=== PATIENT | female | born 1935 | race Caucasian/White ===

== ENCOUNTER 2017-08-25 10:09 | Observation (INO) | payer MEDICARE, BC ==
[2017-08-25] MEDS ORDERED: ASPIRIN 81 MG PO STA (10:34)
[2017-08-25] MEDS ORDERED: NITROGLYCERIN OINT 1 INCH/GM PACKET TOPICAL STA (10:34)
--- NOTE | 2017-08-25 10:35 | ED ---
General Adult HPI - General Chief complaint: Chest Pain Stated complaint: CHEST PAIN Time Seen by Provider: 08/25/17 10:10 Source: patient, RN notes reviewed Mode of arrival: wheelchair Limitations: no limitations - History of Present Illness Initial comments: This is a 82-year-old female presents emergency Department complaining that she' s having chest pain since 2 AM this morning. Patient denies any radiation of the pain patient denies any difficulty breathing or shortness of breath per patient denies any nausea. Patient denies any diaphoresis. Patient states the pain is a pressure sensation in her chest and is been ongoing without relief. Patient states she does not have any heart history. Patient denies any diabetes hypertension high cholesterol. Patient denies any smoking history. Patient states she does have a pacemaker and is on a blood thinner. - Related Data Home Medications Medication Instructions Recorded Confirmed Multivitamins, Thera [Multivitamin 1 tab PO HS 08/25/17 08/25/17 (formulary)] Warfarin [Coumadin] 5 mg PO SUTUTHSA 08/25/17 08/25/17 Warfarin [Coumadin] 7.5 mg PO MOWEFR 08/25/17 08/25/17 Allergies Allergy/AdvReac Type Severity Reaction Status Date / Time meperidine HCl [From Demerol] AdvReac Nausea & Verified 08/25/17 10:56 Vomiting Review of Systems ROS Statement: Those systems with pertinent positive or pertinent negative responses have been documented in the HPI. ROS Other: All systems not noted in ROS Statement are negative. Past Medical History Past Medical History: Atrial Fibrillation, Cancer, Osteoarthritis (OA) Additional Past Medical History / Comment(s): BREAST CANCER History of Any Multi-Drug Resistant Organisms: None Reported Past Surgical History: Pacemaker Additional Past Surgical History / Comment(s): CATARACT SURGERY,BILATERAL SIMPLE MASTECTOMY Past Anesthesia/Blood Transfusion Reactions: No Reported Reaction Type of Cardiac Device: Permanent Pacemaker Device Placement Date:: 06/2000 Past Psychological History: No Psychological Hx Reported Smoking Status: Never smoker Past Alcohol Use History: None Reported Past Drug Use History: None Reported - Past Family History Mother Family Medical History: Cancer Daughter(s) Family Medical History: Cancer Father Family Medical History: No Reported History Additional Family Medical History / Comment(s): Father was healthy and lived to be 94 yrs old. General Exam - General Exam Comments Initial Comments: GENERAL: Patient is well-developed and well-nourished. Patient is nontoxic and well- hydrated and is in mild distress. ENT: Neck is soft and supple. No significant lymphadenopathy is noted. Oropharynx is clear. Moist mucous membranes. Neck has full range of motion without eliciting any pain. EYES: The sclera were anicteric and conjunctiva were pink and moist. Extraocular movements were intact and pupils were equal round and reactive to light. Eyelids were unremarkable. PULMONARY: Unlabored respirations. Good breath sounds bilaterally. No audible rales rhonchi or wheezing was noted. CARDIOVASCULAR: There is a regular rate and rhythm without any murmurs gallops or rubs. ABDOMEN: Soft and nontender with normal bowel sounds. No palpable organomegaly was noted. There is no palpable pulsatile mass. SKIN: Skin is clear with no lesions or rashes and otherwise unremarkable. NEUROLOGIC: Patient is alert and oriented x3. Cranial nerves II through XII are grossly intact. Motor and sensory are also intact. Normal speech, volume and content. Symmetrical smile. MUSCULOSKELETAL: Normal extremities with adequate strength and full range of motion. No lower extremity swelling or edema. No calf tenderness. LYMPHATICS: No significant lymphadenopathy is noted PSYCHIATRIC: Normal psychiatric evaluation. Normal interpersonal interactions appears functionally intact in deals appropriately with others. No signs of depression. No signs of anxiety. Limitations: no limitations Course Vital Signs 08/25/17 08/25/17 08/25/17 10:12 10:32 12:49 Temperature 98.4 F Pulse Rate 78 62 60 Respiratory 20 20 18 Rate Blood Pressure 152/70 138/69 124/68 O2 Sat by Pulse 95 97 97 Oximetry Medical Decision Making - Medical Decision Making EKG shows a ventricularly paced rhythm at 65 bpm QRS is 170 QT interval 442 QTC is 459 Chest x-ray shows no acute abnormality. Patient states she got the Nitropaste to the emergency department and it completely reduced her pain to 0. The patient will be admitted I will write admitting orders consult cardiology. I spoke with Dr. ardon with the admitting doctor and he agreed to accept the admission. - Lab Data Result diagrams: 08/25/17 10:35 08/26/17 06:22 Lab Results 08/25/17 08/25/17 08/25/17 Range/Units 10:35 10:35 10:35 WBC 8.7 (3.8-10.6) k/uL RBC 3.81 (3.80-5.40) m/uL Hgb 13.3 (11.4-16.0) gm/dL Hct 39.5 (34.0-46.0) % MCV 103.8 H (80.0-100.0) fL MCH 34.8 (25.0-35.0) pg MCHC 33.5 (31.0-37.0) g/dL RDW 13.8 (11.5-15.5) % Plt Count 143 L (150-450) k/uL Neutrophils % 79 % Lymphocytes % 12 % Monocytes % 8 % Eosinophils % 1 % Basophils % 0 % Neutrophils # 6.8 (1.3-7.7) k/uL Lymphocytes # 1.0 (1.0-4.8) k/uL Monocytes # 0.7 (0-1.0) k/uL Eosinophils # 0.1 (0-0.7) k/uL Basophils # 0.0 (0-0.2) k/uL Macrocytosis Slight PT (9.0-12.0) sec INR (<1.2) APTT (22.0-30.0) sec Sodium 141 (137-145) mmol/L Potassium 4.1 (3.5-5.1) mmol/L Chloride 101 (98-107) mmol/L Carbon Dioxide 27 (22-30) mmol/L Anion Gap 13 mmol/L BUN 18 H (7-17) mg/dL Creatinine 0.68 (0.52-1.04) mg/dL Est GFR (CKD-EPI)AfAm >90 (>60 ml/min/1.73 sqM) Est GFR (CKD-EPI)NonAf 83 (>60 ml/min/1.73 sqM) Glucose 127 H (74-99) mg/dL Calcium 9.9 (8.4-10.2) mg/dL Magnesium 1.6 (1.6-2.3) mg/dL Total Bilirubin 1.2 (0.2-1.3) mg/dL AST 48 H (14-36) U/L ALT 53 H (9-52) U/L Alkaline Phosphatase 74 (38-126) U/L Total Creatine Kinase 41 (30-135) U/L CK-MB (CK-2) 0.5 (0.0-2.4) ng/mL CK-MB (CK-2) Rel Index 1.2 Troponin I <0.012 (0.000-0.034) ng/mL NT-Pro-B Natriuret Pep pg/mL Total Protein 6.7 (6.3-8.2) g/dL Albumin 4.3 (3.5-5.0) g/dL 08/25/17 08/25/17 Range/Units 10:35 10:35 WBC (3.8-10.6) k/uL RBC (3.80-5.40) m/uL Hgb (11.4-16.0) gm/dL Hct (34.0-46.0) % MCV (80.0-100.0) fL MCH (25.0-35.0) pg MCHC (31.0-37.0) g/dL RDW (11.5-15.5) % Plt Count (150-450) k/uL Neutrophils % % Lymphocytes % % Monocytes % % Eosinophils % % Basophils % % Neutrophils # (1.3-7.7) k/uL Lymphocytes # (1.0-4.8) k/uL Monocytes # (0-1.0) k/uL Eosinophils # (0-0.7) k/uL Basophils # (0-0.2) k/uL Macrocytosis PT 16.3 H (9.0-12.0) sec INR 1.8 H (<1.2) APTT 29.8 (22.0-30.0) sec Sodium (137-145) mmol/L Potassium (3.5-5.1) mmol/L Chloride (98-107) mmol/L Carbon Dioxide (22-30) mmol/L Anion Gap mmol/L BUN (7-17) mg/dL Creatinine (0.52-1.04) mg/dL Est GFR (CKD-EPI)AfAm (>60 ml/min/1.73 sqM) Est GFR (CKD-EPI)NonAf (>60 ml/min/1.73 sqM) Glucose (74-99) mg/dL Calcium (8.4-10.2) mg/dL Magnesium (1.6-2.3) mg/dL Total Bilirubin (0.2-1.3) mg/dL AST (14-36) U/L ALT (9-52) U/L Alkaline Phosphatase (38-126) U/L Total Creatine Kinase (30-135) U/L CK-MB (CK-2) (0.0-2.4) ng/mL CK-MB (CK-2) Rel Index Troponin I (0.000-0.034) ng/mL NT-Pro-B Natriuret Pep 1090 pg/mL Total Protein (6.3-8.2) g/dL Albumin (3.5-5.0) g/dL Disposition Clinical Impression: Unstable angina pectoris Disposition: ADMITTED IP TO THIS HOSP Is patient prescribed a controlled substance at d/c from ED?: No Time of Disposition: 12:23
[2017-08-25 10:48] LABS: Basophils % (A) 0 %; Eosinophils # (A) 0.1 k/uL (0-0.7); Eosinophils % (A) 1 %; HCT 39.5 % (34.0-46.0); HGB 13.3 gm/dL (11.4-16.0); Lymphocytes % (A) 12 %; MCH 34.8 pg (25.0-35.0); MCHC 33.5 g/dL (31.0-37.0); MCV 103.8 fL (80.0-100.0); Macrocytosis Slight; Mean Platelet Volume 8.4; Monocytes # (A) 0.7 k/uL (0-1.0); Monocytes % (A) 8 %; Neutrophils # (A) 6.8 k/uL (1.3-7.7); Neutrophils % (A) 79 %; Platelet Count 143 k/uL (150-450); RBC 3.81 m/uL (3.80-5.40); RDW 13.8 % (11.5-15.5); WBC 8.7 k/uL (3.8-10.6)
[2017-08-25 10:58] LABS: ALT 53 U/L (9-52); AST 48 U/L (14-36); Albumin 4.3 g/dL (3.5-5.0); Alkaline Phosphatase 74 U/L (38-126); Anion Gap 13 mmol/L; Blood Urea Nitrogen 18 mg/dL (7-17); Calcium 9.9 mg/dL (8.4-10.2); Carbon Dioxide 27 mmol/L (22-30); Chloride 101 mmol/L (98-107); Glucose 127 mg/dL (74-99); Magnesium 1.6 mg/dL (1.6-2.3); Potassium 4.1 mmol/L (3.5-5.1); Sodium 141 mmol/L (137-145); Total Bilirubin 1.2 mg/dL (0.2-1.3); Total Protein 6.7 g/dL (6.3-8.2)
[2017-08-25 11:00] LABS: INR 1.8 (<1.2); Partial Thromboplastin Time 29.8 sec (22.0-30.0); Prothrombin Time 16.3 sec (9.0-12.0)
[2017-08-25 11:16] LABS: Creatine Kinase 41 U/L (30-135)
--- NOTE | 2017-08-25 11:18 | XR ---
EXAMINATION TYPE: XR chest 2V DATE OF EXAM: 08/25/2017 COMPARISON: NONE HISTORY: Chest pain TECHNIQUE: Frontal and lateral views of the chest are obtained. FINDINGS: The heart is enlarged. Generator is present in the left pectoral region, pacemaker leads i n the right atrium and ventricle. No pneumothorax or pleural effusion. Pulmonary vascularity and deja are within normal limits. IMPRESSION: Cardiomegaly.
[2017-08-25 11:27] LABS: Creatine Kinase MB 0.5 ng/mL (0.0-2.4); Troponin I <0.012 ng/mL (0.000-0.034)
[2017-08-25] MEDS ORDERED: NITROGLYCERIN SL TABS 0.4 MG TAB SUBLINGUAL PRN (12:39)
[2017-08-25] MEDS ORDERED: ACETAMINOPHEN TAB 325 MG TAB PO PRN (15:11)
[2017-08-25] MEDS ORDERED: NALOXONE 0.4 MG/ML 1 ML VIAL IV PRN (15:11)
--- NOTE | 2017-08-25 15:25 | P.HPIM ---
History of Present Illness H&P Date: 08/25/17 Chief Complaint: Chest pressure 82-year-old female presents to the emergency Department complaining that she's having chest pain since 2 AM this morning that woke her up from sleep last night. The pressure continues until the time of the evaluation although currently it is less in severity. Pain is located in the left side of the chest , no radiation. No diaphoresis, nausea, vomiting, palpitations or shortness of breath. Patient never had this type of pressure in the past. Patient's only cardiac history includes atrial fibrillation, she is status post placement of a pacemaker and she is on Coumadin as well. Review of Systems 12 point review of system was performed, negative except HPI Past Medical History Past Medical History: Atrial Fibrillation, Cancer Additional Past Medical History / Comment(s): Breast cancer with bilateral simple mastectomies, "leaky" heart valve. History of Any Multi-Drug Resistant Organisms: None Reported Past Surgical History: Breast Surgery, Cardiac Ablation, Joint Replacement, Pacemaker Additional Past Surgical History / Comment(s): EPS WITH CARDIAC ABLATIONS, BILATERAL SIMPLE MASTECTOMIES, BILATERAL TOTAL KNEE ARTHROPLASTIES, BILATERAL CATARACT REMOVAL WITH LENS IMPLANTS, HYSTERECTOMY WITH BILATERAL SALPINGECTOMY OOPHORECTOMY, COLONOSCOPY. Past Anesthesia/Blood Transfusion Reactions: No Reported Reaction Type of Cardiac Device: Permanent Pacemaker Device Placement Date:: 06/2000 DUAL CHAMBER PLACED AND GEN CHANGE 2014. Smoking Status: Never smoker Past Alcohol Use History: Occasional - Past Family History Father Family Medical History: No Reported History Additional Family Medical History / Comment(s): Father was healthy and lived to be 94 yrs old. Mother Family Medical History: Cancer Additional Family Medical History / Comment(s): Mother had breast cancer and so did 3 of her sisters. Daughter(s) Family Medical History: Cancer Additional Family Medical History / Comment(s): Olderst daughter from breast cancer. Medications and Allergies Home Medications Medication Instructions Recorded Confirmed Type Multivitamins, Thera [Multivitamin 1 tab PO HS 08/25/17 08/25/17 History (formulary)] Warfarin [Coumadin] 5 mg PO SUTUTHSA 08/25/17 08/25/17 History Warfarin [Coumadin] 7.5 mg PO MOWEFR 08/25/17 08/25/17 History Allergies Allergy/AdvReac Type Severity Reaction Status Date / Time meperidine HCl [From Demerol] AdvReac Nausea & Verified 08/25/17 10:56 Vomiting Physical Exam Vitals: Vital Signs Temp Pulse Pulse Resp BP BP Pulse Ox 08/25/17 13:40 98.1 F 65 16 123/58 93 L 08/25/17 12:49 60 18 124/68 97 08/25/17 10:32 62 20 138/69 97 08/25/17 10:12 98.4 F 78 20 152/70 95 Intake and Output 08/25/17 08/25/17 08/25/17 06:59 14:59 22:59 Other: Weight 79.7 kg Constitutional: No acute distress, conversant, pleasant Eyes:Anicteric sclerae, moist conjunctiva, no lid-lag, PERRLA, ENMT: Oropharynx clear, no erythema, exudates Neck: Supple, FROM, no masses, or JVD, No carotid bruits, No thyromegaly Lungs: Clear to auscultation, Clear to percussion, Normal respiratory effort, no accessory muscle use Cardiovascular: Heart regular in rate and rhythm, positive systolic murmur, no gallops, or rubs, No peripheral edema Abdominal: Soft, Nontender, no guarding, rebound or rigidity, Normoactive bowel sounds, No hepatomegaly, No splenomegaly, No palpable mass Skin: Normal temperature, tone, texture, turgor, no induration, No subcutaneous nodules, No rash, lesions, No ulcers Extremities: No digital cyanosis, No clubbing, Pedal pulses intact and symmetrical, Radial pulses intact and symmetrical, No calf tenderness Psychiatric: Alert and oriented to person, place and time, appropriate affect, intact judgement Neuro: Muscles Strength 5/5 in all 4 extremities, Sensation to light touch grossly present throughout, Cranial nerves II-XII grossly intact, no focal sensory deficits Results CBC & Chem 7: 08/25/17 10:35 08/25/17 10:35 Labs: Abnormal Lab Results - Last 24 Hours (Table) 08/25/17 08/25/17 08/25/17 Range/Units 10:35 10:35 10:35 MCV 103.8 H (80.0-100.0) fL Plt Count 143 L (150-450) k/uL PT 16.3 H (9.0-12.0) sec INR 1.8 H (<1.2) BUN 18 H (7-17) mg/dL Glucose 127 H (74-99) mg/dL AST 48 H (14-36) U/L ALT 53 H (9-52) U/L Thrombosis Risk Factor Assmnt - Choose All That Apply Any of the Below Risk Factors Present?: Yes Each Factor Represents 1 point: Obesity (BMI >25) Other Risk Factors: Yes Each Risk Factor Represents 2 Points: Malignancy Each Risk Factor Represents 3 Points: Age 75 years or older Other congenital or acquired thrombophilia - If yes, enter type in comment: No Thrombosis Risk Factor Assessment Total Risk Factor Score: 6 Thrombosis Risk Factor Assessment Level: High Risk Assessment and Plan Plan: #1 Acute chest pressure Admit to observation Telemetry Cardiology consult Cycle troponins Check lipid profile #2 History of atrial fibrillation status post pacemaker placement Resume Coumadin Check INR in a.m.
[2017-08-25 16:03] LABS: Creatine Kinase 30 U/L (30-135); Magnesium 1.8 mg/dL (1.6-2.3); Phosphorus 4.1 mg/dL (2.5-4.5)
[2017-08-25 16:16] LABS: Creatine Kinase MB 0.3 ng/mL (0.0-2.4); Troponin I <0.012 ng/mL (0.000-0.034)
[2017-08-25] MEDS ORDERED: WARFARIN 5 MG TAB PO SCH (18:00)
[2017-08-25] MEDS: NITROGLYCERIN OINT 1 INCH/GM PACKET TOPICAL SCH ×2 (18:14→23:33)
[2017-08-25 22:50] LABS: Creatine Kinase 32 U/L (30-135)
[2017-08-25 23:02] LABS: Creatine Kinase MB 0.4 ng/mL (0.0-2.4); Troponin I <0.012 ng/mL (0.000-0.034)
[2017-08-26 06:12] VITALS: RESP 18
[2017-08-26 07:02] LABS: INR 1.8 (<1.2); Prothrombin Time 16.8 sec (9.0-12.0)
[2017-08-26 07:19] LABS: ALT 43 U/L (9-52); AST 35 U/L (14-36); Albumin 3.2 g/dL (3.5-5.0); Alkaline Phosphatase 56 U/L (38-126); Anion Gap 9 mmol/L; Blood Urea Nitrogen 15 mg/dL (7-17); Calcium 8.9 mg/dL (8.4-10.2); Carbon Dioxide 29 mmol/L (22-30); Chloride 103 mmol/L (98-107); Cholesterol 124 mg/dL (<200); Glucose 103 mg/dL (74-99); HDL Cholesterol 66 mg/dL (40-60); LDL Cholesterol,Calculated 48 mg/dL (0-99); Potassium 4.2 mmol/L (3.5-5.1); Sodium 141 mmol/L (137-145); Total Bilirubin 1.9 mg/dL (0.2-1.3); Total Protein 5.5 g/dL (6.3-8.2); Triglycerides 52 mg/dL (<150)
[2017-08-26] MEDS ORDERED: ASPIRIN 325 MG TAB PO SCH (09:00)
--- NOTE | 2017-08-26 11:26 | ECHOS ---
STRESS ECHOCARDIOGRAM DATE OF SERVICE: 08/26/2017 INDICATIONS: Chest pain. MEDICATIONS: BASELINE HEART RATE: 68 BASELINE BLOOD PRESSURE: 101/64 MAXIMUM HEART RATE: 95 MAXIMUM BLOOD PRESSURE: 166/68 85% MPHR: 119 100% MPHR: 140 METS: 4 MAXIMUM STAGE REACHED: I TOTAL EXERCISE TIME: 5 minutes CLINICAL INFORMATION: Baseline EKG shows paced rhythm with secondary ST-T wave changes. Patient exercised on Teodoro protocol for a total of 5 minutes achieving 4 METS, 67% of predicted maximal heart rate without chest pain. The test was stopped at this level of activity secondary to fatigue and tiredness. Baseline echo shows normal left ventricular size, atypical septal motion secondary to paced rhythm with normal LV function with an ejection fraction of 60%. Postexercise, we do not see any exercise induced wall motion abnormalities. CONCLUSIONS: 1. Inconclusive stress echo due to inability to attain target heart rate. 2. Inconclusive EKG part of the stress test due to paced rhythm. 3. At 67% of predicted maximal heart rate, no exercise-induced wall motion abnormalities noted and patient did not have any chest discomfort on treadmill. Patient will need a Lexiscan for definitive diagnosis, but this can be done in the outpatient setting through her primary handle turner. MMODL / IJN: [id number] /
--- NOTE | 2017-08-26 11:50 | P.DS ---
Providers Date of admission: 08/25/17 12:44 Expected date of discharge: 08/26/17 Attending physician: Edwina Bills MD Consults: 08/25/17 12:39 Consult Physician Urgent Consulting Provider: [facility] Consult Reason/Comments: Unstable angina Do you want consulting provider notified?: Yes Primary care physician: Stated None - Discharge Diagnosis(es) (1) Chest pain Current Visit: Yes Status: Acute Hospital Course: 82-year-old female with a known history of atrial fibrillation with permanent pacemaker on warfarin presented with chest pressure/discomfort which woke her up from sleep. Chest discomfort is not associated with activity, not relieved by rest; nonradiating. Patient states her , who is a physician, commenced her to come into the hospital to get it checked out. While in the ECG , no acute ST or T-wave changes noted, ECG paced, troponins negative 3. Patient underwent exercise stress echo which was suboptimal due to patient not achieving target heart rate, was only 67% predicted maximal heart rate. Baseline echo showed normal LV size, atypical septal motion secondary to paced rhythm, normal ejection fraction; post exercise no exercise induced wall motion abnormalities seen. As the patient has had no recurrent chest discomfort, and troponins negative, patient will follow up with her primary flight security specialist for further investigation. General: A/O x 3, NAD, Lying in bed comfortably HEENT: EOMI, MMM, atraumatic normocephalic Neck: Supple. No JVD, trachea midline CVS: Regular rate and rhythm. + S1/S2, 2/6 systolic ejection murmur left sternal border Respiratory: Bilateral air entry noted. Clear to auscultation, no wheeze, no rhonchi Abdomen: Soft, nontender, nondistended. Bowel sounds audible Extremities: No lower extremity edema. No clubbing or cyanosis Skin: No rash or skin change noted Psych: Without hallucinations, abnormal affect, or abnormal behaviors during the examination Plan - Discharge Summary Discharge Rx Participant: No New Discharge Prescriptions: New Warfarin [Coumadin] 7.5 mg PO SUMOWEFR tab Warfarin [Coumadin] 5 mg PO TUTHSA tab Continue Multivitamins, Thera [Multivitamin (formulary)] 1 tab PO HS Discontinued Warfarin [Coumadin] 5 mg PO SUTUTHSA Warfarin [Coumadin] 7.5 mg PO MOWEFR Discharge Medication List Multivitamins, Thera [Multivitamin (formulary)] 1 tab PO HS 08/25/17 [History] Warfarin [Coumadin] 5 mg PO TUTHSA tab 08/26/17 [Rx] Warfarin [Coumadin] 7.5 mg PO SUMOWEFR tab 08/26/17 [Rx] Follow up Appointment(s)/Referral(s): Renetta Sanders MD [STAFF PHYSICIAN] - 1 Week (office will call patient with appointment) None,Stated [Primary Care Provider] - 1-2 days Discharge Disposition: HOME SELF-CARE
[2017-08-26 11:54] VITALS: BP 139/72; PULSE 62; TEMP 98
--- NOTE | 2017-08-26 12:12 | P.CRDCN ---
History of Present Illness Consult date: 08/26/17 History of present illness: Mrs. John is a pleasant 82-year-old female past medical history significant for atrial fibrillation s/p AV node ablation, third degree heart block s/p permanent pacemaker implantation, mitral regurgitation and breast cancer. She follows with Dr. Sanders in the office. We have been asked to see her in consultation for chest pain. She woke up around 199 with a burning heavy sensation in the mid-sternal region. No radiation of the pain or associated symptoms. She went downstairs and got a pepto bismol, milk and some sodium bicarb. The intensity seemed to decrease but she continue to feel a discomfort in the chest. She has not had reflux ever in the past. There was a mild discomfort that continued into the morning and she decided to come in for evaluation. The pain ultimately subsided on its own with no specific aggravating or alleviating factors. She has been chest pain free overnight. EKG reveals paced rhythm, telemetry tracings have been unremarkable. Chest xray is negative for an acute cardiopulmonary event. Laboratory data reviewed, hemoglobin 13.3, platelets 143, INR 1.8, sodium 141, potassium 4.2, creatinine 0.57, magnesium 1.8, cardiac enzymes negative 3, proBNP 1090, HDL 66, LDL 48. Her current cardiac medications include Coumadin. Review of Systems At the time of my exam: CONSTITUTIONAL: Denies fever. Denies chills. EYES: Denies blurred vision. Denies vision changes. Denies eye pain. EARS, NOSE, MOUTH & THROAT: Denies headache. Denies sore throat. Denies ear pain. CARDIOVASCULAR: Denies chest pain. Denies shortness of breath. Denies orthopnea. Denies PND. Denies palpitations. RESPIRATORY: Denies cough. GASTROINTESTINAL: Denies abdominal pain. Denies diarrhea. Denies constipation. Denies nausea. Denies vomiting. MUSCULOSKELETAL: Denies myalgias. INTEGUMENTARY: Denies pruitis. Denies rash. NEUROLOGIC: Denies numbness. Denies tingling. Denies weakness. PSYCHIATRIC: Denies anxiety. Denies depression. ENDOCRINE: Denies fatigue. Denies weight change. Denies polydipsia. Denies polyurina. GENITOURINARY: Denies burning, hematuria or urgency with micturation. HEMATOLOGIC: Denies history of anemia. Denies bleeding. Past Medical History Past Medical History: Atrial Fibrillation, Cancer Additional Past Medical History / Comment(s): Breast cancer with bilateral simple mastectomies, "leaky" heart valve. History of Any Multi-Drug Resistant Organisms: None Reported Past Surgical History: Breast Surgery, Cardiac Ablation, Joint Replacement, Pacemaker Additional Past Surgical History / Comment(s): EPS WITH CARDIAC ABLATIONS, BILATERAL SIMPLE MASTECTOMIES, BILATERAL TOTAL KNEE ARTHROPLASTIES, BILATERAL CATARACT REMOVAL WITH LENS IMPLANTS, HYSTERECTOMY WITH BILATERAL SALPINGECTOMY OOPHORECTOMY, COLONOSCOPY. Past Anesthesia/Blood Transfusion Reactions: No Reported Reaction Type of Cardiac Device: Permanent Pacemaker Device Placement Date:: 06/2000 DUAL CHAMBER PLACED AND GEN CHANGE 2014. Smoking Status: Never smoker Past Alcohol Use History: Occasional - Past Family History Father Family Medical History: No Reported History Additional Family Medical History / Comment(s): Father was healthy and lived to be 94 yrs old. Mother Family Medical History: Cancer Additional Family Medical History / Comment(s): Mother had breast cancer and so did 3 of her sisters. Daughter(s) Family Medical History: Cancer Additional Family Medical History / Comment(s): Olderst daughter from breast cancer. Medications and Allergies Home Medications Medication Instructions Recorded Confirmed Type Multivitamins, Thera [Multivitamin 1 tab PO HS 08/25/17 08/25/17 History (formulary)] Warfarin [Coumadin] 5 mg PO TUTHSA tab 08/26/17 Rx Warfarin [Coumadin] 7.5 mg PO SUMOWEFR tab 08/26/17 Rx Allergies Allergy/AdvReac Type Severity Reaction Status Date / Time meperidine HCl [From Demerol] AdvReac Nausea & Verified 08/25/17 10:56 Vomiting Physical Exam Vitals: Vital Signs Temp Pulse Pulse Pulse Resp BP BP 08/26/17 04:00 98.1 F 61 18 126/63 08/26/17 03:09 16 08/26/17 00:00 60 16 119/64 08/25/17 20:00 98.6 F 64 18 135/65 08/25/17 13:40 98.1 F 65 16 123/58 08/25/17 12:49 60 18 124/68 08/25/17 10:32 62 20 138/69 08/25/17 10:12 98.4 F 78 20 152/70 Pulse Ox 08/26/17 04:00 91 L 08/26/17 03:09 08/26/17 00:00 93 L 08/25/17 20:00 94 L 08/25/17 13:40 93 L 08/25/17 12:49 97 08/25/17 10:32 97 08/25/17 10:12 95 Intake and Output 08/25/17 08/26/17 08/26/17 22:59 06:59 14:59 Other: Voiding Method Toilet Toilet # Voids 2 2 Blood pressure 127/76 heart rate 65 afebrile maintaining oxygen saturation on room air GENERAL: This is a 82-year-old female in no apparent distress at the time of my examination. HEENT: Head is atraumatic, normocephalic. Pupils are equal, round. Sclerae anicteric. Conjunctivae are clear. Mucous membranes of the mouth are moist. Neck is supple. There is no jugular venous distention. No carotid bruit is heard. LUNGS: Clear to auscultation no wheezes, rales or rhonchi. No chest wall tenderness is noted on palpation or with deep breathing. HEART: Regular rate and rhythm with murmur at the left sternal border, no rubs or gallops. S1 and S2 heard. ABDOMEN: Soft, nontender. Bowel sounds are heard. No organomegaly noted. EXTREMITIES: No evidence of peripheral edema and no calf tenderness noted. VASCULAR: Radial and dorsalis pedis pulses palpated, no evidence of clubbing. NEUROLOGIC: Patient is awake, alert and oriented x3. Results 08/25/17 10:35 08/26/17 06:22 Cardiac Enzymes 08/25/17 08/25/17 08/25/17 Range/Units 10:35 10:35 15:28 AST 48 H (14-36) U/L CK-MB (CK-2) 0.5 0.3 (0.0-2.4) ng/mL Troponin I <0.012 <0.012 (0.000-0.034) ng/mL 08/25/17 08/26/17 Range/Units 21:56 06:22 AST 35 (14-36) U/L CK-MB (CK-2) 0.4 (0.0-2.4) ng/mL Troponin I <0.012 (0.000-0.034) ng/mL Coagulation 08/25/17 08/26/17 Range/Units 10:35 06:22 PT 16.3 H 16.8 H (9.0-12.0) sec APTT 29.8 (22.0-30.0) sec Lipids 08/26/17 Range/Units 06:22 Triglycerides 52 (<150) mg/dL Cholesterol 124 (<200) mg/dL HDL Cholesterol 66 H (40-60) mg/dL CBC 08/25/17 Range/Units 10:35 WBC 8.7 (3.8-10.6) k/uL RBC 3.81 (3.80-5.40) m/uL Hgb 13.3 (11.4-16.0) gm/dL Hct 39.5 (34.0-46.0) % Plt Count 143 L (150-450) k/uL Comprehensive Metabolic Panel 08/25/17 08/26/17 Range/Units 10:35 06:22 Sodium 141 141 (137-145) mmol/L Potassium 4.1 4.2 (3.5-5.1) mmol/L Chloride 101 103 (98-107) mmol/L Carbon Dioxide 27 29 (22-30) mmol/L BUN 18 H 15 (7-17) mg/dL Creatinine 0.68 0.57 (0.52-1.04) mg/dL Glucose 127 H 103 H (74-99) mg/dL Calcium 9.9 8.9 (8.4-10.2) mg/dL AST 48 H 35 (14-36) U/L ALT 53 H 43 (9-52) U/L Alkaline Phosphatase 74 56 (38-126) U/L Total Protein 6.7 5.5 L (6.3-8.2) g/dL Albumin 4.3 3.2 L (3.5-5.0) g/dL Current Medications Generic Name Dose Route Start Last Admin Trade Name Freq PRN Reason Stop Dose Admin Acetaminophen 650 mg 08/25/17 15:11 Tylenol Tab PO Q6HR PRN Mild Pain or Fever > 100.5 Aspirin 325 mg 08/26/17 09:00 Aspirin PO DAILY LALITO Naloxone HCl 0.2 mg 08/25/17 15:11 Narcan IV Q2M PRN Opioid Reversal Nitroglycerin 1 inch 08/25/17 18:00 08/25/17 23:33 Nitro-Bid Oint TOPICAL Not Given Q6HR [facility] Nitroglycerin 0.4 mg 08/25/17 12:39 Nitrostat SUBLINGUAL Q5M PRN Chest Pain Warfarin Sodium 5 mg 08/25/17 18:00 08/25/17 18:15 Coumadin PO 5 mg SUTUTHSA [facility] Administration Warfarin Sodium 7.5 mg 08/26/17 18:00 Coumadin PO MOWEFR [facility] Intake and Output 08/25/17 08/26/17 08/26/17 22:59 06:59 14:59 Other: Voiding Method Toilet Toilet # Voids 2 2 08/25/17 10:35 08/26/17 06:22 Assessment and Plan Assessment: ASSESSMENT 1. Precordial chest pain. An acute coronary event has been ruled out. No EKG evidence of ischemia and negative cardiac enzymes. 2. History of paroxysmal atrial fibrillation on long-term anticoagulation with Coumadin 3. Status post permanent pacemaker implantation secondary to complete heart block 4. Subtherapeutic INR PLAN Obtain 2-D echocardiogram and Doppler study to assess cardiac structure and function. Perform exercise stress echocardiogram to assess for stress induced cardiac ischemia. Adjust Coumadin dosing. She should take 7.5 mg 4 days a week and 5 mg 3 days a week. This has been communicated to the patient. Stress testing is normal she is stable from a cardiac perspective. Follow-up with Dr. Sanders in one to 2 weeks. Nurse Practitioner note has been reviewed, I agree with a documented findings and plan of care. Patient was seen and examined.
[2017-08-26] MEDS ORDERED: WARFARIN 7.5 MG TAB PO SCH (18:00)
[2017-08-26] MEDS ORDERED: WARFARIN 5 MG TAB PO SCH (18:00)
[2017-08-27] MEDS ORDERED: WARFARIN 5 MG TAB PO SCH (18:00)
--- NOTE | 2017-08-29 12:46 | ECHOF ---
Referral Reason: MEASUREMENTS -------- HEIGHT: 167.6 cm WEIGHT: 79.4 kg BP: IVSd: 1.6 cm (0.6 - 1.1) LVIDd: 2.8 cm (3.9 - 5.3) LVPWd: 1.5 cm (0.6 - 1.1) IVSs: 1.7 cm LVIDs: 2.1 cm LVPWs: 1.4 cm LAESV Index (A-L): 84.58 ml/m Ao Diam: 3.3 cm (2.0 - 3.7) AV Cusp: 1.3 cm (1.5 - 2.6) LA Diam: 5.3 cm (2.7 - 3.8) MV EXCURSION: 19.783 mm (> 18.000) MV EF SLOPE: 70 mm/s (70 - 150) EPSS: 0.7 cm MV E Alek: 1.42 m/s MV DecT: 166 ms MV A Alek: 0.55 m/s MV E/A Ratio: 2.59 AV maxP.83 mmHg AV meanP.90 mmHg RAP: 15.00 mmHg RVSP: 45.32 mmHg FINDINGS -------- Paced rhythm. This was a technically good study. The left ventricular size is normal. There is moderate concentric left ventricular hypertrophy. O verall left ventricular systolic function is low-normal with, an EF between 50 - 55 %. The right ventricle is normal in size and function. LA is severely dilated >40 ml/m2 RA appears enlarged. Aortic valve is trileaflet and is mildly thickened. There is mild aortic stenosis present. Peak/m nat gradient across the Aortic Valve is 16.83mmHg / 8.90mmHg. The mitral valve leaflets are mildly thickened. Severe mitral regurgitation is present. Severe tricuspid regurgitation present. There is mild pulmonary hypertension. The right ventricul ar systolic pressure, as measured by Doppler, is 45.32mmHg. Pulmonic valve appears structurally normal. The aortic root size is normal. The inferior vena cava is mildly dilated. The pericardium is normal. CONCLUSIONS -------- 1. Paced rhythm. 2. This was a technically good study. 3. The left ventricular size is normal. 4. There is moderate concentric left ventricular hypertrophy. 5. Overall left ventricular systolic function is low-normal with, an EF between 50 - 55 %. 6. The right ventricle is normal in size and function. 7. LA is severely dilated >40 ml/m2 8. RA appears enlarged. 9. Aortic valve is trileaflet and is mildly thickened. 10. There is mild aortic stenosis present. 11. Peak/mean gradient across the Aortic Valve is 16.83mmHg / 8.90mmHg. 12. The mitral valve leaflets are mildly thickened. 13. Severe mitral regurgitation is present. 14. Severe tricuspid regurgitation present. 15. There is mild pulmonary hypertension. 16. The right ventricular systolic pressure, as measured by Doppler, is 45.32mmHg. 17. Pulmonic valve appears structurally normal. 18. The aortic root size is normal. 19. The inferior vena cava is mildly dilated. 20. The pericardium is normal. PAYMENT POSTER: Susannah Romero RDCS
== END 2017-08-26 13:05 | disposition home or self-care (01) ==
LOC: EC 10:09 → 3OBS 12:44
PROVIDERS: ADMIT Internal Medicine; ATTEND Internal Medicine
DX: R07.89 Other chest pain (principal); I48.0 Paroxysmal atrial fibrillation; R79.1 Abnormal coagulation profile; M19.90 Unspecified osteoarthritis, unspecified site; E66.9 Obesity, unspecified; Z68.28 Body mass index [BMI] 28.0-28.9, adult; Z95.0 Presence of cardiac pacemaker; Z79.01 Long term (current) use of anticoagulants; Z88.5 Allergy status to narcotic agent; Z85.3 Personal history of malignant neoplasm of breast; Z96.653 Presence of artificial knee joint, bilateral; Z96.1 Presence of intraocular lens; Z90.710 Acquired absence of both cervix and uterus; Z90.13 Acquired absence of bilateral breasts and nipples; Z80.3 Family history of malignant neoplasm of breast
CPT/HCPCS: 99285 ×2; 36415; 93005; 93306; 93351; 83880; 80061; 80053 ×2; 82550; 82553; 83735; 84100; 84484; 85025; 85610 ×2; 85730; 71046; G0378 ×2

== ENCOUNTER 2020-02-17 22:07 | Emergency (ER) | payer MEDICARE, BC ==
[2020-02-17 22:13] VITALS: BP 170/77; PULSE 63; RESP 18; TEMP 97.9
[2020-02-17] MEDS ORDERED: ONDANSETRON 4 MG/2 ML VIAL IVP STA (22:51)
[2020-02-17] MEDS ORDERED: MORPHINE SULFATE 2 MG/ML SYRINGE IVP STA (22:51)
[2020-02-17] MEDS ORDERED: SODIUM CHLORIDE 0.9% 500 ML 500 ML IV STA (22:51)
--- NOTE | 2020-02-17 22:58 | ED ---
General Adult HPI - General Source: patient Mode of arrival: wheelchair Limitations: no limitations <Homa Galvez - Last Filed: 02/17/20 22:58> <Kirstin Nicole - Last Filed: 02/18/20 06:03> - General Chief complaint: Abdominal Pain Stated complaint: Abd Pain Time Seen by Provider: 02/17/20 22:27 - History of Present Illness Initial comments: 84-year-old female presents to the emergency department this evening with complaints of progressively worsening lower abdominal cramping over the past 4 days. Patient states she is concerned that she has a bowel obstruction as her last formed stool was 4 days ago. Does report passing gas and clear mucus. States her symptoms are accompanied by mild nausea, but denies vomiting. Also reports that she developed a fever today with a T-max of 100.9F. States she is active and is drinking plenty of water; reports taking 2 laxatives earlier today. Patient denies any recent rash, chills, cough, shortness of breath, chest pain, diarrhea, back pain, numbness, tingling, dizziness, weakness, hematuria, dysuria, urinary urgency, urinary frequency, headache, visual changes, or any other complaints. (Homa Galvez) - Related Data Home Medications Medication Instructions Recorded Confirmed Multivitamins, Thera [Multivitamin 1 tab PO HS 08/25/17 08/25/17 (formulary)] Previous Rx's Medication Instructions Recorded Warfarin [Coumadin] 5 mg PO TUTHSA tab 08/26/17 Warfarin [Coumadin] 7.5 mg PO SUMOWEFR tab 08/26/17 Allergies Allergy/AdvReac Type Severity Reaction Status Date / Time meperidine HCl [From Demerol] AdvReac Nausea & Verified 02/17/20 22:13 Vomiting Review of Systems ROS Other: All systems not noted in ROS Statement are negative. <Homa Galvez - Last Filed: 02/17/20 22:58> ROS Other: All systems not noted in ROS Statement are negative. <Kirstin Nicole - Last Filed: 02/18/20 06:03> ROS Statement: Those systems with pertinent positive or pertinent negative responses have been documented in the HPI. Past Medical History Past Medical History: Atrial Fibrillation, Cancer Additional Past Medical History / Comment(s): Breast cancer with bilateral simple mastectomies, "leaky" heart valve. History of Any Multi-Drug Resistant Organisms: None Reported Past Surgical History: Breast Surgery, Cardiac Ablation, Joint Replacement, Pacemaker Additional Past Surgical History / Comment(s): EPS WITH CARDIAC ABLATIONS, BILATERAL SIMPLE MASTECTOMIES, BILATERAL TOTAL KNEE ARTHROPLASTIES, BILATERAL CATARACT REMOVAL WITH LENS IMPLANTS, HYSTERECTOMY WITH BILATERAL SALPINGECTOMY OOPHORECTOMY, COLONOSCOPY. Past Anesthesia/Blood Transfusion Reactions: No Reported Reaction Type of Cardiac Device: Permanent Pacemaker Device Placement Date:: 06/2000 DUAL CHAMBER PLACED AND GEN CHANGE 2014. Past Psychological History: No Psychological Hx Reported Smoking Status: Never smoker Past Alcohol Use History: Daily Past Drug Use History: None Reported - Past Family History Father Family Medical History: No Reported History Additional Family Medical History / Comment(s): Father was healthy and lived to be 94 yrs old. Mother Family Medical History: Cancer Additional Family Medical History / Comment(s): Mother had breast cancer and so did 3 of her sisters. Daughter(s) Family Medical History: Cancer Additional Family Medical History / Comment(s): Olderst daughter from breast cancer. <Homa Galvez [id number] - Last Filed: 02/17/20 22:58> General Exam Limitations: no limitations (Well-developed, well-nourished female presents in no acute distress. Initial temperature 97.9F, pulse 63, respirations 18, blood pressure 170/77, pulse ox 95% on room air.) General appearance: alert, in no apparent distress Respiratory exam: Present: normal lung sounds bilaterally. Absent: respiratory distress, wheezes, rales, rhonchi, stridor Cardiovascular Exam: Present: regular rate, normal rhythm, normal heart sounds, other (Pacemaker present in the left anterior chest ). Absent: systolic murmur, diastolic murmur, rubs, gallop, clicks GI/Abdominal exam: Present: soft, tenderness, normal bowel sounds (Diffuse lower abdominal tenderness upon palpation) Extremities exam: Present: normal inspection, full ROM, normal capillary refill. Absent: tenderness, pedal edema, joint swelling, calf tenderness Neurological exam: Present: alert, oriented X3, CN II-XII intact Psychiatric exam: Present: normal affect, normal mood Skin exam: Present: warm, dry, intact, normal color. Absent: rash <Homa Galvez - Last Filed: 02/17/20 22:58> Course Vital Signs 02/17/20 22:08 Temperature 97.9 F Pulse Rate 63 Respiratory 18 Rate Blood Pressure 170/77 O2 Sat by Pulse 95 Oximetry Medical Decision Making - Lab Data Result diagrams: 02/17/20 23:10 02/17/20 23:10 <Kirstin Nicole - Last Filed: 02/18/20 06:03> - Medical Decision Making Patient was initially seen by Homa Galvez, I took over care at the patient's husbands request. Patient with no BM for 4-5 days duration, abdominal cramping. concerned he can palpate mass in the abdomen. labs were reviewed with the patient and , CT scan with IV contrast was obtained, suggestive of constipation I attempted fecal this impaction with no success, then administered a soap suds enema. Patient reported a small bowel movement afterwards. On multiple occasions I offer the patient observation for abdominal pain and evaluation by Aris Canela but she declined. She'll be given mag citrate and lactulose which she states she will take in the morning. She'll be given a Tylenol 3 starter pack to help with the crampy pain but was advised this will slow her bowels and can worsen constipation. Close return parameters were discussed patient was discharged home in stable condition. (Kirstin Nicole) - Lab Data Lab Results 02/17/20 02/17/20 02/17/20 Range/Units 23:10 23:10 23:10 WBC 9.8 (3.8-10.6) k/uL RBC 4.02 (3.80-5.40) m/uL Hgb 14.5 (11.4-16.0) gm/dL Hct 43.7 (34.0-46.0) % MCV 108.7 H (80.0-100.0) fL MCH 36.2 H (25.0-35.0) pg MCHC 33.3 (31.0-37.0) g/dL RDW 12.7 (11.5-15.5) % Plt Count 137 L (150-450) k/uL Neutrophils % 76 % Lymphocytes % 14 % Monocytes % 7 % Eosinophils % 2 % Basophils % 1 % Neutrophils # 7.4 (1.3-7.7) k/uL Lymphocytes # 1.4 (1.0-4.8) k/uL Monocytes # 0.7 (0-1.0) k/uL Eosinophils # 0.2 (0-0.7) k/uL Basophils # 0.1 (0-0.2) k/uL Macrocytosis Moderate PT 23.5 H (9.0-12.0) sec INR 2.4 H (<1.2) APTT 36.0 H (22.0-30.0) sec Sodium (137-145) mmol/L Potassium (3.5-5.1) mmol/L Chloride (98-107) mmol/L Carbon Dioxide (22-30) mmol/L Anion Gap mmol/L BUN (7-17) mg/dL Creatinine (0.52-1.04) mg/dL Est GFR (CKD-EPI)AfAm (>60 ml/min/1.73 sqM) Est GFR (CKD-EPI)NonAf (>60 ml/min/1.73 sqM) Glucose (74-99) mg/dL Plasma Lactic Acid Cesar (0.7-2.0) mmol/L Calcium (8.4-10.2) mg/dL Total Bilirubin (0.2-1.3) mg/dL AST (14-36) U/L ALT (4-34) U/L Alkaline Phosphatase (38-126) U/L Total Protein (6.3-8.2) g/dL Albumin (3.5-5.0) g/dL Lipase (23-300) U/L Urine Color Yellow Urine Appearance Clear (Clear) Urine pH 5.5 (5.0-8.0) Ur Specific Irving 1.023 (1.001-1.035) Urine Protein Trace H (Negative) Urine Glucose (UA) Negative (Negative) Urine Ketones 2+ H (Negative) Urine Blood Moderate H (Negative) Urine Nitrite Negative (Negative) Urine Bilirubin Negative (Negative) Urine Urobilinogen 2.0 (<2.0) mg/dL Ur Leukocyte Esterase Negative (Negative) Urine RBC 3 (0-5) /hpf Urine WBC 2 (0-5) /hpf Ur Squamous Epith Cells 2 (0-4) /hpf Urine Bacteria Rare H (None) /hpf Urine Mucus Few H (None) /hpf 02/17/20 02/17/20 Range/Units 23:10 23:10 WBC (3.8-10.6) k/uL RBC (3.80-5.40) m/uL Hgb (11.4-16.0) gm/dL Hct (34.0-46.0) % MCV (80.0-100.0) fL MCH (25.0-35.0) pg MCHC (31.0-37.0) g/dL RDW (11.5-15.5) % Plt Count (150-450) k/uL Neutrophils % % Lymphocytes % % Monocytes % % Eosinophils % % Basophils % % Neutrophils # (1.3-7.7) k/uL Lymphocytes # (1.0-4.8) k/uL Monocytes # (0-1.0) k/uL Eosinophils # (0-0.7) k/uL Basophils # (0-0.2) k/uL Macrocytosis PT (9.0-12.0) sec INR (<1.2) APTT (22.0-30.0) sec Sodium 136 L (137-145) mmol/L Potassium 4.1 (3.5-5.1) mmol/L Chloride 105 (98-107) mmol/L Carbon Dioxide 25 (22-30) mmol/L Anion Gap 6 mmol/L BUN 14 (7-17) mg/dL Creatinine 0.69 (0.52-1.04) mg/dL Est GFR (CKD-EPI)AfAm >90 (>60 ml/min/1.73 sqM) Est GFR (CKD-EPI)NonAf 81 (>60 ml/min/1.73 sqM) Glucose 114 H (74-99) mg/dL Plasma Lactic Acid Cesar 0.9 (0.7-2.0) mmol/L Calcium 9.4 (8.4-10.2) mg/dL Total Bilirubin 1.5 H (0.2-1.3) mg/dL AST 44 H (14-36) U/L ALT 37 H (4-34) U/L Alkaline Phosphatase 89 (38-126) U/L Total Protein 7.4 (6.3-8.2) g/dL Albumin 4.5 (3.5-5.0) g/dL Lipase 93 (23-300) U/L Urine Color Urine Appearance (Clear) Urine pH (5.0-8.0) Ur Specific Irving (1.001-1.035) Urine Protein (Negative) Urine Glucose (UA) (Negative) Urine Ketones (Negative) Urine Blood (Negative) Urine Nitrite (Negative) Urine Bilirubin (Negative) Urine Urobilinogen (<2.0) mg/dL Ur Leukocyte Esterase (Negative) Urine RBC (0-5) /hpf Urine WBC (0-5) /hpf Ur Squamous Epith Cells (0-4) /hpf Urine Bacteria (None) /hpf Urine Mucus (None) /hpf Disposition <Homa Galvez - Last Filed: 02/17/20 22:58> Is patient prescribed a controlled substance at d/c from ED?: No <Kirstin Nicole - Last Filed: 02/18/20 06:03> Clinical Impression: Constipation Disposition: HOME SELF-CARE Condition: Stable Additional Instructions: As we discussed, tomorrow you can take the lactulose and magnesium citrate Drink plenty of fluids Take the tylenol #3 if you need it for pain, however this can slow your bowels so do not take too much Return to the ER for any worsening pain Referrals: Sridevi Cline, NPC [Primary Care Provider] - 1-2 days
[2020-02-17 23:27] LABS: Basophils # (A) 0.1 k/uL (0-0.2); Basophils % (A) 1 %; Eosinophils # (A) 0.2 k/uL (0-0.7); Eosinophils % (A) 2 %; HCT 43.7 % (34.0-46.0); HGB 14.5 gm/dL (11.4-16.0); Lymphocytes # (A) 1.4 k/uL (1.0-4.8); Lymphocytes % (A) 14 %; MCH 36.2 pg (25.0-35.0); MCHC 33.3 g/dL (31.0-37.0); MCV 108.7 fL (80.0-100.0); Macrocytosis Moderate; Mean Platelet Volume 7.9; Monocytes # (A) 0.7 k/uL (0-1.0); Monocytes % (A) 7 %; Neutrophils # (A) 7.4 k/uL (1.3-7.7); Neutrophils % (A) 76 %; Platelet Count 137 k/uL (150-450); RBC 4.02 m/uL (3.80-5.40); RDW 12.7 % (11.5-15.5); WBC 9.8 k/uL (3.8-10.6)
[2020-02-17 23:35] LABS: INR 2.4 (<1.2)
[2020-02-17 23:36] LABS: ALT 37 U/L (4-34); AST 44 U/L (14-36); African American GFR (CKD) >90 (>60 ml/min/1.73 sqM); Albumin 4.5 g/dL (3.5-5.0); Alkaline Phosphatase 89 U/L (38-126); Anion Gap 6 mmol/L; Blood Urea Nitrogen 14 mg/dL (7-17); Calcium 9.4 mg/dL (8.4-10.2); Carbon Dioxide 25 mmol/L (22-30); Chloride 105 mmol/L (98-107); Glucose 114 mg/dL (74-99); Non-African American GFR(CKD) 81 (>60 ml/min/1.73 sqM); Potassium 4.1 mmol/L (3.5-5.1); Prothrombin Time 23.5 sec (9.0-12.0); Sodium 136 mmol/L (137-145); Total Bilirubin 1.5 mg/dL (0.2-1.3); Total Protein 7.4 g/dL (6.3-8.2)
[2020-02-17 23:37] LABS: Appearance,Urine Clear (Clear); Bacteria,Urine Rare /hpf; Bilirubin,Urine Negative (Negative); Blood,Urine Moderate (Negative); Color,Urine Yellow; Glucose,Urine (UA) Negative (Negative); Ketones,Urine 2+ (Negative); Leukocyte Esterase,Urine Negative (Negative); Mucus,Urine Few /hpf; Nitrite,Urine Negative (Negative); PH, Urine 5.5 (5.0-8.0); Protein,Urine Trace (Negative); RBC,Urine 3 /hpf (0-5); Specific Gravity,Urine 1.023 (1.001-1.035); Squamous Epithelial Cell,Urine 2 /hpf (0-4); WBC,Urine 2 /hpf (0-5)
--- NOTE | 2020-02-18 00:20 | CT ---
EXAMINATION TYPE: CT abdomen pelvis w con DATE OF EXAM: 02/17/2020 COMPARISON: None HISTORY: RLQ Pain CT DLP: 1068.8 mGycm Automated exposure control for dose reduction was used. CONTRAST: Performed with IV Contrast, patient injected with 100 mL of Isovue 300. Heart is moderately enlarged. There are bilateral breast implants. There is no pericardial effusion. There is some mild atelectasis at the lung bases. There is no pleural effusion. There are clips from cholecystectomy. Liver shows no focal defect. Spleen is intact. Stomach is intac t. There is no evidence of pancreatic mass. The bile ducts are not dilated. There is no adrenal mass. Kidneys show satisfactory contrast opacification. There is no hydronephrosi s. There is 2 cm cyst posterior left kidney. There is no retroperitoneal adenopathy. Delayed images s how normal renal excretion. Appendix not seen. No sign of appendicitis. There is a mild degenerative first-degree L4-5 spondylolisthesis. There is no lumbar compression frac ture. Posterior elements are intact. Facet joints are intact. The bony pelvis is intact. Hip joints a ppear normal. IMPRESSION: There is constipation with evidence for some mild sigmoid colitis. Moderately severe cardiomegaly. Bladder distends smoothly. There is no inguinal hernia. There is some retained fecal material in the large bowel. There is no mesenteric edema. There is no ascites or free air. There is some mild sofya lic edema involving the MID sigmoid colon.
[2020-02-18] MEDS ORDERED: ACET/COD 300 MG/30 MG STARTER PACK 6 TAB BTL PO STA (01:09)
[2020-02-18] MEDS ORDERED: LACTULOSE 20 GM/30 ML CUP PO ONE (01:09)
[2020-02-18] MEDS ORDERED: MAGNESIUM CITRATE 296 ML BOTTLE PO ONE (01:09)
== END 2020-02-18 01:39 | disposition home or self-care (01) ==
LOC: EC 22:07 → SUPCPDRO 22:07 → EC 02-18 01:39
DX: K59.00 Constipation, unspecified (principal); R10.30 Lower abdominal pain, unspecified; Z88.5 Allergy status to narcotic agent; Z85.3 Personal history of malignant neoplasm of breast; Z90.13 Acquired absence of bilateral breasts and nipples; Z96.653 Presence of artificial knee joint, bilateral; Z90.710 Acquired absence of both cervix and uterus; Z90.722 Acquired absence of ovaries, bilateral; Z90.79 Acquired absence of other genital organ(s)
CPT/HCPCS: 36415; 80053; 83605; 83690; 85025; 85610; 85730; 81001; 87040; 74177; 99284; 96374; 96375; 96361 ×2; J2405; J2270; Q9967

== ENCOUNTER 2020-11-17 16:09 | Inpatient (IN) | payer MEDICARE, BC ==
--- NOTE | 2020-11-17 16:35 | ED ---
General Adult HPI - General Chief complaint: Shortness of Breath Stated complaint: Sent by Dr Sanders to be admitted Time Seen by Provider: 11/17/20 16:14 Source: patient Mode of arrival: wheelchair Limitations: no limitations - History of Present Illness Initial comments: Dictation was produced using [employer] dictation software. please excuse any gram matical, word or spelling errors. Chief Complaint: 85-year-old female sent in from cardiology office for shortness of breath History of Present Illness: Patient is a 85-year-old female she presents to the emergency department for shortness of breath. Patient was sent in from cardiolo gy office patient is evaluated with Dr. Sanders today. Patient has been experiencing on and off dyspnea for the last 7 days. Engine Repairer performed exam found the patient had worsening regurgitation murmur, positive JVD. She has history of pacemaker. Engine Repairer was concerned about thoracic or ab dominal aortic aneurysm. Patient has family history of it. He also was concerned about patient's cardiac function patient states that she has no pain. She reports that her symptoms are worse when lying flat. States that her shortness breath is worse with exertion. Denies any fevers. No cough. No calf pain or popliteal pain. She does report swelling in her legs. The ROS documented in this emergency department record has been reviewed and confirmed by me. Those systems with pertinent positive or negative responses have been documented in the HPI. All other systems are other negative and/or noncontributory. PHYSICAL EXAM: General Impression: Alert and oriented x3, not in acute distress HEENT: Normocephalic atraumatic, extra-ocular movements intact, pupils equal and reactive to light bilaterally, mucous membranes moist. Cardiovascular: Heart regular rate and rhythm Chest: Able to complete full sentences, no retractions, no tachypnea, lungs clear to auscultation bilaterally Abdomen: abdomen soft, non-tender, non-distended, no organomegaly Musculoskeletal: Pulses present and equal in all extremities, 1+ pitting edema Motor: no focal deficits noted Neurological: CN II-XII grossly intact, no focal motor or sensory deficits noted Skin: Intact with no visualized rashes Psych: Normal affect and mood ED course: 85-year-old well-appearing female with multiple cardiac comorbid AIDS presents to the emergency department for shortness of breath. Vital signs upon arrival are within acceptable limits. Laboratory evaluation obtained. CBC is unremarkable. Coag panel shows INR of 2.2. Patient is allegedly on Coumadin. CT of the thoracic and abdominal pelvic aorta shows cardiomegaly no pulmonary embolism. Mild atelectasis at the lung base with right pleural effusion. No aortic aneurysm or dissection. Brain natruretic peptide is 786. Troponin slightly elevated 0.025. Patient reevaluated at bedside at 5:50 PM findings stable medical condition. Patient be admitted. She is given aspirin for concerns of possible acute coronary syndrome. Case discussed with Dr. Davies, who is willing to accept patients care for admission. EKG interpretation: Ventricular rate 94, paced rhythm, negative sgarbossa - Related Data Home Medications Medication Instructions Recorded Confirmed Multivitamins, Thera [Multivitamin 1 tab PO HS 08/25/17 08/25/17 (formulary)] Previous Rx's Medication Instructions Recorded Warfarin [Coumadin] 5 mg PO TUTHSA tab 08/26/17 Warfarin [Coumadin] 7.5 mg PO SUMOWEFR tab 08/26/17 Allergies Allergy/AdvReac Type Severity Reaction Status Date / Time meperidine HCl [From Demerol] AdvReac Nausea & Verified 11/17/20 16:17 Vomiting Review of Systems ROS Statement: Those systems with pertinent positive or pertinent negative responses have been documented in the HPI. ROS Other: All systems not noted in ROS Statement are negative. Past Medical History Past Medical History: Atrial Fibrillation, Cancer, Pneumonia Additional Past Medical History / Comment(s): Breast cancer with bilateral simple mastectomies, "leaky" heart valve. History of Any Multi-Drug Resistant Organisms: None Reported Past Surgical History: Breast Surgery, Cardiac Ablation, Joint Replacement, Pacemaker Additional Past Surgical History / Comment(s): EPS WITH CARDIAC ABLATIONS, BILATERAL SIMPLE MASTECTOMIES, BILATERAL TOTAL KNEE ARTHROPLASTIES, BILATERAL CATARACT REMOVAL WITH LENS IMPLANTS, HYSTERECTOMY WITH BILATERAL SALPINGECTOMY OOPHORECTOMY, COLONOSCOPY. Past Anesthesia/Blood Transfusion Reactions: No Reported Reaction Type of Cardiac Device: Permanent Pacemaker Device Placement Date:: 06/2000 DUAL CHAMBER PLACED AND GEN CHANGE 2014. Past Psychological History: No Psychological Hx Reported Smoking Status: Never smoker Past Alcohol Use History: Daily Past Drug Use History: None Reported - Past Family History Father Family Medical History: No Reported History Additional Family Medical History / Comment(s): Father was healthy and lived to be 94 yrs old. Mother Family Medical History: Cancer Additional Family Medical History / Comment(s): Mother had breast cancer and so did 3 of her sisters. Daughter(s) Family Medical History: Cancer Additional Family Medical History / Comment(s): Olderst daughter from breast cancer. General Exam Limitations: no limitations Course Vital Signs 11/17/20 11/17/20 11/17/20 16:14 16:24 17:24 Temperature 97.8 F Pulse Rate 58 L 60 Respiratory 20 20 18 Rate Blood Pressure 155/74 145/82 O2 Sat by Pulse 97 92 L Oximetry Medical Decision Making - Lab Data Result diagrams: 11/17/20 16:28 11/17/20 16:28 Lab Results 11/17/20 11/17/20 11/17/20 Range/Units 16:28 16:28 16:28 WBC 4.5 (3.8-10.6) k/uL RBC 3.54 L (3.80-5.40) m/uL Hgb 13.0 (11.4-16.0) gm/dL Hct 38.0 (34.0-46.0) % MCV 107.4 H (80.0-100.0) fL MCH 36.7 H (25.0-35.0) pg MCHC 34.1 (31.0-37.0) g/dL RDW 13.1 (11.5-15.5) % Plt Count 113 L (150-450) k/uL MPV 8.1 Neutrophils % 63 % Lymphocytes % 25 % Monocytes % 8 % Eosinophils % 1 % Basophils % 1 % Neutrophils # 2.8 (1.3-7.7) k/uL Lymphocytes # 1.1 (1.0-4.8) k/uL Monocytes # 0.4 (0-1.0) k/uL Eosinophils # 0.1 (0-0.7) k/uL Basophils # 0.0 (0-0.2) k/uL Macrocytosis Moderate PT 21.7 H (9.0-12.0) sec INR 2.2 H (<1.2) APTT 33.1 H (22.0-30.0) sec Sodium 142 (137-145) mmol/L Potassium 4.3 (3.5-5.1) mmol/L Chloride 104 (98-107) mmol/L Carbon Dioxide 28 (22-30) mmol/L Anion Gap 10 mmol/L BUN 17 (7-17) mg/dL Creatinine 0.60 (0.52-1.04) mg/dL Est GFR (CKD-EPI)AfAm >90 (>60 ml/min/1.73 sqM) Est GFR (CKD-EPI)NonAf 85 (>60 ml/min/1.73 sqM) Glucose 107 H (74-99) mg/dL Plasma Lactic Acid Cesar (0.7-2.0) mmol/L Calcium 9.8 (8.4-10.2) mg/dL Total Bilirubin 1.5 H (0.2-1.3) mg/dL AST 47 H (14-36) U/L ALT 30 (4-34) U/L Alkaline Phosphatase 90 (38-126) U/L Troponin I (0.000-0.034) ng/mL NT-Pro-B Natriuret Pep pg/mL Total Protein 7.1 (6.3-8.2) g/dL Albumin 4.7 (3.5-5.0) g/dL 11/17/20 11/17/20 11/17/20 Range/Units 16:28 16:28 16:28 WBC (3.8-10.6) k/uL RBC (3.80-5.40) m/uL Hgb (11.4-16.0) gm/dL Hct (34.0-46.0) % MCV (80.0-100.0) fL MCH (25.0-35.0) pg MCHC (31.0-37.0) g/dL RDW (11.5-15.5) % Plt Count (150-450) k/uL MPV Neutrophils % % Lymphocytes % % Monocytes % % Eosinophils % % Basophils % % Neutrophils # (1.3-7.7) k/uL Lymphocytes # (1.0-4.8) k/uL Monocytes # (0-1.0) k/uL Eosinophils # (0-0.7) k/uL Basophils # (0-0.2) k/uL Macrocytosis PT (9.0-12.0) sec INR (<1.2) APTT (22.0-30.0) sec Sodium (137-145) mmol/L Potassium (3.5-5.1) mmol/L Chloride (98-107) mmol/L Carbon Dioxide (22-30) mmol/L Anion Gap mmol/L BUN (7-17) mg/dL Creatinine (0.52-1.04) mg/dL Est GFR (CKD-EPI)AfAm (>60 ml/min/1.73 sqM) Est GFR (CKD-EPI)NonAf (>60 ml/min/1.73 sqM) Glucose (74-99) mg/dL Plasma Lactic Acid Cesar 0.9 (0.7-2.0) mmol/L Calcium (8.4-10.2) mg/dL Total Bilirubin (0.2-1.3) mg/dL AST (14-36) U/L ALT (4-34) U/L Alkaline Phosphatase (38-126) U/L Troponin I 0.025 (0.000-0.034) ng/mL NT-Pro-B Natriuret Pep 786 pg/mL Total Protein (6.3-8.2) g/dL Albumin (3.5-5.0) g/dL Disposition Clinical Impression: Dyspnea Disposition: ADMITTED IP TO THIS HOSP Condition: Fair Referrals: Dany Sierra MD [Primary Care Provider] - 1-2 days
[2020-11-17 16:44] LABS: INR 2.2 (<1.2); Partial Thromboplastin Time 33.1 sec (22.0-30.0); Prothrombin Time 21.7 sec (9.0-12.0)
[2020-11-17 16:45] LABS: ALT 30 U/L (4-34); AST 47 U/L (14-36); African American GFR (CKD) >90 (>60 ml/min/1.73 sqM); Albumin 4.7 g/dL (3.5-5.0); Alkaline Phosphatase 90 U/L (38-126); Anion Gap 10 mmol/L; Blood Urea Nitrogen 17 mg/dL (7-17); Calcium 9.8 mg/dL (8.4-10.2); Carbon Dioxide 28 mmol/L (22-30); Chloride 104 mmol/L (98-107); Glucose 107 mg/dL (74-99); Non-African American GFR(CKD) 85 (>60 ml/min/1.73 sqM); Potassium 4.3 mmol/L (3.5-5.1); Sodium 142 mmol/L (137-145); Total Bilirubin 1.5 mg/dL (0.2-1.3); Total Protein 7.1 g/dL (6.3-8.2)
[2020-11-17 17:05] LABS: Basophils % (A) 1 %; Eosinophils # (A) 0.1 k/uL (0-0.7); Eosinophils % (A) 1 %; Lymphocytes # (A) 1.1 k/uL (1.0-4.8); Lymphocytes % (A) 25 %; MCH 36.7 pg (25.0-35.0); MCHC 34.1 g/dL (31.0-37.0); MCV 107.4 fL (80.0-100.0); Macrocytosis Moderate; Mean Platelet Volume 8.1; Monocytes # (A) 0.4 k/uL (0-1.0); Monocytes % (A) 8 %; Neutrophils # (A) 2.8 k/uL (1.3-7.7); Neutrophils % (A) 63 %; Platelet Count 113 k/uL (150-450); RBC 3.54 m/uL (3.80-5.40); RDW 13.1 % (11.5-15.5); WBC 4.5 k/uL (3.8-10.6)
--- NOTE | 2020-11-17 17:39 | CT ---
EXAMINATION TYPE: CT angio thor/abd pel aorta DATE OF EXAM: 11/17/2020 COMPARISON: None HISTORY: chest pain CT DLP: 1088.3 mGycm Automated exposure control for dose reduction was used. CONTRAST: Performed with IV Contrast, patient injected with 100 mL of Isovue 370. Images obtained from the thoracic inlet to the floor the pelvis without and with IV contrast. There a re 3-D post processed images. There are bilateral breast implants. Heart is moderately enlarged. Ascending aorta measures 3.8 cm. T here is no dissection. There is no pericardial effusion. There is right pleural effusion and right ba silar interstitial infiltrate. There is mild subsegmental atelectasis at the lung bases. There are no hilar masses. I see no filling defects in the pulmonary arteries. There is no mediastinal adenopathy . There are clips from cholecystectomy. Liver spleen pancreas stomach appear intact. The bile ducts are not dilated. There is no adrenal mass. Kidneys have normal size and contour. There is no hydronephrosis. There is 2 cm cortical cyst posterior left kidney. The ureters are not dilated. There is no retroperitoneal ad enopathy. The bladder distends smoothly. There is arterial flow in the celiac artery and superior mesenteric artery. There is arterial flow in the renal and iliac and femoral arteries. I see no evidence of hemodynamic stenosis. There is no aor tic aneurysm or dissection. There is some ectasia of the common iliac arteries that measure up to 1.5 cm. There is no evidence of neovascularity. There is some sigmoid diverticula. There is tiny amount of fluid in the pelvis. IMPRESSION: Cardiomegaly. No pulmonary embolism. Mild subsegmental atelectasis at the lung bases with right pleur al effusion. This could relate to some degree of congestive heart failure. No aortic aneurysm or dissection. Pleural fluid is new compared to old exam. There is clearing of the inflammatory changes of the sigmo id colon compared to old exam. Tiny amount of free fluid in the pelvis is new compared to old exam and could relate to some heart fa ilure.
[2020-11-17] MEDS ORDERED: ASPIRIN 81 MG PO STA (17:50)
[2020-11-17] MEDS ORDERED: NITROGLYCERIN SL TABS 0.4 MG TAB SUBLINGUAL PRN (17:56)
--- NOTE | 2020-11-17 21:10 | P.HPIM ---
History of Present Illness H&P Date: 11/17/20 The patient is an 86 yo F with a PMH of Afib (on Coumadin) status post pacemaker placement who was sent in to the emergency room by her food service tray attendant due to shortness of breath. The patient reports that over the past 1-2 weeks, she has noticed a gradually worsening exercise tolerance. She went to see her food service tray attendant for her regular appointment today Dr. BRIAN Sanders who noticed that she had a worsening murmur and sent her into the emergency room due to concerns for possible aortic aneurysm. The patient denied experiencing chest discomfort, orthopnea, or PND. Denied lower extremity swelling or pain. She reports having long-standing history of the murmur but was told by her food service tray attendant that it had worsened. She further denied fever, chills, nausea, vomiting, abdominal pain, diarrhea. Denied weakness, numbness, tingling, headaches. In the emergency room, a CT thoracic aorta was unremarkable with EKG showing paced rhythm. Telemetry evaluation was remarkable for MCV 107, platelet, and 13, INR 2.2, and troponin 0.025. Review of systems: Pertinent positives and negatives as discussed in HPI, a complete review of systems was performed and all other systems are negative. Physical examination: General: non toxic, no distress, appears at stated age, normal weight Derm: no unusual rashes/lesions no unusual ecchymoses, warm, dry Head: atraumatic, normocephalic, symmetric Eyes: EOMI, no lid lag, anicteric sclera, pupils equal round reactive to light ENT: Nose and ears atraumatic, no thrush, no pharyngeal erythema Neck: No thyromegaly, no cervical lymphadenopathy, trachea midline, supple Mouth: no lip lesion, mucus membranes moist Cardiovascular: S1S2 reg, grade 4 systolic murmur appreciated, positive posterior tibial pulse bilateral, 1+ bilateral lower extremity pitting edema, capillary refill less than 2 seconds Lungs: CTA bilateral, no rhonchi, no rales , no accessory muscle use Abdominal: soft, nontender to palpation, no guarding, no appreciable organomegaly, normal bowel sounds Ext: no gross muscle atrophy, muscle strength 5 out of 5 in all 4 extremities grossly, no contractures, Neuro: CN II-XI grossly intact, light touch intact all 4 extremities, finger to nose within normal limits, Psych: Alert, oriented, appropriate affect Assessment/plan Decreased exercise tolerance with systolic murmur -Obtain echocardiogram -Cardiology consult -Cardiac monitoring Macrocytosis -Obtain anemia workup Mildly abnormal LFTs -May be due to congestion from cardiac dysfunction -Monitor for now Chronic conditions: A. fib on Coumadin -Continue Coumadin as per home dosing DVT prophylaxis -Coumadin The patient is admitted with an anticipated less than 2 midnight stay for evaluation of SOB CODE STATUS: Full Code Discussed with: Patient Anticipated discharge date: in am Anticipated discharge place: Home A total of 40 minutes was spent on the care of this complex patient more than 50% of the time was spent in counseling and care coordination. Past Medical History Past Medical History: Atrial Fibrillation, Cancer, Pneumonia Additional Past Medical History / Comment(s): Breast cancer with bilateral simple mastectomies, "leaky" heart valve. History of Any Multi-Drug Resistant Organisms: None Reported Past Surgical History: Breast Surgery, Cardiac Ablation, Joint Replacement, Pacemaker Additional Past Surgical History / Comment(s): EPS WITH CARDIAC ABLATIONS, BILATERAL SIMPLE MASTECTOMIES, BILATERAL TOTAL KNEE ARTHROPLASTIES, BILATERAL CATARACT REMOVAL WITH LENS IMPLANTS, HYSTERECTOMY WITH BILATERAL SALPINGECTOMY OOPHORECTOMY, COLONOSCOPY. Past Anesthesia/Blood Transfusion Reactions: No Reported Reaction Type of Cardiac Device: Permanent Pacemaker Device Placement Date:: 06/2000 DUAL CHAMBER PLACED AND GEN CHANGE 2014. Past Psychological History: No Psychological Hx Reported Smoking Status: Never smoker Past Alcohol Use History: Daily Past Drug Use History: None Reported - Past Family History Father Family Medical History: No Reported History Additional Family Medical History / Comment(s): Father was healthy and lived to be 94 yrs old. Mother Family Medical History: Cancer Additional Family Medical History / Comment(s): Mother had breast cancer and so did 3 of her sisters. Daughter(s) Family Medical History: Cancer Additional Family Medical History / Comment(s): Olderst daughter from breast cancer. Medications and Allergies Home Medications Medication Instructions Recorded Confirmed Type Warfarin [Coumadin] 5 mg PO [id number]/17/20 11/17/20 History Warfarin [Coumadin] 7.5 mg PO [id number]/20 11/17/20 History Allergies Allergy/AdvReac Type Severity Reaction Status Date / Time meperidine HCl [From Demerol] AdvReac Nausea & Verified 11/17/20 18:27 Vomiting Physical Exam Vitals: Vital Signs Temp Pulse Pulse Resp BP BP Pulse Ox 11/17/20 20:27 97.7 F 66 18 135/80 93 L 11/17/20 19:54 98.0 F 60 18 159/91 97 11/17/20 18:50 62 18 145/82 96 11/17/20 17:24 60 18 145/82 92 L 11/17/20 16:24 20 11/17/20 16:14 97.8 F 58 L 20 155/74 97 Intake and Output 11/17/20 11/17/20 11/17/20 06:59 14:59 22:59 Other: Weight 77.111 kg Results CBC & Chem 7: 11/17/20 16:28 11/17/20 16:28 Labs: Abnormal Lab Results - Last 24 Hours (Table) 11/17/20 11/17/20 11/17/20 Range/Units 16:28 16:28 16:28 RBC 3.54 L (3.80-5.40) m/uL MCV 107.4 H (80.0-100.0) fL MCH 36.7 H (25.0-35.0) pg Plt Count 113 L (150-450) k/uL PT 21.7 H (9.0-12.0) sec INR 2.2 H (<1.2) APTT 33.1 H (22.0-30.0) sec Glucose 107 H (74-99) mg/dL Total Bilirubin 1.5 H (0.2-1.3) mg/dL AST 47 H (14-36) U/L
[2020-11-17] MEDS ORDERED: CAFFEINE CITRATE 60 MG/3 ML VIAL IV PRN (22:59)
[2020-11-17] MEDS ORDERED: AMINOPHYLLINE 500 MG/20 ML VIAL IV PRN (22:59)
[2020-11-17] MEDS ORDERED: FUROSEMIDE 10 MG/ML 4 ML VIAL IV ONE (22:59)
[2020-11-17] MEDS ORDERED: TEMAZEPAM 15 MG CAP PO PRN (22:59)
--- NOTE | 2020-11-17 23:40 | CONS ---
CONSULTATION This is an 85-year-old lady who has history of symptomatic atrial fib and in 2000, she had AV node ablation with a dual-chamber pacemaker. This pacemaker generator was replaced in 2014. She also has mitral valve prolapse with moderate to severe mitral regurgitation, but has done very well generally. She came into the office to see me today complaining of about a week and a half or so of increasing shortness of breath but no chest tightness. She just feels more short of breath, less functional capacity and this seems to have come up over the last 7 to 10 days. Clinical evaluation in the office suggested mild fine rales over both bases, in addition to a systolic murmur. I was concerned about possibility of this being myocardial ischemia. EKG is generally unhelpful because of paced rhythm. I therefore recommended that she should go to the emergency room. Her main complaint was shortness of breath and also fatigue and lack of energy. She has no palpitations or syncope. Does have nondescript chest pressure. PAST MEDICAL HISTORY: 1. History of symptomatic atrial fib, status post AV node ablation and dual-chamber pacemaker. 2. History of bilateral mastectomy for breast cancer. 3. Hypertension. 4. Mitral valve prolapse with [id number] mitral regurgitation, which has been stable. 5. History of borderline hypertension. MEDICATIONS: Medications at home include Coumadin and she also takes estrogen as well. PHYSICAL EXAMINATION: On examination, blood pressure was 130/70, pulse rate 64 per minute. HEENT unremarkable. Fundus was not examined by me. Neck is supple. There is JVD. No carotid bruit. Heart exam reveals S1, S2 with a systolic murmur audible at the apex. Lungs reveal fine bibasilar rales. Abdomen is soft, nontender. Lower extremities reveal diminished pulses. Central nervous system grossly within normal limits. No focal deficits. IMPRESSION: 1. Unexplained shortness of breath with probable anginal equivalence. Pulmonary embolism is unlikely since patient is well anticoagulated with INR of 2.3. 2. Symptomatic atrial fibrillation, status post AV node ablation and dual-chamber pacemaker. 3. History of mitral regurgitation with mitral valve prolapse syndrome. 4. History of bilateral breast cancer, status post mastectomy and implants. RECOMMENDATIONS: I am recommending hospitalization, serial troponins, echocardiogram, CT angiogram to rule out any aneurysm or pulmonary embolism. We will do an echo, chest x-ray and check serial troponins. Based on clinical course, we will make further recommendations. I will obtain a chest x-ray, echo, and troponin level tomorrow. We will do a Lexiscan stress test as well if troponins are unremarkable. I discussed my thoughts in detail with the patient and her . Thank you very much for the consult. JOSE / FLOWERN: [id number] /
[2020-11-18] MEDS ORDERED: REGADENOSON 0.4 MG/5 ML SYRINGE IV PRN (06:00)
[2020-11-18] MEDS ORDERED: ALPRAZolam 0.5 MG TAB PO PRN (08:13)
[2020-11-18] MEDS ORDERED: ATORVASTATIN 80 MG TAB PO STA (08:13)
[2020-11-18] MEDS ORDERED: ALPRAZolam 0.25 MG TAB PO PRN (08:13)
[2020-11-18] MEDS ORDERED: ASPIRIN 325 MG TAB PO SCH (09:00)
[2020-11-18] MEDS ORDERED: FUROSEMIDE 40 MG TAB PO SCH (09:00)
[2020-11-18 09:14] LABS: % Iron Saturation 28.15 (12.00-45.00); African American GFR (CKD) 97.7 (60.0-200.0); Albumin 4.1 g/dL (3.80-4.90); Albumin/Globulin Ratio 2.05 (1.60-3.17); BUN/Creat Ratio 31.67 Ratio (12.00-20.00); Chol/HDL Ratio 2.36; HCT 35.4 % (37.2-46.3); HGB 11.4 g/dL (12.0-15.0); LDL Cholesterol,Calculated 66.8 mg/dL (0.0-131.0); MCHC 32.2 g/dL (32.0-37.0); MCV 108.6 fL (80.0-97.0); Mean Platelet Volume 11.2 fL (9.5-12.2); Non-African American GFR(CKD) 84.3 (60.0-200.0); Platelet Count 115 X 10*3/uL (140-440); Potassium 3.7 mmol/L (3.5-5.5); RBC 3.26 X 10*6/uL (4.10-5.20); RDW 14.5 % (11.5-14.5); Total Bilirubin 1.4 mg/dL (0.2-1.2); Total Protein 6.1 g/dL (6.2-8.2); VLDL Calculation 12.2 mg/dL (5.00-40.00); WBC 4.73 X 10*3/uL (4.50-10.00)
[2020-11-18 09:22] LABS: Ferritin 240.4 ng/mL (10.0-291.0)
[2020-11-18 09:31] LABS: INR 1.97 (0.90-1.11); Prothrombin Time 20.5 sec (9.9-11.9)
[2020-11-18] MEDS ORDERED: POTASSIUM CHLORIDE ER 20 MEQ TAB.ER PO STA (10:42)
--- NOTE | 2020-11-18 11:09 | P.PN ---
Subjective This is a pleasant 85-year-old female past medical history significant for atrial fibrillation status post AV node ablation, permanent pacemaker implantation, mitral valve prolapse with moderate to severe mitral regurgitation, borderline hypertension and bilateral mastectomy secondary to breast cancer. She follows in the office with Dr. Sanders. She is seen and examined sitting up in bed in no acute distress. She was given one dose of IV diuretics last evening and did have significant urine output according to the patient. She feels as though her breathing has improved since admission. She has no symptoms of chest discomfort. Blood pressure 127/79 heart rate 68 afebrile maintaining oxygen saturation on room air. Laboratory data reviewed, WBC 4.7, hemoglobin 11.4, platelets 115, INR 1.9, sodium 141, potassium 3.7, creatinine 0.6, troponin trend 0.025, 0.033, 0.032, 0.041, LDL 66 and HDL 58. GENERAL: Well-appearing, well-nourished and in no acute distress. NECK: Supple with elevated JVD or thyromegaly. LUNGS: Breath sounds clear to auscultation bilaterally. Respiration equal and unlabored. No wheezes, rales or rhonchi. HEART: Irregular rate and rhythm with systolic ejection murmur at the apex, no rubs or gallops. S1 and S2 heard. EXTREMITIES: Normal range of motion, 1+ bilateral lower extremity pitting edema. No clubbing or cyanosis. Peripheral pulses intact. ASSESSMENT Acute heart failure, likely diastolic secondary to MR NSTEMI Unstable angina Chronic persistent atrial fibrillation s/p AV node ablation Permanent pacemaker implantation Mitral regurgitation PLAN Hold coumadin and plan for R/LHC tomorrow with SUKUMAR to further assess mitral valve. I have discussed the risks, benefits and alternative therapies for the above- mentioned procedure and for both sedation/analgesia as well as necessary blood p roduct administration, if indicated, as they pertain to this patient. The patient has indicated understanding and acceptance of the risks and procedures discussed. Questions have been answered appropriately and she is agreeable to move forward with the above stated procedures. Repeat PT/INR in the morning. Initiate small dose of PO lasix, 20 mg daily along with a one time supplementation of potassium. NPO after midnight tonight. Echocardiogram ordered and will be reviewed. Further recommendations to follow based upon clinical course. Nurse Practitioner note has been reviewed, I agree with a documented findings and plan of care. Patient was seen and examined. Objective - Vital Signs Vital signs: Vital Signs Temp 98.2 F 11/18/20 07:00 Pulse 60 11/18/20 08:00 Resp 16 11/18/20 08:00 BP 127/79 11/18/20 07:00 Pulse Ox 91 L 11/18/20 07:00 Intake & Output 11/17/20 11/18/20 11/18/20 18:59 06:59 18:59 Intake Total 600 Balance 600 Weight 77.111 kg 77.111 kg Intake: Oral 600 Other: Voiding Method Toilet Toilet # Voids 3 - Labs CBC & Chem 7: 11/18/20 04:29 11/18/20 04:29 Labs: Abnormal Lab Results - Last 24 Hours (Table) 11/17/20 11/17/20 11/17/20 Range/Units 16:28 16:28 16:28 RBC 3.54 L (3.80-5.40) m/uL Hgb (12.0-15.0) g/dL Hct (37.2-46.3) % MCV 107.4 H (80.0-100.0) fL MCH 36.7 H (25.0-35.0) pg Plt Count 113 L (150-450) k/uL PT 21.7 H (9.0-12.0) sec INR 2.2 H (<1.2) APTT 33.1 H (22.0-30.0) sec BUN/Creatinine Ratio (12.00-20.00) Ratio Glucose 107 H (74-99) mg/dL Total Bilirubin 1.5 H (0.2-1.3) mg/dL AST 47 H (14-36) U/L Troponin I (0.000-0.034) ng/mL Total Protein (6.2-8.2) g/dL 11/18/20 11/18/20 11/18/20 Range/Units 04:29 04:29 04:29 RBC 3.26 L (3.80-5.40) m/uL Hgb 11.4 L (12.0-15.0) g/dL Hct 35.4 L (37.2-46.3) % MCV 108.6 H (80.0-100.0) fL MCH 35.0 H (25.0-35.0) pg Plt Count 115 L (150-450) k/uL PT 20.5 H (9.0-12.0) sec INR 1.97 H (<1.2) APTT (22.0-30.0) sec BUN/Creatinine Ratio 31.67 H (12.00-20.00) Ratio Glucose (74-99) mg/dL Total Bilirubin 1.4 H (0.2-1.3) mg/dL AST 41 H (14-36) U/L Troponin I (0.000-0.034) ng/mL Total Protein 6.1 L (6.2-8.2) g/dL 11/18/20 Range/Units 04:29 RBC (3.80-5.40) m/uL Hgb (12.0-15.0) g/dL Hct (37.2-46.3) % MCV (80.0-100.0) fL MCH (25.0-35.0) pg Plt Count (150-450) k/uL PT (9.0-12.0) sec INR (<1.2) APTT (22.0-30.0) sec BUN/Creatinine Ratio (12.00-20.00) Ratio Glucose (74-99) mg/dL Total Bilirubin (0.2-1.3) mg/dL AST (14-36) U/L Troponin I 0.041 H* (0.000-0.034) ng/mL Total Protein (6.2-8.2) g/dL
--- NOTE | 2020-11-18 11:19 | XR ---
EXAMINATION TYPE: XR chest 2V DATE OF EXAM: 11/18/2020 CLINICAL HISTORY: SOB. TECHNIQUE: Frontal and lateral view of the chest. COMPARISON: 08/25/2017 chest x-ray. 11/17/2020 CTA chest FINDINGS: Bilateral breast implants. Left-sided cardiac pacemaker. Redemonstrated marked cardiomegaly. Central prominence of the pulmonary vasculature may represent pul monary arterial hypertension. Small right pleural effusion. Minimal left basilar atelectasis. No pneu mothorax. No acute displaced osseous abnormality. IMPRESSION: 1. Marked cardiomegaly. 2. Small right pleural effusion.
--- NOTE | 2020-11-18 13:47 | ECHOF ---
Referral Reason:Systolic murmur MEASUREMENTS -------- HEIGHT: 165.1 cm WEIGHT: 77.1 kg BP: 122/75 IVSd: 1.3 cm (0.6 - 1.1) LVIDd: 4.4 cm (3.9 - 5.3) LVPWd: 1.6 cm (0.6 - 1.1) EDV(Teich): 88 ml IVSs: 1.6 cm LVIDs: 2.9 cm LVPWs: 2.2 cm %IVS Thck: 27 % ESV(Teich): 32 ml EF(Teich): 64 % %FS: 34 % SV(Teich): 56 ml LA Diam: 7.3 cm (2.7 - 3.8) LALs A4C: 9.0 cm LAAs A4C: 50.6 cm LAESV A-L A4C: 241 ml LAESV MOD A4C: 219 ml LALs A2C: 9.8 cm LAAs A2C: 56.6 cm LAESV A-L A2C: 277 ml LAESV MOD A2C: 272 ml LAESV(A-L): 270 ml LAESV Index (A-L): 145.90 ml/m Ao Diam: 2.7 cm (2.0 - 3.7) LA Diam: 6.4 cm (2.7 - 3.8) AV Cusp: 1.3 cm (1.5 - 2.6) EPSS: 1.3 cm MV E Alek: 1.62 m/s MV DecT: 167 ms MV Dec Burleigh: 9.7 m/s MV A Alek: 0.40 m/s MV E/A Ratio: 4.05 MV PHT: 48 ms LVOT Vmax: 1.07 m/s LVOT maxP.55 mmHg LVOT Vmax: 1.04 m/s LVOT Vmean: 0.77 m/s LVOT maxP.37 mmHg LVOT meanP.56 mmHg LVOT Env.Ti: 295 ms LVOT VTI: 22.8 cm AV Vmax: 2.59 m/s AV maxP.73 mmHg AV Vmax: 2.63 m/s AV Vmean: 1.84 m/s AV maxP.77 mmHg AV meanP.39 mmHg AV Env.Ti: 283 ms AV VTI: 52.0 cm TR Vmax: 3.48 m/s TR maxP.43 mmHg RAP: 10.00 mmHg RVSP: 58.43 mmHg MV EF SLOPE: 75.72 mm/s (70 - 150) MV EXCURSION: 17.57 mm (> 18.000) FINDINGS -------- Pacerwire seen in RV and RA. This was a technically good study. Pt. Has Breast inplants The left ventricular size is normal. There is mild concentric left ventricular hypertrophy. Overa ll left ventricular systolic function is low-normal with, an EF between 50 - 55 %. The right ventricle is normal in size. LA is severely dilated >40 ml/m2 The right atrial size is normal. There is mild aortic regurgitation. There is moderate aortic stenosis present. Peak/mean gradient across the Aortic Valve is 30.77mmHg / 18.39mmHg. The mitral valve leaflets are mildly thickened. Mild mitral annular calcification present. Severe mitral regurgitation is present. Moderate tricuspid regurgitation present. There is moderate pulmonary hypertension. The right cher tricular systolic pressure, as measured by Doppler, is 58.43mmHg. Trace/mild (physiologic) pulmonic regurgitation. The aortic root size is normal. There is no pericardial effusion. CONCLUSIONS -------- 1. Pt. Has Breast inplants 2. The left ventricular size is normal. 3. There is mild concentric left ventricular hypertrophy. 4. Overall left ventricular systolic function is low-normal with, an EF between 50 - 55 %. 5. The right ventricle is normal in size. 6. LA is severely dilated >40 ml/m2 7. The right atrial size is normal. 8. There is mild aortic regurgitation. 9. There is moderate aortic stenosis present. 10. Peak/mean gradient across the Aortic Valve is 30.77mmHg / 18.39mmHg. 11. The mitral valve leaflets are mildly thickened. 12. Mild mitral annular calcification present. 13. Severe mitral regurgitation is present. 14. Moderate tricuspid regurgitation present. 15. There is moderate pulmonary hypertension. 16. The right ventricular systolic pressure, as measured by Doppler, is 58.43mmHg. 17. Trace/mild (physiologic) pulmonic regurgitation. 18. The aortic root size is normal. 19. There is no pericardial effusion. INTERMEDIATE FRAME TENDER: Farida Mcbride RDCS
--- NOTE | 2020-11-18 14:39 | P.PN ---
Subjective Progress Note Date: 11/18/20 Patient is doing well today. No acute events overnight reported by nursing staff. Objective - Vital Signs Vital signs: Vital Signs Temp 98.4 F 11/18/20 14:07 Pulse 61 11/18/20 14:07 Resp 16 11/18/20 14:07 BP 133/80 11/18/20 14:07 Pulse Ox 89 L 11/18/20 14:07 Intake & Output 11/17/20 11/18/20 11/18/20 18:59 06:59 18:59 Intake Total 600 Balance 600 Weight 77.111 kg 77.111 kg Intake: Oral 600 Other: Voiding Method Toilet Toilet # Voids 3 2 - Exam General: The patient is awake and alert, in no distress Eye: there is normal conjunctiva bilaterally. Neck: The neck is supple, there is no JVD. Cardiovascular: Normal S1-S2, no S3-S4, no murmurs. Respiratory: Lungs clear to auscultation bilaterally Gastrointestinal: Abdomen is soft, nontender Musculoskeletal: There is no pedal edema. Neurological:. Speech is normal. Skin: Skin is warm and dry - Labs CBC & Chem 7: 11/18/20 04:29 11/18/20 04:29 Labs: Abnormal Lab Results - Last 24 Hours (Table) 11/17/20 11/17/20 11/17/20 Range/Units 16:28 16:28 16:28 RBC 3.54 L (3.80-5.40) m/uL Hgb (12.0-15.0) g/dL Hct (37.2-46.3) % MCV 107.4 H (80.0-100.0) fL MCH 36.7 H (25.0-35.0) pg Plt Count 113 L (150-450) k/uL PT 21.7 H (9.0-12.0) sec INR 2.2 H (<1.2) APTT 33.1 H (22.0-30.0) sec BUN/Creatinine Ratio (12.00-20.00) Ratio Glucose 107 H (74-99) mg/dL Total Bilirubin 1.5 H (0.2-1.3) mg/dL AST 47 H (14-36) U/L Troponin I (0.000-0.034) ng/mL Total Protein (6.2-8.2) g/dL 11/18/20 11/18/20 11/18/20 Range/Units 04:29 04:29 04:29 RBC 3.26 L (3.80-5.40) m/uL Hgb 11.4 L (12.0-15.0) g/dL Hct 35.4 L (37.2-46.3) % MCV 108.6 H (80.0-100.0) fL MCH 35.0 H (25.0-35.0) pg Plt Count 115 L (150-450) k/uL PT 20.5 H (9.0-12.0) sec INR 1.97 H (<1.2) APTT (22.0-30.0) sec BUN/Creatinine Ratio 31.67 H (12.00-20.00) Ratio Glucose (74-99) mg/dL Total Bilirubin 1.4 H (0.2-1.3) mg/dL AST 41 H (14-36) U/L Troponin I (0.000-0.034) ng/mL Total Protein 6.1 L (6.2-8.2) g/dL 11/18/20 Range/Units 04:29 RBC (3.80-5.40) m/uL Hgb (12.0-15.0) g/dL Hct (37.2-46.3) % MCV (80.0-100.0) fL MCH (25.0-35.0) pg Plt Count (150-450) k/uL PT (9.0-12.0) sec INR (<1.2) APTT (22.0-30.0) sec BUN/Creatinine Ratio (12.00-20.00) Ratio Glucose (74-99) mg/dL Total Bilirubin (0.2-1.3) mg/dL AST (14-36) U/L Troponin I 0.041 H* (0.000-0.034) ng/mL Total Protein (6.2-8.2) g/dL Assessment and Plan Assessment: This is a 86-year-old female with past medical history noted below who presented to the emergency room with worsening shortness of breath. She was evaluated in the ER and admitted to the hospital for further management of her medical problems noted below. 1. Non-ST elevation [place]: Treated with optimal medical management. Plan for left heart catheterization in the morning. 2. Exertional dyspnea: As above. Valvular disease may be contributing to her symptoms. She is scheduled tomorrow. 3. Acute diastolic heart failure exacerbation with severe mitral regurgitation: Started on Lasix with good response 4. Chronic atrial fibrillation on anticoagulation with Coumadin. We will continue to monitor INR closely 4. 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 Continue current regimen. Appreciate cardiology recommendations. Repeat lab work in the [facility]
[2020-11-18] MEDS ORDERED: WARFARIN 0.5 MG TAB PO ONE (18:00)
[2020-11-18] MEDS ORDERED: WARFARIN 5 MG TAB PO SCH (21:00)
[2020-11-18] MEDS ORDERED: SODIUM CHLORIDE 0.9% 1,000 ML in EMPTY BAG 1 BAG IV ONE (23:59)
[2020-11-19 01:54] VITALS: RESP 16
[2020-11-19 05:40] LABS: Glucose,Whole Blood 119 mg/dL (75-99)
[2020-11-19] MEDS ORDERED: ASPIRIN 325 MG TAB PO ONE (06:00)
[2020-11-19 06:44] LABS: Basophils # (A) 0.1 k/uL (0-0.2); Basophils % (A) 1 %; Eosinophils # (A) 0.3 k/uL (0-0.7); Eosinophils % (A) 6 %; HCT 36.4 % (34.0-46.0); Lymphocytes % (A) 19 %; MCH 35.7 pg (25.0-35.0); MCHC 32.9 g/dL (31.0-37.0); MCV 108.6 fL (80.0-100.0); Macrocytosis Moderate; Mean Platelet Volume 8.5; Monocytes # (A) 0.4 k/uL (0-1.0); Monocytes % (A) 7 %; Neutrophils # (A) 3.3 k/uL (1.3-7.7); Neutrophils % (A) 65 %; Platelet Count 118 k/uL (150-450); RBC 3.36 m/uL (3.80-5.40); WBC 5.1 k/uL (3.8-10.6)
[2020-11-19 06:51] LABS: INR 1.9 (<1.2); Prothrombin Time 18.4 sec (9.0-12.0)
[2020-11-19] MEDS ORDERED: HEPARIN SODIUM,PORCINE 10,000 UNIT in SODIUM CHLORIDE 0.9% 1,000 ML IRRIGATION PRN (07:00)
[2020-11-19] MEDS ORDERED: HEPARIN SODIUM,PORCINE 2,500 UNIT in SODIUM CHLORIDE 0.9% 250 ML IRRIGATION PRN (07:00)
[2020-11-19 07:23] VITALS: TEMP 98.4
[2020-11-19 07:55] LABS: African American GFR (CKD) >90 (>60 ml/min/1.73 sqM); Anion Gap 8 mmol/L; Blood Urea Nitrogen 18 mg/dL (7-17); Calcium 9.6 mg/dL (8.4-10.2); Carbon Dioxide 28 mmol/L (22-30); Chloride 104 mmol/L (98-107); Glucose 115 mg/dL (74-99); Non-African American GFR(CKD) 85 (>60 ml/min/1.73 sqM); Sodium 140 mmol/L (137-145)
[2020-11-19] MEDS ORDERED: fentaNYL (PF) 50 MCG/ML 2 ML AMP ONE ×2 (08:37→13:47)
[2020-11-19] MEDS: BENZOCAINE SPRAY 1 CAN MUCOUS MEM ONE ×2 (08:55→09:03)
[2020-11-19] MEDS ORDERED: IV FLUID CONTINUATION 1,000 ML IV ONE ×3 (08:57→13:53)
[2020-11-19] MEDS ORDERED: FUROSEMIDE 20 MG TAB PO SCH (09:00)
[2020-11-19] MEDS ORDERED: ASPIRIN 81 MG PO SCH (09:00)
[2020-11-19] MEDS ORDERED: MIDAZOLAM 2 MG/2 ML VIAL IVP ONE (09:04)
[2020-11-19] MEDS ORDERED: fentaNYL (PF) 50 MCG/ML 2 ML AMP IVP ONE (09:04)
[2020-11-19] MEDS ORDERED: VERAPAMIL 2.5 MG/ML 2 ML AMP ONE (09:51)
[2020-11-19] MEDS ORDERED: LIDOCAINE 1% INJ 10MG/ML (20 ML MDV) ONE (09:51)
[2020-11-19] MEDS ORDERED: LIDOCAINE 1% INJ 10MG/ML (20 ML MDV) SQ ONE (10:00)
[2020-11-19] MEDS: MIDAZOLAM 2 MG/2 ML VIAL IV ONE ×2 (10:00→14:35)
[2020-11-19] MEDS ORDERED: HEPARIN SODIUM 1,000 UN/ML (10ML VL) ONE (10:01)
[2020-11-19] MEDS: VERAPAMIL SYRINGE (5 MG/10 ML) INTRAARTER ONE ×2 (10:02→10:32)
[2020-11-19 10:25] LABS: O2 Sat Blood Gas 63.7 %
[2020-11-19] MEDS ORDERED: IOPAMIDOL-370 100ML BTL INJ ONE (10:29)
[2020-11-19 10:37] LABS: O2 Sat Blood Gas 95.9 %
[2020-11-19] MEDS ORDERED: SODIUM CHLORIDE 0.9% 1,000 ML IV SCH ×2 (10:56→15:00)
--- NOTE | 2020-11-19 12:06 | CC ---
CARDIAC CATHETERIZATION REPORT DATE OF SERVICE: 11/19/2020. PROCEDURE: Right and left heart catheterization with coronary angiography PERFORMED BY: Dr. Cole Sanders. SEDATION: Moderate conscious sedation time was 40 minutes. Patient was administered Versed. Oxygen saturation, hemodynamics and EKG were monitored closely. 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 She also has mild to moderate pulmonary hypertension. Recently, she had increasing shortness of breath and came into the office, was found to be in congestive heart failure with increased JVD. I hospitalized her and diuresed her. She felt better. Troponins were equivocal, but there was a trend rising and therefore I recommended coronary angiography and transesophageal echo. Transesophageal echo will be performed later on this afternoon because of some scheduling issues. She was advised a right and left heart catheterization and was brought in for the procedure electively. The patient had a right brachial access already in place into the right brachial vein. PROCEDURE NOTE: Under local anesthesia and strict aseptic precautions through the right brachial access, a micropuncture wire was advanced and a 6-Angolan introducer was placed in the venous access site. A good blood flow return was noted. I performed right heart catheterization with a 6-Angolan catheter and checked right-sided pressures and saturations. Thermodilution cardiac output was not performed because I could not get all the way into the wedge position. I was only able to get into the common pulmonary artery and pressures were obtained. Thermodilution cardiac output was not performed. Saturations were obtained. Subsequently under strict aseptic precautions and local anesthesia, a 6-Angolan introducer was placed in the right radial artery. Using JL3.5 and JR4 catheters I performed coronary angiography and also checked LV pressures by pigtail catheter but LV gram was not performed. Both the sheaths were taken out and hemostasis secured. Right TR band applied to the right radial. Saturation the fingers of the right hand was 91% and patient has about 9 mL of pressure in the TR band. I did not heparinize the patient since INR was 1.9. The patient tolerated procedure well without complications. CARDIAC CATHETERIZATION FINDINGS: Right atrial pressure was 11 mmHg. Right ventricular pressure was 42/11. Pulmonary arterial pressure was 42/17 with a mean of 26. Pulmonary arterial saturation was 64%. Femoral artery saturation was 95% and right atrial saturation was 63%. The Mikayla cardiac output was about 4.5 L. There was no oxygen step-up. The left ventricular end-diastolic pressure was about 17 mmHg without any gradient across the aortic valve. CORONARY ANGIOGRAPHY FINDINGS: RIGHT CORONARY ARTERY: Technically a dominant vessel, large in caliber and distribution. Distally bifurcates into a large PLV, smaller PDA, both of which have minor irregularities. No significant disease. Right coronary artery is dominant and has no significant disease. LEFT MAIN CORONARY ARTERY: A very short vessel that immediately bifurcates into LAD and circumflex. No significant disease. LEFT ANTERIOR DESCENDING CORONARY ARTERY: Good caliber vessel extends along the anterior wall, gives off septal and diagonal branches. In the midportion, large diagonal branch comes off, divides into 2 branches. No significant disease in the LAD or the diagonal system. LAD is a large distribution vessel runs all the way to the apex and supplies a sizable amount of myocardium. LEFT POSTERIOR CIRCUMFLEX CORONARY ARTERY: This is a nondominant vessel, gives off a large obtuse marginal then continues in the AV groove and gives a distal posterolateral branch and a groove branch. The circumflex and all branches have minor irregularities. No significant disease is noted. LEFT VENTRICULOGRAM: LV-gram was not performed. FINAL IMPRESSION: This patient has elevated filling pressures. No significant gradient across aortic valve, moderate pulmonary hypertension with a cardiac output of 4.5 L by the Mikayla method. No oxygen step-up. No significant obstructive CAD and a right-dominant system. RECOMMENDATIONS: The patient will have a transesophageal echo and based on the findings and severity of mitral regurgitation, we will make further recommendations. As far as coronary disease is concerned, patient does not have any significant obstructive CAD and she has no significant gradient across aortic valve. Following the SUKUMAR, I will make more specific recommendations. MMODL / IJN: [id number] /
[2020-11-19] MEDS: BENZOCAINE SPRAY 1 CAN TOPICAL ONE ×2 (14:01→14:03)
[2020-11-19] MEDS ORDERED: MIDAZOLAM 2 MG/2 ML VIAL IV ONE ×2 (14:24→14:27)
[2020-11-19] MEDS: fentaNYL (PF) 50 MCG/ML 2 ML AMP IV ONE ×2 (14:24→14:35)
[2020-11-19 15:17] VITALS: BP 142/73; PULSE 62
--- NOTE | 2020-11-19 17:12 | P.PN ---
Subjective Progress Note Date: 11/19/20 Patient is doing fairly well today. She denies any chest pain. No acute events overnight. Objective - Vital Signs Vital signs: Vital Signs Temp 98.4 F 11/19/20 07:00 Pulse 62 11/19/20 12:11 Resp 16 11/19/20 12:11 BP 142/73 11/19/20 12:11 Pulse Ox 98 11/19/20 12:11 Intake & Output 11/18/20 11/19/20 11/19/20 18:59 06:59 18:59 Intake Total 400 Balance 400 Intake: IV 400 Other: Voiding Method Toilet Toilet Toilet # Voids 2 3 3 - Exam General: The patient is awake and alert, in no distress Eye: there is normal conjunctiva bilaterally. Neck: The neck is supple, there is no JVD. Cardiovascular: Normal S1-S2, no S3-S4, no murmurs. Respiratory: Lungs clear to auscultation bilaterally Gastrointestinal: Abdomen is soft, nontender Musculoskeletal: There is no pedal edema. Neurological:. Speech is normal. Skin: Skin is warm and dry - Labs CBC & Chem 7: 11/19/20 05:58 11/19/20 05:58 Labs: Abnormal Lab Results - Last 24 Hours (Table) 11/18/20 11/19/20 11/19/20 Range/Units 04:29 05:39 05:58 RBC (3.80-5.40) m/uL MCV (80.0-100.0) fL MCH (25.0-35.0) pg Plt Count (150-450) k/uL PT 18.4 H (9.0-12.0) sec INR 1.9 H (<1.2) BUN (7-17) mg/dL Glucose (74-99) mg/dL POC Glucose (mg/dL) 119 H (75-99) mg/dL RBC Folate 858 H (280 - 791) ng/mL 11/19/20 11/19/20 Range/Units 05:58 05:58 RBC 3.36 L (3.80-5.40) m/uL MCV 108.6 H (80.0-100.0) fL MCH 35.7 H (25.0-35.0) pg Plt Count 118 L (150-450) k/uL PT (9.0-12.0) sec INR (<1.2) BUN 18 H (7-17) mg/dL Glucose 115 H (74-99) mg/dL POC Glucose (mg/dL) (75-99) mg/dL RBC Folate (280 - 791) ng/mL Assessment and Plan Assessment: This is a 86-year-old female with past medical history noted below who presented to the emergency room with worsening shortness of breath. She was evaluated in the ER and admitted to the hospital for further management of her medical problems noted below. 1. Non-ST elevation [place]: Treated with optimal medical management. Patient underwent left heart catheterization showing no significant obstructive coronary artery disease 2. Severe mitral regurgitation and pulmonary hypertension: Seen and evaluated by cardiology. Awaiting SUKUMAR 3. Acute diastolic heart failure exacerbation with severe mitral regurgitation: Started on Lasix with good response 4. Chronic atrial fibrillation on anticoagulation with Coumadin. We will continue to monitor INR closely 4. 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 Continue current regimen. Appreciate cardiology recommendations. Repeat lab work in the morning.
[2020-11-19] MEDS ORDERED: WARFARIN 7.5 MG TAB PO ONE (18:00)
[2020-11-19] MEDS ORDERED: WARFARIN 7.5 MG TAB PO SCH (21:00)
[2020-11-20] MEDS ORDERED: ASPIRIN 81 MG PO SCH (09:00)
== END 2020-11-19 17:29 | disposition home or self-care (01) | DRG 280 ==
LOC: EC 16:09 → 6NMEDSUR 17:56 → OBSVTOIN 11-18 14:09
PROVIDERS: ADMIT Internal Medicine; ATTEND Internal Medicine
PROC: B2111ZZ Fluoroscopy of Multiple Coronary Arteries using Low Osmolar Contrast (ICD-10-PCS; principal; 2020-11-19 09:00)
PROC: 4A023N8 Measurement of Cardiac Sampling and Pressure, Bilateral, Percutaneous Approach (ICD-10-PCS; principal; 2020-11-19 09:00)
DX: I21.4 Non-ST elevation (NSTEMI) myocardial infarction (principal); I50.33 Acute on chronic diastolic (congestive) heart failure; I48.19 Other persistent atrial fibrillation; J98.11 Atelectasis; I11.0 Hypertensive heart disease with heart failure; D75.89 Other specified diseases of blood and blood-forming organs; Z85.3 Personal history of malignant neoplasm of breast; I27.20 Pulmonary hypertension, unspecified; I34.0 Nonrheumatic mitral (valve) insufficiency; I34.1 Nonrheumatic mitral (valve) prolapse; Z79.01 Long term (current) use of anticoagulants; Z80.3 Family history of malignant neoplasm of breast; Z90.13 Acquired absence of bilateral breasts and nipples; Z90.710 Acquired absence of both cervix and uterus; Z95.0 Presence of cardiac pacemaker; Z96.1 Presence of intraocular lens; Z96.653 Presence of artificial knee joint, bilateral; Z98.41 Cataract extraction status, right eye; Z98.42 Cataract extraction status, left eye; Z87.01 Personal history of pneumonia (recurrent); Z98.890 Other specified postprocedural states; Z20.822 Contact with and (suspected) exposure to COVID-19; Z88.8 Allergy status to other drugs, medicaments and biological substances
CPT/HCPCS: 36415; 71046; 71275; 74174; 80048; 80053; 80061; 82728; 82747; 82810; 83540; 83550; 83605; 83880; 84484; 85018; 85025; 85027; 85610; 85730; 87635; 93005; 93306; 93312; 93320; 93325; 93456; 99285

== ENCOUNTER → 2022-10-27 | Outpatient (CLI) | payer MEDICARE, BC ==
[2022-10-27 14:32] LABS: African American GFR (CKD) 73 (>60 ml/min/1.73 sqM); Blood Urea Nitrogen 19 mg/dL (7-17); Non-African American GFR(CKD) 63 (>60 ml/min/1.73 sqM)
--- NOTE | 2022-10-27 19:33 | CT ---
EXAMINATION TYPE: CT chest w con DATE OF EXAM: 10/27/2022 COMPARISON: 11/17/2020 HISTORY: 87-year-old female R07.9, breast ca TECHNIQUE: Contiguous axial scanning of the chest after the administration of 100 mL of Isovue 300. Coronal/sagittal reconstructions performed. CT DLP: 215.9mGycm. Automatic exposure control utilized for a dose reduction. FINDINGS: Left anterior chest wall pacemaker generator with right atrial and right ventricular leads.. Bilateral mastectomies with breast reconstructions. Heart moderately enlarged. Severe left atrial dilatation noted. Ectatic ascending aorta 3.9 cm with conventional arch vessel branching anatomy and minimal arch calci fications. Oral and ectatic upper descending thoracic aorta 3.0 cm. No thoracic lymphadenopathy. Markedly dilated main right and left pulmonary arteries up to 3.3 cm compatible with underlying pulmo nary hypertension. Some reticular and fibrotic changes in the posterior lung bases. Strandy scarring also present in the lower lungs. At least mild emphysematous change. No suspicious pulmonary nodule is seen. Visualized upper abdomen shows cholecystectomy clips and some mild reflux of contrast into the hepati c veins. Bones: No osseous destructive process. Trace grade 1 retrolisthesis L1-L2 and moderate degenerative d isc disease here. IMPRESSION: 1. Moderate cardiomegaly with severe left atrial dilatation. Suspect secondary pulmonary arterial hyp ertension. 2. 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 3. Bilateral mastectomies with breast reconstructions. No evidence for metastatic disease in the ches t.
== END | disposition home or self-care (01) ==
LOC: RADCTMAIN 13:39
PROVIDERS: ATTEND Surgery
DX: J43.9 Emphysema, unspecified (principal); J84.10 Pulmonary fibrosis, unspecified; Z90.13 Acquired absence of bilateral breasts and nipples; I51.7 Cardiomegaly
CPT/HCPCS: 82565; 84520; 71260; 36415; Q9967

== ENCOUNTER 2023-04-17 11:44 | Inpatient (IN) | payer MEDICARE, BC ==
--- NOTE | 2023-04-17 12:27 | XR ---
EXAMINATION TYPE: XR chest 2V DATE OF EXAM: 04/17/2023 COMPARISON: 11/18/2020 HISTORY: 87-year-old female with cough TECHNIQUE: PA and lateral views FINDINGS: Left anterior chest wall pacemaker generator with right atrial and right ventricular leads. Heart mil dly enlarged. Mild interstitial prominence. Hyperinflation. Otherwise, no consolidation or pleural ef fusion seen. IMPRESSION: Mild cardiomegaly and COPD. There is interstitial prominence which could reflect superimposed acute b ronchitis. Clinically correlate. No focal infiltrate seen.
[2023-04-17] MEDS ORDERED: ONDANSETRON 4 MG/2 ML VIAL IVP STA (12:47)
[2023-04-17] MEDS ORDERED: SODIUM CHLORIDE 0.9% 1,000 ML IV STA ×2 (12:47→16:30)
[2023-04-17 13:34] LABS: Basophils # (A) 0.1 k/uL (0-0.2); Basophils % (A) 0 %; Eosinophils # (A) 0.2 k/uL (0-0.7); Eosinophils % (A) 1 %; HCT 39.9 % (34.0-46.0); HGB 13.5 gm/dL (11.4-16.0); Lymphocytes # (A) 0.6 k/uL (1.0-4.8); Lymphocytes % (A) 3 %; MCHC 33.7 g/dL (31.0-37.0); MCV 106.8 fL (80.0-100.0); Macrocytosis Moderate; Mean Platelet Volume 8.5; Monocytes # (A) 0.8 k/uL (0-1.0); Monocytes % (A) 3 %; Neutrophils # (A) 23.8 k/uL (1.3-7.7); Neutrophils % (A) 92 %; Platelet Count 167 k/uL (150-450); RBC 3.74 m/uL (3.80-5.40); RDW 12.4 % (11.5-15.5); WBC 25.8 k/uL (3.8-10.6)
[2023-04-17 13:43] LABS: ALT 26 U/L (4-34); AST 50 U/L (14-36); African American GFR (CKD) 76 (>60 ml/min/1.73 sqM); Albumin 3.2 g/dL (3.5-5.0); Alkaline Phosphatase 109 U/L (38-126); Amylase <30 U/L (30-110); Anion Gap 12 mmol/L; Blood Urea Nitrogen 38 mg/dL (7-17); Calcium 8.4 mg/dL (8.4-10.2); Carbon Dioxide 21 mmol/L (22-30); Chloride 97 mmol/L (98-107); Glucose 107 mg/dL (74-99); Lipase 73 U/L (23-300); Non-African American GFR(CKD) 66 (>60 ml/min/1.73 sqM); Potassium 5.1 mmol/L (3.5-5.1); Sodium 130 mmol/L (137-145); Total Bilirubin 1.7 mg/dL (0.2-1.3); Total Protein 5.9 g/dL (6.3-8.2)
--- NOTE | 2023-04-17 13:49 | ED ---
Nausea/Vomiting/Diarrhea HPI - General Chief complaint: Nausea/Vomiting/Diarrhea Stated complaint: NVD Time Seen by Provider: 04/17/23 12:34 Source: patient, family, RN notes reviewed Mode of arrival: ambulatory Limitations: no limitations - History of Present Illness Initial comments: This is an 87-year-old female who presents to the emergency department for nausea, vomiting, and diarrhea. Symptoms began one week ago. Describes the stool as being watery. She is going 4-5 times daily. Also reports nausea and vomiting. She last threw up yesterday, however she continues to feel nauseous and has not been eating or drinking. States that she feels very dehydrated. She has minor abdominal discomfort related to her symptoms. Also reports fevers, most recently yesterday. Denies a history of C. diff, however she did finish a course of Augmentin on 04/06 which was prescribed by urgent care for bronchitis. Denies any sick contacts. MD complaint: nausea, vomiting, diarrhea, abdominal pain - Related Data Home Medications Medication Instructions Recorded Confirmed Warfarin [Coumadin] 5 mg PO DIRECTED 11/17/20 11/22/22 Warfarin [Coumadin] 7.5 mg PO DIRECTED 11/17/20 11/22/22 Furosemide [Lasix] 40 mg PO DAILY 11/22/22 11/22/22 Metoprolol Tartrate [Lopressor] 25 mg PO BID 11/22/22 11/22/22 Multivit with Calcium,Iron,Min 1 each PO DAILY 11/22/22 11/22/22 [Women's Multivitamin] Green-3/Dha/Epa/Fish Oil [Fish Oil 1 each PO DIRECTED 11/22/22 11/22/22 1,000 mg Softgel] Potassium Chloride 10 meq PO DAILY 11/22/22 11/22/22 estradioL [Estrace] 0.5 mg PO DIRECTED 11/22/22 11/22/22 Allergies Allergy/AdvReac Type Severity Reaction Status Date / Time meperidine HCl [From Demerol] AdvReac Nausea & Verified 04/17/23 11:55 Vomiting Review of Systems ROS Statement: Those systems with pertinent positive or pertinent negative responses have been documented in the HPI. ROS Other: All systems not noted in ROS Statement are negative. 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 History of Any Multi-Drug Resistant Organisms: None Reported Past Surgical History: Breast Surgery, Cardiac Ablation, Cholecystectomy, Heart Catheterization, Joint Replacement, Pacemaker Additional Past Surgical History / Comment(s): EPS WITH CARDIAC ABLATIONS, BILATERAL SIMPLE MASTECTOMIES( 1979)., BILATERAL TOTAL KNEE ARTHROPLASTIES, CATARACTS W/ LENS IMPLANTS, HYSTERECTOMY WITH BILATERAL SALPINGECTOMY OOPHORECTOMY, COLONOSCOPY. Past Anesthesia/Blood Transfusion Reactions: No Reported Reaction Type of Cardiac Device: Permanent Pacemaker Device Placement Date:: 06/2000 DUAL CHAMBER PLACED AND GEN CHANGE 2014. Past Psychological History: No Psychological Hx Reported Smoking Status: Never smoker Past Alcohol Use History: Occasional Past Drug Use History: None Reported - Past Family History Father Family Medical History: No Reported History Additional Family Medical History / Comment(s): Father was healthy and lived to be 94 yrs old. Mother Family Medical History: Cancer Additional Family Medical History / Comment(s): Mother had breast cancer and so did 3 of her sisters. Daughter(s) Family Medical History: Cancer Additional Family Medical History / Comment(s): Olderst daughter from breast cancer. General Exam Limitations: no limitations General appearance: alert, in no apparent distress Head exam: Present: atraumatic, normocephalic, normal inspection Respiratory exam: Present: normal lung sounds bilaterally. Absent: respiratory distress, wheezes, rales, rhonchi, stridor Cardiovascular Exam: Present: regular rate, normal rhythm, normal heart sounds. Absent: systolic murmur, diastolic murmur, rubs, gallop, clicks GI/Abdominal exam: Present: soft, tenderness (generalized), normal bowel sounds. Absent: distended, guarding, rebound, rigid Neurological exam: Present: alert, oriented X3, CN II-XII intact Psychiatric exam: Present: normal affect, normal mood Skin exam: Present: warm, dry, intact, normal color. Absent: rash Course Vital Signs 04/17/23 04/17/23 04/17/23 11:51 14:00 15:00 Temperature 98.3 F Pulse Rate 65 61 60 Respiratory 18 19 26 H Rate Blood Pressure 102/62 109/55 107/78 O2 Sat by Pulse 91 L 94 L 93 L Oximetry Medical Decision Making - Medical Decision Making This is an 87-year-old female who presents to the emergency department for nausea, vomiting, diarrhea, and abdominal pain. Was pt. sent in by a medical professional or institution? @ -No Did you speak to anyone other than the patient for history? @ -No Did you review nursing and triage notes? @ -Yes, and I agree, it is accurate with regards to the patient's symptoms. Were old charts reviewed? @ -No Differential Diagnosis? @ -Differential Nausea and Vomiting: Gastroenteritis, cholecystitis, appendicitis, pancreatitis, migraine, benign positional vertigo, food borne illness, pyelonephritis, irritable bowel syndrome, influenza, Covid, GERD, incarcerated hernia, intestinal obstruction, this is not meant to be an all-inclusive list. EKG interpreted by me (3pts min.)? @ -EKG interpreted by me demonstrating the following: Electronic ventricular pacemaker. Ventricular rate 60 beats per minute, MI interval 183 ms, QRS duration 167 ms, QTC 448 ms. X-rays interpreted by me (1pt min.)? @ -Not obtained CT interpreted by me (1pt min.)? @ -Computed tomography scan of the abdomen and pelvis obtained. My interpretation identifies diffuse inflammation throughout the colon and no evidence of free air. U/S interpreted by me (1pt. min.)? @ -Not obtained What testing was considered but not performed? (CT, X-rays, U/S, labs)? Why? @ -None What meds were considered but not given? Why? @ -None Did you discuss the management of the patient with other professionals? @ -Tita Clifford with [facility], who accepts the patient for admission. Did you reconcile home meds? @ -No Was smoking cessation discussed for >3mins.? @ -No Was critical care preformed (if so, how long)? @ -No Were there social determinants of health that impacted care today? How? (Home lessness, low income, unemployed, alcoholism, drug addiction, transportation, low edu. Level, literacy, decrease access to med. care, fci, rehab)? @ -No Was there de-escalation of care discussed even if they declined? (Discuss DNR or withdrawal of care, Hospice)? @ -No What co-morbidities impacted this encounter? (DM, HTN, Smoking, COPD, CAD, Cancer, CVA, Hep., AIDS, mental health diagnosis, sleep apnea, morbid obesity)? @ -A-fib Was patient admitted / discharged? @ -Admitted. Lab work obtained revealing leukocytosis and signs of dehydration. Urinalysis negative for signs of infection. Covid, influenza,and RSV testing were negative. Patient did test positive for C. diff. Computed tomography scan of the abdomen and pelvis obtained revealing diffuse colonic wall thickening and surrounding inflammatory changes suggestive of colitis. Patient was initially treated with IV fluids and Zofran, with minor improvement in symptoms. She continued to feel very fatigued and generally unwell. Given her age, significant leukocytosis, and extensive colonic inflammation, patient admitted to medicine for further management of C. diff and dehydration. She was started on PO vancomycin 125mg 4 times a day. Maintenance IV fluids were also initiated. Consult placed for infectious disease. Undiagnosed new problem with uncertain prognosis? @ -None Drug Therapy requiring intensive monitoring for toxicity (Heparin, Nitro, Insulin, Cardizem)? @ -None Were any procedures done? @ -None Diagnosis/symptom? @ -C. diff, dehydration Acute, or Chronic, or Acute on Chronic? @ -Acute Uncomplicated (without systemic symptoms) or Complicated (systemic symptoms)? @ -Complicated Side effects of treatment? @ -None Exacerbation, Progression, or Severe Exacerbation] @ -Not applicable Poses a threat to life or bodily function? @ -Yes This case was discussed in detail with the attending ED physician, Dr. Jaffe. Presentation, findings, and treatment plan discussed in detail as well. - Lab Data Result diagrams: 04/17/23 13:18 04/17/23 13:18 Lab Results 04/17/23 04/17/23 04/17/23 Range/Units 13:18 13:18 13:18 WBC 25.8 H (3.8-10.6) k/uL RBC 3.74 L (3.80-5.40) m/uL Hgb 13.5 (11.4-16.0) gm/dL Hct 39.9 (34.0-46.0) % MCV 106.8 H (80.0-100.0) fL MCH 36.0 H (25.0-35.0) pg MCHC 33.7 (31.0-37.0) g/dL RDW 12.4 (11.5-15.5) % Plt Count 167 (150-450) k/uL MPV 8.5 Neutrophils % 92 % Lymphocytes % 3 % Monocytes % 3 % Eosinophils % 1 % Basophils % 0 % Neutrophils # 23.8 H (1.3-7.7) k/uL Lymphocytes # 0.6 L (1.0-4.8) k/uL Monocytes # 0.8 (0-1.0) k/uL Eosinophils # 0.2 (0-0.7) k/uL Basophils # 0.1 (0-0.2) k/uL Macrocytosis Moderate Sodium 130 L (137-145) mmol/L Potassium 5.1 (3.5-5.1) mmol/L Chloride 97 L (98-107) mmol/L Carbon Dioxide 21 L (22-30) mmol/L Anion Gap 12 mmol/L BUN 38 H (7-17) mg/dL Creatinine 0.82 (0.52-1.04) mg/dL Est GFR (CKD-EPI)AfAm 76 (>60 ml/min/1.73 sqM) Est GFR (CKD-EPI)NonAf 66 (>60 ml/min/1.73 sqM) Glucose 107 H (74-99) mg/dL Plasma Lactic Acid Cesar (0.7-2.0) mmol/L Calcium 8.4 (8.4-10.2) mg/dL Magnesium (1.6-2.3) mg/dL Total Bilirubin 1.7 H (0.2-1.3) mg/dL AST 50 H (14-36) U/L ALT 26 (4-34) U/L Alkaline Phosphatase 109 (38-126) U/L Total Protein 5.9 L (6.3-8.2) g/dL Albumin 3.2 L (3.5-5.0) g/dL Amylase <30 L (30-110) U/L Lipase 73 (23-300) U/L Urine Color Soheila Urine Appearance Clear (Clear) Urine pH 5.0 (5.0-8.0) Ur Specific [place] 1.015 (1.001-1.035) Urine Protein Trace H (Negative) Urine Glucose (UA) Negative (Negative) Urine Ketones Negative (Negative) Urine Blood Negative (Negative) Urine Nitrite Negative (Negative) Urine Bilirubin Negative (Negative) Urine Urobilinogen <2.0 (<2.0) mg/dL Ur Leukocyte Esterase Negative (Negative) C. difficile (EIA) Intrp (Negative) Influenza Type A (PCR) (Not Detectd) Influenza Type B (PCR) (Not Detectd) RSV (PCR) (Not Detectd) SARS-CoV-2 (PCR) (Not Detectd) 04/17/23 04/17/23 04/17/23 Range/Units 13:18 13:18 17:07 WBC (3.8-10.6) k/uL RBC (3.80-5.40) m/uL Hgb (11.4-16.0) gm/dL Hct (34.0-46.0) % MCV (80.0-100.0) fL MCH (25.0-35.0) pg MCHC (31.0-37.0) g/dL RDW (11.5-15.5) % Plt Count (150-450) k/uL MPV Neutrophils % % Lymphocytes % % Monocytes % % Eosinophils % % Basophils % % Neutrophils # (1.3-7.7) k/uL Lymphocytes # (1.0-4.8) k/uL Monocytes # (0-1.0) k/uL Eosinophils # (0-0.7) k/uL Basophils # (0-0.2) k/uL Macrocytosis Sodium (137-145) mmol/L Potassium (3.5-5.1) mmol/L Chloride (98-107) mmol/L Carbon Dioxide (22-30) mmol/L Anion Gap mmol/L BUN (7-17) mg/dL Creatinine (0.52-1.04) mg/dL Est GFR (CKD-EPI)AfAm (>60 ml/min/1.73 sqM) Est GFR (CKD-EPI)NonAf (>60 ml/min/1.73 sqM) Glucose (74-99) mg/dL Plasma Lactic Acid Cesar 1.3 (0.7-2.0) mmol/L Calcium (8.4-10.2) mg/dL Magnesium (1.6-2.3) mg/dL Total Bilirubin (0.2-1.3) mg/dL AST (14-36) U/L ALT (4-34) U/L Alkaline Phosphatase (38-126) U/L Total Protein (6.3-8.2) g/dL Albumin (3.5-5.0) g/dL Amylase (30-110) U/L Lipase (23-300) U/L Urine Color Urine Appearance (Clear) Urine pH (5.0-8.0) Ur Specific [place] (1.001-1.035) Urine Protein (Negative) Urine Glucose (UA) (Negative) Urine Ketones (Negative) Urine Blood (Negative) Urine Nitrite (Negative) Urine Bilirubin (Negative) Urine Urobilinogen (<2.0) mg/dL Ur Leukocyte Esterase (Negative) C. difficile (EIA) Intrp Positive A (Negative) Influenza Type A (PCR) Not Detected (Not Detectd) Influenza Type B (PCR) Not Detected (Not Detectd) RSV (PCR) Not Detected (Not Detectd) SARS-CoV-2 (PCR) Not Detected (Not Detectd) 04/17/23 Range/Units 17:07 WBC (3.8-10.6) k/uL RBC (3.80-5.40) m/uL Hgb (11.4-16.0) gm/dL Hct (34.0-46.0) % MCV (80.0-100.0) fL MCH (25.0-35.0) pg MCHC (31.0-37.0) g/dL RDW (11.5-15.5) % Plt Count (150-450) k/uL MPV Neutrophils % % Lymphocytes % % Monocytes % % Eosinophils % % Basophils % % Neutrophils # (1.3-7.7) k/uL Lymphocytes # (1.0-4.8) k/uL Monocytes # (0-1.0) k/uL Eosinophils # (0-0.7) k/uL Basophils # (0-0.2) k/uL Macrocytosis Sodium (137-145) mmol/L Potassium (3.5-5.1) mmol/L Chloride (98-107) mmol/L Carbon Dioxide (22-30) mmol/L Anion Gap mmol/L BUN (7-17) mg/dL Creatinine (0.52-1.04) mg/dL Est GFR (CKD-EPI)AfAm (>60 ml/min/1.73 sqM) Est GFR (CKD-EPI)NonAf (>60 ml/min/1.73 sqM) Glucose (74-99) mg/dL Plasma Lactic Acid Cesar (0.7-2.0) mmol/L Calcium (8.4-10.2) mg/dL Magnesium 1.9 (1.6-2.3) mg/dL Total Bilirubin (0.2-1.3) mg/dL AST (14-36) U/L ALT (4-34) U/L Alkaline Phosphatase (38-126) U/L Total Protein (6.3-8.2) g/dL Albumin (3.5-5.0) g/dL Amylase (30-110) U/L Lipase (23-300) U/L Urine Color Urine Appearance (Clear) Urine pH (5.0-8.0) Ur Specific [place] (1.001-1.035) Urine Protein (Negative) Urine Glucose (UA) (Negative) Urine Ketones (Negative) Urine Blood (Negative) Urine Nitrite (Negative) Urine Bilirubin (Negative) Urine Urobilinogen (<2.0) mg/dL Ur Leukocyte Esterase (Negative) C. difficile (EIA) Intrp (Negative) Influenza Type A (PCR) (Not Detectd) Influenza Type B (PCR) (Not Detectd) RSV (PCR) (Not Detectd) SARS-CoV-2 (PCR) (Not Detectd) - Radiology Data Radiology results: report reviewed, image reviewed Disposition Clinical Impression: Clostridioides difficile infection, Dehydration Disposition: ADMITTED IP TO THIS HOSP
--- NOTE | 2023-04-17 16:24 | CT ---
EXAMINATION TYPE: CT abdomen pelvis w con CT DLP: 788.3 mGycm, Automated exposure control for dose reduction was used. DATE OF EXAM: 04/17/2023 2:23 PM COMPARISON: CT 02/17/2020 CLINICAL INDICATION:Female, 87 years old with history of Lower abdominal pain, N/V/D; Lower abdominal pain, N/V/D TECHNIQUE: Axial CT of the abdomen and pelvis. Sagittal and coronal reformats were created on a [employer] workstation. Contrast used:90ml mL of Isovue 300 with IV Contrast, (none if empty) Oral contrast used: without Oral Contrast (none if empty) FINDINGS: LOWER CHEST: Mild scarring or subsegmental atelectasis in the lung bases. Partially seen small right lung nodule measuring 4-5 mm, could be further evaluated/followed up with outpatient CT chest. No ple ural or pericardial effusion. Partially seen bilateral breast implants. Heart is moderately to severe ly enlarged, with aortic and mitral valve hyperdensities suggesting calcifications. Distal ends of pa cemaker leads are partially seen. ABDOMEN LIVER: Trace perihepatic ascites along the dome. Slightly heterogeneous hepatic parenchyma with no fo dillon mass detected. Portal veins are enhancing. GALLBLADDER AND BILE DUCTS: The gallbladder is surgically absent. Mildly prominent CBD up to 8.4 mm, probably sequela of post cholecystectomy status and patient age. PANCREAS: Mildly atrophic without acute abnormality. SPLEEN: Spleen is unremarkable. Trace perisplenic ascites. ADRENAL GLANDS: Mildly thickened without evidence of mass.. KIDNEYS AND URETERS: Kidneys enhance symmetrically. There is no evidence of hydronephrosis. Cortical scarring suggested in the mid left kidney. A 2.3 cm cyst in its lower pole. PELVIS BLADDER: Mildly distended without contour abnormality. Somewhat increased attenuation of the urine co mpared to expected, could be related to contrast excretion or other substance in the urine. REPRODUCTIVE: Uterus appears absent. Ovaries are not clearly seen. ABDOMEN & PELVIS STOMACH AND BOWEL: Stomach and small bowel are nondistended, no evidence of obstruction. Appendix is not visualized. There is mild/moderate stool throughout the colon. There is diffuse colonic wall thic kening with surrounding inflammatory changes of the pericolonic fat. No definite bowel wall pneumatos is is seen. PERITONEUM/RETROPERITONEUM: No evidence of pneumoperitoneum. VASCULATURE: Moderate atherosclerotic calcifications throughout a tortuous abdominal aorta and its ma veronica branches. No evidence of AAA. MUSCULOSKELETAL: No acute osseous abnormality. Mild/moderate degenerative changes of the lumbar spine with grade 1 anterolisthesis L4 over L5 and trace anterolisthesis L5 over S1. LYMPH NODES: No gross evidence for lymphadenopathy. SOFT TISSUE/ABDOMINAL WALL: Mild body wall edema. IMPRESSION: 1. Diffuse colonic wall thickening and surrounding inflammatory changes, suggestive of nonspecific c olitis which could be infectious or inflammatory. 2. Other chronic and likely incidental findings, as described above.
[2023-04-17 16:30] LABS: Appearance,Urine Clear (Clear); Bilirubin,Urine Negative (Negative); Blood,Urine Negative (Negative); Color,Urine Amber; Glucose,Urine (UA) Negative (Negative); Ketones,Urine Negative (Negative); Leukocyte Esterase,Urine Negative (Negative); Nitrite,Urine Negative (Negative); Protein,Urine Trace (Negative); Specific Gravity,Urine 1.015 (1.001-1.035); Urobilinogen,Urine <2.0 mg/dL (<2.0)
[2023-04-17] MEDS ORDERED: NALOXONE 0.4 MG/ML 1 ML VIAL IV PRN (16:48)
[2023-04-17] MEDS ORDERED: MORPHINE SULFATE 4 MG/ML SYRINGE IV PRN (16:48)
[2023-04-17] MEDS ORDERED: HYDROcodone/APAP 5-325MG 1 EACH TAB PO PRN (16:48)
[2023-04-17] MEDS ORDERED: ONDANSETRON 4 MG/2 ML VIAL IVP PRN (16:48)
[2023-04-17] MEDS: VANCOMYCIN 125 MG CAPSULE PO SCH ×2 (17:15→21:18)
[2023-04-17] MEDS: ACETAMINOPHEN TAB 325 MG TAB PO PRN (21:18)
[2023-04-18] MEDS: ACETAMINOPHEN TAB 325 MG TAB PO PRN ×3 (04:24→20:38)
[2023-04-18] MEDS: VANCOMYCIN 125 MG CAPSULE PO SCH ×3 (08:44→20:39)
[2023-04-18] MEDS ORDERED: ALBUTEROL NEBULIZED 2.5 MG/3 ML INHALATION PRN (11:58)
--- NOTE | 2023-04-18 12:10 | P.HPIM ---
History of Present Illness Patient is a pleasant the 87-year-old female came in with compensative diarrhea found to have C. diff colitis patient was treated with antibiotics about a week ago for bronchitis. Patient is hyponatremic patient does take diuretics at home because of the moderate pulmonary hypertension and possible diastolic dysfunction from moderate aortic stenosis. Patient is supposed to get the valve replaced and he was to [place]. Patient does have elevated white blood cell count of 25,000 patient diarrhea is better able to tolerate oral liquids at this time. Had 4 episodes of diarrhea since admission. REVIEW OF SYSTEMS: CONSTITUTIONAL: No fever, no malaise, no fatigue. HEENT: No recent visual problems or hearing problems. Denied any sore throat. CARDIOVASCULAR: No chest pain, orthopnea, PND, no palpitations, no syncope. PULMONARY: No shortness of breath, no cough, no hemoptysis. GASTROINTESTINAL: As mentioned in HPI NEUROLOGICAL: No headaches, no weakness, no numbness. HEMATOLOGICAL: Denies any bleeding or petechiae. GENITOURINARY: Denies any burning micturition, frequency, or urgency. MUSCULOSKELETAL/RHEUMATOLOGICAL: Denies any joint pain, swelling, or any muscle pain. ENDOCRINE: Denies any polyuria or polydipsia. The rest of the 14-point review of systems is negative. PHYSICAL EXAMINATION: GENERAL: The patient is alert and oriented x3, not in any acute distress. Thin built female HEENT: Pupils are round and equally reacting to light. EOMI. No scleral icterus. No conjunctival pallor. Normocephalic, atraumatic. No pharyngeal erythema. No thyromegaly. CARDIOVASCULAR: S1 and S2 present. No rubs, or gallops. Grade 4/6 systolic murmur and diuretic area PULMONARY: Chest is clear to auscultation, no wheezing or crackles. ABDOMEN: Soft, nontender, nondistended, normoactive bowel sounds. No palpable organomegaly. MUSCULOSKELETAL: No joint swelling or deformity. EXTREMITIES: No cyanosis, clubbing, or pedal edema. NEUROLOGICAL: Gross neurological examination did not reveal any focal deficits. SKIN: No rashes. Assessment and plan -C. diff colitis: Continue oral vancomycin IV fluids will be continued -Hypovolemic hyponatremia secondary to diarrhea and diuretics which will be held, IV fluids as mentioned above -Moderate aortic stenosis with pulmonary hypertension -Elevated MCV B12 level will be obtained patient had a normal folate level in the past -Proximal atrial fibrillation presently rate controlled because of valvular A. 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 History of Any Multi-Drug Resistant Organisms: None Reported Past Surgical History: Breast Surgery, Cardiac Ablation, Cholecystectomy, Heart Catheterization, Joint Replacement, Pacemaker Additional Past Surgical History / Comment(s): EPS WITH CARDIAC ABLATIONS, BILATERAL SIMPLE MASTECTOMIES( 1979)., BILATERAL TOTAL KNEE ARTHROPLASTIES, CATARACTS W/ LENS IMPLANTS, HYSTERECTOMY WITH BILATERAL SALPINGECTOMY OOPHORECTOMY, COLONOSCOPY. Past Anesthesia/Blood Transfusion Reactions: No Reported Reaction Type of Cardiac Device: Permanent Pacemaker Device Placement Date:: 06/2000 DUAL CHAMBER PLACED AND GEN CHANGE 2014. Past Psychological History: No Psychological Hx Reported Smoking Status: Never smoker Past Alcohol Use History: Occasional Past Drug Use History: None Reported - Past Family History Father Family Medical History: No Reported History Additional Family Medical History / Comment(s): Father was healthy and lived to be 94 yrs old. Mother Family Medical History: Cancer Additional Family Medical History / Comment(s): Mother had breast cancer and so did 3 of her sisters. Daughter(s) Family Medical History: Cancer Additional Family Medical History / Comment(s): Olderst daughter from breast cancer. Medications and Allergies Home Medications Medication Instructions Recorded Confirmed Type Warfarin [Coumadin] 5 mg PO SUMOWEFR 11/17/20 04/17/23 History Warfarin [Coumadin] 7.5 mg PO TUTHSA 11/17/20 04/17/23 History Furosemide [Lasix] 40 mg PO DAILY 11/22/22 04/17/23 History Metoprolol Tartrate [Lopressor] 25 mg PO BID 11/22/22 04/17/23 History Potassium Chloride 10 meq PO DAILY 11/22/22 04/17/23 History estradioL [Estrace] 0.5 mg PO TUTHSA 11/22/22 04/17/23 History Albuterol Inhaler [Ventolin Hfa 2 puff INHALATION RT-Q4H PRN 04/17/23 04/17/23 History Inhaler] Potassium Chloride ER [K-Dur 10] 10 meq PO DAILY 04/17/23 04/17/23 History Allergies Allergy/AdvReac Type Severity Reaction Status Date / Time meperidine HCl [From Demerol] AdvReac Nausea & Verified 04/17/23 18:16 Vomiting Physical Exam Vitals: Vital Signs Temp Pulse Resp BP Pulse Ox 04/18/23 01:30 97.7 F 97 19 141/67 96 04/17/23 19:00 60 27 H 106/55 04/17/23 18:00 60 27 H 107/61 93 L 04/17/23 17:00 60 14 116/63 04/17/23 16:00 63 12 107/78 93 L 04/17/23 15:00 60 26 H 107/78 93 L 04/17/23 14:00 61 19 109/55 94 L Results CBC & Chem 7: 04/17/23 13:18 04/17/23 13:18 Labs: Abnormal Lab Results - Last 24 Hours (Table) 04/17/23 04/17/23 04/17/23 Range/Units 13:18 13:18 13:18 WBC 25.8 H (3.8-10.6) k/uL RBC 3.74 L (3.80-5.40) m/uL MCV 106.8 H (80.0-100.0) fL MCH 36.0 H (25.0-35.0) pg Neutrophils # 23.8 H (1.3-7.7) k/uL Lymphocytes # 0.6 L (1.0-4.8) k/uL Sodium 130 L (137-145) mmol/L Chloride 97 L (98-107) mmol/L Carbon Dioxide 21 L (22-30) mmol/L BUN 38 H (7-17) mg/dL Glucose 107 H (74-99) mg/dL Total Bilirubin 1.7 H (0.2-1.3) mg/dL AST 50 H (14-36) U/L Total Protein 5.9 L (6.3-8.2) g/dL Albumin 3.2 L (3.5-5.0) g/dL Amylase <30 L (30-110) U/L Urine Protein Trace H (Negative) C. difficile (EIA) Intrp (Negative) 04/17/23 Range/Units 13:18 WBC (3.8-10.6) k/uL RBC (3.80-5.40) m/uL MCV (80.0-100.0) fL MCH (25.0-35.0) pg Neutrophils # (1.3-7.7) k/uL Lymphocytes # (1.0-4.8) k/uL Sodium (137-145) mmol/L Chloride (98-107) mmol/L Carbon Dioxide (22-30) mmol/L BUN (7-17) mg/dL Glucose (74-99) mg/dL Total Bilirubin (0.2-1.3) mg/dL AST (14-36) U/L Total Protein (6.3-8.2) g/dL Albumin (3.5-5.0) g/dL Amylase (30-110) U/L Urine Protein (Negative) C. difficile (EIA) Intrp Positive A (Negative)
[2023-04-18 12:57] LABS: Prothrombin Time 94.3 sec (10.0-12.5)
[2023-04-18 13:17] LABS: INR 9.5 (<1.2)
[2023-04-18] MEDS ORDERED: PHYTONADIONE ORAL 5 MG/5 ML ORAL.SYRG PO STA (13:43)
[2023-04-18] MEDS: SODIUM CHLORIDE 0.9% 1,000 ML IV SCH (13:45)
[2023-04-18] MEDS: METOPROLOL TARTRATE 25 MG TAB PO SCH (20:37)
[2023-04-19] MEDS: SODIUM CHLORIDE 0.9% 1,000 ML IV SCH ×2 (04:31→16:51)
[2023-04-19 08:48] LABS: HCT 33.7 % (37.2-46.3); HGB 11.6 g/dL (12.0-15.0); MCH 35.9 pg (27.0-32.0); MCHC 34.4 g/dL (32.0-37.0); MCV 104.3 FL (80.0-97.0); Mean Platelet Volume 10.5 FL (9.5-12.2); NRBC Per 100 WBC 0 X 10*3/uL (0.00-0.01); Platelet Count 188 X 10*3/uL (140-440); RBC 3.23 X 10*6/uL (4.10-5.20); RDW 13.2 % (11.5-14.5); WBC 14.83 X 10*3/uL (4.50-10.00)
[2023-04-19 09:06] LABS: Blood Urea Nitrogen 21.2 mg/dL (9.0-27.0); Calcium 8.2 mg/dL (8.7-10.3); Carbon Dioxide 21.6 mmol/L (21.6-31.8); Chloride 101 mmol/L (96-109); Glucose 103 mg/dL (70-110); Sodium 132 mmol/L (135-145)
--- NOTE | 2023-04-19 09:17 | P.CONS ---
History of Present Illness - Reason for Consult Consult date: 04/18/23 - History of Present Illness Patient is a 87-year-old female with a past medical history including for atrial fibrillation and pneumonia squamous cell skin cancer history of diverticulitis patient recently exposed to the oral antibiotic from Augmentin for bronchitis with the patient completed on 04/05/2023 and the patient started having diarrhea on 04/09/2023 patient reported multiple loose stools per day 6-8 times which is watery did have some mucus but no blood in stools has been complaining of some crampy lower abdominal pain mild to moderate intensity without any radiation some nausea but no vomiting with the symptoms the patient was evaluated on presentation to the hospital patient was afebrile and no fever have been recorded subsequently patient did have a white count of 25.8 with a left shift creatinine 0.82 enzymes are mildly elevated urine was negative influenza RSV COVID testing was negative patient did tested positive for C. 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 History of Any Multi-Drug Resistant Organisms: None Reported Past Surgical History: Breast Surgery, Cardiac Ablation, Cholecystectomy, Heart Catheterization, Joint Replacement, Pacemaker Additional Past Surgical History / Comment(s): EPS WITH CARDIAC ABLATIONS, BILATERAL SIMPLE MASTECTOMIES( 1979)., BILATERAL TOTAL KNEE ARTHROPLASTIES, CATARACTS W/ LENS IMPLANTS, HYSTERECTOMY WITH BILATERAL SALPINGECTOMY OOPHORECTOMY, COLONOSCOPY. Past Anesthesia/Blood Transfusion Reactions: No Reported Reaction Type of Cardiac Device: Permanent Pacemaker Device Placement Date:: 06/2000 DUAL CHAMBER PLACED AND GEN CHANGE 2014. Past Psychological History: No Psychological Hx Reported Smoking Status: Never smoker Past Alcohol Use History: Occasional Past Drug Use History: None Reported - Past Family History Father Family Medical History: No Reported History Additional Family Medical History / Comment(s): Father was healthy and lived to be 94 yrs old. Mother Family Medical History: Cancer Additional Family Medical History / Comment(s): Mother had breast cancer and so did 3 of her sisters. Daughter(s) Family Medical History: Cancer Additional Family Medical History / Comment(s): Olderst daughter from breast cancer. Medications and Allergies Home Medications Medication Instructions Recorded Confirmed Type Warfarin [Coumadin] 5 mg PO SUMOWEFR 11/17/20 04/17/23 History Warfarin [Coumadin] 7.5 mg PO TUTHSA 11/17/20 04/17/23 History Furosemide [Lasix] 40 mg PO DAILY 11/22/22 04/17/23 History Metoprolol Tartrate [Lopressor] 25 mg PO BID 11/22/22 04/17/23 History Potassium Chloride 10 meq PO DAILY 11/22/22 04/17/23 History estradioL [Estrace] 0.5 mg PO TUTA 11/22/22 04/17/23 History Albuterol Inhaler [Ventolin Hfa 2 puff INHALATION RT-Q4H PRN 04/17/23 04/17/23 History Inhaler] Potassium Chloride ER [K-Dur 10] 10 meq PO DAILY 04/17/23 04/17/23 History Allergies Allergy/AdvReac Type Severity Reaction Status Date / Time meperidine HCl [From Demerol] AdvReac Nausea & Verified 04/17/23 18:16 Vomiting Physical Exam Vitals: Vital Signs Temp Pulse Resp BP Pulse Ox 04/18/23 01:30 97.7 F 97 19 141/67 96 04/17/23 19:00 60 27 H 106/55 04/17/23 18:00 60 27 H 107/61 93 L 04/17/23 17:00 60 14 116/63 04/17/23 16:00 63 12 107/78 93 L 04/17/23 15:00 60 26 H 107/78 93 L 04/17/23 14:00 61 19 109/55 94 L 04/17/23 11:51 98.3 F 65 18 102/62 91 L Results CBC & Chem 7: 04/19/23 05:01 04/19/23 05:01 Labs: Abnormal Lab Results - Last 24 Hours (Table) 04/17/23 04/17/23 04/17/23 Range/Units 13:18 13:18 13:18 WBC 25.8 H (3.8-10.6) k/uL RBC 3.74 L (3.80-5.40) m/uL MCV 106.8 H (80.0-100.0) fL MCH 36.0 H (25.0-35.0) pg Neutrophils # 23.8 H (1.3-7.7) k/uL Lymphocytes # 0.6 L (1.0-4.8) k/uL Sodium 130 L (137-145) mmol/L Chloride 97 L (98-107) mmol/L Carbon Dioxide 21 L (22-30) mmol/L BUN 38 H (7-17) mg/dL Glucose 107 H (74-99) mg/dL Total Bilirubin 1.7 H (0.2-1.3) mg/dL AST 50 H (14-36) U/L Total Protein 5.9 L (6.3-8.2) g/dL Albumin 3.2 L (3.5-5.0) g/dL Amylase <30 L (30-110) U/L Urine Protein Trace H (Negative) C. difficile (EIA) Intrp (Negative) 04/17/23 Range/Units 13:18 WBC (3.8-10.6) k/uL RBC (3.80-5.40) m/uL MCV (80.0-100.0) fL MCH (25.0-35.0) pg Neutrophils # (1.3-7.7) k/uL Lymphocytes # (1.0-4.8) k/uL Sodium (137-145) mmol/L Chloride (98-107) mmol/L Carbon Dioxide (22-30) mmol/L BUN (7-17) mg/dL Glucose (74-99) mg/dL Total Bilirubin (0.2-1.3) mg/dL AST (14-36) U/L Total Protein (6.3-8.2) g/dL Albumin (3.5-5.0) g/dL Amylase (30-110) U/L Urine Protein (Negative) C. difficile (EIA) Intrp Positive A (Negative) Assessment and Plan Plan: 1patient presented to hospital with diarrhea that has been going on for almost 8 days in this patient with recent exposure to antibiotic from Augmentin, patient did have evidence of diffuse colitis on the CT did have elevated white count stool for C. difficile positive likely presenting severe C. difficile colitis 2-we will increase the dose of vancomycin to 500 mg p.o. every 6 hours 3-we will add Questran if the patient did have persistent diarrhea avoid antimotility agent and watch the patient closely for any complications such as toxic megacolon 4-patient has been encouraged to increase the probiotic and yogurt intake Multiple questions concern answered We will follow on clinical condition and cultures to further adjust medication if needed Thank you for this consultation we will follow the patient along with you Dictation was produced using [employer] dictation software. please excuse any grammatical, word or spelling errors.
[2023-04-19] MEDS: VANCOMYCIN 125 MG CAPSULE PO SCH ×4 (10:06→20:59)
[2023-04-19] MEDS: METOPROLOL TARTRATE 25 MG TAB PO SCH ×2 (10:06→20:59)
[2023-04-19 10:23] LABS: INR 2.71 sec (0.93-1.11); Prothrombin Time 27.4 sec (9.9-11.9)
--- NOTE | 2023-04-19 14:19 | P.PN ---
Subjective Progress Note Date: 04/19/23 Patient is a pleasant the 87-year-old female came in with compensative diarrhea found to have C. diff colitis patient was treated with antibiotics about a week ago for bronchitis. Patient is hyponatremic patient does take diuretics at home because of the moderate pulmonary hypertension and possible diastolic dysfunction from moderate aortic stenosis. Patient is supposed to get the valve replaced and he was to [place]. Patient does have elevated white blood cell count of 25,000 patient diarrhea is better able to tolerate oral liquids at this time. Had 4 episodes of diarrhea since admission. 04/19/2023 Patient is seen and evaluated in follow-up this morning and reports has been up and going to the bathroom frequently with feelings of urgency although when she does urinate she feels pressure-like sensation to urinate and having a bowel movement although just dribbling. Nursing staff had obtained a postvoid residual and was retaining over 800 mL's and will have straight cath. Discussed with the patient about possible options of indwelling Tan catheter is continuing retrain and patient would like to attempt with straight catheterization at first. Will continue with postvoid residuals. Patient also continued on IV hydration and reports her nausea and vomiting has improved tole rating clear liquids and will advance to full liquids for lunch with possible low fiber soft diet for dinner. Patient reports has not had diarrhea today and is continued on oral vancomycin with infectious disease following for C. diff. White count is improving and currently 14 from 25 yesterday. INR is 2.7 status post a dose of vitamin K as her INR was 9.5 on admission and will initiate Coumadin with pharmacy to dose area patient has been encouraged to increase activity as tolerated with possible discharge planning in the next 24 hours. Will follow-up with repeat labs Review of systems: Constitutional: No reports of fatigue, fever, or chills Cardiovascular: No reports of chest pain or palpitations Respiratory: No reports of shortness of breath or cough GI: No reports of nausea, vomiting, or diarrhea : No reports of dysuria, reports feeling a pressure-like sensation but no pain and having retention Neurovascular: No reports of weakness or numbness All medications have been reviewed PHYSICAL EXAMINATION: GENERAL: The patient is alert and oriented x3, not in any acute distress. Thin built female HEENT: Pupils are round and equally reacting to light. EOMI. No scleral icterus. No conjunctival pallor. Normocephalic, atraumatic. No pharyngeal erythema. No thyromegaly. CARDIOVASCULAR: S1 and S2 present. No rubs, or gallops. Grade 4/6 systolic murmur and diuretic area PULMONARY: Chest is clear to auscultation, no wheezing or crackles. ABDOMEN: Soft, nontender, nondistended, normoactive bowel sounds. No palpable organomegaly. Thin MUSCULOSKELETAL: No joint swelling or deformity. EXTREMITIES: No cyanosis, clubbing, or pedal edema. NEUROLOGICAL: Gross neurological examination did not reveal any focal deficits. SKIN: No rashes. Assessment: -C. diff colitis -Hypovolemic hyponatremia secondary to diarrhea and diuretics, with dehydration and will continue to hold diuretics -Moderate aortic stenosis with pulmonary hypertension -Urinary retention requiring straight catheterization -Elevated MCV -Paroxysmal atrial fibrillation, presently rate controlled because of valvular A. fib patient is on Coumadin -Regular up the with an INR of 9.5 on admission, status post vitamin K, improved -Congestive failure chronic diastolic dysfunction without any acute exacerbation at this time, patient is hypovolemic will continue gentle IV fluids -DVT prophylaxis: Patient is on Coumadin at home -GI prophylaxis -Both code Plan: Patient is continued on oral vancomycin with infectious disease following an reports has not had a bowel movement now since yesterday. Patient continued on gentle IV hydration will continue sodium is improving and able to tolerate oral intake was maintained on clear liquids. We will transition to full liquid with possible low fiber soft diet for dinner as patient denies any further nausea or vomiting Patient reports to feeling a sensation of urinating and has been up to the bathroom multiple times and having just dribbling and nursing staff obtained a postvoid residual with almost 800 mL's retaining and will straight cath per pro tocol and monitor for any further retention. INR improved at 2.71 status post vitamin K and will resume Coumadin with pharmacy to dose Encouraged to increase activity as tolerated Encouraged oral intake with small frequent meals Monitor for any worsening diarrhea Will follow-up with repeat labs in the a.m. Possible discharge planning in the next 24 hours The impression and plan of care has been dictated by Kirstin Lopes, Nurse Practitioner as directed. Dr. Denise MD I have performed a history and examination and MDM of this patient, discussed the same with the dictator, and agree with the dictator's assessment and plan as written ,documented as a scribe. Based on total visit time, I have performed more than 50% of the visit. Objective - Vital Signs Vital signs: Vital Signs Temp 97.5 F L 04/19/23 07:56 Pulse 61 04/19/23 07:56 Resp 17 04/19/23 07:56 BP 122/70 04/19/23 07:56 Pulse Ox 96 04/19/23 07:56 FiO2 Intake & Output 04/18/23 04/19/23 04/19/23 18:59 06:59 18:59 Other: # Voids 1 - Labs CBC & Chem 7: 04/19/23 05:01 04/19/23 05:01 Labs: Abnormal Lab Results - Last 24 Hours (Table) 04/18/23 04/18/23 04/19/23 Range/Units 12:09 12:09 05:01 WBC 14.83 H (4.50-10.00) X 10*3/uL RBC 3.23 L (4.10-5.20) X 10*6/uL Hgb 11.6 L (12.0-15.0) g/dL Hct 33.7 L (37.2-46.3) % MCV 104.3 H (80.0-97.0) FL MCH 35.9 H (27.0-32.0) pg PT 94.3 H (10.0-12.5) sec INR 9.5 H* (<1.2) Sodium (135-145) mmol/L Creatinine (0.6-1.5) mg/dL BUN/Creatinine Ratio (12.00-20.00) Ratio Calcium (8.7-10.3) mg/dL Vitamin B12 2424.0 H (200.0-944.0) pg/mL 04/19/23 Range/Units 05:01 WBC (4.50-10.00) X 10*3/uL RBC (4.10-5.20) X 10*6/uL Hgb (12.0-15.0) g/dL Hct (37.2-46.3) % MCV (80.0-97.0) FL MCH (27.0-32.0) pg PT (10.0-12.5) sec INR (<1.2) Sodium 132 L (135-145) mmol/L Creatinine 0.5 L (0.6-1.5) mg/dL BUN/Creatinine Ratio 42.40 H (12.00-20.00) Ratio Calcium 8.2 L (8.7-10.3) mg/dL Vitamin B12 (200.0-944.0) pg/mL
[2023-04-19] MEDS: TAMSULOSIN 0.4 MG CAP.ER.24H PO SCH (16:51)
--- NOTE | 2023-04-19 17:23 | P.PN ---
Subjective Progress Note Date: 04/19/23 Principal diagnosis: Reason for follow-up is severe C. diff colitis Patient is a 87-year-old female with a past medical history including for atrial fibrillation and pneumonia squamous cell skin cancer history of diverticulitis patient recently exposed to the oral antibiotic from Augmentin for bronchitis presented to hospital with the 10 day history of diarrhea with evidence of significant colitis on the CT imaging white count has been diagnosed with severe C. diff colitis on today's evaluation that is 04/19/2023, the patient denies having any fever or drainage, the patient is breathing comfortably in room air patient still having 6 episodes of diarrhea since midnight overall output is decreased has been complaining of urinary retention requiring straight catheter this morning Patient white count is 14.83 creatinine 0.5 Objective - Vital Signs Vital signs: Vital Signs Temp 97.5 F L 04/19/23 07:56 Pulse 61 04/19/23 07:56 Resp 17 04/19/23 07:56 BP 122/70 04/19/23 07:56 Pulse Ox 96 04/19/23 07:56 FiO2 Intake & Output 04/18/23 04/19/23 04/19/23 18:59 06:59 18:59 Other: # Voids 1 - Exam GENERAL DESCRIPTION: An elderly female lying in bed in no distress RESPIRATORY SYSTEM: Unlabored breathing , clear to auscultation anteriorly HEART: S1 S2 regular rate and rhythm , ABDOMEN: Soft , no tenderness EXTREMITIES: No edema feet - Labs CBC & Chem 7: 04/19/23 05:01 04/19/23 05:01 Labs: Abnormal Lab Results - Last 24 Hours (Table) 04/18/23 04/19/23 04/19/23 Range/Units 12:09 05:01 05:01 WBC 14.83 H (4.50-10.00) X 10*3/uL RBC 3.23 L (4.10-5.20) X 10*6/uL Hgb 11.6 L (12.0-15.0) g/dL Hct 33.7 L (37.2-46.3) % MCV 104.3 H (80.0-97.0) FL MCH 35.9 H (27.0-32.0) pg PT (9.9-11.9) sec INR (0.93-1.11) sec Sodium 132 L (135-145) mmol/L Creatinine 0.5 L (0.6-1.5) mg/dL BUN/Creatinine Ratio 42.40 H (12.00-20.00) Ratio Calcium 8.2 L (8.7-10.3) mg/dL Vitamin B12 2424.0 H (200.0-944.0) pg/mL 04/19/23 Range/Units 05:01 WBC (4.50-10.00) X 10*3/uL RBC (4.10-5.20) X 10*6/uL Hgb (12.0-15.0) g/dL Hct (37.2-46.3) % MCV (80.0-97.0) FL MCH (27.0-32.0) pg PT 27.4 H (9.9-11.9) sec INR 2.71 H (0.93-1.11) sec Sodium (135-145) mmol/L Creatinine (0.6-1.5) mg/dL BUN/Creatinine Ratio (12.00-20.00) Ratio Calcium (8.7-10.3) mg/dL Vitamin B12 (200.0-944.0) pg/mL Assessment and Plan (1) Leukocytosis Current Visit: Yes Status: Acute Code(s): D72.829 - ELEVATED WHITE BLOOD CELL COUNT, UNSPECIFIED SNOMED Code(s): 296531114 (2) Clostridioides difficile infection Current Visit: Yes Status: Acute Code(s): A49.8 - OTHER BACTERIAL INFECTIONS OF UNSPECIFIED SITE SNOMED Code(s): 733703243 Plan: 1patient presented to hospital with diarrhea that has been going on for almost 8 days in this patient with recent exposure to antibiotic from Augmentin, patient did have evidence of diffuse colitis on the CT did have elevated white count stool for C. difficile positive likely presenting severe C. difficile colitis 2-patient to continue with vancomycin to 500 mg p.o. every 6 hours avoid antimo tility agent and patient advised to increase her probiotic and yogurt intake Dictation was produced using [employer] dictation software. please excuse any grammatical, word or spelling errors. Time with Patient: Less than 30
[2023-04-19] MEDS ORDERED: WARFARIN 5 MG TAB PO ONE (18:00)
[2023-04-20 08:40] LABS: Basophils # (A) 0.06 X 10*3/uL (0.00-0.10); Basophils % (A) 0.7 %; Eosinophils # (A) 0.17 X 10*3/uL (0.04-0.35); Eosinophils % (A) 1.8 %; HCT 32.6 % (37.2-46.3); HGB 11.1 g/dL (12.0-15.0); Lymphocytes % (A) 6.5 %; MCH 35.6 pg (27.0-32.0); MCV 104.5 FL (80.0-97.0); Mean Platelet Volume 10.2 FL (9.5-12.2); Monocytes # (A) 0.68 X 10*3/uL (0.20-1.00); Monocytes % (A) 7.4 %; NRBC Per 100 WBC 0 X 10*3/uL (0.00-0.01); Neutrophils # (A) 7.27 X 10*3/uL (1.80-7.70); Neutrophils % (A) 78.7 %; Platelet Count 186 X 10*3/uL (140-440); RBC 3.12 X 10*6/uL (4.10-5.20); RDW 13.2 % (11.5-14.5); WBC 9.23 X 10*3/uL (4.50-10.00)
[2023-04-20 08:44] LABS: ALT 37 U/L (8-44); AST 53 U/L (13-35); Albumin 2.7 g/dL (3.8-4.9); Albumin/Globulin Ratio 1.29 Ratio (1.60-3.17); Alkaline Phosphatase 99 U/L (41-126); BUN/Creat Ratio 31.75 Ratio (12.00-20.00); Blood Urea Nitrogen 12.7 mg/dL (9.0-27.0); Carbon Dioxide 20.1 mmol/L (21.6-31.8); Chloride 104 mmol/L (96-109); Globulin 2.1 g/dL (1.6-3.3); Glucose 114 mg/dL (70-110); Sodium 133 mmol/L (135-145); Total Bilirubin 1.3 mg/dL (0.3-1.2); Total Protein 4.8 g/dL (6.2-8.2)
[2023-04-20] MEDS: VANCOMYCIN 125 MG CAPSULE PO SCH ×4 (08:59→21:06)
[2023-04-20] MEDS: METOPROLOL TARTRATE 25 MG TAB PO SCH ×2 (08:59→21:07)
[2023-04-20] MEDS: TAMSULOSIN 0.4 MG CAP.ER.24H PO SCH (08:59)
[2023-04-20] MEDS: SODIUM CHLORIDE 0.9% 1,000 ML IV SCH ×2 (09:00→09:58)
[2023-04-20 09:47] LABS: INR 1.94 sec (0.93-1.11); Prothrombin Time 20.1 sec (9.9-11.9)
--- NOTE | 2023-04-20 13:49 | XR ---
EXAMINATION TYPE: XR chest 1V portable DATE OF EXAM: 04/20/2023 HISTORY: Shortness of breath. COMPARISON: 04/17/2023 TECHNIQUE: Single view of the chest is submitted. FINDINGS: Demonstrated are scattered senescent parenchymal change. There is no evidence for focal infiltrate. Cardiac enlargement with mild pulmonary venous congestion. No overt failure. Hilar and mediastinal structures are within normal limits. Degenerative changes are seen of the dorsal spine. IMPRESSION: 1. Cardiac enlargement with mild pulmonary venous congestion. No overt failure.
[2023-04-20] MEDS ORDERED: FUROSEMIDE 10 MG/ML 4 ML VIAL IV STA (14:47)
[2023-04-20] MEDS ORDERED: WARFARIN 5 MG TAB PO ONE (18:00)
--- NOTE | 2023-04-21 05:52 | P.PN ---
Subjective Progress Note Date: 04/20/23 Patient is a pleasant the 87-year-old female came in with compensative diarrhea found to have C. diff colitis patient was treated with antibiotics about a week ago for bronchitis. Patient is hyponatremic patient does take diuretics at home because of the moderate pulmonary hypertension and possible diastolic dysfunction from moderate aortic stenosis. Patient is supposed to get the valve replaced and he was to [place]. Patient does have elevated white blood cell count of 25,000 patient diarrhea is better able to tolerate oral liquids at this time. Had 4 episodes of diarrhea since admission. 04/19/2023 Patient is seen and evaluated in follow-up this morning and reports has been up and going to the bathroom frequently with feelings of urgency although when she does urinate she feels pressure-like sensation to urinate and having a bowel movement although just dribbling. Nursing staff had obtained a postvoid residual and was retaining over 800 mL's and will have straight cath. Discussed with the patient about possible options of indwelling Tan catheter is continuing retrain and patient would like to attempt with straight catheterization at first. Will continue with postvoid residuals. Patient also continued on IV hydration and reports her nausea and vomiting has improved tole rating clear liquids and will advance to full liquids for lunch with possible low fiber soft diet for dinner. Patient reports has not had diarrhea today and is continued on oral vancomycin with infectious disease following for C. diff. White count is improving and currently 14 from 25 yesterday. INR is 2.7 status post a dose of vitamin K as her INR was 9.5 on admission and will initiate Coumadin with pharmacy to dose area patient has been encouraged to increase activity as tolerated with possible discharge planning in the next 24 hours. Will follow-up with repeat labs 04/20/2023 Patient is seen in follow-up today reporting she has a slight cough and does have history of heart failure and has been on total IV hydration will obtain a chest x-ray. Patient is maintaining oxygen saturations above 90% on room air. Patient also was retaining requiring indwelling Tan catheter and will remove the catheter and monitor for voiding and residuals. Patient has been encouraged to increase activity and get out of the bed more often. Patient reports only one episode of bowel movement and was a little more formed and patient is maintained on Vanco for C. diff with infectious disease following. Patient is afebrile denies any chest pain or palpitations. Patient reports is tolerating diet and has been advanced to low fiber although patient reports not much of an appetite in the food is not very desirable here. Review of systems: Constitutional: No reports of fatigue, fever, or chills Cardiovascular: No reports of chest pain or palpitations Respiratory: No reports of shortness of breath , reports cough GI: No reports of nausea, vomiting, or diarrhea : No reports of dysuria, was having retention requiring indwelling Tan catheter Neurovascular: No reports of weakness or numbness All medications have been reviewed PHYSICAL EXAMINATION: GENERAL: The patient is alert and oriented x3, not in any acute distress. Thin built female HEENT: Pupils are round and equally reacting to light. EOMI. No scleral icterus. No conjunctival pallor. Normocephalic, atraumatic. No pharyngeal erythema. No thyromegaly. CARDIOVASCULAR: S1 and S2 present. No rubs, or gallops. Grade 4/6 systolic murmur PULMONARY: Diminished breath sounds bilaterally otherwise Chest is clear to auscultation, no wheezing , faint crackles noted at the bases. ABDOMEN: Soft, nontender, nondistended, normoactive bowel sounds. No palpable organomegaly. Thin MUSCULOSKELETAL: No joint swelling or deformity. EXTREMITIES: No cyanosis, clubbing, or pedal edema. NEUROLOGICAL: Gross neurological examination did not reveal any focal deficits. SKIN: No rashes. Assessment: -C. diff colitis -Hypovolemic hyponatremia secondary to diarrhea and diuretics, with dehydration and will continue to hold diuretics -Moderate aortic stenosis with pulmonary hypertension -Urinary retention requiring straight catheterization -Elevated MCV -Paroxysmal atrial fibrillation, presently rate controlled because of valvular A. fib patient is on Coumadin -Coagulopathy with INR 9.5 on admission, status post vitamin K, improved -Congestive failure chronic diastolic dysfunction without any acute exacerbation at this time, patient is hypovolemic and was continued on gentle IV fluids -DVT prophylaxis: Patient is on Coumadin -GI prophylaxis -Full code Plan: Patient is continued on oral vancomycin with infectious disease following an reports has only had onebowel movement now since yesterday. Patient continued on gentle IV hydration will continue sodium is improving and able to tolerate oral intake was maintained on clear liquids. We will transition to low fiber soft diet, encouraged oral intake Patient required indwelling Tan catheter retention and will attempt removing and trial voiding and monitor for retention INR improved and Coumadin resumed Patient reported a slight cough and chest x-ray obtained showing some mild vascular congestion, will discontinue IV fluids and give a dose of Lasix Encouraged to increase activity as tolerated and get up out of the bed more often Will follow-up with repeat labs in the a.m. Patient currently maintained on 500 mg of Vanco 4 times daily for C. diff and will discuss further with infectious disease on discharge planning antibiotic recommendations Possible discharge planning in the next 24 hours The impression and plan of care has been dictated by Kirstin Lopes, Nurse Practitioner as directed. Dr. Denise MD I have performed a history and examination and MDM of this patient, discussed the same with the dictator, and agree with the dictator's assessment and plan as written ,documented as a scribe. Based on total visit time, I have performed more than 50% of the visit. Objective - Vital Signs Vital signs: Vital Signs Temp 98 F 04/21/23 01:47 Pulse 62 04/21/23 01:47 Resp 16 04/20/23 13:04 BP 130/83 04/21/23 01:47 Pulse Ox 94 L 04/21/23 01:47 FiO2 Intake & Output 04/20/23 04/20/23 04/21/23 06:59 18:59 06:59 Intake Total 800 Output Total 800 900 Balance -800 -100 Intake: Oral 800 Output: Urine 800 900 Uretheral (Tan) 900 Other: Voiding Method Indwelling Catheter Indwelling Catheter # Voids 1 # Bowel Movements 2 - Labs CBC & Chem 7: 04/20/23 05:09 04/20/23 05:09 Labs: Abnormal Lab Results - Last 24 Hours (Table) 04/20/23 04/20/23 04/20/23 Range/Units 05:09 05:09 05:09 RBC 3.12 L (4.10-5.20) X 10*6/uL Hgb 11.1 L (12.0-15.0) g/dL Hct 32.6 L (37.2-46.3) % MCV 104.5 H (80.0-97.0) FL MCH 35.6 H (27.0-32.0) pg Immature Gran # 0.45 H (0.00-0.04) X 10*3/uL Lymphocytes # 0.60 L (0.90-5.00) X 10*3/uL PT 20.1 H (9.9-11.9) sec INR 1.94 H (0.93-1.11) sec Sodium 133 L (135-145) mmol/L Carbon Dioxide 20.1 L (21.6-31.8) mmol/L Creatinine 0.4 L (0.6-1.5) mg/dL BUN/Creatinine Ratio 31.75 H (12.00-20.00) Ratio Glucose 114 H (70-110) mg/dL Calcium 8.0 L (8.7-10.3) mg/dL Total Bilirubin 1.3 H (0.3-1.2) mg/dL AST 53 H (13-35) U/L Total Protein 4.8 L (6.2-8.2) g/dL Albumin 2.7 L (3.8-4.9) g/dL Albumin/Globulin Ratio 1.29 L (1.60-3.17) Ratio
[2023-04-21 07:45] LABS: INR 2.4 (<1.2)
[2023-04-21] MEDS: TAMSULOSIN 0.4 MG CAP.ER.24H PO SCH (08:12)
[2023-04-21] MEDS: METOPROLOL TARTRATE 25 MG TAB PO SCH ×2 (08:12→20:15)
[2023-04-21] MEDS: VANCOMYCIN 125 MG CAPSULE PO SCH ×4 (08:12→20:15)
[2023-04-21] MEDS: CHOLESTYRAMINE (WITH SUGAR) 4 GM PACKET PO SCH ×2 (12:40→16:58)
[2023-04-21] MEDS: FUROSEMIDE 40 MG TAB PO SCH (12:47)
[2023-04-21] MEDS ORDERED: WARFARIN 5 MG TAB PO SCH (18:00)
[2023-04-21] MEDS ORDERED: WARFARIN 2 MG TAB PO SCH (18:00)
[2023-04-21] MEDS ORDERED: DICYCLOMINE 10 MG CAP PO STA (20:21)
--- NOTE | 2023-04-22 05:36 | P.PN ---
Subjective Progress Note Date: 04/21/23 Patient is a pleasant the 87-year-old female came in with compensative diarrhea found to have C. diff colitis patient was treated with antibiotics about a week ago for bronchitis. Patient is hyponatremic patient does take diuretics at home because of the moderate pulmonary hypertension and possible diastolic dysfunction from moderate aortic stenosis. Patient is supposed to get the valve replaced and he was to [place]. Patient does have elevated white blood cell count of 25,000 patient diarrhea is better able to tolerate oral liquids at this time. Had 4 episodes of diarrhea since admission. 04/19/2023 Patient is seen and evaluated in follow-up this morning and reports has been up and going to the bathroom frequently with feelings of urgency although when she does urinate she feels pressure-like sensation to urinate and having a bowel movement although just dribbling. Nursing staff had obtained a postvoid residual and was retaining over 800 mL's and will have straight cath. Discussed with the patient about possible options of indwelling Tan catheter is continuing retrain and patient would like to attempt with straight catheterization at first. Will continue with postvoid residuals. Patient also continued on IV hydration and reports her nausea and vomiting has improved tole rating clear liquids and will advance to full liquids for lunch with possible low fiber soft diet for dinner. Patient reports has not had diarrhea today and is continued on oral vancomycin with infectious disease following for C. diff. White count is improving and currently 14 from 25 yesterday. INR is 2.7 status post a dose of vitamin K as her INR was 9.5 on admission and will initiate Coumadin with pharmacy to dose area patient has been encouraged to increase activity as tolerated with possible discharge planning in the next 24 hours. Will follow-up with repeat labs 04/20/2023 Patient is seen in follow-up today reporting she has a slight cough and does have history of heart failure and has been on total IV hydration will obtain a chest x-ray. Patient is maintaining oxygen saturations above 90% on room air. Patient also was retaining requiring indwelling Tan catheter and will remove the catheter and monitor for voiding and residuals. Patient has been encouraged to increase activity and get out of the bed more often. Patient reports only one episode of bowel movement and was a little more formed and patient is maintained on Vanco for C. diff with infectious disease following. Patient is afebrile denies any chest pain or palpitations. Patient reports is tolerating diet and has been advanced to low fiber although patient reports not much of an appetite in the food is not very desirable here. 04/21/2023 Patient is seen in follow-up today currently sitting up at the site of the bed with family members prognosis and appears slightly improved. Patient reports to continued cramping in the lower abdomen and maintained on Vanco for C. diff with infectious disease following. Patient reports to having some continued diarrhea although is having somewhat more formed pieces in the stool. Patient being given Questran per ID recommendations and recommend monitoring overnight if tolerating. Patient tolerating advanced diet and will continue. Encouraged oral intake. Encouraged increase activity as tolerated. Patient reports to having lower extremity swelling and diuretic was on hold. Will resume oral Lasix and also instructed nursing staff Sid wrap bilateral lower extremities and have instructed patient multiple times to elevate lower extremity swelling rest. Patient is currently afebrile with no reports of chest pain or shortness of breath. Patient is tolerating diet and denies nausea or vomiting. Review of systems: Constitutional: No reports of fatigue, fever, or chills Cardiovascular: No reports of chest pain or palpitations Respiratory: No reports of shortness of breath , reports cough GI: No reports of nausea, vomiting, or diarrhea : No reports of dysuria, was having retention requiring indwelling Tan catheter, removed and is voiding Neurovascular: No reports of weakness or numbness All medications have been reviewed PHYSICAL EXAMINATION: GENERAL: The patient is alert and oriented x3, well-developed, elderly- appearing. Thin built female HEENT: Pupils are round and equally reacting to light. EOMI. No scleral icterus. No conjunctival pallor. Normocephalic, atraumatic. No pharyngeal erythema. No thyromegaly. CARDIOVASCULAR: S1 and S2 present. No rubs, or gallops. Grade 4/6 systolic murmur PULMONARY: Diminished breath sounds bilaterally otherwise Chest is clear to auscultation, no wheezing ABDOMEN: Soft, lower abdomen tender on palpation, nondistended, normoactive bowel sounds. No palpable organomegaly. Thin MUSCULOSKELETAL: No joint swelling or deformity. EXTREMITIES: No cyanosis, clubbing, or pedal edema. NEUROLOGICAL: Gross neurological examination did not reveal any focal deficits. SKIN: No rashes. Assessment: -C. diff colitis -Hypovolemic hyponatremia secondary to diarrhea and diuretics, with dehydration, improving -Moderate aortic stenosis with pulmonary hypertension -Urinary retention requiring indwelling Tan catheter which has been removed and voiding, improving -Elevated MCV -Paroxysmal atrial fibrillation, presently rate controlled because of valvular A. fib patient is on Coumadin -Coagulopathy with INR 9.5 on admission, status post vitamin K, improved -Congestive failure chronic diastolic dysfunction without any acute exacerbation at this time -DVT prophylaxis: Patient is on Coumadin -GI prophylaxis -Full code Plan: Patient is continued on oral vancomycin with infectious disease following and reports continuing to have some loose stool although somewhat more formed and Q uestran being admitted Tolerating advanced diet with no further nausea or vomiting noted and instructed to continue with current diet and slowly advance Patient required indwelling Tan catheter for retention and has been removed and voiding, diuretic resumed his patient has lower extremity swelling Encourage the patient to elevate lower extremity swelling rest and also discussed with nursing staff about Sid wrap from toes up to the knees INR improved and Coumadin resumed Encouraged to increase activity as tolerated and get up out of the bed more often Patient currently maintained on 500 mg of Vanco 4 times daily for C. diff and will discuss further with infectious disease on discharge planning antibiotic recommendations Possible discharge planning in the next 24 hours The impression and plan of care has been dictated by Kirstin Lopes, Nurse Practitioner as directed. Dr. Denise MD I have performed a history and examination and MDM of this patient, discussed the same with the dictator, and agree with the dictator's assessment and plan as written ,documented as a scribe. Based on total visit time, I have performed more than 50% of the visit. Objective - Vital Signs Vital signs: Vital Signs Temp 98 F 04/21/23 07:00 Pulse 61 04/21/23 07:00 Resp 18 04/21/23 07:00 BP 109/58 04/21/23 07:00 Pulse Ox 96 04/21/23 07:00 FiO2 Intake & Output 04/20/23 04/21/23 04/21/23 18:59 06:59 18:59 Intake Total 800 118 Output Total 900 Balance -100 118 Intake: Oral 800 118 Output: Urine 900 Uretheral (Tan) 900 Other: Voiding Method Indwelling Catheter # Voids 1 - Labs CBC & Chem 7: 04/20/23 05:09 04/20/23 05:09 Labs: Abnormal Lab Results - Last 24 Hours (Table) 04/21/23 Range/Units 06:42 PT 24.0 H (10.0-12.5) sec INR 2.4 H (<1.2)
[2023-04-22 07:13] LABS: INR 2.9 (<1.2); Prothrombin Time 28.2 sec (10.0-12.5)
[2023-04-22] MEDS: METOPROLOL TARTRATE 25 MG TAB PO SCH (08:28)
[2023-04-22] MEDS: CHOLESTYRAMINE (WITH SUGAR) 4 GM PACKET PO SCH (08:28)
[2023-04-22] MEDS: TAMSULOSIN 0.4 MG CAP.ER.24H PO SCH (08:28)
[2023-04-22] MEDS: ACETAMINOPHEN TAB 325 MG TAB PO PRN (08:28)
[2023-04-22] MEDS: VANCOMYCIN 125 MG CAPSULE PO SCH ×2 (08:28→13:12)
[2023-04-22] MEDS: FUROSEMIDE 40 MG TAB PO SCH (08:28)
[2023-04-22 11:16] LABS: Blood Urea Nitrogen 8.6 mg/dL (9.0-27.0); Calcium 8.5 mg/dL (8.7-10.3); Carbon Dioxide 20.4 mmol/L (21.6-31.8); Chloride 102 mmol/L (96-109); Glucose 106 mg/dL (70-110); Potassium 4.2 mmol/L (3.5-5.5); Sodium 133 mmol/L (135-145)
[2023-04-22 16:02] VITALS: BP 111/67; PULSE 73; RESP 16; TEMP 98
--- NOTE | 2023-04-23 11:21 | P.DS ---
Providers Date of admission: 04/18/23 13:44 Expected date of discharge: 04/22/23 Attending physician: Beatrice Vazquez Consults: 04/17/23 16:48 Consult Physician Urgent Consulting Provider: Jacqueline Apple Consult Reason/Comments: C. diff Do you want consulting provider notified?: Yes Primary care physician: [facility] Course: Final diagnosis -C. diff colitis -Hypovolemic hyponatremia secondary to diarrhea and diuretics, with dehydration, improving -Moderate aortic stenosis with pulmonary hypertension -Urinary retention requiring indwelling Tan catheter which has been removed and voiding, improving -Elevated MCV -Paroxysmal atrial fibrillation, presently rate controlled because of valvular A. fib patient is on Coumadin -Coagulopathy with INR 9.5 on admission, status post vitamin K, improved -Congestive failure chronic diastolic dysfunction without any acute exacerbation at this time -DVT prophylaxis: Patient is on Coumadin -GI prophylaxis -Full code Discharge disposition Patient is being discharged in a stable condition with guarded prognosis to home. Patient will follow-up with Dr. Driver in the outpatient setting upon discharge. Patient is to continue with oral Vanco 250 mg 4 times daily for the next 10 days. Patient also on Questran and recommend continue as needed if continuing to have loose stools. Prescription provided for repeat labs to monitor INR along with BMP. Total time taken is greater than 35 minutes. Hospital course This is a 87-year-old female who was recently admitted with increased weakness with nausea and vomiting and acute dehydration found to have C. diff colitis. Patient was followed by infectious disease maintained on vancomycin oral showing some improvements and diarrhea although continuing to have some bloating and diarrhea although slightly more formed. Patient started on Questran twice daily and having some increased bloating and gas recommend continue with Questran as needed and discontinue is having more formed stools and increased bloating. Patient has been instructed to continue using simethicone drops as needed for bloating. Patient to continue with probiotic including yogurts twice daily and slowly advanced diet as tolerated. Patient with heart failure history was maintained on gentle hydration and given a dose of Lasix after her kidney functions have improved. Patient maintained on Lasix 40 mg daily which has been resumed. Patient had some mild generalized edema noted to lower extremities and instructed to elevate lower extremity while arresting continue Sid wrapping from the toes up to the knees. Patient has been cleared by consultations to continue with oral Vanco for 10 day course. Patient instructed to follow-up with primary care provider on discharge. Please refer to the consultation note for further HPI. Currently no reports of chest pain, shortness of breath, or palpitations. Patient is afebrile. No reports of nausea or vomiting and patient is tolerating diet. Patient will be discharged home today. Physical exam: Gen: This is a 87-year-old female who is awake, alert and oriented 3, well- developed, well-nourished, elderly-appearing HEENT: Head is atraumatic, normocephalic. Pupils equal, round. Sclerae is anicteric. NECK: Supple. No JVD. No lymphadenopathy. No thyromegaly. LUNGS: Clear to auscultation. No wheezes or rhonchi. No intercostal re tractions. HEART: Regular rate and rhythm. No murmur. ABDOMEN: Soft. Mild abdominal bloating noted on exam. Bowel sounds are present. No masses. No tenderness. EXTREMITIES: No pedal edema. No calf tenderness. Bilateral lower extremity edema, nonpitting NEUROLOGICAL: Patient is awake, alert and oriented x3. Cranial nerves 2 through 12 are grossly intact. Please refer to medication reconciliation sheet for a list of medications. The impression and plan of care has been dictated by Kirstin Lopes, Nurse Practitioner as directed. Dr. Denise MD I have performed a history and examination and MDM of this patient, discussed the same with the dictator, and agree with the dictator's assessment and plan as written ,documented as a scribe. Based on total visit time, I have performed more than 50% of the visit. Patient Condition at Discharge: Fair Plan - Discharge Summary New Discharge Prescriptions: New Cholestyramine (with Sugar) [Questran Packet] 4 gm PO BID@1000,1800 PRN #20 packet PRN Reason: Diarrhea Warfarin [Coumadin] 4 mg PO DAILY@1800 #20 tab Tamsulosin [Flomax] 0.4 mg PO PC-BRKFST 7 Days #7 cap Acetaminophen Tab [Tylenol] 650 mg PO Q6HR PRN tab PRN Reason: Mild Pain Or Fever > 100.5 Vancomycin 250 mg PO QID 10 Days #40 cap Continue Warfarin [Coumadin] 5 mg PO SUMOWEFR Warfarin [Coumadin] 7.5 mg PO TUTHSA Metoprolol Tartrate [Lopressor] 25 mg PO BID Potassium Chloride 10 meq PO DAILY estradioL [Estrace] 0.5 mg PO TUTA Furosemide [Lasix] 40 mg PO DAILY Albuterol Inhaler [Ventolin Hfa Inhaler] 2 puff INHALATION RT-Q4H PRN PRN Reason: Shortness Of Breath Potassium Chloride ER [K-Dur 10] 10 meq PO DAILY Discharge Medication List Warfarin [Coumadin] 5 mg PO SUMOWEFR 11/17/20 [History] Warfarin [Coumadin] 7.5 mg PO TUTHSA 11/17/20 [History] Furosemide [Lasix] 40 mg PO DAILY 11/22/22 [History] Metoprolol Tartrate [Lopressor] 25 mg PO BID 11/22/22 [History] Potassium Chloride 10 meq PO DAILY 11/22/22 [History] estradioL [Estrace] 0.5 mg PO TUTHSA 11/22/22 [History] Albuterol Inhaler [Ventolin Hfa Inhaler] 2 puff INHALATION RT-Q4H PRN 04/17/23 [History] Potassium Chloride ER [K-Dur 10] 10 meq PO DAILY 04/17/23 [History] Acetaminophen Tab [Tylenol] 650 mg PO Q6HR PRN tab 04/22/23 [Rx] Cholestyramine (with Sugar) [Questran Packet] 4 gm PO BID@1000,1800 PRN #20 packet 04/22/23 [Rx] Tamsulosin [Flomax] 0.4 mg PO PC-BRKFST 7 Days #7 cap 04/22/23 [Rx] Vancomycin 250 mg PO QID 10 Days #40 cap 04/22/23 [Rx] Warfarin [Coumadin] 4 mg PO DAILY@1800 #20 tab 04/22/23 [Rx] Follow up Appointment(s)/Referral(s): Barrett Driver MD [Primary Care Provider] - 1 Week Ambulatory/Diagnostic Orders: Basic Metabolic Panel [LAB.AMB] Time Frame: 2 Days, Location: None Selected Patient Instructions/Handouts: C. Diff (Clostridioides Difficile) Infection (DC) Activity/Diet/Wound Care/Special Instructions: Activity Limited until follow-up Follow-up with primary care provider on discharge Continue taking antibiotics until finished and per ID recommendations to continue 10 days Continue with Questran twice daily as needed not scheduled if having increased bloating and more formed stools If having increased gas pains and bloating may use simethicone drops Continue to yogurt daily Avoid milk for the next few days Continue Lasix and follow-up outpatient with repeat labs in the next 2-3 days Continue to elevate lower extremities while at rest and continue with compression stockings and/or Sid wraps from the toes up to the knees Discharge Disposition: HOME SELF-CARE
== END 2023-04-22 17:15 | disposition home or self-care (01) | DRG 372 ==
LOC: EC 11:44 → 6NMEDSUR 17:23 → OBSVTOIN 04-18 13:44 → 6NMEDSUR 04-18 14:17 → 5NMEDONC 04-18 19:23 → 6NMEDSUR 04-18 19:24 → 4SSUR 04-18 21:19
PROVIDERS: ADMIT Hospitalist; ATTEND Hospitalist
DX: A04.72 Enterocolitis due to Clostridium difficile, not specified as recurrent (principal); D68.9 Coagulation defect, unspecified; E87.1 Hypo-osmolality and hyponatremia; I50.32 Chronic diastolic (congestive) heart failure; Z20.822 Contact with and (suspected) exposure to COVID-19; E86.1 Hypovolemia; R33.8 Other retention of urine; E86.0 Dehydration; I11.0 Hypertensive heart disease with heart failure; I27.20 Pulmonary hypertension, unspecified; T50.2X5A Adverse effect of carbonic-anhydrase inhibitors, benzothiadiazides and other diuretics, initial encounter; X58.XXXA Exposure to other specified factors, initial encounter; Z79.01 Long term (current) use of anticoagulants; I48.0 Paroxysmal atrial fibrillation; Z79.899 Other long term (current) drug therapy; J40 Bronchitis, not specified as acute or chronic; Z85.3 Personal history of malignant neoplasm of breast; Z90.710 Acquired absence of both cervix and uterus; Z85.828 Personal history of other malignant neoplasm of skin; Z96.653 Presence of artificial knee joint, bilateral; Z96.1 Presence of intraocular lens; Z98.42 Cataract extraction status, left eye; Z98.41 Cataract extraction status, right eye; Z87.01 Personal history of pneumonia (recurrent)
CPT/HCPCS: 36415; 71045; 71046; 74177; 80048; 80053; 81003; 82150; 82607; 83605; 83690; 83735; 85025; 85027; 85610; 87324; 87636; 93005; 96361; 96374; 99285

== ENCOUNTER 2023-06-21 05:51 | Day surgery (SDC) | payer MEDICARE, BC ==
[~2023-06-21 05:51] MED LIST: ALPRAZolam 0.25 MG TAB PO PRN; ALPRAZolam 0.5 MG TAB PO PRN; HEPARIN SODIUM,PORCINE (1 ML) 2,500 UNIT in SODIUM CHLORIDE 0.9% 250 ML IRRIGATION PRN; HEPARIN SODIUM,PORCINE 10,000 UNIT in SODIUM CHLORIDE 0.9% 1,000 ML IRRIGATION PRN; NITROGLYCERIN SL TABS 0.4 MG TAB SUBLINGUAL PRN
[2023-06-21] MEDS: SODIUM CHLORIDE 0.9% 1,000 ML IV ONE (06:13)
[2023-06-21] MEDS: ASPIRIN 325 MG TAB PO ONE (06:20)
[2023-06-21] MEDS: SODIUM CHLORIDE 0.9% 1,000 ML in EMPTY BAG 1 BAG IV SCH (06:20)
[2023-06-21 06:50] VITALS: RESP 16; TEMP 97.1
[2023-06-21 06:54] LABS: INR 1.7 (<1.2); Prothrombin Time 17.4 sec (10.0-12.5)
[2023-06-21] MEDS ORDERED: ATORVASTATIN 80 MG TAB PO ONE (07:00)
[2023-06-21] MEDS ORDERED: VERAPAMIL 2.5 MG/ML 2 ML AMP ONE (07:08)
[2023-06-21] MEDS ORDERED: LIDOCAINE 1% INJ 10MG/ML (20 ML MDV) ONE (07:08)
[2023-06-21] MEDS ORDERED: HEPARIN SODIUM 1,000 UN/ML (10ML VL) ONE (07:31)
[2023-06-21] MEDS: MIDAZOLAM 2 MG/2 ML VIAL IVP ONE (07:37)
[2023-06-21] MEDS: LIDOCAINE 1% INJ 10MG/ML (20 ML MDV) SQ ONE (07:42)
[2023-06-21] MEDS: VERAPAMIL SYRINGE (5 MG/10 ML) INTRAARTER ONE (07:45)
[2023-06-21] MEDS: HEPARIN SODIUM 1,000 UN/ML (10ML VL) IVP ONE (07:49)
[2023-06-21] MEDS: IOPAMIDOL-370 100ML BTL INJ ONE (07:57)
[2023-06-21] MEDS ORDERED: SODIUM CHLORIDE 0.9% 1,000 ML IV SCH (08:11)
--- NOTE | 2023-06-21 08:31 | CC ---
CARDIAC CATHETERIZATION REPORT PROCEDURES PERFORMED: Left heart catheterization and coronary angiography. PERFORMED BY: Dr. Cole Sanders. ANESTHESIA: Moderate conscious sedation time was 15 minutes. Patient was administered Versed. Oxygen saturation, hemodynamics, and EKG were monitored closely. 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 She has developed severe mitral regurgitation, mostly central, and also has developed some moderate aortic stenosis since 2020 when she had a cardiac cath. She was evaluated by [facility] by structural heart team and felt that mitral and aortic valves were both significant and they suggested a percutaneous aortic valve implant before any intervention of the mitral valve. She is symptomatic and recently had a bout of Clostridium difficile from which she recovered. She was brought in for a coronary angiography as advised and requested by [facility]. PROCEDURE NOTE: Under local anesthesia and strict aseptic precautions, a 6-Sami introducer was placed in the right radial artery. Using JL3.5 and JR4 catheter, I performed coronary angiography and same right catheter was used to check LV pressure by crossing the aortic valve. The patient tolerated the procedure well. The sheath was taken out and TR band applied as per protocol. Saturation of fingers of the right hand was 95%. Results were discussed with the patient and her daughter. She will be discharged later on today and I will see her in the office on Tuesday. CARDIAC CATHETERIZATION FINDINGS: The left ventricular end-diastolic pressure was about 10 mmHg without any gradient across aortic valve. CORONARY ANGIOGRAPHY FINDINGS: 1. Right Coronary Artery: Dominant vessel, no significant disease. Distally bifurcates into large PLV, smaller PDA, has minor irregularities, no significant disease. This is a superdominant RCA. 2. Left Main Coronary Artery: Short patent vessel, free of significant disease immediately bifurcates into LAD and circumflex. No significant disease in the left main. 3. Left Anterior Descending Coronary Artery: Good caliber vessel, extends along the anterior wall, gives off septal and diagonal branches, runs all the way to the apex. No significant disease. 4. Left Posterior Circumflex Coronary Artery: Nondominant vessel gives off 2 branches very quickly. One is the 1st obtuse marginal, 2nd is a continuation of circumflex. Both of these have minor irregularities. No significant disease. 5. The left ventricular end-diastolic pressure was about 11 mmHg and on a pullback, there was 18 mm gradient across aortic valve and this does not seem to be a significant aortic stenosis. IMPRESSION: Patient has normal filling pressures, probably [id number] aortic stenosis. The pullback gradient was 18 mmHg. There is no significant obstructive CAD. She has a right-dominant system and no significant obstructive CAD. RECOMMENDATIONS: Findings will be communicated to [facility]. I do not believe aortic valve stenosis is significant or contributing much to her symptoms. She has no obstructive CAD. She does have mitral regurgitation, which should probably be addressed if she is symptomatic if the symptoms worsen. I will share the information with the [facility]. MMODL / IJN: [id number] /
[2023-06-21] MEDS: ACETAMINOPHEN TAB 500 MG TAB PO ONE (09:26)
[2023-06-21 11:06] VITALS: PULSE 60
[2023-06-21 12:35] VITALS: BP 107/62
== END 2023-06-21 14:59 | disposition home or self-care (01) ==
LOC: CATHCVL 05:51
PROVIDERS: ATTEND Internal Medicine Interventional Cardiology
DX: I08.0 Rheumatic disorders of both mitral and aortic valves (principal); I48.91 Unspecified atrial fibrillation; Z88.8 Allergy status to other drugs, medicaments and biological substances; I48.0 Paroxysmal atrial fibrillation; Z79.01 Long term (current) use of anticoagulants; Z79.899 Other long term (current) drug therapy; Z85.41 Personal history of malignant neoplasm of cervix uteri
CPT/HCPCS: 93458; 85610; 99152; C1769; C1894; J2250; J2001; J1644; Q9967

== ENCOUNTER 2024-07-18 17:35 | Inpatient (IN) | payer MEDICARE, BC ==
[2024-07-18 18:00] VITALS: TEMP 98.1
--- NOTE | 2024-07-18 18:07 | ED ---
General Adult HPI - General Chief complaint: Recheck/Abnormal Lab/Rx Stated complaint: cough Time Seen by Provider: 07/18/24 18:06 Source: patient Mode of arrival: ambulatory Limitations: no limitations - History of Present Illness Initial comments: 89-year-old female with past medical history of valvular disease who presents emergency department under the direction of Dr. Sanders, the hand painter. Patient reports that she has been having shortness of breath for the past 2 days. She has had a very productive cough with clear sputum. Patient does have a history of valvular disease with a TAVR at [facility] on June 04. She continues to have severe mitral and tricuspid regurg. Bus Operator was concern for pneumonia or heart failure. Patient denies any chest pain. No lower extremity swelling. Admits to body aches without fevers. No other alleviating, precipitating modifying factors - Related Data Home Medications Medication Instructions Recorded Confirmed Warfarin [Coumadin] 5 mg PO SUTUWETHFRSA@2100 11/17/20 07/19/24 Metoprolol Tartrate [Lopressor] 25 mg PO BID 11/22/22 07/19/24 estradioL [Estrace] 0.5 mg PO TUTH 11/22/22 07/19/24 Empagliflozin [Jardiance] 10 mg PO DAILY 06/13/24 07/19/24 Furosemide [Lasix] 40 mg PO DAILY 06/13/24 07/19/24 Potassium Chloride ER [K-Dur 20] 20 meq PO BID 06/13/24 07/19/24 Spironolactone [Aldactone] 25 mg PO DAILY 06/13/24 07/19/24 metOLazone [Zaroxolyn] 2.5 mg PO MOTH 06/13/24 07/19/24 Pantoprazole Sodium [Protonix] 40 mg PO DAILY 07/19/24 07/19/24 Warfarin [Coumadin] 7.5 mg PO MO@2100 07/19/24 07/19/24 Allergies Allergy/AdvReac Type Severity Reaction Status Date / Time meperidine HCl [From Demerol] AdvReac Nausea & Verified 07/19/24 08:33 Vomiting Review of Systems ROS Statement: Those systems with pertinent positive or pertinent negative responses have been documented in the HPI. ROS Other: All systems not noted in ROS Statement are negative. Past Medical History Past Medical History: Atrial Fibrillation, Cancer, Pneumonia Additional Past Medical History / Comment(s): Breast cancer w/bilateral simple mastectomies (1979), squamous skin cancer., leaky mitral valve, occasional gout., hx of acute diverticulitis, pacemaker, tests positive for tb due to bcg vaccine she received., bronchitis March 2023, hospitalized in April 2023 for nausea, vomiting ,dehydration &C diff states [facility] See Cardiology [facility] & P. History of Any Multi-Drug Resistant Organisms: C-DIFF Date of last positivie culture/infection: 04/17/23 MDRO Source:: stool Past Surgical History: Breast Surgery, Cardiac Ablation, Cholecystectomy, Heart Catheterization, Joint Replacement, Pacemaker Additional Past Surgical History / Comment(s): EPS WITH CARDIAC ABLATIONS, BILATERAL SIMPLE MASTECTOMIES( 1979)., BILATERAL TOTAL KNEE ARTHROPLASTIES, CATARACTS W/ LENS IMPLANTS, HYSTERECTOMY WITH BILATERAL SALPINGECTOMY OOPHORECTOMY, COLONOSCOPY., MEDTRONIC PACEMAKER Past Anesthesia/Blood Transfusion Reactions: No Reported Reaction Type of Cardiac Device: Permanent Pacemaker Device Placement Date:: 06/2000 DUAL CHAMBER PLACED AND GEN CHANGE 2014. Past Psychological History: No Psychological Hx Reported Smoking Status: Never smoker Past Alcohol Use History: None Reported Past Drug Use History: None Reported - Past Family History Father Family Medical History: No Reported History Additional Family Medical History / Comment(s): Father was healthy and lived to be 94 yrs old. Mother Family Medical History: Cancer Additional Family Medical History / Comment(s): Mother had breast cancer and so did 3 of her sisters. Daughter(s) Family Medical History: Cancer Additional Family Medical History / Comment(s): Olderst daughter from breast cancer. General Exam Limitations: no limitations General appearance: alert, in no apparent distress Head exam: Present: atraumatic, normocephalic, normal inspection Eye exam: Present: normal appearance, PERRL, EOMI. Absent: scleral icterus, conjunctival injection, periorbital swelling ENT exam: Present: normal exam, mucous membranes moist Neck exam: Present: normal inspection. Absent: tenderness, meningismus, lympha denopathy Respiratory exam: Present: decreased breath sounds. Absent: respiratory distress, wheezes, rales, rhonchi, stridor Cardiovascular Exam: Present: regular rate, normal rhythm, normal heart sounds. Absent: systolic murmur, diastolic murmur, rubs, gallop, clicks GI/Abdominal exam: Present: soft, normal bowel sounds. Absent: distended, tenderness, guarding, rebound, rigid Extremities exam: Present: normal inspection, full ROM, normal capillary refill. Absent: tenderness, pedal edema, joint swelling, calf tenderness Back exam: Present: normal inspection Neurological exam: Present: alert, oriented X3, CN II-XII intact Psychiatric exam: Present: normal affect, normal mood Skin exam: Present: warm, dry, intact, normal color. Absent: rash Course Vital Signs 07/18/24 07/18/24 07/18/24 17:56 21:02 21:08 Temperature 98.1 F Pulse Rate 62 69 71 Respiratory 18 18 18 Rate Blood Pressure 93/58 O2 Sat by Pulse 93 L Oximetry 07/18/24 07/19/24 07/19/24 21:33 00:28 06:36 Temperature 98.1 F Pulse Rate 65 65 66 Respiratory 17 16 16 Rate Blood Pressure 105/56 122/72 131/79 O2 Sat by Pulse 91 L 90 L 95 Oximetry Medical Decision Making - Medical Decision Making Was pt. sent in by a medical professional or institution (, PA, ICHTHYOLOGY TEACHER, urgent care, hospital, or chcf...) When possible be specific @ -Patient was sent in by the hand painter, Dr. Sanders Did you speak to anyone other than the patient for history (EMS, parent, family, police, friend...)? What history was obtained from this source @ -I spoke with Dr. Sanders for the history Did you review nursing and triage notes (agree or disagree)? Why? @ -I reviewed and agree with nursing and triage notes Were old charts reviewed (outside hosp., previous admission, EMS record, old EKG, old radiological studies, urgent care reports/EKG's, chcf records)? Report findings @ -No old charts were reviewed Differential Diagnosis (chest pain, altered mental status, abdominal pain women, abdominal pain men, vaginal bleeding, weakness, fever, dyspnea, syncope, headach e, dizziness, GI bleed, back pain, seizure, CVA, palpatations, mental health, musculoskeletal)? @ -Differential Dyspnea: Coronary syndrome, arrhythmia, tamponade, asthma, COPD, pulmonary embolism, p neumonia, pneumothorax, pulmonary effusion, anaphylaxis, diabetic ketoacidosis, flailed chest, pulmonary contusion, diaphragmatic rupture, anemia, neuromuscular, this is not meant to be an all-inclusive list. EKG interpreted by me (3pts min.). @ -Yes and demonstrates electronic ventricular pacemaker with a rate of 78. QRS 181. QTc of 505. Pacemaker captures appropriately X-rays interpreted by me (1pt min.). @ -Yes which demonstrates small right pleural effusion CT interpreted by me (1pt min.). @ -None done U/S interpreted by me (1pt. min.). @ -None done What testing was considered but not performed or refused? (CT, X-rays, U/S, labs)? Why? @ -None What meds were considered but not given or refused? Why? @ -None Did you discuss the management of the patient with other professionals (professionals i.e. , PA, ICHTHYOLOGY TEACHER, lab, RT, psych nurse, 7th grade social studies teacher, department operations manager, teacher, chief legal officer, case filler)? Give summary @ -Spoke with Dr. Sanders. He recommends fluid administration. No Lasix or heparin as patient is already anticoagulated Was smoking cessation discussed for >3mins.? @ -No Was critical care preformed (if so, how long)? @ -No Were there social determinants of health that impacted care today? How? (Homelessness, low income, unemployed, alcoholism, drug addiction, transportation, low edu. Level, literacy, decrease access to med. care, assisted, rehab)? @ -No Was there de-escalation of care discussed even if they declined (Discuss DNR or withdrawal of care, Hospice)? DNR status @ -No What co-morbidities impacted this encounter? (DM, HTN, Smoking, COPD, CAD, Canc er, CVA, ARF, Chemo, Hep., AIDS, mental health diagnosis, sleep apnea, morbid obesity)? @ -Valvular disease Was patient admitted / discharged? Hospital course, mention meds given and route, prescriptions, significant lab abnormalities, going to OR and other pertinent info. @ -Upon arrival patient seen and evaluated in room 18. Thorough history and physical exam was performed. IV access was established and laboratory studies are conducted. Chest x-ray was performed. Patient does have elevated troponin and BNP. I did speak with Dr. Sanders as he did send the patient in. He recommends gentle fluid hydration and trending the troponins. Continuing her home anticoagulation. He does not recommend diuresis at this time. Patient was agreeable to this. I spoke with Kirstin from [facility] for admission Undiagnosed new problem with uncertain prognosis? @ -No Drug Therapy requiring intensive monitoring for toxicity (Heparin, Nitro, Insulin, Cardizem)? @ -No Were any procedures done? @ -No Diagnosis/symptom? @ -Acute cough, elevated BNP, elevated troponins Acute, or Chronic, or Acute on Chronic? @ -Acute Uncomplicated (without systemic symptoms) or Complicated (systemic symptoms)? @ -Complicated Side effects of treatment? @ -No Exacerbation, Progression, or Severe Exacerbation? @ -No Poses a threat to life or bodily function? How? (Chest pain, [place], [place], pneumonia, PE, COPD, DKA, ARF, appy, cholecystitis, CVA, Diverticulitis, Homicidal, Suicidal, threat to staff... and all critical care pts) @ -Yes as patient has elevated troponin level - Lab Data Result diagrams: 07/19/24 02:57 07/19/24 02:57 Lab Results 07/18/24 07/18/24 07/18/24 Range/Units 19:58 20:03 20:03 WBC 3.8 (3.8-10.6) k/uL RBC 3.51 L (3.80-5.40) m/uL Hgb 11.9 (11.4-16.0) gm/dL Hct 37.6 (34.0-46.0) % MCV 107.1 H (80.0-100.0) fL MCH 34.0 (25.0-35.0) pg MCHC 31.8 (31.0-37.0) g/dL RDW 14.1 (11.5-15.5) % Plt Count 113 L (150-450) k/uL MPV 8.3 Neutrophils % 65 % Lymphocytes % 19 % Monocytes % 9 % Eosinophils % 3 % Basophils % 1 % Neutrophils # 2.5 (1.3-7.7) k/uL Lymphocytes # 0.7 L (1.0-4.8) k/uL Monocytes # 0.4 (0-1.0) k/uL Eosinophils # 0.1 (0-0.7) k/uL Basophils # 0.0 (0-0.2) k/uL Macrocytosis Moderate PT 21.7 H (10.0-12.5) sec INR 2.1 H (<1.2) APTT 33.7 H (22.0-30.0) sec Sodium (137-145) mmol/L Potassium (3.5-5.1) mmol/L Chloride (98-107) mmol/L Carbon Dioxide (22-30) mmol/L Anion Gap mmol/L BUN (7-17) mg/dL Creatinine (0.52-1.04) mg/dL Est GFR (CKD-EPI)AfAm (>60 ml/min/1.73 sqM) Est GFR (CKD-EPI)NonAf (>60 ml/min/1.73 sqM) Glucose (74-99) mg/dL Plasma Lactic Acid Cesar (0.7-2.0) mmol/L Calcium (8.4-10.2) mg/dL Total Bilirubin (0.2-1.3) mg/dL AST (14-36) U/L ALT (4-34) U/L Alkaline Phosphatase (38-126) U/L Troponin I (0.000-0.034) ng/mL NT-Pro-B Natriuret Pep pg/mL Total Protein (6.3-8.2) g/dL Albumin (3.5-5.0) g/dL Influenza Type A (PCR) Not Detected (Not Detectd) Influenza Type B (PCR) Not Detected (Not Detectd) RSV (PCR) Not Detected (Not Detectd) SARS-CoV-2 (PCR) Not Detected (Not Detectd) 07/18/24 07/18/24 07/18/24 Range/Units 20:03 20:03 20:03 WBC (3.8-10.6) k/uL RBC (3.80-5.40) m/uL Hgb (11.4-16.0) gm/dL Hct (34.0-46.0) % MCV (80.0-100.0) fL MCH (25.0-35.0) pg MCHC (31.0-37.0) g/dL RDW (11.5-15.5) % Plt Count (150-450) k/uL MPV Neutrophils % % Lymphocytes % % Monocytes % % Eosinophils % % Basophils % % Neutrophils # (1.3-7.7) k/uL Lymphocytes # (1.0-4.8) k/uL Monocytes # (0-1.0) k/uL Eosinophils # (0-0.7) k/uL Basophils # (0-0.2) k/uL Macrocytosis PT (10.0-12.5) sec INR (<1.2) APTT (22.0-30.0) sec Sodium 135 L (137-145) mmol/L Potassium 4.4 (3.5-5.1) mmol/L Chloride 95 L (98-107) mmol/L Carbon Dioxide 30 (22-30) mmol/L Anion Gap 10 mmol/L BUN 30 H (7-17) mg/dL Creatinine 0.96 (0.52-1.04) mg/dL Est GFR (CKD-EPI)AfAm 62 (>60 ml/min/1.73 sqM) Est GFR (CKD-EPI)NonAf 53 (>60 ml/min/1.73 sqM) Glucose 151 H (74-99) mg/dL Plasma Lactic Acid Cesar 1.2 (0.7-2.0) mmol/L Calcium 9.4 (8.4-10.2) mg/dL Total Bilirubin 2.5 H (0.2-1.3) mg/dL AST 38 H (14-36) U/L ALT 14 (4-34) U/L Alkaline Phosphatase 71 (38-126) U/L Troponin I 0.278 H* (0.000-0.034) ng/mL NT-Pro-B Natriuret Pep 2250 pg/mL Total Protein 7.4 (6.3-8.2) g/dL Albumin 4.2 (3.5-5.0) g/dL Influenza Type A (PCR) (Not Detectd) Influenza Type B (PCR) (Not Detectd) RSV (PCR) (Not Detectd) SARS-CoV-2 (PCR) (Not Detectd) Disposition Clinical Impression: NSTEMI (non-ST elevated myocardial infarction), Cough, Pleural effusion Disposition: ADMITTED IP TO THIS HOSP Condition: Stable Is patient prescribed a controlled substance at d/c from ED?: No Time of Disposition: 23:50 Decision to Admit Reason: Admit from EC Decision Date: 07/18/24 Decision Time: 23:51
--- NOTE | 2024-07-18 20:13 | XR ---
EXAMINATION TYPE: XR chest 2V DATE OF EXAM: 07/18/2024 8:07 PM COMPARISON: Multiple radiographs, with the most recent on 06/13/2024 TECHNIQUE: XR chest 2V Frontal and lateral views of the chest. CLINICAL INDICATION:Female, 89 years old with history of Weakness; FINDINGS: Lungs/Pleura: Blunting of the right costophrenic angle again. No focal consolidation or pneumothorax. Pulmonary vascularity: Unremarkable. Heart/mediastinum: Cardiomediastinal silhouette is enlarged and stable. Postsurgical changes of the p roximal aorta with aortic stent graft. Atherosclerotic calcifications are seen in the aorta. Two lead cardiac conduction device overlying the left hemithorax with lead tips projecting over the right cher tricle and right atrium. Musculoskeletal: No acute osseous pathology. Other findings: Bilateral breast prosthesis. IMPRESSION: 1. Similar small right pleural effusion. 2. Cardiomegaly. [facility], , 07/18/2024 8:10 PM
[2024-07-18 20:23] LABS: Basophils % (A) 1 %; Eosinophils # (A) 0.1 k/uL (0-0.7); Eosinophils % (A) 3 %; HCT 37.6 % (34.0-46.0); HGB 11.9 gm/dL (11.4-16.0); Lymphocytes # (A) 0.7 k/uL (1.0-4.8); Lymphocytes % (A) 19 %; MCHC 31.8 g/dL (31.0-37.0); MCV 107.1 fL (80.0-100.0); Macrocytosis Moderate; Mean Platelet Volume 8.3; Monocytes # (A) 0.4 k/uL (0-1.0); Monocytes % (A) 9 %; Neutrophils # (A) 2.5 k/uL (1.3-7.7); Neutrophils % (A) 65 %; Platelet Count 113 k/uL (150-450); RBC 3.51 m/uL (3.80-5.40); RDW 14.1 % (11.5-15.5); WBC 3.8 k/uL (3.8-10.6)
[2024-07-18 20:32] LABS: INR 2.1 (<1.2); Partial Thromboplastin Time 33.7 sec (22.0-30.0); Prothrombin Time 21.7 sec (10.0-12.5)
[2024-07-18 20:38] LABS: ALT 14 U/L (4-34); AST 38 U/L (14-36); African American GFR (CKD) 62 (>60 ml/min/1.73 sqM); Albumin 4.2 g/dL (3.5-5.0); Anion Gap 10 mmol/L; Blood Urea Nitrogen 30 mg/dL (7-17); Calcium 9.4 mg/dL (8.4-10.2); Carbon Dioxide 30 mmol/L (22-30); Chloride 95 mmol/L (98-107); Glucose 151 mg/dL (74-99); Non-African American GFR(CKD) 53 (>60 ml/min/1.73 sqM); Potassium 4.4 mmol/L (3.5-5.1); Sodium 135 mmol/L (137-145); Total Bilirubin 2.5 mg/dL (0.2-1.3); Total Protein 7.4 g/dL (6.3-8.2)
[2024-07-18 20:39] LABS: Alkaline Phosphatase 71 U/L (38-126)
[2024-07-18 20:45] LABS: Influenza A Not Detected (Not Detectd); Influenza B Not Detected (Not Detectd); RSV Not Detected (Not Detectd)
[2024-07-18 20:47] LABS: NT-Pro-B-Type Natriuretic Pept 2250 pg/mL
[2024-07-18] MEDS: ALBUTEROL NEBULIZED 2.5 MG/3 ML INHALATION STA (21:02)
[2024-07-18] MEDS ORDERED: NALOXONE 0.4 MG/ML 1 ML VIAL IV PRN (23:51)
[2024-07-19] MEDS: WARFARIN 5 MG TAB PO ONE ×2 (00:24→18:20)
[2024-07-19] MEDS: SODIUM CHLORIDE 0.9% 1,000 ML IV SCH (00:24)
[2024-07-19] MEDS ORDERED: ALBUTEROL HFA INHALER INHALATION PRN (00:25)
[2024-07-19 03:28] LABS: Basophils % (A) 1 %; Eosinophils # (A) 0.2 k/uL (0-0.7); Eosinophils % (A) 5 %; HCT 33.5 % (34.0-46.0); HGB 10.8 gm/dL (11.4-16.0); Hypochromasia Slight; Lymphocytes # (A) 0.7 k/uL (1.0-4.8); Lymphocytes % (A) 18 %; MCH 34.4 pg (25.0-35.0); MCHC 32.2 g/dL (31.0-37.0); MCV 107.1 fL (80.0-100.0); Macrocytosis Moderate; Mean Platelet Volume 8.4; Monocytes # (A) 0.4 k/uL (0-1.0); Monocytes % (A) 10 %; Neutrophils # (A) 2.5 k/uL (1.3-7.7); Neutrophils % (A) 62 %; Platelet Count 105 k/uL (150-450); RBC 3.13 m/uL (3.80-5.40); RDW 14.2 % (11.5-15.5)
[2024-07-19 03:56] LABS: African American GFR (CKD) 65 (>60 ml/min/1.73 sqM); Anion Gap 7 mmol/L; Blood Urea Nitrogen 27 mg/dL (7-17); Calcium 9.1 mg/dL (8.4-10.2); Carbon Dioxide 31 mmol/L (22-30); Chloride 95 mmol/L (98-107); Glucose 97 mg/dL (74-99); Non-African American GFR(CKD) 56 (>60 ml/min/1.73 sqM); Sodium 133 mmol/L (137-145)
[2024-07-19 08:03] LABS: Prothrombin Time 20.4 sec (10.0-12.5)
[2024-07-19] MEDS ORDERED: ALPRAZolam 0.5 MG TAB PO PRN (08:03)
[2024-07-19] MEDS ORDERED: NITROGLYCERIN SL TABS 0.4 MG TAB SUBLINGUAL PRN (08:03)
[2024-07-19] MEDS ORDERED: ALPRAZolam 0.25 MG TAB PO PRN (08:03)
[2024-07-19] MEDS: ATORVASTATIN 80 MG TAB PO STA (08:57)
[2024-07-19] MEDS: ASPIRIN 325 MG TAB PO STA (08:57)
[2024-07-19] MEDS: SODIUM CHLORIDE 0.9% 1,000 ML IV ONE (09:39)
[2024-07-19] MEDS: MIDAZOLAM 2 MG/2 ML VIAL IVP ONE (09:50)
[2024-07-19] MEDS: LIDOCAINE 1% INJ 10MG/ML (20 ML MDV) SQ ONE (09:51)
[2024-07-19] MEDS: VERAPAMIL SYRINGE (5 MG/10 ML) INTRAARTER ONE (09:57)
[2024-07-19] MEDS: HEPARIN SODIUM 1,000 UN/ML (10ML VL) IVP ONE (09:59)
[2024-07-19] MEDS: IOPAMIDOL-370 100ML BTL INJ ONE (10:04)
--- NOTE | 2024-07-19 11:13 | P.HPIM ---
History of Present Illness 89-year-old female with known history of valvular heart disease aortic valve disease and had TAVR in the past. Patient also has known severe mitral regurgitation. She came in with complaints of shortness of breath found to have mild elevated troponins because of which patient underwent cardiac authorization which did not show any significant coronary occlusive disease that required stenting. Patient is found to have severe mitral regurgitation and her shortness of breath is secondary to that. Chest x-ray also did not show any pulmonary edema patient had and had a normal ejection fraction from the SUKUMAR that was done recently. Patient do not know any orthopnea paroxysmal nocturnal dyspnea. REVIEW OF SYSTEMS: All other systems are negative except those mentioned in the HPI PHYSICAL EXAMINATION: GENERAL: The patient is alert and oriented x3, not in any acute distress. Thin built female HEENT: Pupils are round and equally reacting to light. EOMI. No scleral icterus. No conjunctival pallor. Normocephalic, atraumatic. No pharyngeal erythema. No thyromegaly. CARDIOVASCULAR: S1 and S2 present. No murmurs, rubs, or gallops. PULMONARY: Chest is clear to auscultation, no wheezing or crackles. ABDOMEN: Soft, nontender, nondistended, normoactive bowel sounds. No palpable organomegaly. MUSCULOSKELETAL: No joint swelling or deformity. EXTREMITIES: No cyanosis, clubbing, or pedal edema. NEUROLOGICAL: Gross neurological examination did not reveal any focal deficits. SKIN: No rashes. Assessment and plan -Elevated troponins possibly secondary to to non-ST elevation ND type II from mitral valvular disease and hypoxemia. As per cardiology patient will need mitral valve replacement and is in the process of transferring the patient to [facility]. Patient underwent cardiac catheterization did not require any stenting -History of atrial fibrillation paroxysmal patient is on Coumadin because of valvular A-fib. Patient's INR is therapeutic at 2 Coumadin is being continued home dose -Elevated MCV will obtain a B12 level -Moderate protein calorie malnutrition -History of aortic stenosis status post TAVR DVT prophylaxis: On Coumadin with therapeutic INR Past Medical History Past Medical History: Atrial Fibrillation, Cancer, Pneumonia Additional Past Medical History / Comment(s): Breast cancer w/bilateral simple mastectomies (1979), squamous skin cancer., leaky mitral valve, occasional gout., hx of acute diverticulitis, pacemaker, tests positive for tb due to bcg vaccine she received., bronchitis March 2023, hospitalized in April 2023 for nausea, vomiting ,dehydration &C diff states [facility] See Cardiology H & P. History of Any Multi-Drug Resistant Organisms: C-DIFF Date of last positivie culture/infection: 04/17/23 MDRO Source:: stool Past Surgical History: Breast Surgery, Cardiac Ablation, Cholecystectomy, Heart Catheterization, Joint Replacement, Pacemaker Additional Past Surgical History / Comment(s): EPS WITH CARDIAC ABLATIONS, BILATERAL SIMPLE MASTECTOMIES( 1979)., BILATERAL TOTAL KNEE ARTHROPLASTIES, CATARACTS W/ LENS IMPLANTS, HYSTERECTOMY WITH BILATERAL SALPINGECTOMY OOPHORECTOMY, COLONOSCOPY., MEDTRONIC PACEMAKER Past Anesthesia/Blood Transfusion Reactions: No Reported Reaction Type of Cardiac Device: Permanent Pacemaker Device Placement Date:: 06/2000 DUAL CHAMBER PLACED AND GEN CHANGE 2014. Past Psychological History: No Psychological Hx Reported Smoking Status: Never smoker Past Alcohol Use History: None Reported Past Drug Use History: None Reported - Past Family History Father Family Medical History: No Reported History Additional Family Medical History / Comment(s): Father was healthy and lived to be 94 yrs old. Mother Family Medical History: Cancer Additional Family Medical History / Comment(s): Mother had breast cancer and so did 3 of her sisters. Daughter(s) Family Medical History: Cancer Additional Family Medical History / Comment(s): Olderst daughter from breast cancer. Medications and Allergies Home Medications Medication Instructions Recorded Confirmed Type Warfarin [Coumadin] 5 mg PO SUTUWETHFRSA@2100 11/17/20 07/19/24 History Metoprolol Tartrate [Lopressor] 25 mg PO BID 11/22/22 07/19/24 History estradioL [Estrace] 0.5 mg PO TUTH 11/22/22 07/19/24 History Empagliflozin [Jardiance] 10 mg PO DAILY 06/13/24 07/19/24 History Furosemide [Lasix] 40 mg PO DAILY 06/13/24 07/19/24 History Potassium Chloride ER [K-Dur 20] 20 meq PO BID 06/13/24 07/19/24 History Spironolactone [Aldactone] 25 mg PO DAILY 06/13/24 07/19/24 History metOLazone [Zaroxolyn] 2.5 mg PO MOTH 06/13/24 07/19/24 History Pantoprazole Sodium [Protonix] 40 mg PO DAILY 07/19/24 07/19/24 History Warfarin [Coumadin] 7.5 mg PO MO@2100 07/19/24 07/19/24 History Allergies Allergy/AdvReac Type Severity Reaction Status Date / Time meperidine HCl [From Demerol] AdvReac Nausea & Verified 07/19/24 08:33 Vomiting Physical Exam Vitals: Vital Signs Temp Pulse Resp BP Pulse Ox 07/19/24 06:36 98.1 F 66 16 131/79 95 07/19/24 00:28 65 16 122/72 90 L 07/18/24 21:33 65 17 105/56 91 L 07/18/24 21:08 71 18 07/18/24 21:02 69 18 07/18/24 17:56 98.1 F 62 18 93/58 93 L Intake and Output 07/18/24 07/19/24 07/19/24 22:59 06:59 14:59 Intake Total 50 Balance 50 Intake: IV 50 Other: Weight 56.245 kg Results CBC & Chem 7: 07/19/24 02:57 07/19/24 02:57 Labs: Abnormal Lab Results - Last 24 Hours (Table) 07/18/24 07/18/24 07/18/24 Range/Units 20:03 20:03 20:03 RBC 3.51 L (3.80-5.40) m/uL Hgb (11.4-16.0) gm/dL Hct (34.0-46.0) % MCV 107.1 H (80.0-100.0) fL Plt Count 113 L (150-450) k/uL Lymphocytes # 0.7 L (1.0-4.8) k/uL PT 21.7 H (10.0-12.5) sec INR 2.1 H (<1.2) APTT 33.7 H (22.0-30.0) sec Sodium 135 L (137-145) mmol/L Chloride 95 L (98-107) mmol/L Carbon Dioxide (22-30) mmol/L BUN 30 H (7-17) mg/dL Glucose 151 H (74-99) mg/dL Total Bilirubin 2.5 H (0.2-1.3) mg/dL AST 38 H (14-36) U/L Troponin I (0.000-0.034) ng/mL 07/18/24 07/19/24 07/19/24 Range/Units 20:03 00:03 02:57 RBC (3.80-5.40) m/uL Hgb (11.4-16.0) gm/dL Hct (34.0-46.0) % MCV (80.0-100.0) fL Plt Count (150-450) k/uL Lymphocytes # (1.0-4.8) k/uL PT (10.0-12.5) sec INR (<1.2) APTT (22.0-30.0) sec Sodium (137-145) mmol/L Chloride (98-107) mmol/L Carbon Dioxide (22-30) mmol/L BUN (7-17) mg/dL Glucose (74-99) mg/dL Total Bilirubin (0.2-1.3) mg/dL AST (14-36) U/L Troponin I 0.278 H* 0.389 H* 0.360 H* (0.000-0.034) ng/mL 07/19/24 07/19/24 07/19/24 Range/Units 02:57 02:57 07:12 RBC 3.13 L (3.80-5.40) m/uL Hgb 10.8 L (11.4-16.0) gm/dL Hct 33.5 L (34.0-46.0) % MCV 107.1 H (80.0-100.0) fL Plt Count 105 L (150-450) k/uL Lymphocytes # 0.7 L (1.0-4.8) k/uL PT 20.4 H (10.0-12.5) sec INR 2.0 H (<1.2) APTT (22.0-30.0) sec Sodium 133 L (137-145) mmol/L Chloride 95 L (98-107) mmol/L Carbon Dioxide 31 H (22-30) mmol/L BUN 27 H (7-17) mg/dL Glucose (74-99) mg/dL Total Bilirubin (0.2-1.3) mg/dL AST (14-36) U/L Troponin I (0.000-0.034) ng/mL
--- NOTE | 2024-07-19 11:39 | CC ---
CARDIAC CATHETERIZATION REPORT PROCEDURE: Coronary angiography. PERFORMED BY: Dr. Cole Sanders. ANESTHESIA: Moderate conscious sedation time was 13 minutes. The patient was administered Versed. Oxygen saturation, hemodynamics, and EKG were monitored closely. CLINICAL INFORMATION: Mrs. Padmini John is an 89-year-old lady with a history of moderate aortic stenosis, status post percutaneous aortic valve implant on June 04, 2024. She has severe mitral and tricuspid regurgitation, both of which she is being evaluated at [facility] for one of the research protocols to see if the valves can be repaired. However, she came in yesterday with a 3 to 4 days history of feeling short of breath, lack of energy, and coughing. Clinical picture was that of chronic heart failure, but troponin was elevated from 0.2, went up to 0.3. Although it was likely it could be heart failure-related, I have recommended coronary angiography to rule out obstructive CAD. Risks, benefits, options, and rationale were explained to the patient and her daughter. PROCEDURE NOTE: Under local anesthesia and strict aseptic precautions with the help of ultrasound guidance, access was obtained into the right radial artery. Using JL3.5 and JR4 catheters I performed coronary angiography and did not check any LV pressures. The sheath was taken out and TR band applied. Saturation of the fingers of the right hand was 97%. The patient tolerated the procedure well. CORONARY ANGIOGRAPHY FINDINGS: 1. Right coronary artery is a dominant vessel. No significant disease. Distally, it bifurcates into 3 branches; minor irregularities. No significant disease. 2. Left main coronary artery: Short, patent, disease-free vessel that bifurcates into LAD and circumflex. 3. Left anterior descending coronary artery: Good caliber vessel that extends along the anterior wall, gives off a diagonal branch that gives off and divides into 2 branches. Minor irregularities of less than 30%. No significant disease in the LAD. 4. Left posterior circumflex coronary artery: Nondominant vessel, gives off a single obtuse marginal and then runs as a groove branch. Minor irregularities. No significant disease. FINAL IMPRESSION: This patient has a right-dominant system. Minor irregularities. No significant obstructive CAD. LV pressures were not checked. Aortic valve, which is a bioprosthetic valve was not crossed. MMODL / IJN: [id number] /
--- NOTE | 2024-07-19 12:14 | CA ---
Transthoracic Echo Report Name: Padmini John Age: 89 Gender: F : 1935 Exam Date: 07/19/2024 08:37 Exam Location: [facility] Ht (in): 65 Wt (lb): 125 Ordering Physician: Sunni Aguirre Attending/Referring Phys: Records Management Clerk Amy Dubon RDCS Procedure CPT: Indications: LVF Cardiac Hx: Technical Quality: Fair Contrast 1: Total Dose (mL): Contrast 2: Total Dose (mL): MEASUREMENTS (Male / Female) Normal Values 2D ECHO LV Diastolic Diameter PLAX 5.2 cm 4.2 - 5.9 / 3.9 - 5.3 cm LV Systolic Diameter PLAX 3.8 cm IVS Diastolic Thickness 1.2 cm 0.6 - 1.0 / 0.6 - 0.9 cm LVPW Diastolic Thickness 1.5 cm 0.6 - 1.0 / 0.6 - 0.9 cm LV Relative Wall Thickness 0.5 LV Diastolic Volume MOD BP 172.0 cm??? 67 - 155 / 56 - 104 cm??? LV Systolic Volume MOD BP 83.8 cm??? 22 - 58 / 19 - 49 cm??? LV Ejection Fraction MOD BP 51.3 % >= 55 % LV Cardiac Index MOD BP 3176.1 cm???/min???m??? LV Diastolic Volume MOD 4C 162.2 cm??? LV Systolic Volume MOD 4C 82.2 cm??? LV Ejection Fraction MOD 4C 49.3 % LV Cardiac Index MOD 4C 2879.1 cm???/min???m??? LV Diastolic Length 4C 7.0 cm LV Systolic Length 4C 6.2 cm LV Diastolic Volume MOD 2C 173.6 cm??? LV Systolic Volume MOD 2C 82.3 cm??? LV Ejection Fraction MOD 2C 52.6 % LV Cardiac Index MOD 2C 3284.4 cm???/min???m??? LV Diastolic Length 2C 7.4 cm LV Systolic Length 2C 6.5 cm DOPPLER AV Peak Velocity 199.8 cm/s AV Peak Gradient 16.0 mmHg AV Mean Velocity 130.1 cm/s AV Mean Gradient 7.9 mmHg AV Velocity Time Integral 34.5 cm LVOT Peak Velocity 117.0 cm/s LVOT Peak Gradient 5.5 mmHg LVOT Velocity Time Integral 20.8 cm MV Peak Velocity 214.8 cm/s MV Peak Gradient 18.4 mmHg MV Mean Velocity 67.0 cm/s MV Mean Gradient 3.0 mmHg MV Velocity Time Integral 37.1 cm TR Peak Velocity 398.7 cm/s TR Peak Gradient 63.6 mmHg Right Atrial Pressure 20.0 mmHg Pulmonary Artery Systolic Pressu 83.6 mmHg Right Ventricular Systolic Press 83.6 mmHg FINDINGS Left Ventricle Left ventricular ejection fraction is estimated at 50 to 55 %. Left ventricular systolic function low normal.Moderately increased left ventricular wall thickness. Right Ventricle Mild right ventricular dilatation with normal function. Severe pulmonary hypertension. Right Atrium Right atrial dilatation. Left Atrium Severe left atrial dilatation. Mitral Valve Mitral valve thickened. Severe mitral regurgitation. Mild mitral stenosis.mitral annular calcification. Aortic Valve Bioprosthetic aortic valve without stenosis with a peak velocity of 2.0 m/s, peak gradient 16 mmHg, mean gradient 8 mmHg. Mild aortic regurgitation Tricuspid Valve Structurally normal tricuspid valve. Severe tricuspid regurgitation. Pulmonic Valve Pulmonic valve not well visualized. Pericardium No pericardial effusion. Pleural effusion. Aorta Aortic root and proximal ascending aorta not assessed. CONCLUSIONS 1. Left ventricular systolic function low normal with moderate hypertrophy 2. Severe mitral regurgitation 3. Severe tricuspid regurgitation and severe pulmonary hypertension 4. Bioprosthetic aortic valve with a mean gradient of 8 mmHg and mild aortic regurgitation Previewed by: Dr. Ken Delvalle MD (Electronically Signed) Final Date: 19 July 2024 12:14
[2024-07-19] MEDS: FUROSEMIDE 40 MG TAB PO SCH (13:14)
--- NOTE | 2024-07-19 13:52 | P.CRDCN ---
History of Present Illness Consult date: 07/19/24 Reason for Consult (text): NSTEMI, history TAVR History of present illness: This is an 89-year-old female patient of Dr. 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 We have been asked to evaluate the patient for NSTEMI with history of TAVR. Patient presented to the hospital due to dyspnea that have been going on for several days and worsening. She is not on h ome oxygen therapy. Her diuretic and potassium were increased by Dr. Sanders but patient continued to have shortness of breath despite the medication change. Patient was seen in the emergency center waiting for a bed on the cardiac stepdown unit. Dr. Sanders discussed option of cardiac catheterization today with the patient and she was agreeable to move forward with this. Cardiac catheterization, Dr. Sanders spoke with Dr. Gato Easley and Dr. Aris Wolf as well as an attending to accept the patient as a transfer to [facility]. Patient has been accepted at [facility] and arrangements for transfer are in process. Patient will be transferred once a bed is available at [facility]. -EKG: Electronically paced rhythm. -Chest x-ray: Similar small right pleural effusion. Cardiomegaly. -Laboratory studies: WBC 4, hemoglobin 10.8, platelet count 105. INR 2.0. BUN 27, creatinine 0.92, potassium 4, sodium 133. -Home cardiac medications: Jardiance 10 mg daily, Lasix 40 mg daily, metolazone 2.5 mg on Mondays and , Lopressor 25 mg twice daily, potassium chloride 20 mill equivalents twice daily, Aldactone 25 mg daily, warfarin 7.5 mg on Tuesday and 5 mg on the other days. -Echocardiogram on this admission reveals EF 50 to 55%, severe mitral regu rgitation, severe tricuspid regurgitation and severe pulmonary hypertension. Bioprosthetic aortic valve with mean gradient of 8 mmHg and mild aortic regurgitation. -Cardiac catheterization performed on this admission reveals right dominant system. Minor irregularities. No significant obstructive CAD. LV pressures were not checked. Aortic valve which is bioprosthetic valve was not crossed. Review Of Systems: At the time of my exam: CONSTITUTIONAL: Denies fever or chills. HEENT: Denies blurred vision, vision changes, or eye pain. Denies hemoptysis CARDIOVASCULAR: Denies chest pain. Denies orthopnea. Denies PND. Denies palpitations RESPIRATORY: Reports dyspnea with exertion, reports shortness of breath. GASTROINTESTINAL: Denies abdominal pain. Denies nausea or vomiting. HEMATOLOGIC: Denies bleeding disorders. GENITOURINARY: Denies any blood in urine. SKIN: Denies puritis. Denies rash. Physical examination: Gen: This is an 89-year-old female in no acute respiratory distress VS: reviewed HEENT: Head is atraumatic, normocephalic. Pupils equal, round. Sclerae is anicteric. NECK: Supple. No JVD. LUNGS: Clear to auscultation. No wheezes or rhonchi. No intercostal retractions. HEART: Regular rate and rhythm. Systolic ejection murmur, holosystolic murmur at the apex. ABDOMEN: Soft No tenderness. EXTREMITIES: No pedal edema. No calf tenderness. NEUROLOGICAL: Patient is awake, alert and oriented x3. Assessment: Severe mitral regurgitation severe tricuspid regurgitation Severe pulmonary hypertension History of TAVR, at [facility] 06/04/2024 Thrombocytopenia Chronic atrial fibrillation History of permanent pacemaker due to complete heart block History of breast cancer Plan: Resume patient's home cardiac medications Patient will be transferred to [facility] once all arrangements are completed. Patient has been accepted and awaiting a bed. Further recommendations to follow based upon clinical course Thank you kindly for this consultation. Nurse practitioner note has been reviewed, I agree with documented findings and plan of care. Patient was seen and examined. Past Medical History Past Medical History: Atrial Fibrillation, Cancer, Pneumonia Additional Past Medical History / Comment(s): Breast cancer w/bilateral simple mastectomies (1979), squamous skin cancer., leaky mitral valve, occasional gout., hx of acute diverticulitis, pacemaker, tests positive for tb due to bcg vaccine she received., bronchitis March 2023, hospitalized in April 2023 for nausea, vomiting ,dehydration &C diff states scheduled for TAVR at [facility] in June., See [facility] History of Any Multi-Drug Resistant Organisms: C-DIFF Date of last positivie culture/infection: 04/17/23 MDRO Source:: stool Past Surgical History: Breast Surgery, Cardiac Ablation, Cholecystectomy, Heart Catheterization, Joint Replacement, Pacemaker Additional Past Surgical History / Comment(s): EPS WITH CARDIAC ABLATIONS, BILATERAL SIMPLE MASTECTOMIES( 1979)., BILATERAL TOTAL KNEE ARTHROPLASTIES, CATARACTS W/ LENS IMPLANTS, HYSTERECTOMY WITH BILATERAL SALPINGECTOMY OOPHORECTOMY, COLONOSCOPY., [employer] PACEMAKER Past Anesthesia/Blood Transfusion Reactions: No Reported Reaction Type of Cardiac Device: Permanent Pacemaker Device Placement Date:: 06/2000 DUAL CHAMBER PLACED AND GEN CHANGE 2014. Past Psychological History: No Psychological Hx Reported Smoking Status: Never smoker Past Alcohol Use History: None Reported Past Drug Use History: None Reported - Past Family History Father Family Medical History: No Reported History Additional Family Medical History / Comment(s): Father was healthy and lived to be 94 yrs old. Mother Family Medical History: Cancer Additional Family Medical History / Comment(s): Mother had breast cancer and so did 3 of her sisters. Daughter(s) Family Medical History: Cancer Additional Family Medical History / Comment(s): Olderst daughter from breast cancer. Medications and Allergies Home Medications Medication Instructions Recorded Confirmed Type Warfarin [Coumadin] 5 mg PO SUTUWETHFRSA@2100 11/17/20 07/19/24 History Metoprolol Tartrate [Lopressor] 25 mg PO BID 11/22/22 07/19/24 History estradioL [Estrace] 0.5 mg PO TUTH 11/22/22 07/19/24 History Empagliflozin [Jardiance] 10 mg PO DAILY 06/13/24 07/19/24 History Furosemide [Lasix] 40 mg PO DAILY 06/13/24 07/19/24 History Potassium Chloride ER [K-Dur 20] 20 meq PO BID 06/13/24 07/19/24 History Spironolactone [Aldactone] 25 mg PO DAILY 06/13/24 07/19/24 History metOLazone [Zaroxolyn] 2.5 mg PO MOTH 06/13/24 07/19/24 History Pantoprazole Sodium [Protonix] 40 mg PO DAILY 07/19/24 07/19/24 History Warfarin [Coumadin] 7.5 mg PO MO@2100 07/19/24 07/19/24 History Allergies Allergy/AdvReac Type Severity Reaction Status Date / Time meperidine HCl [From Demerol] AdvReac Nausea & Verified 07/19/24 08:33 Vomiting Physical Exam Vitals: Vital Signs Temp Pulse Resp BP Pulse Ox 07/19/24 06:36 98.1 F 66 16 131/79 95 07/19/24 00:28 65 16 122/72 90 L 07/18/24 21:33 65 17 105/56 91 L 07/18/24 21:08 71 18 07/18/24 21:02 69 18 07/18/24 17:56 98.1 F 62 18 93/58 93 L Intake and Output 07/18/24 07/19/24 07/19/24 22:59 06:59 14:59 Other: Weight 56.245 kg Results 07/19/24 02:57 07/19/24 02:57 Cardiac Enzymes 07/18/24 07/18/24 07/19/24 Range/Units 20:03 20:03 00:03 AST 38 H (14-36) U/L Troponin I 0.278 H* 0.389 H* (0.000-0.034) ng/mL 07/19/24 Range/Units 02:57 AST (14-36) U/L Troponin I 0.360 H* (0.000-0.034) ng/mL Coagulation 07/18/24 Range/Units 20:03 PT 21.7 H (10.0-12.5) sec APTT 33.7 H (22.0-30.0) sec CBC 07/18/24 07/19/24 Range/Units 20:03 02:57 WBC 3.8 4.0 (3.8-10.6) k/uL RBC 3.51 L 3.13 L (3.80-5.40) m/uL Hgb 11.9 10.8 L (11.4-16.0) gm/dL Hct 37.6 33.5 L (34.0-46.0) % Plt Count 113 L 105 L (150-450) k/uL Comprehensive Metabolic Panel 07/18/24 07/19/24 Range/Units 20:03 02:57 Sodium 135 L 133 L (137-145) mmol/L Potassium 4.4 4.0 (3.5-5.1) mmol/L Chloride 95 L 95 L (98-107) mmol/L Carbon Dioxide 30 31 H (22-30) mmol/L BUN 30 H 27 H (7-17) mg/dL Creatinine 0.96 0.92 (0.52-1.04) mg/dL Glucose 151 H 97 (74-99) mg/dL Calcium 9.4 9.1 (8.4-10.2) mg/dL AST 38 H (14-36) U/L ALT 14 (4-34) U/L Alkaline Phosphatase 71 (38-126) U/L Total Protein 7.4 (6.3-8.2) g/dL Albumin 4.2 (3.5-5.0) g/dL Current Medications Generic Name Dose Route Start Last Admin Trade Name Freq PRN Reason Stop Dose Admin Albuterol Sulfate 1 puff 07/19/24 00:25 Albuterol Hfa Inhaler INHALATION RT-QID PRN Shortness Of Breath Or Wheezing Sodium Chloride 1,000 mls @ 50 mls/hr 07/18/24 23:15 07/19/24 00:24 Saline 0.9% IV 50 mls/hr .Q20H LALITO Administration Naloxone HCl 0.2 mg 07/18/24 23:51 Naloxone 0.4 Mg/Ml 1 Ml Vial IV Q2M PRN Opioid Reversal Intake and Output 07/18/24 07/19/24 07/19/24 22:59 06:59 14:59 Other: Weight 56.245 kg 07/19/24 02:57 07/19/24 02:57
[2024-07-19 14:48] VITALS: RESP 18
[2024-07-19 18:15] LABS: Partial Thromboplastin Time 34.4 sec (22.0-30.0)
[2024-07-19 18:24] VITALS: BP 110/62; PULSE 62
[2024-07-19] MEDS ORDERED: METOPROLOL TARTRATE 25 MG TAB PO SCH (21:00)
[2024-07-19] MEDS ORDERED: LOSARTAN 25 MG TAB PO SCH (21:00)
[2024-07-20] MEDS ORDERED: HEPARIN SODIUM,PORCINE (1 ML) 2,500 UNIT in SODIUM CHLORIDE 0.9% 250 ML IRRIGATION PRN (07:00)
[2024-07-20] MEDS ORDERED: HEPARIN SODIUM,PORCINE 10,000 UNIT in SODIUM CHLORIDE 0.9% 1,000 ML IRRIGATION PRN (07:00)
[2024-07-20] MEDS ORDERED: PANTOPRAZOLE 40 MG TABLET PO SCH (07:30)
[2024-07-20] MEDS ORDERED: DAPAGLIFLOZIN PROPANEDIOL 5 MG TABLET PO SCH (09:00)
[2024-07-20] MEDS ORDERED: POTASSIUM CHLORIDE ER 20 MEQ TAB.ER PO SCH (09:00)
[2024-07-20] MEDS ORDERED: FUROSEMIDE 40 MG TAB PO SCH (09:00)
--- NOTE | 2024-07-20 11:14 | P.DS ---
Providers Date of admission: 07/18/24 23:54 Attending physician: Beatrice Vazquez Consults: 07/18/24 23:51 Consult Physician Urgent Consulting Provider: [facility] Consult Reason/Comments: nstemi, hx tavr Do you want consulting provider notified?: Already Contacted Primary care physician: [facility] Course: 89-year-old female with known history of valvular heart disease aortic valve disease and had TAVR in the past. Patient also has known severe mitral regurgitation. She came in with complaints of shortness of breath found to have mild elevated troponins because of which patient underwent cardiac authorization which did not show any significant coronary occlusive disease that required stenting. Patient is found to have severe mitral regurgitation and her shortness of breath is secondary to that. Chest x-ray also did not show any pulmonary edema patient had and had a normal ejection fraction from the SUKUMAR that was done recently. Patient do not know any orthopnea paroxysmal nocturnal dyspnea. REVIEW OF SYSTEMS: All other systems are negative except those mentioned in the HPI PHYSICAL EXAMINATION: GENERAL: The patient is alert and oriented x3, not in any acute distress. Thin built female HEENT: Pupils are round and equally reacting to light. EOMI. No scleral icterus. No conjunctival pallor. Normocephalic, atraumatic. No pharyngeal erythema. No t hyromegaly. CARDIOVASCULAR: S1 and S2 present. No murmurs, rubs, or gallops. PULMONARY: Chest is clear to auscultation, no wheezing or crackles. ABDOMEN: Soft, nontender, nondistended, normoactive bowel sounds. No palpable organomegaly. MUSCULOSKELETAL: No joint swelling or deformity. EXTREMITIES: No cyanosis, clubbing, or pedal edema. NEUROLOGICAL: Gross neurological examination did not reveal any focal deficits. SKIN: No rashes. Assessment and plan -Elevated troponins possibly secondary to to non-ST elevation PA type II from mitral valvular disease and hypoxemia. As per cardiology patient will need mitral valve replacement and is in the process of transferring the patient to [facility]. Patient underwent cardiac catheterization did not require any stenting -History of atrial fibrillation paroxysmal patient is on Coumadin because of valvular A-fib. Patient's INR is therapeutic at 2 Coumadin is being continued home dose -Elevated MCV will obtain a B12 level -Moderate protein calorie malnutrition -History of aortic stenosis status post TAVR Patient was transferred to [facility] for higher level of care and mitral valve replacement Patient Condition at Discharge: Stable Plan - Discharge Summary Discharge Rx Participant: No New Discharge Prescriptions: No Action Warfarin [Coumadin] 5 mg PO SUTUWETHFRSA@2099 Metoprolol Tartrate [Lopressor] 25 mg PO BID Furosemide [Lasix] 40 mg PO DAILY Pantoprazole Sodium [Protonix] 40 mg PO DAILY estradioL [Estrace] 0.5 mg PO TUTH metOLazone [Zaroxolyn] 2.5 mg PO MOTH Potassium Chloride ER [K-Dur 20] 20 meq PO BID Empagliflozin [Jardiance] 10 mg PO DAILY Spironolactone [Aldactone] 25 mg PO DAILY Warfarin [Coumadin] 7.5 mg PO MO@2099 Discharge Medication List Warfarin [Coumadin] 5 mg PO SUTUWETHFRSA@209911/17/20 [History] Metoprolol Tartrate [Lopressor] 25 mg PO BID 11/22/22 [History] estradioL [Estrace] 0.5 mg PO TUTH 11/22/22 [History] Empagliflozin [Jardiance] 10 mg PO DAILY 06/13/24 [History] Furosemide [Lasix] 40 mg PO DAILY 06/13/24 [History] Potassium Chloride ER [K-Dur 20] 20 meq PO BID 06/13/24 [History] Spironolactone [Aldactone] 25 mg PO DAILY 06/13/24 [History] metOLazone [Zaroxolyn] 2.5 mg PO MOTH 06/13/24 [History] Pantoprazole Sodium [Protonix] 40 mg PO DAILY 07/19/24 [History] Warfarin [Coumadin] 7.5 mg PO MO@209907/19/24 [History] Follow up Appointment(s)/Referral(s): Barrett Driver MD [Primary Care Provider] - 1-2 days Discharge Disposition: CRITICAL ACCESS [facility]
== END 2024-07-19 19:35 | disposition short-term general hospital (02) | DRG 281 ==
LOC: EC 17:35 → 3SCARD 23:54
PROVIDERS: ADMIT Hospitalist; ATTEND Hospitalist
PROC: B2111ZZ Fluoroscopy of Multiple Coronary Arteries using Low Osmolar Contrast (ICD-10-PCS; principal; 2024-07-18)
DX: I21.4 Non-ST elevation (NSTEMI) myocardial infarction (principal); E44.0 Moderate protein-calorie malnutrition; D69.6 Thrombocytopenia, unspecified; I27.20 Pulmonary hypertension, unspecified; I27.29 Other secondary pulmonary hypertension; Z95.3 Presence of xenogenic heart valve; Z68.20 Body mass index [BMI] 20.0-20.9, adult; I08.3 Combined rheumatic disorders of mitral, aortic and tricuspid valves; Z79.01 Long term (current) use of anticoagulants; Z79.84 Long term (current) use of oral hypoglycemic drugs; Z79.899 Other long term (current) drug therapy; Z85.3 Personal history of malignant neoplasm of breast; Z85.828 Personal history of other malignant neoplasm of skin; Z90.710 Acquired absence of both cervix and uterus; Z96.1 Presence of intraocular lens; Z95.0 Presence of cardiac pacemaker; Z98.42 Cataract extraction status, left eye; Z98.41 Cataract extraction status, right eye; Z96.653 Presence of artificial knee joint, bilateral; Z88.8 Allergy status to other drugs, medicaments and biological substances
CPT/HCPCS: 36415; 71046; 80048; 80053; 83605; 83880; 84484; 85025; 85610; 85730; 87636; 93005; 93308; 94640; 99285

== ENCOUNTER 2024-09-13 13:35 | Inpatient (IN) | payer MEDICARE, BC ==
--- NOTE | 2024-09-13 14:28 | ED ---
Weakness HPI - General Chief complaint: Weakness Stated complaint: Dehydration/N/Dizzy Time Seen by Provider: 09/13/24 14:09 Source: patient, family, RN notes reviewed Mode of arrival: ambulatory Limitations: no limitations - History of Present Illness Initial comments: This is an 89-year-old female who presents to the emergency department for generalized weakness. Patient has a history of a TAVR, severe mitral regurg, and A-fib. Currently follows with Dr. BRIAN Sanders. She is scheduled to undergo a tricuspid valve replacement at [facility] in the next couple of weeks. In following up with cardiology they had increased her diuretic dosing due to the CHF, however they are concerned that she may have been given too much, as when she followed up in the office today she appeared very dry. Patient states that since increasing the diuretic she has developed substernal chest pressure and shortness of breath. Also reports nausea and vomiting. MD Complaint: generalized weakness - Related Data Home Medications Medication Instructions Recorded Confirmed Warfarin [Coumadin] 5 mg PO HS 11/17/20 09/13/24 Metoprolol Tartrate [Lopressor] 25 mg PO BID 11/22/22 09/13/24 estradioL [Estrace] 0.5 mg PO DIRECTED 11/22/22 09/13/24 Empagliflozin [Jardiance] 10 mg PO DAILY 06/13/24 09/13/24 Spironolactone [Aldactone] 25 mg PO DAILY 06/13/24 09/13/24 metOLazone [Zaroxolyn] 1.25 - 2.5 mg PO DIRECTED 06/13/24 09/13/24 Pantoprazole Sodium [Protonix] 40 mg PO DAILY 07/19/24 09/13/24 Albuterol Sulfate [Ventolin HFA] 1 puff INHALATION RT-Q6H PRN 09/13/24 09/13/24 Furosemide [Lasix] 80 mg PO W/BRKFST 09/13/24 09/13/24 traZODone HCL [Desyrel] 25 mg PO HS PRN 09/13/24 09/13/24 Allergies Allergy/AdvReac Type Severity Reaction Status Date / Time meperidine HCl [From Demerol] AdvReac Nausea & Verified 09/13/24 16:51 Vomiting Review of Systems ROS Statement: Those systems with pertinent positive or pertinent negative responses have been documented in the HPI. ROS Other: All systems not noted in ROS Statement are negative. Past Medical History Past Medical History: Atrial Fibrillation, Cancer, Pneumonia Additional Past Medical History / Comment(s): Breast cancer w/bilateral simple mastectomies (1979), squamous skin cancer., leaky mitral valve, occasional gout., hx of acute diverticulitis, pacemaker, tests positive for tb due to bcg vaccine she received., bronchitis March 2023, hospitalized in April 2023 for nausea, vomiting ,dehydration &C diff states scheduled for TAVR at [facility] in June., See Cardiology H & P. History of Any Multi-Drug Resistant Organisms: C-DIFF Date of last positivie culture/infection: 04/17/23 MDRO Source:: stool Past Surgical History: Breast Surgery, Cardiac Ablation, Cholecystectomy, Heart Catheterization, Joint Replacement, Pacemaker Additional Past Surgical History / Comment(s): EPS WITH CARDIAC ABLATIONS, BILATERAL SIMPLE MASTECTOMIES( 1979)., BILATERAL TOTAL KNEE ARTHROPLASTIES, CATARACTS W/ LENS IMPLANTS, HYSTERECTOMY WITH BILATERAL SALPINGECTOMY OOPHORECTOMY, COLONOSCOPY., [employer] PACEMAKER Past Anesthesia/Blood Transfusion Reactions: No Reported Reaction Type of Cardiac Device: Permanent Pacemaker Device Placement Date:: 06/2000 DUAL CHAMBER PLACED AND GEN CHANGE 2014. Past Psychological History: No Psychological Hx Reported Smoking Status: Never smoker Past Alcohol Use History: None Reported Past Drug Use History: None Reported - Past Family History Father Family Medical History: No Reported History Additional Family Medical History / Comment(s): Father was healthy and lived to be 94 yrs old. Mother Family Medical History: Cancer Additional Family Medical History / Comment(s): Mother had breast cancer and so did 3 of her sisters. Daughter(s) Family Medical History: Cancer Additional Family Medical History / Comment(s): Olderst daughter from breast cancer. General Exam Limitations: no limitations General appearance: alert, in no apparent distress Head exam: Present: atraumatic, normocephalic, normal inspection Respiratory exam: Present: decreased breath sounds, prolonged expiratory Cardiovascular Exam: Present: regular rate, normal rhythm GI/Abdominal exam: Present: soft. Absent: distended Neurological exam: Present: alert, oriented X3, CN II-XII intact Psychiatric exam: Present: normal affect, normal mood Skin exam: Present: warm, dry, intact, normal color. Absent: rash Course Vital Signs 09/13/24 09/13/24 09/13/24 13:42 14:37 16:09 Temperature 98.2 F Pulse Rate 65 64 Respiratory 20 16 Rate Blood Pressure 104/62 115/84 O2 Sat by Pulse 90 L 91 L 97 Oximetry 09/13/24 09/13/24 09/13/24 19:06 21:27 23:00 Temperature Pulse Rate 65 64 65 Respiratory 18 18 18 Rate Blood Pressure 98/56 102/57 90/62 O2 Sat by Pulse 98 96 94 L Oximetry 09/14/24 09/14/24 09/14/24 00:00 01:00 02:00 Temperature Pulse Rate 65 65 65 Respiratory 18 18 18 Rate Blood Pressure 87/57 86/60 86/59 O2 Sat by Pulse 97 96 Oximetry 09/14/24 09/14/24 03:35 06:17 Temperature Pulse Rate 64 64 Respiratory 18 18 Rate Blood Pressure 84/55 99/61 O2 Sat by Pulse 95 97 Oximetry Medical Decision Making - Medical Decision Making This is an 89-year-old female who presents to the emergency department for weakness. Was pt. sent in by a medical professional or institution? @ -Cardiology Did you speak to anyone other than the patient for history? @ -No Did you review nursing and triage notes? @ -Yes, and I agree, it is accurate with regards to the patient's symptoms. Were old charts reviewed? @ -No Differential Diagnosis? @ -Differential Weakness: Hypoglycemia, shock, sepsis, hyponatremia, anemia, infection, ME, ETOH, adverse medicine reaction, overdose, stroke, this is not meant to be an all-inclusive list. EKG interpreted by me (3pts min.)? @ -EKG interpreted by me demonstrating the following: Electronic ventricular pacemaker. Prolonged QT interval. Ventricular rate 65 bpm, QRS duration 190 ms, QTc 651 ms. X-rays interpreted by me (1pt min.)? @ -Chest x-ray obtained. My interpretation identifies small bilateral pleural effusions. CT interpreted by me (1pt min.)? @ -Not obtained U/S interpreted by me (1pt. min.)? @ -Not obtained What testing was considered but not performed? (CT, X-rays, U/S, labs)? Why? @ -None What meds were considered but not given? Why? @ -None Did you discuss the management of the patient with other professionals? @ -Yes, Natali Hubbard with [facility], who accepts the patient for admission. Did you reconcile home meds? @ -Yes Was smoking cessation discussed for >3mins.? @ -No Was critical care preformed (if so, how long)? @ -No Were there social determinants of health that impacted care today? How? (Homelessness, low income, unemployed, alcoholism, drug addiction, transportation, low edu. Level, literacy, decrease access to med. care, group home, rehab)? @ -No Was there de-escalation of care discussed even if they declined? (Discuss DNR or withdrawal of care, Hospice)? @ -No What co-morbidities impacted this encounter? (DM, HTN, Smoking, COPD, CAD, Cancer, CVA, Hep., AIDS, mental health diagnosis, sleep apnea, morbid obesity)? @ -Valvular heart disease, mitral regurgitation, CHF, A-fib Was patient admitted / discharged? @ -Admitted. Lab work demonstrates hypokalemia with a potassium of 2.9. BNP elevated at 4960. Troponin elevated at 0.414. COVID, influenza, and RSV testing negative. Chest x-ray is suggestive of CHF exacerbation. Troponin elevation may be secondary to CHF and other cardiac issues, however given that she is complaining of substernal chest pressure, she was started on the heparin protocol. She was given 40 mEq of K-Dur, but proceeded to vomit them back up. In order to treat her nausea she was given Tigan in an attempt to avoid antiemetics that may prolong her QT interval further. Given that she proceeded to vomit the K-dur, 20 mEq of potassium chloride was admnistered. Patient admitted to medicine for elevated troponin/NSTEMI, hypokalemia, and QT prolongation. Consult placed for cardiology and serial troponins were ordered. Per cardiology, while her BNP was elevated and chest x-ray potentially suggesti ve of CHF exacerbation, she is also dehydrated and will avoid Lasix for the next 24 hours. Case discussed with ED attending, Dr. Braun. Undiagnosed new problem with uncertain prognosis? @ -None Drug Therapy requiring intensive monitoring for toxicity (Heparin, Nitro, Insulin, Cardizem)? @ -Heparin Were any procedures done? @ -None Diagnosis/symptom? @ -NSTEMI, hypokalemia, QT prolongation Acute, or Chronic, or Acute on Chronic? @ -Acute Uncomplicated (without systemic symptoms) or Complicated (systemic symptoms)? @ -Complicated Side effects of treatment? @ -None Exacerbation, Progression, or Severe Exacerbation] @ -Not applicable Poses a threat to life or bodily function? @ -Yes, can lead to - Lab Data Result diagrams: 09/14/24 05:47 09/14/24 05:47 Lab Results 09/13/24 09/13/24 09/13/24 Range/Units 14:37 14:37 14:37 WBC 7.64 (4.50-10.00) 10*3/uL RBC 3.76 L (4.10-5.20) 10*6/uL Hgb 13.6 (12.0-15.0) g/dL Hct 39.0 (37.2-46.3) % MCV 103.7 H (80.0-97.0) fL MCH 36.2 H (27.0-32.0) pg MCHC 34.9 (32.0-37.0) g/dL Plt Count 147 (140-440) 10*3/uL MPV 10.3 (9.5-12.2) fL Immature Gran % (Auto) 0.3 % Neutrophils % 78.0 % Lymphocytes % 4.8 % Monocytes % 16.5 % Eosinophils % 0.0 % Basophils % 0.4 % Immature Gran # 0.02 (0.00-0.04) 10*3/uL Neutrophils # 5.96 (1.80-7.70) 10*3/uL Lymphocytes # 0.37 L (0.90-5.00) 10*3/uL Monocytes # 1.26 H (0.20-1.00) 10*3/uL Eosinophils # 0.00 L (0.04-0.35) 10*3/uL Basophils # 0.03 (0.00-0.10) 10*3/uL PT 20.1 H (10.0-12.5) sec INR 2.0 H (<1.2) APTT 33.1 H (22.0-30.0) sec Sodium 133 L (137-145) mmol/L Potassium 2.9 L (3.5-5.1) mmol/L Chloride 81 L (98-107) mmol/L Carbon Dioxide 40 H (22-30) mmol/L Anion Gap 12 mmol/L BUN 39 H (7-17) mg/dL Creatinine 0.84 (0.52-1.04) mg/dL Est GFR (CKD-EPI)AfAm 72 (>60 ml/min/1.73 sqM) Est GFR (CKD-EPI)NonAf 63 (>60 ml/min/1.73 sqM) Glucose 136 H (74-99) mg/dL Plasma Lactic Acid Cesar (0.7-2.0) mmol/L Calcium 10.1 (8.4-10.2) mg/dL Magnesium 2.0 (1.6-2.3) mg/dL Total Bilirubin 5.1 H (0.2-1.3) mg/dL AST 54 H (14-36) U/L ALT 22 (4-34) U/L Alkaline Phosphatase 89 (38-126) U/L Troponin I (0.000-0.034) ng/mL NT-Pro-B Natriuret Pep 4960 pg/mL Total Protein 8.3 H (6.3-8.2) g/dL Albumin 4.6 (3.5-5.0) g/dL Urine Color Urine Appearance (Clear) Urine pH (5.0-8.0) Ur Specific [place] (1.001-1.035) Urine Protein (Negative) Urine Glucose (UA) (Negative) Urine Ketones (Negative) Urine Blood (Negative) Urine Nitrite (Negative) Urine Bilirubin (Negative) Urine Urobilinogen (<2.0) mg/dL Ur Leukocyte Esterase (Negative) Urine RBC (0-5) /hpf Urine WBC (0-5) /hpf Ur Squamous Epith Cells (0-4) /hpf Urine Bacteria (None) /hpf Hyaline Casts (0-2) /lpf Urine Mucus (None) /hpf Influenza Type A (PCR) (Not Detectd) Influenza Type B (PCR) (Not Detectd) RSV (PCR) (Not Detectd) SARS-CoV-2 (PCR) (Not Detectd) 09/13/24 09/13/24 09/13/24 Range/Units 14:37 14:37 14:37 WBC (4.50-10.00) 10*3/uL RBC (4.10-5.20) 10*6/uL Hgb (12.0-15.0) g/dL Hct (37.2-46.3) % MCV (80.0-97.0) fL MCH (27.0-32.0) pg MCHC (32.0-37.0) g/dL Plt Count (140-440) 10*3/uL MPV (9.5-12.2) fL Immature Gran % (Auto) % Neutrophils % % Lymphocytes % % Monocytes % % Eosinophils % % Basophils % % Immature Gran # (0.00-0.04) 10*3/uL Neutrophils # (1.80-7.70) 10*3/uL Lymphocytes # (0.90-5.00) 10*3/uL Monocytes # (0.20-1.00) 10*3/uL Eosinophils # (0.04-0.35) 10*3/uL Basophils # (0.00-0.10) 10*3/uL PT (10.0-12.5) sec INR (<1.2) APTT (22.0-30.0) sec Sodium (137-145) mmol/L Potassium (3.5-5.1) mmol/L Chloride (98-107) mmol/L Carbon Dioxide (22-30) mmol/L Anion Gap mmol/L BUN (7-17) mg/dL Creatinine (0.52-1.04) mg/dL Est GFR (CKD-EPI)AfAm (>60 ml/min/1.73 sqM) Est GFR (CKD-EPI)NonAf (>60 ml/min/1.73 sqM) Glucose (74-99) mg/dL Plasma Lactic Acid Cesar 1.9 (0.7-2.0) mmol/L Calcium (8.4-10.2) mg/dL Magnesium (1.6-2.3) mg/dL Total Bilirubin (0.2-1.3) mg/dL AST (14-36) U/L ALT (4-34) U/L Alkaline Phosphatase (38-126) U/L Troponin I 0.414 H* (0.000-0.034) ng/mL NT-Pro-B Natriuret Pep pg/mL Total Protein (6.3-8.2) g/dL Albumin (3.5-5.0) g/dL Urine Color Urine Appearance (Clear) Urine pH (5.0-8.0) Ur Specific [place] (1.001-1.035) Urine Protein (Negative) Urine Glucose (UA) (Negative) Urine Ketones (Negative) Urine Blood (Negative) Urine Nitrite (Negative) Urine Bilirubin (Negative) Urine Urobilinogen (<2.0) mg/dL Ur Leukocyte Esterase (Negative) Urine RBC (0-5) /hpf Urine WBC (0-5) /hpf Ur Squamous Epith Cells (0-4) /hpf Urine Bacteria (None) /hpf Hyaline Casts (0-2) /lpf Urine Mucus (None) /hpf Influenza Type A (PCR) Not Detected (Not Detectd) Influenza Type B (PCR) Not Detected (Not Detectd) RSV (PCR) Not Detected (Not Detectd) SARS-CoV-2 (PCR) Not Detected (Not Detectd) 09/13/24 Range/Units 16:12 WBC (4.50-10.00) 10*3/uL RBC (4.10-5.20) 10*6/uL Hgb (12.0-15.0) g/dL Hct (37.2-46.3) % MCV (80.0-97.0) fL MCH (27.0-32.0) pg MCHC (32.0-37.0) g/dL Plt Count (140-440) 10*3/uL MPV (9.5-12.2) fL Immature Gran % (Auto) % Neutrophils % % Lymphocytes % % Monocytes % % Eosinophils % % Basophils % % Immature Gran # (0.00-0.04) 10*3/uL Neutrophils # (1.80-7.70) 10*3/uL Lymphocytes # (0.90-5.00) 10*3/uL Monocytes # (0.20-1.00) 10*3/uL Eosinophils # (0.04-0.35) 10*3/uL Basophils # (0.00-0.10) 10*3/uL PT (10.0-12.5) sec INR (<1.2) APTT (22.0-30.0) sec Sodium (137-145) mmol/L Potassium (3.5-5.1) mmol/L Chloride (98-107) mmol/L Carbon Dioxide (22-30) mmol/L Anion Gap mmol/L BUN (7-17) mg/dL Creatinine (0.52-1.04) mg/dL Est GFR (CKD-EPI)AfAm (>60 ml/min/1.73 sqM) Est GFR (CKD-EPI)NonAf (>60 ml/min/1.73 sqM) Glucose (74-99) mg/dL Plasma Lactic Acid Cesar (0.7-2.0) mmol/L Calcium (8.4-10.2) mg/dL Magnesium (1.6-2.3) mg/dL Total Bilirubin (0.2-1.3) mg/dL AST (14-36) U/L ALT (4-34) U/L Alkaline Phosphatase (38-126) U/L Troponin I (0.000-0.034) ng/mL NT-Pro-B Natriuret Pep pg/mL Total Protein (6.3-8.2) g/dL Albumin (3.5-5.0) g/dL Urine Color Yellow Urine Appearance Clear (Clear) Urine pH 5.5 (5.0-8.0) Ur Specific [place] 1.014 (1.001-1.035) Urine Protein Trace H (Negative) Urine Glucose (UA) 3+ H (Negative) Urine Ketones Negative (Negative) Urine Blood Trace H (Negative) Urine Nitrite Negative (Negative) Urine Bilirubin Negative (Negative) Urine Urobilinogen <2.0 (<2.0) mg/dL Ur Leukocyte Esterase Negative (Negative) Urine RBC 4 (0-5) /hpf Urine WBC 1 (0-5) /hpf Ur Squamous Epith Cells 5 H (0-4) /hpf Urine Bacteria Rare H (None) /hpf Hyaline Casts 13 H (0-2) /lpf Urine Mucus Rare H (None) /hpf Influenza Type A (PCR) (Not Detectd) Influenza Type B (PCR) (Not Detectd) RSV (PCR) (Not Detectd) SARS-CoV-2 (PCR) (Not Detectd) - Radiology Data Radiology results: report reviewed, image reviewed Disposition Clinical Impression: NSTEMI (non-ST elevated myocardial infarction), Hypokalemia, QT prolongation Disposition: ADMITTED IP TO THIS HOSP
[2024-09-13] MEDS: ONDANSETRON 4 MG/2 ML VIAL IVP STA ×2 (14:51→18:27)
[2024-09-13] MEDS: LACTATED RINGERS 500 ML IV ONE (14:52)
--- NOTE | 2024-09-13 15:14 | XR ---
EXAMINATION TYPE: XR chest 2V DATE OF EXAM: 09/13/2024 CLINICAL INDICATION: Female, 89 years old with history of Weakness, TECHNIQUE: Frontal and lateral views of the chest are obtained. COMPARISON: Chest x-ray July 18, 2024 FINDINGS: Persistent cardiomegaly with dual lead pacemaker. Persistent surgical change at the level o f aortic valve. Persistent central vascular congestion and small left pleural effusion. Persistent sm all to moderate size right pleural effusion. Osseous structures are intact. There are new embolizatio n coils in the right lower lobe noted. IMPRESSION: [place] for possible CHF exacerbation/fluid overload state as detailed above. [facility], , 09/13/2024 3:11 PM
[2024-09-13 15:15] LABS: Basophils # (A) 0.03 10*3/uL (0.00-0.10); Basophils % (A) 0.4 %; HGB 13.6 g/dL (12.0-15.0); Lymphocytes # (A) 0.37 10*3/uL (0.90-5.00); Lymphocytes % (A) 4.8 %; MCH 36.2 pg (27.0-32.0); MCHC 34.9 g/dL (32.0-37.0); MCV 103.7 fL (80.0-97.0); Mean Platelet Volume 10.3 fL (9.5-12.2); Monocytes # (A) 1.26 10*3/uL (0.20-1.00); Monocytes % (A) 16.5 %; Neutrophils # (A) 5.96 10*3/uL (1.80-7.70); Platelet Count 147 10*3/uL (140-440); RBC 3.76 10*6/uL (4.10-5.20); RDW 17.2 % (11.5-14.5); WBC 7.64 10*3/uL (4.50-10.00)
[2024-09-13 15:28] LABS: Partial Thromboplastin Time 33.1 sec (22.0-30.0); Prothrombin Time 20.1 sec (10.0-12.5)
[2024-09-13 15:41] LABS: ALT 22 U/L (4-34); AST 54 U/L (14-36); African American GFR (CKD) 72 (>60 ml/min/1.73 sqM); Albumin 4.6 g/dL (3.5-5.0); Alkaline Phosphatase 89 U/L (38-126); Anion Gap 12 mmol/L; Blood Urea Nitrogen 39 mg/dL (7-17); Calcium 10.1 mg/dL (8.4-10.2); Carbon Dioxide 40 mmol/L (22-30); Chloride 81 mmol/L (98-107); Glucose 136 mg/dL (74-99); Non-African American GFR(CKD) 63 (>60 ml/min/1.73 sqM); Potassium 2.9 mmol/L (3.5-5.1); Sodium 133 mmol/L (137-145); Total Bilirubin 5.1 mg/dL (0.2-1.3); Total Protein 8.3 g/dL (6.3-8.2)
[2024-09-13 15:48] LABS: NT-Pro-B-Type Natriuretic Pept 4960 pg/mL
[2024-09-13 15:50] LABS: Influenza A Not Detected (Not Detectd); Influenza B Not Detected (Not Detectd); RSV Not Detected (Not Detectd)
[2024-09-13] MEDS: POTASSIUM CHLORIDE ER 20 MEQ TAB.ER PO STA (16:07)
[2024-09-13] MEDS ORDERED: HEPARIN SODIUM 1,000 UN/ML (10ML VL) IV PRN (16:27)
[2024-09-13] MEDS ORDERED: HYDROcodone/APAP 5-325MG 1 EACH TAB PO PRN (16:28)
[2024-09-13] MEDS ORDERED: NALOXONE 0.4 MG/ML 1 ML VIAL IV PRN (16:28)
[2024-09-13] MEDS ORDERED: MORPHINE SULFATE 4 MG/ML SYRINGE IV PRN (16:28)
[2024-09-13] MEDS ORDERED: ACETAMINOPHEN TAB 325 MG TAB PO PRN (16:28)
[2024-09-13] MEDS: TRIMETHOBENZAMIDE 100 MG/ML 2 ML VIAL IM STA (16:52)
[2024-09-13] MEDS: POTASSIUM CHLORIDE 20 MEQ in WATER FOR INJECTION 1 100ML.BAG IVPB STA (16:54)
[2024-09-13] MEDS ORDERED: ALBUTEROL NEBULIZED 2.5 MG/3 ML INHALATION PRN (16:57)
[2024-09-13] MEDS ORDERED: traZODone HCL 50 MG TAB PO PRN (16:57)
[2024-09-13] MEDS: HEPARIN SODIUM 1,000 UN/ML (10ML VL) IV ONE (17:06)
[2024-09-13 17:07] LABS: Appearance,Urine Clear (Clear); Bacteria,Urine Rare /hpf; Bilirubin,Urine Negative (Negative); Blood,Urine Trace (Negative); Color,Urine Yellow; Glucose,Urine (UA) 3+ (Negative); Hyaline Casts,Urine 13 /lpf (0-2); Ketones,Urine Negative (Negative); Leukocyte Esterase,Urine Negative (Negative); Mucus,Urine Rare /hpf; Nitrite,Urine Negative (Negative); PH, Urine 5.5 (5.0-8.0); Protein,Urine Trace (Negative); RBC,Urine 4 /hpf (0-5); Specific Gravity,Urine 1.014 (1.001-1.035); Squamous Epithelial Cell,Urine 5 /hpf (0-4); Urobilinogen,Urine <2.0 mg/dL (<2.0); WBC,Urine 1 /hpf (0-5)
[2024-09-13] MEDS: HEPARIN SOD,PORK IN 0.45% NACL 25,000 UNIT in 0.45% NACL 1 250ML.BAG IV SCH (17:07)
[2024-09-13] MEDS ORDERED: 0.9% NACL WITH KCL 20 MEQ/L 1,000 ML IV ONE (18:20)
[2024-09-13] MEDS: CALCIUM CARBONATE 500 MG CHEWABLE PO PRN (18:21)
[2024-09-13] MEDS: SODIUM CHLORIDE 0.9% 1,000 ML IV ONE (18:21)
[2024-09-13] MEDS: POTASSIUM CHLORIDE 20 MEQ in WATER FOR INJECTION 1 100ML.BAG IVPB SCH (19:00)
[2024-09-13] MEDS: METOPROLOL TARTRATE 25 MG TAB PO SCH (21:29)
[2024-09-14] MEDS: 0.9% NACL WITH KCL 20 MEQ/L 1,000 ML IV ONE (01:18)
[2024-09-14 06:45] LABS: Basophils # (A) 0.03 10*3/uL (0.00-0.10); Basophils % (A) 0.4 %; Eosinophils # (A) 0.01 10*3/uL (0.04-0.35); Eosinophils % (A) 0.1 %; HCT 36.4 % (37.2-46.3); HGB 12.4 g/dL (12.0-15.0); Immature Platelet Fraction 2.8 % (1.1-6.1); Lymphocytes % (A) 11.2 %; MCH 36.6 pg (27.0-32.0); MCHC 34.1 g/dL (32.0-37.0); Mean Platelet Volume 10.6 fL (9.5-12.2); Monocytes # (A) 1.11 10*3/uL (0.20-1.00); Monocytes % (A) 15.5 %; Neutrophils # (A) 5.16 10*3/uL (1.80-7.70); Neutrophils % (A) 72.4 %; Platelet Count 126 10*3/uL (140-440); RBC 3.39 10*6/uL (4.10-5.20); RDW 17.8 % (11.5-14.5); WBC 7.14 10*3/uL (4.50-10.00)
[2024-09-14 06:53] LABS: MCV 107.4 fL (80.0-97.0)
[2024-09-14 07:03] LABS: ALT 19 U/L (4-34); AST 42 U/L (14-36); African American GFR (CKD) 47 (>60 ml/min/1.73 sqM); Albumin 3.9 g/dL (3.5-5.0); Alkaline Phosphatase 81 U/L (38-126); Anion Gap 9 mmol/L; Blood Urea Nitrogen 43 mg/dL (7-17); Calcium 9.2 mg/dL (8.4-10.2); Carbon Dioxide 36 mmol/L (22-30); Chloride 89 mmol/L (98-107); Glucose 118 mg/dL (74-99); Non-African American GFR(CKD) 41 (>60 ml/min/1.73 sqM); Potassium 3.8 mmol/L (3.5-5.1); Sodium 134 mmol/L (137-145); Total Bilirubin 5.8 mg/dL (0.2-1.3); Total Protein 7.1 g/dL (6.3-8.2)
[2024-09-14 07:08] LABS: Prothrombin Time 19.8 sec (10.0-12.5)
[2024-09-14] MEDS ORDERED: PANTOPRAZOLE 40 MG/10 ML VIAL IV SCH (09:00)
[2024-09-14 09:32] VITALS: BP 103/58; PULSE 65; RESP 16; TEMP 98.4
[2024-09-14] MEDS: SPIRONOLACTONE 25 MG TAB PO SCH (09:59)
[2024-09-14] MEDS: PANTOPRAZOLE 40 MG TABLET PO SCH (09:59)
[2024-09-14] MEDS: FUROSEMIDE 80 MG TAB PO SCH (09:59)
[2024-09-14] MEDS: DAPAGLIFLOZIN PROPANEDIOL 5 MG TABLET PO SCH (10:03)
--- NOTE | 2024-09-14 10:31 | CA ---
Transthoracic Echo Report Name: Padmini John Age: 89 Gender: F : 1935 Exam Date: 09/14/2024 08:01 Exam Location: [facility] Ht (in): 65 Wt (lb): 120 Ordering Physician: Renetta Sanders MD ([id number]) Attending/Referring Phys: Overcoiler Sylwia Berumen, AUNG Procedure CPT: Indications: lvfunction Cardiac Hx: TAVR, A-fib, Cancer, breast implant Technical Quality: Fair Contrast 1: Total Dose (mL): Contrast 2: Total Dose (mL): MEASUREMENTS (Male / Female) Normal Values 2D ECHO LA Systolic Diameter LX 8.0 cm 3.0 - 4.0 / 2.7 - 3.8 cm LV Diastolic Volume MOD 4C 110.9 cm??? LV Systolic Volume MOD 4C 45.5 cm??? LV Ejection Fraction MOD 4C 58.9 % LV Cardiac Index MOD 4C 3110.8 cm???/min???m??? LV Diastolic Length 4C 7.0 cm LV Systolic Length 4C 5.4 cm LA Volume 515.5 cm??? 18 - 58 / 22 - 52 cm??? LA Volume Index 327.1 cm???/m??? 16 - 28 cm???/m??? M-MODE LV Diastolic Diameter MM 5.6 cm 4.2 - 5.9 / 3.9 - 5.3 cm LV Systolic Diameter MM 4.1 cm LV Cardiac Index MM Teich 3878.9 cm???/min???m??? IVS Diastolic Thickness MM 1.2 cm 0.6 - 1.0 / 0.6 - 0.9 cm LVPW Diastolic Thickness MM 1.3 cm 0.6 - 1.0 / 0.6 - 0.9 cm LV Relative Wall Thickness MM 0.4 0.24 - 0.42 / 0.22 - 0.42 LV Mass Index MM 190.6 g/m??? 49 - 115 / 43 - 95 g/m??? Aortic Root Diameter MM 2.4 cm DOPPLER AI Peak Velocity 246.7 cm/s AI Peak Gradient 24.4 mmHg AI Pressure Half Time 444.7 ms MV Peak Velocity 217.5 cm/s MV Peak Gradient 18.9 mmHg MV Mean Velocity 78.7 cm/s MV Mean Gradient 4.2 mmHg MV Velocity Time Integral 37.4 cm MV Area PHT 4.0 cm??? MR Peak Velocity 580.9 cm/s MR Peak Gradient 135.0 mmHg Mitral E Point Velocity 175.5 cm/s Mitral A Point Velocity 41.9 cm/s Mitral E to A Ratio 4.2 MV Deceleration Time 175.5 ms TR Peak Velocity 272.7 cm/s TR Peak Gradient 29.7 mmHg Right Atrial Pressure 20.0 mmHg Pulmonary Artery Systolic Pressu 49.7 mmHg Right Ventricular Systolic Press 49.7 mmHg FINDINGS Left Ventricle Left ventricular ejection fraction is estimated at 55%. Normal left ventricular systolic function with no obvious regional wall motion abnormalities. Right Ventricle Normal right ventricular size. Reduced right ventricular global systolic function. Moderate to severe pulmonary hypertension. Right ventricular systolic pressure estimated at 50 mm hg. Right Atrium Severe right atrial dilatation. Left Atrium Severe left atrial dilatation. Mitral Valve Mitral annular calcification. No mitral stenosis. Severe mitral regurgitation. Aortic Valve TAVR, no aortic stenosis. Mild aortic regurgitation. Tricuspid Valve Structurally normal tricuspid valve. No tricuspid stenosis. Moderate tricuspid regurgitation. Pulmonic Valve Structurally normal pulmonic valve. No pulmonic stenosis. Trace pulmonic regurgitation. Pericardium No pericardial effusion. Aorta Aortic root and proximal ascending aorta not well visualized. CONCLUSIONS Normal LV size moderate concentric LVH preserved ejection fraction. Moderate pulmonary hypertension severe mitral and tricuspid regurgitation. Bioprosthetic aortic valve noted mild regurgitation. Valve is stable no significant gradient. No pericardial effusion Previewed by: Dr. Renetta Sanders MD (Electronically Signed) Final Date: 14 Sep 2024 10:30
--- NOTE | 2024-09-14 11:32 | P.CRDCN ---
History of Present Illness Consult date: 09/14/24 Reason for Consult (text): NSTEMI History of present illness: This is an 89-year-old female patient of Dr. 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 She is scheduled on September 26 for transcutaneous tricuspid valve replacement. We have been asked to evaluate the patient for an ST E DC and QT prolongation. Patient states that she developed pressure in the sternal area along the left border and shortness of breath yesterday. Patient was last seen in the office with Dr. Sanders on 09/05. Patient was having increased shortness of breath and on 09/10, metolazone was increased to full tablet daily. we have been asked to evaluate the patient for NSTEMI with history of TAVR. Patient presented to the hospital due to dyspnea that have been going on for several days and worsening. She is not on home oxygen therapy. Her diuretic and potassium were increased by Dr. Sanders but patient continued to have shortness of breath despite the medication change. Patient was seen in the emergency center waiting for a bed on the cardiac stepdown unit. Dr. Sanders discussed option of cardiac catheterization today with the patient and she was agreeable to move forward with this. Blood pressure 103/58, heart rate 65, pulse ox 94% on 2 L nasal cannula. Patient has been started on heparin drip. -EKG: Electronically paced rhythm. -Chest x-ray: Correlate for possible CHF exacerbation. -Laboratory studies: WBC 7.1, hemoglobin 12.4, BUN 43 creatinine 1.2, sodium 134, potassium 3.8, CO2 36. Troponin 0.414, 0.397 and 0.341. proBNP 5280. Cepheid viral panel not detected. -Home cardiac medications: Jardiance 10 mg daily, Lasix 80 mg daily, metolazone 2.5 mg started on 09/10 for 3 days and then decrease to half tablet daily, Lopressor 25 mg twice daily, Aldactone 25 mg daily, warfarin 5 mg. -Echocardiogram on this admission reveals EF 55%, moderate pulmonary hyperte nsion. Severe mitral and tricuspid regurgitation. Bioprosthetic aortic valve noted with mild regurgitation. Valve is stable. No significant gradient. No pericardial effusion. -Cardiac catheterization performed on this admission reveals right dominant system. Minor irregularities. No significant obstructive CAD. LV pressures were not checked. Aortic valve which is bioprosthetic valve was not crossed. Review Of Systems: At the time of my exam: CONSTITUTIONAL: Denies fever or chills. HEENT: Denies blurred vision, vision changes, or eye pain. Denies hemoptysis CARDIOVASCULAR: Denies chest pain. Denies orthopnea. Denies PND. Denies palpitations RESPIRATORY: Reports dyspnea with exertion, reports shortness of breath. GASTROINTESTINAL: Denies abdominal pain. Denies nausea or vomiting. HEMATOLOGIC: Denies bleeding disorders. GENITOURINARY: Denies any blood in urine. SKIN: Denies puritis. Denies rash. Physical examination: Gen: This is an 89-year-old female in no acute respiratory distress VS: reviewed HEENT: Head is atraumatic, normocephalic. Pupils equal, round. Sclerae is an icteric. NECK: Supple. No JVD. LUNGS: Clear to auscultation. No wheezes or rhonchi. No intercostal retractions. HEART: Regular rate and rhythm. Systolic ejection murmur, holosystolic murmur at the apex. ABDOMEN: Soft No tenderness. EXTREMITIES: No pedal edema. No calf tenderness. NEUROLOGICAL: Patient is awake, alert and oriented x3. Assessment: Mild acute kidney injury Chronic diastolic heart failure Borderline troponin secondary to chronic diastolic heart failure Severe mitral regurgitation and severe tricuspid regurgitation Severe pulmonary hypertension History of TAVR, at [facility] 06/04/2024 Chronic atrial fibrillation History of permanent pacemaker due to complete heart block History of breast cancer Plan: Resume patient's home cardiac medications Discontinue heparin drip and start patient on Coumadin home dosing Hold metolazone for now Further recommendations to follow based upon clinical course Thank you kindly for this consultation. Nurse practitioner note has been reviewed, I agree with documented findings and plan of care. Patient was seen and examined. Past Medical History Past Medical History: Atrial Fibrillation, Cancer, Pneumonia Additional Past Medical History / Comment(s): Breast cancer w/bilateral simple mastectomies (1979), squamous skin cancer., leaky mitral valve, occasional gout., hx of acute diverticulitis, pacemaker, tests positive for tb due to bcg vaccine she received., bronchitis March 2023, hospitalized in April 2023 for nausea, vomiting ,dehydration &C diff states scheduled for TAVR at [facility] in June., See Cardiology H & P. History of Any Multi-Drug Resistant Organisms: C-DIFF Date of last positivie culture/infection: 04/17/23 MDRO Source:: stool Past Surgical History: Breast Surgery, Cardiac Ablation, Cholecystectomy, Heart Catheterization, Joint Replacement, Pacemaker Additional Past Surgical History / Comment(s): EPS WITH CARDIAC ABLATIONS, BILATERAL SIMPLE MASTECTOMIES( 1979)., BILATERAL TOTAL KNEE ARTHROPLASTIES, CATARACTS W/ LENS IMPLANTS, HYSTERECTOMY WITH BILATERAL SALPINGECTOMY OOPHORECTOMY, COLONOSCOPY., MEDTRONIC PACEMAKER Past Anesthesia/Blood Transfusion Reactions: No Reported Reaction Type of Cardiac Device: Permanent Pacemaker Device Placement Date:: 06/2000 DUAL CHAMBER PLACED AND GEN CHANGE 2014. Past Psychological History: No Psychological Hx Reported Smoking Status: Never smoker Past Alcohol Use History: None Reported Past Drug Use History: None Reported - Past Family History Father Family Medical History: No Reported History Additional Family Medical History / Comment(s): Father was healthy and lived to be 94 yrs old. Mother Family Medical History: Cancer Additional Family Medical History / Comment(s): Mother had breast cancer and so did 3 of her sisters. Daughter(s) Family Medical History: Cancer Additional Family Medical History / Comment(s): Olderst daughter from breast cancer. Medications and Allergies Home Medications Medication Instructions Recorded Confirmed Type Warfarin [Coumadin] 5 mg PO HS 11/17/20 09/13/24 History Metoprolol Tartrate [Lopressor] 25 mg PO BID 11/22/22 09/13/24 History estradioL [Estrace] 0.5 mg PO DIRECTED 11/22/22 09/13/24 History Empagliflozin [Jardiance] 10 mg PO DAILY 06/13/24 09/13/24 History Spironolactone [Aldactone] 25 mg PO DAILY 06/13/24 09/13/24 History metOLazone [Zaroxolyn] 1.25 - 2.5 mg PO DIRECTED 06/13/24 09/13/24 History Pantoprazole Sodium [Protonix] 40 mg PO DAILY 07/19/24 09/13/24 History Albuterol Sulfate [Ventolin HFA] 1 puff INHALATION RT-Q6H PRN 09/13/24 09/13/24 History Furosemide [Lasix] 80 mg PO W/BRKFST 09/13/24 09/13/24 History traZODone HCL [Desyrel] 25 mg PO HS PRN 09/13/24 09/13/24 History Allergies Allergy/AdvReac Type Severity Reaction Status Date / Time meperidine HCl [From Demerol] AdvReac Nausea & Verified 09/13/24 16:51 Vomiting Physical Exam Vitals: Vital Signs Temp Pulse Resp BP Pulse Ox 09/14/24 06:17 64 18 99/61 97 09/14/24 03:35 64 18 84/55 95 09/14/24 02:00 65 18 86/59 96 09/14/24 01:00 65 18 86/60 97 09/14/24 00:00 65 18 87/57 09/13/24 23:00 65 18 90/62 94 L 09/13/24 21:27 64 18 102/57 96 09/13/24 19:06 65 18 98/56 98 09/13/24 16:09 64 16 115/84 97 09/13/24 14:37 91 L 09/13/24 13:42 98.2 F 65 20 104/62 90 L Results 09/14/24 05:47 09/14/24 05:47 Cardiac Enzymes 09/13/24 09/13/24 09/13/24 Range/Units 14:37 14:37 18:33 AST 54 H (14-36) U/L Troponin I 0.414 H* 0.397 H* (0.000-0.034) ng/mL 09/13/24 09/14/24 Range/Units 23:35 05:47 AST 42 H (14-36) U/L Troponin I 0.341 H* (0.000-0.034) ng/mL Coagulation 09/13/24 09/13/24 09/14/24 Range/Units 14:37 23:35 05:47 PT 20.1 H 19.8 H (10.0-12.5) sec APTT 33.1 H 101.6 H* (22.0-30.0) sec CBC 09/13/24 09/14/24 Range/Units 14:37 05:47 WBC 7.64 7.14 (4.50-10.00) 10*3/uL RBC 3.76 L 3.39 L (4.10-5.20) 10*6/uL Hgb 13.6 12.4 (12.0-15.0) g/dL Hct 39.0 36.4 L (37.2-46.3) % Plt Count 147 126 L (140-440) 10*3/uL Comprehensive Metabolic Panel 09/13/24 09/14/24 Range/Units 14:37 05:47 Sodium 133 L 134 L (137-145) mmol/L Potassium 2.9 L 3.8 (3.5-5.1) mmol/L Chloride 81 L 89 L (98-107) mmol/L Carbon Dioxide 40 H 36 H (22-30) mmol/L BUN 39 H 43 H (7-17) mg/dL Creatinine 0.84 1.20 H (0.52-1.04) mg/dL Glucose 136 H 118 H (74-99) mg/dL Calcium 10.1 9.2 (8.4-10.2) mg/dL AST 54 H 42 H (14-36) U/L ALT 22 19 (4-34) U/L Alkaline Phosphatase 89 81 (38-126) U/L Total Protein 8.3 H 7.1 (6.3-8.2) g/dL Albumin 4.6 3.9 (3.5-5.0) g/dL Current Medications Generic Name Dose Route Start Last Admin Trade Name Freq PRN Reason Stop Dose Admin Acetaminophen 650 mg 09/13/24 16:28 Acetaminophen Tab 325 Mg Tab PO Q6HR PRN Mild Pain or Fever > 100.5 Hydrocodone Bitart/Acetaminophen 1 each 09/13/24 16:28 Hydrocodone/Apap 5-325mg 1 Each Tab PO Q4HR PRN Moderate Pain (Scale 4 to 6) Albuterol Sulfate 2.5 mg 09/13/24 16:57 Albuterol Nebulized 2.5 Mg/3 Ml INHALATION RT-Q6H PRN Cough Calcium Carbonate/Glycine 500 mg 09/13/24 17:27 09/13/24 18:28 Calcium Carbonate 500 Mg Chewable PO 500 mg QID PRN Administration Heartburn Dapagliflozin 5 mg 09/14/24 09:00 Dapagliflozin Propanediol 5 Mg Tablet PO DAILY LALITO Estradiol 0.5 mg 09/15/24 09:00 Estradiol 0.5 Mg Tab PO TuSa LALITO Potassium Chloride/Sodium Chloride 1,000 mls @ 50 mls/hr 09/14/24 01:00 09/14/24 01:18 Ns-Kcl 20 Meq/L Iv Solution IV 09/14/24 20:59 50 mls/hr .Q20H ONE Administration Metoprolol Tartrate 25 mg 09/13/24 21:00 09/13/24 21:29 Metoprolol Tartrate 25 Mg Tab PO 25 mg BID LALITO Administration Morphine Sulfate 4 mg 09/13/24 16:28 Morphine Sulfate 4 Mg/Ml Syringe IV Q4HR PRN Severe Pain (Scale 7 to 10) Naloxone HCl 0.2 mg 09/13/24 16:28 Naloxone 0.4 Mg/Ml 1 Ml Vial IV Q2M PRN Opioid Reversal Pantoprazole Sodium 40 mg 09/14/24 09:00 Pantoprazole 40 Mg Tablet PO DAILY LALITO Trazodone HCl 25 mg 09/13/24 16:57 Trazodone Hcl 50 Mg Tab PO HS PRN Insomnia 09/14/24 05:47 09/14/24 05:47
[2024-09-14] MEDS ORDERED: WARFARIN 5 MG TAB PO SCH (21:00)
--- NOTE | 2024-10-14 18:53 | P.HPIM ---
History of Present Illness H&P Date: 09/14/24 Chief Complaint: Generalized weakness/dizziness This is an 89-year-old female who presents to the emergency department for generalized weakness. Patient has a history of a TAVR, severe mitral regurg, and A-fib. Currently follows with Dr. BRIAN Sanders. She is scheduled to undergo a tricuspid valve replacement at [facility] in the next couple of weeks. In following up with cardiology they had increased her diuretic dosing due to the CHF, however they are concerned that she may have been given too much, as when she followed up in the office today she appeared very dry. Patient states that since increasing the diuretic she has developed substernal chest pressure and shortness of breath. Also reports nausea and vomiting. Review of Systems REVIEW OF SYSTEMS: CONSTITUTIONAL: No fever, no malaise, no fatigue. HEENT: No recent visual problems or hearing problems. Denied any sore throat. CARDIOVASCULAR: No chest pain, orthopnea, PND, no palpitations, no syncope. PULMONARY: No shortness of breath, no cough, no hemoptysis. GASTROINTESTINAL: No diarrhea, no nausea, no vomiting, no abdominal pain. NEUROLOGICAL: No headaches, no weakness, no numbness. HEMATOLOGICAL: Denies any bleeding or petechiae. GENITOURINARY: Denies any burning micturition, frequency, or urgency. MUSCULOSKELETAL/RHEUMATOLOGICAL: Denies any joint pain, swelling, or any muscle pain. ENDOCRINE: Denies any polyuria or polydipsia. The rest of the 14-point review of systems is negative. Past Medical History Past Medical History: Atrial Fibrillation, Cancer, Pneumonia Additional Past Medical History / Comment(s): Breast cancer w/bilateral simple mastectomies (1979), squamous skin cancer., leaky mitral valve, occasional gout., hx of acute diverticulitis, pacemaker, tests positive for tb due to bcg vaccine she received., bronchitis March 2023, hospitalized in April 2023 for nausea, vomiting ,dehydration &C diff states scheduled for TAVR at [facility] in June., See Cardiology H & P. History of Any Multi-Drug Resistant Organisms: C-DIFF Date of last positivie culture/infection: 04/17/23 MDRO Source:: stool Past Surgical History: Breast Surgery, Cardiac Ablation, Cholecystectomy, Heart Catheterization, Joint Replacement, Pacemaker Additional Past Surgical History / Comment(s): EPS WITH CARDIAC ABLATIONS, BILATERAL SIMPLE MASTECTOMIES( 1979)., BILATERAL TOTAL KNEE ARTHROPLASTIES, CATARACTS W/ LENS IMPLANTS, HYSTERECTOMY WITH BILATERAL SALPINGECTOMY OOPHORECTOMY, COLONOSCOPY., MEDTRONIC PACEMAKER Past Anesthesia/Blood Transfusion Reactions: No Reported Reaction Type of Cardiac Device: Permanent Pacemaker Device Placement Date:: 06/2000 DUAL CHAMBER PLACED AND GEN CHANGE 2014. Past Psychological History: No Psychological Hx Reported Smoking Status: Never smoker Past Alcohol Use History: None Reported Past Drug Use History: None Reported - Past Family History Father Family Medical History: No Reported History Additional Family Medical History / Comment(s): Father was healthy and lived to be 94 yrs old. Mother Family Medical History: Cancer Additional Family Medical History / Comment(s): Mother had breast cancer and so did 3 of her sisters. Daughter(s) Family Medical History: Cancer Additional Family Medical History / Comment(s): Olderst daughter from breast cancer. Medications and Allergies Home Medications Medication Instructions Recorded Confirmed Type Warfarin [Coumadin] 5 mg PO HS 11/17/20 10/04/24 History estradioL [Estrace] 0.5 mg PO DIRECTED 11/22/22 10/04/24 History Empagliflozin [Jardiance] 10 mg PO DAILY 06/13/24 10/04/24 History Spironolactone [Aldactone] 25 mg PO DAILY 06/13/24 10/04/24 History Pantoprazole Sodium [Protonix] 40 mg PO DAILY 07/19/24 10/04/24 History Albuterol Sulfate [Ventolin HFA] 1 puff INHALATION RT-Q6H PRN 09/13/24 10/04/24 History traZODone HCL [Desyrel] 25 mg PO HS PRN 09/13/24 10/04/24 History Potassium Chloride [Klor-Con 20 20 meq PO DAILY 10/04/24 10/04/24 History Packets] Bumetanide [BUMEX] 1 mg PO BID@0900,1600 #60 tab 10/10/24 Rx Levothyroxine Sodium [Synthroid] 37.5 mcg PO DAILY@0630 #30 tab 10/10/24 Rx Metoprolol Succinate (ER) [Toprol 25 mg PO DAILY #30 tab 10/10/24 Rx XL] Allergies Allergy/AdvReac Type Severity Reaction Status Date / Time meperidine HCl [From Demerol] AdvReac Nausea & Verified 10/04/24 20:05 Vomiting Physical Exam Vitals: Vital Signs Temp Pulse Pulse Resp BP BP Pulse Ox 09/14/24 09:30 98.4 F 65 16 103/58 94 L 09/14/24 06:17 64 18 99/61 97 09/14/24 03:35 64 18 84/55 95 09/14/24 02:00 65 18 86/59 96 09/14/24 01:00 65 18 86/60 97 09/14/24 00:00 65 18 87/57 09/13/24 23:00 65 18 90/62 94 L 09/13/24 21:27 64 18 102/57 96 09/13/24 19:06 65 18 98/56 98 09/13/24 16:09 64 16 115/84 97 09/13/24 14:37 91 L 09/13/24 13:42 98.2 F 65 20 104/62 90 L Limitations: no limitations General appearance: alert, in no apparent distress Head exam: Present: atraumatic, normocephalic, normal inspection Respiratory exam: Present: decreased breath sounds, prolonged expiratory Cardiovascular Exam: Present: regular rate, normal rhythm GI/Abdominal exam: Present: soft. Absent: distended Neurological exam: Present: alert, oriented X3, CN II-XII intact Psychiatric exam: Present: normal affect, normal mood Skin exam: Present: warm, dry, intact, normal color. Absent: rash Results CBC & Chem 7: 09/14/24 05:47 09/14/24 05:47 Labs: Abnormal Lab Results - Last 24 Hours (Table) 09/13/24 09/13/24 09/13/24 Range/Units 14:37 14:37 14:37 RBC 3.76 L (4.10-5.20) 10*6/uL Hct (37.2-46.3) % MCV 103.7 H (80.0-97.0) fL MCH 36.2 H (27.0-32.0) pg Plt Count (140-440) 10*3/uL Lymphocytes # 0.37 L (0.90-5.00) 10*3/uL Monocytes # 1.26 H (0.20-1.00) 10*3/uL Eosinophils # 0.00 L (0.04-0.35) 10*3/uL PT 20.1 H (10.0-12.5) sec INR 2.0 H (<1.2) APTT 33.1 H (22.0-30.0) sec Sodium 133 L (137-145) mmol/L Potassium 2.9 L (3.5-5.1) mmol/L Chloride 81 L (98-107) mmol/L Carbon Dioxide 40 H (22-30) mmol/L BUN 39 H (7-17) mg/dL Creatinine (0.52-1.04) mg/dL Glucose 136 H (74-99) mg/dL Total Bilirubin 5.1 H (0.2-1.3) mg/dL AST 54 H (14-36) U/L Troponin I (0.000-0.034) ng/mL Total Protein 8.3 H (6.3-8.2) g/dL Urine Protein (Negative) Urine Glucose (UA) (Negative) Urine Blood (Negative) Ur Squamous Epith Cells (0-4) /hpf Urine Bacteria (None) /hpf Hyaline Casts (0-2) /lpf Urine Mucus (None) /hpf 09/13/24 09/13/24 09/13/24 Range/Units 14:37 16:12 18:33 RBC (4.10-5.20) 10*6/uL Hct (37.2-46.3) % MCV (80.0-97.0) fL MCH (27.0-32.0) pg Plt Count (140-440) 10*3/uL Lymphocytes # (0.90-5.00) 10*3/uL Monocytes # (0.20-1.00) 10*3/uL Eosinophils # (0.04-0.35) 10*3/uL PT (10.0-12.5) sec INR (<1.2) APTT (22.0-30.0) sec Sodium (137-145) mmol/L Potassium (3.5-5.1) mmol/L Chloride (98-107) mmol/L Carbon Dioxide (22-30) mmol/L BUN (7-17) mg/dL Creatinine (0.52-1.04) mg/dL Glucose (74-99) mg/dL Total Bilirubin (0.2-1.3) mg/dL AST (14-36) U/L Troponin I 0.414 H* 0.397 H* (0.000-0.034) ng/mL Total Protein (6.3-8.2) g/dL Urine Protein Trace H (Negative) Urine Glucose (UA) 3+ H (Negative) Urine Blood Trace H (Negative) Ur Squamous Epith Cells 5 H (0-4) /hpf Urine Bacteria Rare H (None) /hpf Hyaline Casts 13 H (0-2) /lpf Urine Mucus Rare H (None) /hpf 09/13/24 09/13/24 09/14/24 Range/Units 23:35 23:35 05:47 RBC 3.39 L (4.10-5.20) 10*6/uL Hct 36.4 L (37.2-46.3) % MCV 107.4 H (80.0-97.0) fL MCH 36.6 H (27.0-32.0) pg Plt Count 126 L (140-440) 10*3/uL Lymphocytes # 0.80 L (0.90-5.00) 10*3/uL Monocytes # 1.11 H (0.20-1.00) 10*3/uL Eosinophils # 0.01 L (0.04-0.35) 10*3/uL PT (10.0-12.5) sec INR (<1.2) APTT 101.6 H* (22.0-30.0) sec Sodium (137-145) mmol/L Potassium (3.5-5.1) mmol/L Chloride (98-107) mmol/L Carbon Dioxide (22-30) mmol/L BUN (7-17) mg/dL Creatinine (0.52-1.04) mg/dL Glucose (74-99) mg/dL Total Bilirubin (0.2-1.3) mg/dL AST (14-36) U/L Troponin I 0.341 H* (0.000-0.034) ng/mL Total Protein (6.3-8.2) g/dL Urine Protein (Negative) Urine Glucose (UA) (Negative) Urine Blood (Negative) Ur Squamous Epith Cells (0-4) /hpf Urine Bacteria (None) /hpf Hyaline Casts (0-2) /lpf Urine Mucus (None) /hpf 09/14/24 09/14/24 Range/Units 05:47 05:47 RBC (4.10-5.20) 10*6/uL Hct (37.2-46.3) % MCV (80.0-97.0) fL MCH (27.0-32.0) pg Plt Count (140-440) 10*3/uL Lymphocytes # (0.90-5.00) 10*3/uL Monocytes # (0.20-1.00) 10*3/uL Eosinophils # (0.04-0.35) 10*3/uL PT 19.8 H (10.0-12.5) sec INR 2.0 H (<1.2) APTT (22.0-30.0) sec Sodium 134 L (137-145) mmol/L Potassium (3.5-5.1) mmol/L Chloride 89 L (98-107) mmol/L Carbon Dioxide 36 H (22-30) mmol/L BUN 43 H (7-17) mg/dL Creatinine 1.20 H (0.52-1.04) mg/dL Glucose 118 H (74-99) mg/dL Total Bilirubin 5.8 H (0.2-1.3) mg/dL AST 42 H (14-36) U/L Troponin I (0.000-0.034) ng/mL Total Protein (6.3-8.2) g/dL Urine Protein (Negative) Urine Glucose (UA) (Negative) Urine Blood (Negative) Ur Squamous Epith Cells (0-4) /hpf Urine Bacteria (None) /hpf Hyaline Casts (0-2) /lpf Urine Mucus (None) /hpf Assessment and Plan Assessment: Mild acute kidney injury Chronic diastolic heart failure Borderline troponin secondary to chronic diastolic heart failure Severe mitral regurgitation and severe tricuspid regurgitation Severe pulmonary hypertension History of TAVR, at [facility] 06/04/2024 Chronic atrial fibrillation History of permanent pacemaker due to complete heart block History of breast cancer --Plan is to admit patient to telemetry; monitor EKG and trend troponin - Patient has been placed on IV heparin infusion we will continue - Cardiology is consulted; appreciate recommendation
--- NOTE | 2024-10-14 18:54 | P.DS ---
Providers Date of admission: 09/13/24 16:24 Expected date of discharge: 09/14/24 Attending physician: Rodrigo Walker Consults: 09/13/24 16:28 Consult Physician Urgent Consulting Provider: Renetta Sanders Consult Reason/Comments: NSTEMI, QT prolongation Do you want consulting provider notified?: Yes Primary care physician: [facility] Course: 89-year-old female patient of Dr. 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 She is scheduled on September 26 for transcutaneous tricuspid valve replacement. We have been asked to evaluate the patient for an ST E NC and QT prolongation. Patient states that she developed pressure in the sternal area along the left border and shortness of breath yesterday. Patient was last seen in the office with Dr. Sanders on 09/05. Patient was having increased shortness of breath and on 09/10, metolazone was increased to full tablet daily. we have been asked to evaluate the patient for NSTEMI with history of TAVR. Patient presented to the hospital due to dyspnea that have been going on for several days and worsening. She is not on home oxygen therapy. Her diuretic and potassium were increased by Dr. Sanders but patient continued to have shortness of breath despite the medication change. Patient was seen in the emergency center waiting for a bed on the cardiac stepdown unit. Dr. Sanders discussed option of cardiac catheterization today with the patient and she was agreeable to move forward with this. . -EKG: Electronically paced rhythm. -Chest x-ray: Correlate for possible CHF exacerbation. -Laboratory studies: WBC 7.1, hemoglobin 12.4, BUN 43 creatinine 1.2, sodium 134, potassium 3.8, CO2 36. Troponin 0.414, 0.397 and 0.341. proBNP 5280. Cepheid viral panel not detected. -Home cardiac medications: Jardiance 10 mg daily, Lasix 80 mg daily, metolazone 2.5 mg started on 09/10 for 3 days and then decrease to half tablet daily, Lopressor 25 mg twice daily, Aldactone 25 mg daily, warfarin 5 mg. -Echocardiogram on this admission reveals EF 55%, moderate pulmonary hypertension. Severe mitral and tricuspid regurgitation. Bioprosthetic aortic valve noted with mild regurgitation. Valve is stable. No significant gradient. No pericardial effusion. -Cardiac catheterization performed on this admission reveals right dominant system. Minor irregularities. No significant obstructive CAD. LV pressures were not checked. Aortic valve which is bioprosthetic valve was not crossed. Assessment: Mild acute kidney injury Chronic diastolic heart failure Borderline troponin secondary to chronic diastolic heart failure Severe mitral regurgitation and severe tricuspid regurgitation Severe pulmonary hypertension History of TAVR, at [facility] 06/04/2024 Chronic atrial fibrillation History of permanent pacemaker due to complete heart block History of breast cancer Plan: Resume patient's home cardiac medications Discontinue heparin drip and start patient on Coumadin home dosing Hold metolazone for now - Patient was evaluated by cardiology and no further workup was recommended and patient was discharged home in a stable condition Patient Condition at Discharge: Stable Plan - Discharge Summary New Discharge Prescriptions: Continue Warfarin [Coumadin] 5 mg PO HS Pantoprazole Sodium [Protonix] 40 mg PO DAILY Albuterol Sulfate [Ventolin HFA] 1 puff INHALATION RT-Q6H PRN PRN Reason: Cough estradioL [Estrace] 0.5 mg PO DIRECTED Empagliflozin [Jardiance] 10 mg PO DAILY Spironolactone [Aldactone] 25 mg PO DAILY traZODone HCL [Desyrel] 25 mg PO HS PRN PRN Reason: Insomnia Discontinued Furosemide [Lasix] 80 mg PO W/BRKFST metOLazone [Zaroxolyn] 1.25 - 2.5 mg PO DIRECTED No Action Potassium Chloride [Klor-Con 20 Packets] 20 meq PO DAILY Bumetanide [BUMEX] 1 mg PO BID@0900,1600 #60 tab Metoprolol Succinate (ER) [Toprol XL] 25 mg PO DAILY #30 tab Levothyroxine Sodium [Synthroid] 37.5 mcg PO DAILY@0630 #30 tab Discharge Medication List Warfarin [Coumadin] 5 mg PO HS 11/17/20 [History] estradioL [Estrace] 0.5 mg PO DIRECTED 11/22/22 [History] Empagliflozin [Jardiance] 10 mg PO DAILY 06/13/24 [History] Spironolactone [Aldactone] 25 mg PO DAILY 06/13/24 [History] Pantoprazole Sodium [Protonix] 40 mg PO DAILY 07/19/24 [History] Albuterol Sulfate [Ventolin HFA] 1 puff INHALATION RT-Q6H PRN 09/13/24 [History] traZODone HCL [Desyrel] 25 mg PO HS PRN 09/13/24 [History] Potassium Chloride [Klor-Con 20 Packets] 20 meq PO DAILY 10/04/24 [History] Bumetanide [BUMEX] 1 mg PO BID@0900,1600 #60 tab 10/10/24 [Rx] Levothyroxine Sodium [Synthroid] 37.5 mcg PO DAILY@0630 #30 tab 10/10/24 [Rx] Metoprolol Succinate (ER) [Toprol XL] 25 mg PO DAILY #30 tab 10/10/24 [Rx] Follow up Appointment(s)/Referral(s): Barrett Driver MD [Primary Care Provider] - 1-2 days Patient Instructions/Handouts: Heart Failure (DC) Activity/Diet/Wound Care/Special Instructions: start lasix 40 mg tomorrow 09/15/24. Discharge Disposition: HOME SELF-CARE
--- NOTE | 2024-10-16 12:59 | CDI ---
Documentation Clarification Form Date: 10/16/2024 12:31:09 PM From: Elizabeth Matute RN, CCDS Email: [email or web address] Admit Date: 09/13/2024 04:24:00 PM Patient Name: Padmini John Visit Number: [id number] Discharge Date: 09/14/2024 02:20:00 PM ATTENTION: The Clinical Documentation Specialists (CDI) and [facility] Coding Staff appreciate your assistance in clarifying documentation. Please respond to the clarification below the line at the bottom and electronically sign. The CDI & [facility] Coding staff will review the response and follow-up if needed. Please note: Queries are made part of the Legal Health Record. If you have any questions, please contact the author of this message via ITS. Doctor Homar Miller NSTEMI and borderline troponin is documented in the progress notes, software sales consultant note and discharge summary. Please clarify the diagnosis. Patient history/risk factors: history of a TAVR, severe mitral regurgitation, CHF and A-fib. Currently follows with Dr. Sanders. She is scheduled to undergo a tricuspid valve replacement at [facility] in the next couple of weeks. Presents with substernal chest pressure and shortness of breath, N/V and weakness. Clinical indicators: 09/13 Troponins: 0.414-0.397-0.341 09/13 CXR: possible CHF exacerbation/fluid overload 09/13 ED: "Troponin elevation may be secondary to CHF and other cardiac issues, however given that she is complaining of substernal chest pressure, she was started on the Heparin protocol. Patient admitted to medicine for elevated troponin/NSTEMI, hypokalemia, and QT prolongation." 09/14 Echo: Normal LV size moderate concentric LVH preserved ejection fraction. 09/14 Cardiology consult: "We have been asked to evaluate the patient for NSTEMI with history of TAVR. Her diuretic and potassium were increased by Dr. Sanders but patient continued to have shortness of breath despite the medication change. Borderline troponin secondary to chronic diastolic heart failure. Cardiac catheterization performed on this admission reveals right dominant system. Minor irregularities. No significant obstructive CAD." 09/14 Discharge summary: "Borderline troponin secondary to chronic diastolic heart failure." Treatment: Heparin drip titrated 09/13-09/14; Metoprolol 25mg po BID 09/13-09/14; 1L 0.9 NS IV bolus x1 on 09/13; Lasix 80mg po daily on 09/14 Please clarify the diagnosis: [ ] NSTEMI type 1 [@@@ ] Type 2 NJ due to chronic diastolic CHF [ ] Type 2 NJ due to diastolic CHF exacerbation [ ] Non-ischemic with acute myocardial injury [ ] No additional diagnosis/Not clinically significant [ ] Other, please specify [ ] Unable to determine MTDD
== END 2024-09-14 14:20 | disposition home or self-care (01) | DRG 281 ==
LOC: EC 13:35 → 3SCARD 16:24
PROVIDERS: ADMIT Internal Medicine; ATTEND Internal Medicine
DX: I50.32 Chronic diastolic (congestive) heart failure (principal); I48.20 Chronic atrial fibrillation, unspecified; I21.A1 Myocardial infarction type 2; N17.9 Acute kidney failure, unspecified; E86.0 Dehydration; I27.20 Pulmonary hypertension, unspecified; E87.6 Hypokalemia; I08.1 Rheumatic disorders of both mitral and tricuspid valves; Z79.01 Long term (current) use of anticoagulants; I45.81 Long QT syndrome; R79.89 Other specified abnormal findings of blood chemistry; Z11.52 Encounter for screening for COVID-19; Z95.3 Presence of xenogenic heart valve; M10.9 Gout, unspecified; R53.1 Weakness; Z79.84 Long term (current) use of oral hypoglycemic drugs; Z79.899 Other long term (current) drug therapy; Z90.710 Acquired absence of both cervix and uterus; Z85.828 Personal history of other malignant neoplasm of skin; Z85.3 Personal history of malignant neoplasm of breast; Z95.0 Presence of cardiac pacemaker; Z80.3 Family history of malignant neoplasm of breast; Z98.42 Cataract extraction status, left eye; Z98.41 Cataract extraction status, right eye; Z96.653 Presence of artificial knee joint, bilateral; Z96.1 Presence of intraocular lens; Z90.49 Acquired absence of other specified parts of digestive tract; Z88.8 Allergy status to other drugs, medicaments and biological substances; Z87.01 Personal history of pneumonia (recurrent); Z87.19 Personal history of other diseases of the digestive system; Z79.890 Hormone replacement therapy
CPT/HCPCS: 36415; 71046; 80053; 81001; 83605; 83735; 83880; 84484; 85025; 85610; 85730; 87636; 93005; 93306; 96361; 96365; 96366; 96368; 96372; 96375; 99285

== ENCOUNTER 2024-11-25 10:24 | Observation (INO) | payer MEDICARE, BC ==
--- NOTE | 2024-11-25 11:48 | XR ---
EXAMINATION TYPE: XR chest 2V DATE OF EXAM: 11/25/2024 11:43 AM COMPARISON: Chest radiographs from 10/05/2024 TECHNIQUE: XR chest 2V Frontal and lateral views of the chest. CLINICAL INDICATION:Female, 89 years old with history of difficulty breathing; FINDINGS: Lungs/Pleura: Blunting of both costophrenic angles. No pneumothorax. Embolization coils overlie the r ight lower lung. Pulmonary vascularity: Pulmonary vascular congestion. Heart/mediastinum: Cardiomediastinal silhouette is enlarged and stable. Postsurgical changes of the p roximal aorta with aortic stent graft. Additional stent graft identified. Atherosclerotic calcificati ons are seen in the aorta. Two lead cardiac conduction device overlying the left hemithorax with lead tips projecting over the right ventricle and right atrium. Musculoskeletal: No acute osseous pathology. Other findings: Bilateral breast prosthesis. IMPRESSION: Cardiomegaly with small bilateral pleural effusions and pulmonary vascular congestion. Findings sugge st CHF exacerbation. Superimposed infectious process is not excluded. [facility], , 11/25/2024 11:46 AM
[2024-11-25 11:59] LABS: Basophils # (A) 0.03 10*3/uL (0.00-0.10); Basophils % (A) 0.5 %; Eosinophils # (A) 0.07 10*3/uL (0.04-0.35); Eosinophils % (A) 1.3 %; HCT 37.1 % (37.2-46.3); HGB 13.1 g/dL (12.0-15.0); Lymphocytes # (A) 0.31 10*3/uL (0.90-5.00); Lymphocytes % (A) 5.5 %; MCH 36.0 pg (27.0-32.0); MCHC 35.3 g/dL (32.0-37.0); MCV 101.9 fL (80.0-97.0); Monocytes # (A) 0.58 10*3/uL (0.20-1.00); Monocytes % (A) 10.4 %; Neutrophils # (A) 4.60 10*3/uL (1.80-7.70); Neutrophils % (A) 82.1 %; Platelet Count 108 10*3/uL (140-440); RBC 3.64 10*6/uL (4.10-5.20); RDW 16.9 % (11.5-14.5); WBC 5.60 10*3/uL (4.50-10.00)
[2024-11-25 12:01] LABS: ALT 14 U/L (4-34); AST 29 U/L (14-36); African American GFR (CKD) 39 (>60 ml/min/1.73 sqM); Albumin 3.7 g/dL (3.5-5.0); Alkaline Phosphatase 112 U/L (38-126); Anion Gap 12 mmol/L; Blood Urea Nitrogen 56 mg/dL (7-17); Calcium 9.4 mg/dL (8.4-10.2); Carbon Dioxide 26 mmol/L (22-30); Chloride 94 mmol/L (98-107); Glucose 140 mg/dL (74-99); Non-African American GFR(CKD) 33 (>60 ml/min/1.73 sqM); Potassium 4.5 mmol/L (3.5-5.1); Sodium 132 mmol/L (137-145); Total Protein 6.7 g/dL (6.3-8.2)
[2024-11-25 12:04] LABS: INR 2.7 (<1.2); Partial Thromboplastin Time 35.3 sec (22.0-30.0); Prothrombin Time 27.1 sec (10.0-12.5)
[2024-11-25 12:07] LABS: NT-Pro-B-Type Natriuretic Pept 10600 pg/mL
[2024-11-25 12:23] LABS: RSV Not Detected (Not Detectd)
[2024-11-25] MEDS ORDERED: NALOXONE 0.4 MG/ML 1 ML VIAL IV PRN (12:35)
--- NOTE | 2024-11-25 12:38 | ED ---
SOB HPI - General Chief Complaint: Shortness of Breath Stated Complaint: YANICK Time Seen by Provider: 11/25/24 11:13 Source: family Mode of arrival: wheelchair Limitations: no limitations - History of Present Illness Initial Comments: 89-year-old female presenting with chief complaint of difficulty breathing. Patient has history of CHF, A-fib. She has had increasing shortness of breath and cough. She has also had increased lower extremity swelling. She was seen by her trimmer sorter recently who adjusted some medications but reports that her shortness of breath has continued to worsen. No known fever. No chest pain. No abdominal pain nausea or vomiting. - Related Data Home Medications Medication Instructions Recorded Confirmed Warfarin [Coumadin] 5 mg PO HS 11/17/20 10/04/24 estradioL [Estrace] 0.5 mg PO DIRECTED 11/22/22 10/04/24 Empagliflozin [Jardiance] 10 mg PO DAILY 06/13/24 10/04/24 Spironolactone [Aldactone] 25 mg PO DAILY 06/13/24 10/04/24 Pantoprazole Sodium [Protonix] 40 mg PO DAILY 07/19/24 10/04/24 Albuterol Sulfate [Ventolin HFA] 1 puff INHALATION RT-Q6H PRN 09/13/24 10/04/24 traZODone HCL [Desyrel] 25 mg PO HS PRN 09/13/24 10/04/24 Potassium Chloride [Klor-Con 20 20 meq PO DAILY 10/04/24 10/04/24 Packets] Previous Rx's Medication Instructions Recorded Bumetanide [BUMEX] 1 mg PO BID@0900,1600 #60 tab 10/10/24 Levothyroxine Sodium [Synthroid] 37.5 mcg PO DAILY@0630 #30 tab 10/10/24 Metoprolol Succinate (ER) [Toprol 25 mg PO DAILY #30 tab 10/10/24 XL] Allergies Allergy/AdvReac Type Severity Reaction Status Date / Time meperidine HCl [From Demerol] AdvReac Nausea & Verified 11/25/24 10:29 Vomiting Review of Systems ROS Statement: Those systems with pertinent positive or pertinent negative responses have been documented in the HPI. ROS Other: All systems not noted in ROS Statement are negative. Past Medical History Past Medical History: Atrial Fibrillation, Cancer, Pneumonia Additional Past Medical History / Comment(s): Breast cancer w/bilateral simple mastectomies (1979), squamous skin cancer., leaky mitral valve, occasional gout., hx of acute diverticulitis, pacemaker, tests positive for tb due to bcg vaccine she received., bronchitis March 2023, hospitalized in April 2023 for nausea, vomiting ,dehydration &C diff states [facility] See Cardiology [facility] & P. History of Any Multi-Drug Resistant Organisms: C-DIFF Date of last positivie culture/infection: 04/17/23 MDRO Source:: stool Past Surgical History: Breast Surgery, Cardiac Ablation, Cholecystectomy, Heart Catheterization, Joint Replacement, Pacemaker Additional Past Surgical History / Comment(s): EPS WITH CARDIAC ABLATIONS, BILATERAL SIMPLE MASTECTOMIES( 1979)., BILATERAL TOTAL KNEE ARTHROPLASTIES, CATARACTS W/ LENS IMPLANTS, HYSTERECTOMY WITH BILATERAL SALPINGECTOMY OOPHORECTOMY, COLONOSCOPY., [employer]IC PACEMAKER. 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 Past Psychological History: No Psychological Hx Reported Smoking Status: Never smoker Past Alcohol Use History: None Reported Past Drug Use History: None Reported - Past Family History Father Family Medical History: No Reported History Additional Family Medical History / Comment(s): Father was healthy and lived to be 94 yrs old. Mother Family Medical History: Cancer Additional Family Medical History / Comment(s): Mother had breast cancer and so did 3 of her sisters. Daughter(s) Family Medical History: Cancer Additional Family Medical History / Comment(s): Olderst daughter from breast cancer. General Exam Limitations: no limitations General appearance: alert, in no apparent distress Head exam: Present: atraumatic, normocephalic, normal inspection Eye exam: Present: normal appearance, EOMI Neck exam: Present: normal inspection. Absent: meningismus Respiratory exam: Present: normal lung sounds bilaterally. Absent: respiratory distress, wheezes, rales, rhonchi, stridor Cardiovascular Exam: Present: regular rate, normal rhythm, normal heart sounds. Absent: systolic murmur, diastolic murmur, rubs, gallop, clicks Extremities exam: Present: pedal edema Neurological exam: Present: alert, oriented X3 Psychiatric exam: Present: normal affect, normal mood Skin exam: Present: warm, dry, normal color Course Vital Signs 11/25/24 11/25/24 11/25/24 10:29 11:07 11:51 Temperature 97.5 F L Pulse Rate 76 60 60 Respiratory 22 20 16 Rate Blood Pressure 93/57 99/61 103/70 O2 Sat by Pulse 93 L 95 96 Oximetry Medical Decision Making - Medical Decision Making Was pt. sent in by a medical professional or institution (, PA, DISTILLERY MANAGER, urgent care, hospital, or alf...) When possible be specific @ -No Did you speak to anyone other than the patient for history (EMS, parent, family, police, friend...)? What history was obtained from this source @ -Caregiver Did you review nursing and triage notes (agree or disagree)? Why? @ -I reviewed and agree with nursing and triage notes Were old charts reviewed (outside hosp., previous admission, EMS record, old E KG, old radiological studies, urgent care reports/EKG's, alf records)? Report findings @ -No old charts were reviewed Differential Diagnosis (chest pain, altered mental status, abdominal pain women, abdominal pain men, vaginal bleeding, weakness, fever, dyspnea, syncope, headache, dizziness, GI bleed, back pain, seizure, CVA, palpatations, mental health, musculoskeletal)? @ -MDM Differential Dyspnea: Coronary syndrome, arrhythmia, tamponade, asthma, COPD, pulmonary embolism, pneumonia, pneumothorax, pulmonary effusion, anaphylaxis, diabetic ketoacidosis, flailed chest, pulmonary contusion, diaphragmatic rupture, anemia, neuromuscular… this is not meant to be an all-inclusive list. EKG interpreted by me (3pts min.). @ -EKG shows electronic ventricular pacemaker ventricular rate 62. QRS 177 QT 460 QTc 465 X-rays interpreted by me (1pt min.). @ -Chest x-ray shows cardiomegaly with small bilateral pleural effusions and pulmonary vascular congestion. Findings suggestive of CHF exacerbation. Superimposed infectious process is not excluded CT interpreted by me (1pt min.). @ -None done U/S interpreted by me (1pt. min.). @ -None done What testing was considered but not performed or refused? (CT, X-rays, U/S, labs)? Why? @ -None What meds were considered but not given or refused? Why? @ -None Did you discuss the management of the patient with other professionals (professionals i.e. DrRadha, PA, DISTILLERY MANAGER, lab, RT, psych nurse, clinical social worker, mobile mechanic, teacher, district resource officer, briefcase sewer)? Give summary @ -Spoke with Dr. Miller accepts admission Was smoking cessation discussed for >3mins.? @ -No Was critical care preformed (if so, how long)? @ -No Were there social determinants of health that impacted care today? How? (Homelessness, low income, unemployed, alcoholism, drug addiction, transportation, low edu. Level, literacy, decrease access to med. care, intermediate, rehab)? @ -No Was there de-escalation of care discussed even if they declined (Discuss DNR or withdrawal of care, Hospice)? DNR status @ -No What co-morbidities impacted this encounter? (DM, HTN, Smoking, COPD, CAD, Cancer, CVA, ARF, Chemo, Hep., AIDS, mental health diagnosis, sleep apnea, morbid obesity)? @ -None Was patient admitted / discharged? Hospital course, mention meds given and route, prescriptions, significant lab abnormalities, going to OR and other pertinent info. @ -89-year-old female presenting with chief complaint of increasing shortness of breath. History of CHF. Positive for lower extremity edema on exam. BNP 10,600 troponin 0.036. Chest x-ray supports CHF exacerbation. Patient is given Lasix 40 mg IV. She will require admission. She is agreeable with this plan. I discussed this case with my attending Dr. Braun Undiagnosed new problem with uncertain prognosis? @ -No Drug Therapy requiring intensive monitoring for toxicity (Heparin, Nitro, Insulin, Cardizem)? @ -No Were any procedures done? @ -No Diagnosis/symptom? @ -CHF exacerbation Acute, or Chronic, or Acute on Chronic? @ -Acute Uncomplicated (without systemic symptoms) or Complicated (systemic symptoms)? @ -Complicated Side effects of treatment? @ -No Exacerbation, Progression, or Severe Exacerbation? @ -exacerbation Poses a threat to life or bodily function? How? (Chest pain, USA, LA, pneumonia, PE, COPD, DKA, ARF, appy, cholecystitis, CVA, Diverticulitis, Homicidal, Suicidal, threat to staff... and all critical care pts) @ -Yes - Lab Data Result diagrams: 11/25/24 11:00 11/25/24 11:00 Lab Results 11/25/24 11/25/24 11/25/24 Range/Units 11:00 11:00 11:00 WBC 5.60 (4.50-10.00) 10*3/uL RBC 3.64 L (4.10-5.20) 10*6/uL Hgb 13.1 (12.0-15.0) g/dL Hct 37.1 L (37.2-46.3) % MCV 101.9 H (80.0-97.0) fL MCH 36.0 H (27.0-32.0) pg MCHC 35.3 (32.0-37.0) g/dL Plt Count 108 L (140-440) 10*3/uL MPV 11.3 (9.5-12.2) fL Immature Gran % (Auto) 0.2 % Neutrophils % 82.1 % Lymphocytes % 5.5 % Monocytes % 10.4 % Eosinophils % 1.3 % Basophils % 0.5 % Immature Gran # 0.01 (0.00-0.04) 10*3/uL Neutrophils # 4.60 (1.80-7.70) 10*3/uL Lymphocytes # 0.31 L (0.90-5.00) 10*3/uL Monocytes # 0.58 (0.20-1.00) 10*3/uL Eosinophils # 0.07 (0.04-0.35) 10*3/uL Basophils # 0.03 (0.00-0.10) 10*3/uL PT 27.1 H (10.0-12.5) sec INR 2.7 H (<1.2) APTT 35.3 H (22.0-30.0) sec Sodium 132 L (137-145) mmol/L Potassium 4.5 (3.5-5.1) mmol/L Chloride 94 L (98-107) mmol/L Carbon Dioxide 26 (22-30) mmol/L Anion Gap 12 mmol/L BUN 56 H (7-17) mg/dL Creatinine 1.42 H (0.52-1.04) mg/dL Est GFR (CKD-EPI)AfAm 39 (>60 ml/min/1.73 sqM) Est GFR (CKD-EPI)NonAf 33 (>60 ml/min/1.73 sqM) Glucose 140 H (74-99) mg/dL Calcium 9.4 (8.4-10.2) mg/dL Total Bilirubin 4.2 H (0.2-1.3) mg/dL AST 29 (14-36) U/L ALT 14 (4-34) U/L Alkaline Phosphatase 112 (38-126) U/L Troponin I (0.000-0.034) ng/mL NT-Pro-B Natriuret Pep 40655 pg/mL Total Protein 6.7 (6.3-8.2) g/dL Albumin 3.7 (3.5-5.0) g/dL Influenza Type A (PCR) (Not Detectd) Influenza Type B (PCR) (Not Detectd) RSV (PCR) (Not Detectd) SARS-CoV-2 (PCR) (Not Detectd) 11/25/24 11/25/24 Range/Units 11:00 11:35 WBC (4.50-10.00) 10*3/uL RBC (4.10-5.20) 10*6/uL Hgb (12.0-15.0) g/dL Hct (37.2-46.3) % MCV (80.0-97.0) fL MCH (27.0-32.0) pg MCHC (32.0-37.0) g/dL Plt Count (140-440) 10*3/uL MPV (9.5-12.2) fL Immature Gran % (Auto) % Neutrophils % % Lymphocytes % % Monocytes % % Eosinophils % % Basophils % % Immature Gran # (0.00-0.04) 10*3/uL Neutrophils # (1.80-7.70) 10*3/uL Lymphocytes # (0.90-5.00) 10*3/uL Monocytes # (0.20-1.00) 10*3/uL Eosinophils # (0.04-0.35) 10*3/uL Basophils # (0.00-0.10) 10*3/uL PT (10.0-12.5) sec INR (<1.2) APTT (22.0-30.0) sec Sodium (137-145) mmol/L Potassium (3.5-5.1) mmol/L Chloride (98-107) mmol/L Carbon Dioxide (22-30) mmol/L Anion Gap mmol/L BUN (7-17) mg/dL Creatinine (0.52-1.04) mg/dL Est GFR (CKD-EPI)AfAm (>60 ml/min/1.73 sqM) Est GFR (CKD-EPI)NonAf (>60 ml/min/1.73 sqM) Glucose (74-99) mg/dL Calcium (8.4-10.2) mg/dL Total Bilirubin (0.2-1.3) mg/dL AST (14-36) U/L ALT (4-34) U/L Alkaline Phosphatase (38-126) U/L Troponin I 0.036 H* (0.000-0.034) ng/mL NT-Pro-B Natriuret Pep pg/mL Total Protein (6.3-8.2) g/dL Albumin (3.5-5.0) g/dL Influenza Type A (PCR) Not Detected (Not Detectd) Influenza Type B (PCR) Not Detected (Not Detectd) RSV (PCR) Not Detected (Not Detectd) SARS-CoV-2 (PCR) Not Detected (Not Detectd) Disposition Clinical Impression: Congestive heart failure Disposition: ADMITTED IP TO THIS HOSP Condition: Fair Referrals: Barrett Driver MD [Primary Care Provider] - 1-2 days Time of Disposition: 12:37
[2024-11-25] MEDS: FUROSEMIDE 10 MG/ML 4 ML VIAL IV STA (13:21)
[2024-11-25] MEDS ORDERED: ALBUTEROL NEBULIZED 2.5 MG/3 ML INHALATION PRN (16:02)
[2024-11-25] MEDS: WARFARIN 5 MG TAB PO SCH (20:07)
[2024-11-25] MEDS: guaiFENesin SYRUP 100MG/5ML 200 MG/10 ML CUP PO SCH (20:07)
[2024-11-25] MEDS: METOPROLOL TARTRATE 25 MG TAB PO SCH (20:07)
[2024-11-26] MEDS: LEVOTHYROXINE 75 MCG TAB PO SCH (06:02)
[2024-11-26 06:49] LABS: INR 3.1 (<1.2); Prothrombin Time 30.5 sec (10.0-12.5)
[2024-11-26] MEDS: BUMETANIDE 1 MG TAB PO SCH ×2 (08:59→16:05)
[2024-11-26] MEDS: SPIRONOLACTONE 25 MG TAB PO SCH (08:59)
[2024-11-26] MEDS: PANTOPRAZOLE 40 MG TABLET PO SCH (08:59)
--- NOTE | 2024-11-26 09:46 | P.CRDCN ---
History of Present Illness Consult date: 11/26/24 History of present illness: HISTORY OF PRESENTING ILLNESS: 89-year-old previously known to Dr. Sanders. Now under my care. She has prior history of TAVR, transcatheter tricuspid valve, severe mitral regurgitation, PPM, persistent atrial fibrillation Cardiology office for increased cough. She appeared euvolemic so we continued her diuretic regiment as Bumex 1 mg p.o. twice daily. She is very frail however, and is awaiting a severe mitral regurgitation evaluation and treatment at [facility] with a MitraClip. This time she presented to the hospital because of concerns of lower urine output than usual along with increased confusion. Her caregiver noticed this and was concerned for possible urinary tract infection. She is also getting more short of breath. On admission she was noticed to be retaining urine. Her creatinine and BUN were also noticed to be higher than usual. Last night since then she has had good urine output. She feels more oriented, less short of breath and her appetite has improved thereafter. Home medications include Bumex 1 twice daily, Jardiance 10, metoprolol 25 twice daily, Aldactone 25 daily, warfarin ........... ................................................................................ ................................................... Pertient Vitals: 91/55, heart rate 60 bpm Pertient Labs: Hb 13, INR 2.7, sodium 132, potassium 4.5, BUN 56, creatinine 1.4. Troponin of 0.03, NT-proBNP 10,000. NT-proBNP from 09/13/2024 was 5280. Creatinine from 10/10/2024 was 1. EKG: Atrial fibrillation with ventricularly paced rhythm Pertient Imaging: congestion in bilateral lower lung dominique on chest x-ray Last echo from 09/2020 shows an EF of 50-55, RVSP 47, severe left atrial dilatation, severe mitral regurgitation because of flail mitral leaflet, normally functioning bioprosthetic aortic valve, normally functioning tricuspid valve, small pericardial effusion. .............................................. ................................................................................ ................ REVIEW OF SYSTEMS: 14 point review of system is negative except what is mentioned above in HPI. ....... ................................................................................ ....................................................... PHYSICAL EXAMINATION: Neck: Brisk carotid upstroke,elevated JVP Lungs: Mild crackles audible in bilateral bases, poor inspiratory effort Heart: Irregular pulse, systolic murmur Abdomen: Soft nontender, positive bowel sounds. Extremities: 2+ pitting edema bilateral extremity Neuro: Alert, oritented, no focal deficits. Detailed neuro exam was not performed. ..... ................................................................................ ......................................................... ASSESSMENT: # Acute on chronic HFrEF exacerbation # Severe mitral regurgitation, due to flail anterior mitral leaflet awaiting MitraClip eval at [facility] # Status post tricuspid edward encore valve # Status post TAVR # Status post PPM # Persistent atrial fibrillation, currently rate controlled on warfarin therapy PLAN: Continue Bumex 1 mg p.o. twice daily, add metolazone 2.5 mg daily Continue Farxiga 10 mg, metoprolol 25 twice daily, Aldactone 25 daily, warfarin Repeat kidney function tomorrow on current regimen, if within normal limits, consider clearing her Obtain limited echo to look for pericardial effusion Continue warfarin pharmacy to dose Look for causes for urinary obstruction. Consider Flomax in the nighttime. Could be related to recently started Robitussin Monitor blood pressure on this regimen. Ash Moran MD, FACC, RPVI Past Medical History Past Medical History: Atrial Fibrillation, Cancer, Pneumonia Additional Past Medical History / Comment(s): Breast cancer w/bilateral simple mastectomies (1979), squamous skin cancer., leaky mitral valve, occasional gout., hx of acute diverticulitis, pacemaker, tests positive for tb due to bcg vaccine she received., bronchitis March 2023, hospitalized in April 2023 for nausea, vomiting ,dehydration &C diff states scheduled for TAVR at [facility] in June., See Cardiology H & P. History of Any Multi-Drug Resistant Organisms: C-DIFF Date of last positivie culture/infection: 04/17/23 MDRO Source:: stool Past Surgical History: Breast Surgery, Cardiac Ablation, Cholecystectomy, Heart Catheterization, Joint Replacement, Pacemaker Additional Past Surgical History / Comment(s): EPS WITH CARDIAC ABLATIONS, BILATERAL SIMPLE MASTECTOMIES( 1979)., BILATERAL TOTAL KNEE ARTHROPLASTIES, CATARACTS W/ LENS IMPLANTS, HYSTERECTOMY WITH BILATERAL SALPINGECTOMY OOPHORECTOMY, COLONOSCOPY., MEDTRONIC PACEMAKER. 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 Past Psychological History: No Psychological Hx Reported Additional Psychological History / Comment(s): . Smoking Status: Never smoker Past Alcohol Use History: None Reported Past Drug Use History: None Reported - Past Family History Father Family Medical History: No Reported History Additional Family Medical History / Comment(s): Father was healthy and lived to be 94 yrs old. Mother Family Medical History: Cancer Additional Family Medical History / Comment(s): Mother had breast cancer and so did 3 of her sisters. Daughter(s) Family Medical History: Cancer Additional Family Medical History / Comment(s): Olderst daughter from breast cancer. Medications and Allergies Home Medications Medication Instructions Recorded Confirmed Type Warfarin [Coumadin] 5 mg PO HS 11/17/20 11/25/24 History estradioL [Estrace] 0.5 mg PO DIRECTED 11/22/22 11/25/24 History Spironolactone [Aldactone] 25 mg PO DAILY 06/13/24 11/25/24 History Pantoprazole Sodium [Protonix] 40 mg PO DAILY 07/19/24 11/25/24 History Albuterol Sulfate [Ventolin HFA] 1 puff INHALATION RT-Q6H PRN 09/13/24 11/25/24 History traZODone HCL [Desyrel] 25 mg PO HS PRN 09/13/24 11/25/24 History Levothyroxine Sodium [Synthroid] 37.5 mcg PO DAILY@0630 #30 tab 10/10/24 11/25/24 Rx Bumetanide [BUMEX] 1 mg PO DAILY 11/25/24 11/25/24 History Metoprolol Tartrate [Lopressor] 25 mg PO BID 11/25/24 11/25/24 History guaiFENesin 200 mg PO TID 11/25/24 11/25/24 History Allergies Allergy/AdvReac Type Severity Reaction Status Date / Time meperidine HCl [From Demerol] AdvReac Nausea & Verified 11/25/24 14:29 Vomiting Physical Exam Vitals: Vital Signs Temp Pulse Pulse Resp BP BP Pulse Ox 11/26/24 07:17 97.4 F L 55 L 16 90/56 96 11/26/24 02:00 21 11/26/24 00:25 97.5 F L 60 16 91/55 95 11/25/24 20:00 60 24 11/25/24 19:16 97.6 F 60 15 104/63 96 11/25/24 15:00 97.7 F 60 17 101/69 93 L 11/25/24 14:13 98.1 F 60 18 102/63 96 11/25/24 13:20 60 18 105/65 96 11/25/24 11:51 60 16 103/70 96 11/25/24 11:07 60 20 99/61 95 11/25/24 10:29 97.5 F L 76 22 93/57 93 L Intake and Output 11/25/24 11/26/24 11/26/24 22:59 06:59 14:59 Output Total 250 480 Balance -250 -480 Output: Urine 250 480 Other: Weight 63.4 kg 61.9 kg Results 11/25/24 11:00 11/25/24 11:00 Cardiac Enzymes 11/25/24 11/25/24 Range/Units 11:00 11:00 AST 29 (14-36) U/L Troponin I 0.036 H* (0.000-0.034) ng/mL Coagulation 11/25/24 11/26/24 Range/Units 11:00 06:15 PT 27.1 H 30.5 H (10.0-12.5) sec APTT 35.3 H (22.0-30.0) sec CBC 11/25/24 Range/Units 11:00 WBC 5.60 (4.50-10.00) 10*3/uL RBC 3.64 L (4.10-5.20) 10*6/uL Hgb 13.1 (12.0-15.0) g/dL Hct 37.1 L (37.2-46.3) % Plt Count 108 L (140-440) 10*3/uL Comprehensive Metabolic Panel 11/25/24 Range/Units 11:00 Sodium 132 L (137-145) mmol/L Potassium 4.5 (3.5-5.1) mmol/L Chloride 94 L (98-107) mmol/L Carbon Dioxide 26 (22-30) mmol/L BUN 56 H (7-17) mg/dL Creatinine 1.42 H (0.52-1.04) mg/dL Glucose 140 H (74-99) mg/dL Calcium 9.4 (8.4-10.2) mg/dL AST 29 (14-36) U/L ALT 14 (4-34) U/L Alkaline Phosphatase 112 (38-126) U/L Total Protein 6.7 (6.3-8.2) g/dL Albumin 3.7 (3.5-5.0) g/dL Current Medications Generic Name Dose Route Start Last Admin Trade Name Freq PRN Reason Stop Dose Admin Albuterol Sulfate 2.5 mg 11/25/24 16:02 Albuterol Nebulized 2.5 Mg/3 Ml INHALATION RT-Q6H PRN Cough Bumetanide 1 mg 11/26/24 16:00 Bumetanide 1 Mg Tab PO BID@0900,1600 [facility] Dapagliflozin 10 mg 11/26/24 10:00 Dapagliflozin Propanediol 10 Mg Tablet PO DAILY [facility] Estradiol 0.5 mg 11/26/24 09:00 11/26/24 08:59 Estradiol 0.5 Mg Tab PO 0.5 mg MoWeFr LALITO Administration Levothyroxine Sodium 37.5 mcg 11/26/24 06:30 11/26/24 06:02 Levothyroxine 75 Mcg Tab PO 37.5 mcg DAILY@0630 [facility] Administration Metolazone 2.5 mg 11/26/24 09:30 Metolazone 2.5 Mg Tab PO DAILY [facility] Metoprolol Tartrate 25 mg 11/25/24 21:00 11/26/24 08:59 Metoprolol Tartrate 25 Mg Tab PO 25 mg BID [facility] Administration Miscellaneous Information 0 each 11/25/24 16:16 Warfarin Per Pharmacy MISCELLANE DIRECTED PRN ANTICOAG Naloxone HCl 0.2 mg 11/25/24 12:35 Naloxone 0.4 Mg/Ml 1 Ml Vial IV Q2M PRN Opioid Reversal Pantoprazole Sodium 40 mg 11/26/24 09:00 11/26/24 08:59 Pantoprazole 40 Mg Tablet PO 40 mg DAILY LALITO Administration Spironolactone 25 mg 11/26/24 09:00 11/26/24 08:59 Spironolactone 25 Mg Tab PO 25 mg DAILY LALITO Administration Trazodone HCl 25 mg 11/25/24 16:02 Trazodone Hcl 50 Mg Tab PO HS PRN Insomnia Warfarin Sodium 5 mg 11/25/24 21:00 11/25/24 20:07 Warfarin 5 Mg Tab PO 5 mg HS LALITO Administration Protocol Intake and Output 11/25/24 11/26/24 11/26/24 22:59 06:59 14:59 Output Total 250 480 Balance -250 -480 Output: Urine 250 480 Other: Weight 63.4 kg 61.9 kg 11/25/24 11:00 11/25/24 11:00
[2024-11-26] MEDS: DAPAGLIFLOZIN PROPANEDIOL 10 MG TABLET PO SCH (10:22)
[2024-11-26] MEDS: metOLazone 2.5 MG TAB PO SCH (10:22)
--- NOTE | 2024-11-26 12:25 | CA ---
Transthoracic Echo Report Name: Padmini John Age: 89 Gender: F : 1935 Exam Date: 11/26/2024 10:45 Exam Location: [place] [facility] Ht (in): 65 Wt (lb): 136 Ordering Physician: Ash Moran MD ([id number]) Attending/Referring Phys: Electrical Installation Supervisor Kitty Barraza RDCS Procedure CPT: Indications: pericardial effusion Cardiac Hx: limited study Technical Quality: Good Contrast 1: Total Dose (mL): Contrast 2: Total Dose (mL): MEASUREMENTS (Male / Female) Normal Values 2D ECHO LVOT Diameter 2.0 cm LA Systolic Diameter LX 7.4 cm 3.0 - 4.0 / 2.7 - 3.8 cm LV Diastolic Volume MOD BP 137.3 cm??? 67 - 155 / 56 - 104 cm??? LV Systolic Volume MOD BP 62.8 cm??? 22 - 58 / 19 - 49 cm??? LV Ejection Fraction MOD BP 54.2 % >= 55 % LV Cardiac Index MOD BP 2649.4 cm???/min???m??? LV Diastolic Volume MOD 4C 120.9 cm??? LV Systolic Volume MOD 4C 54.2 cm??? LV Ejection Fraction MOD 4C 55.1 % LV Cardiac Index MOD 4C 2372.5 cm???/min???m??? LV Diastolic Length 4C 6.0 cm LV Systolic Length 4C 5.9 cm LV Diastolic Volume MOD 2C 143.7 cm??? LV Systolic Volume MOD 2C 73.9 cm??? LV Ejection Fraction MOD 2C 48.6 % LV Cardiac Index MOD 2C 2483.5 cm???/min???m??? LV Diastolic Length 2C 6.6 cm LV Systolic Length 2C 5.8 cm LA Volume 416.4 cm??? 18 - 58 / 22 - 52 cm??? LA Volume Index 247.0 cm???/m??? 16 - 28 cm???/m??? DOPPLER AV Peak Velocity 155.2 cm/s AV Peak Gradient 9.6 mmHg AV Mean Velocity 95.8 cm/s AV Mean Gradient 4.4 mmHg AV Velocity Time Integral 29.5 cm AI Peak Velocity 300.7 cm/s AI Peak Gradient 36.2 mmHg AI Pressure Half Time 518.9 ms LVOT Peak Velocity 76.0 cm/s LVOT Peak Gradient 2.3 mmHg LVOT Velocity Time Integral 13.5 cm LVOT Stroke Volume 41.4 cm??? LVOT Stroke Volume Index 24.6 ml/m??? LVOT Cardiac Index 1472.0 cm???/min???m??? AV Area Cont Eq vti 1.4 cm??? AV Area Cont Eq pk 1.5 cm??? MV Peak Velocity 204.8 cm/s MV Peak Gradient 16.8 mmHg MV Mean Velocity 69.3 cm/s MV Mean Gradient 3.0 mmHg MV Velocity Time Integral 44.2 cm MV Area PHT 4.4 cm??? MR Peak Velocity 371.3 cm/s MR Peak Gradient 55.1 mmHg Mitral E Point Velocity 205.8 cm/s Mitral A Point Velocity 55.2 cm/s Mitral E to A Ratio 3.7 MV Deceleration Time 145.8 ms TV Peak Velocity 144.1 cm/s TR Peak Velocity 255.9 cm/s TR Peak Gradient 26.2 mmHg Right Ventricular Systolic Press 46.2 mmHg FINDINGS Left Ventricle Left ventricular ejection fraction is estimated at 45-50 %. No obvious regional wall motion abnormalities. Right Ventricle Moderate pulmonary hypertension. Right ventricular systolic pressure estimated at 46 mm hg. Right Atrium Severe right atrial dilatation. Left Atrium Severe left atrial dilatation. Mitral Valve Mitral valve thickened. Flail mitral valve. Severe mitral regurgitation. Aortic Valve Paravalvular aortic regurgitation. Tricuspid Valve Prosthetic tricuspid valve regurgitation. Pulmonic Valve Structurally normal pulmonic valve. Pericardium Small pericardial effusion. Left pleural effusion. Aorta CONCLUSIONS LVEF 45 to 50% RV dilatation with RVSP estimated at 46 mmHg Severe LA dilatation with elevated LA filling pressures Severe mitral regurgitation with prolapsed and flail and Moderate paravalvular leak from TAVR valve Prosthetic tricuspid valve in place Small loculated pericardial effusion, left posterior basal . Previewed by: Dr Ash Moran (Electronically Signed) Final Date: 26 November 2024 12:24
--- NOTE | 2024-11-26 16:00 | P.HPIM ---
History of Present Illness Chief Complaint: Shortness of breath History of present illness; 89-year-old female with history of TAVR, PPM, severe mitral regurgitation on 2 L of oxygen, atrial fibrillation on warfarin, presents to the hospital with complaints of shortness of breath on exertion, increased lower extremity edema and decreased urine output. She reports that her shortness of breath began last Tuesday and has progressively worsened. Patient dyspneic on speaking. She also endorses generalized weakness and a productive cough. Denies chest pain, palpitations, nausea, vomiting, and lightheadedness. Patient noted that she has had difficulty urinating for 1 day prior to admission, however after voiding in the hospital, she experienced some improvement in her urge shortness of breath. in the ED, lab work significant for BMP 10,600, troponin 0.036, BUN 56, creatinine 1.42, sodium 132, WBC 5.6, hemoglobin 13. Chest x-ray obtained significant for cardiomegaly with small bilateral pleural effusions and pulmonary vascular congestion, suggestive of CHF exacerbation. REVIEW OF SYSTEMS: As stated above in HPI. The rest of the 14-point review of systems is negative. PHYSICAL EXAMINATION: GENERAL: The patient is alert and oriented x3, dyspneic on speaking. HEENT: Pupils are round and equally reacting to light. EOMI. No scleral icterus. No conjunctival pallor. Normocephalic, atraumatic. CARDIOVASCULAR: S1 and S2 present. PULMONARY: Decreased lung sounds bilaterally. Mild crackles audible in bilateral bases, poor inspiratory effort. ABDOMEN: Soft, nontender. Positive bowel sounds. MUSCULOSKELETAL: No joint swelling or deformity. EXTREMITIES: Increased pedal edema extending up to knees bilaterally. NEUROLOGICAL: Gross neurological examination did not reveal any focal deficits. SKIN: No rashes. Assessment and Plan # Acute on chronic HFrEF exacerbation # Severe mitral regurgitation, due to flail anterior mitral leaflet awaiting MitraClip eval at [facility] # Status post tricuspid edward encore valve # Status post TAVR # Status post PPM # Persistent atrial fibrillation, currently rate controlled on warfarin therapy Continue Bumex 1 mg PO twice daily, Farxiga 10 mg, metoprolol 25 mg, Aldactone 25 mg, warfarin, as per cardiology - Echocardiogram obtained significant for LV EF 45 to 50%, RV dilatation with RVSP estimated at 46 mmHg, severely dilated patient with elevated LA filling pressure, severe mitral regurgitation. Moderate paravalvular leak from TAVR valve, prosthetic tricuspid valve in place. Small loculated pericardial effusion, left posterior basal. Cardiology on consult, appreciate further recommendations Monitor BMP daily - Monitor blood pressure - Monitor vitals F: None E: Replete as needed N: Heart healthy diet DVT ppx: Warfarin GI ppx: Protonix CODE STATUS: No code Dictation was produced using [employer] dictation software. please excuse any grammatical, word or spelling errors. London Hopkins MD PGY1 Internal Medicine Past Medical History Past Medical History: Atrial Fibrillation, Cancer, Pneumonia Additional Past Medical History / Comment(s): Breast cancer w/bilateral simple mastectomies (1979), squamous skin cancer., leaky mitral valve, occasional gout., hx of acute diverticulitis, pacemaker, tests positive for tb due to bcg vaccine she received., bronchitis March 2023, hospitalized in April 2023 for nausea, vomiting ,dehydration &C diff states [facility] See Cardiology H & P. History of Any Multi-Drug Resistant Organisms: C-DIFF Date of last positivie culture/infection: 04/17/23 MDRO Source:: stool Past Surgical History: Breast Surgery, Cardiac Ablation, Cholecystectomy, Heart Catheterization, Joint Replacement, Pacemaker Additional Past Surgical History / Comment(s): EPS WITH CARDIAC ABLATIONS, BILATERAL SIMPLE MASTECTOMIES( 1979)., BILATERAL TOTAL KNEE ARTHROPLASTIES, CATARACTS W/ LENS IMPLANTS, HYSTERECTOMY WITH BILATERAL SALPINGECTOMY OOPHORECTOMY, COLONOSCOPY., MEDTRONIC PACEMAKER. 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 Past Psychological History: No Psychological Hx Reported Additional Psychological History / Comment(s): . Smoking Status: Never smoker Past Alcohol Use History: None Reported Past Drug Use History: None Reported - Past Family History Father Family Medical History: No Reported History Additional Family Medical History / Comment(s): Father was healthy and lived to be 94 yrs old. Mother Family Medical History: Cancer Additional Family Medical History / Comment(s): Mother had breast cancer and so did 3 of her sisters. Daughter(s) Family Medical History: Cancer Additional Family Medical History / Comment(s): Olderst daughter from breast cancer. Medications and Allergies Home Medications Medication Instructions Recorded Confirmed Type Warfarin [Coumadin] 5 mg PO HS 11/17/20 11/25/24 History estradioL [Estrace] 0.5 mg PO DIRECTED 11/22/22 11/25/24 History Spironolactone [Aldactone] 25 mg PO DAILY 06/13/24 11/25/24 History Pantoprazole Sodium [Protonix] 40 mg PO DAILY 07/19/24 11/25/24 History Albuterol Sulfate [Ventolin HFA] 1 puff INHALATION RT-Q6H PRN 09/13/24 11/25/24 History traZODone HCL [Desyrel] 25 mg PO HS PRN 09/13/24 11/25/24 History Levothyroxine Sodium [Synthroid] 37.5 mcg PO DAILY@0630 #30 tab 10/10/24 11/25/24 Rx Bumetanide [BUMEX] 1 mg PO DAILY 11/25/24 11/25/24 History Metoprolol Tartrate [Lopressor] 25 mg PO BID 11/25/24 11/25/24 History guaiFENesin 200 mg PO TID 11/25/24 11/25/24 History Allergies Allergy/AdvReac Type Severity Reaction Status Date / Time meperidine HCl [From Demerol] AdvReac Nausea & Verified 11/25/24 14:29 Vomiting Physical Exam Vitals: Vital Signs Temp Pulse Resp BP Pulse Ox 11/26/24 07:17 97.4 F L 55 L 16 90/56 96 11/26/24 02:00 21 11/26/24 00:25 97.5 F L 60 16 91/55 95 11/25/24 20:00 60 24 11/25/24 19:16 97.6 F 60 15 104/63 96 11/25/24 15:00 97.7 F 60 17 101/69 93 L Intake and Output 11/25/24 11/26/24 11/26/24 22:59 06:59 14:59 Intake Total 240 Output Total 250 480 150 Balance -250 -480 90 Intake: Oral 240 Output: Urine 250 480 150 Other: Weight 63.4 kg 61.9 kg Results CBC & Chem 7: 11/25/24 11:00 11/25/24 11:00 Labs: Abnormal Lab Results - Last 24 Hours (Table) 11/26/24 Range/Units 06:15 PT 30.5 H (10.0-12.5) sec INR 3.1 H (<1.2) Thrombosis Risk Factor Assmnt - Choose All That Apply Each Risk Factor Represents 3 Points: Age 75 years or older Thrombosis Risk Factor Assessment Total Risk Factor Score: 3 Thrombosis Risk Factor Assessment Level: Moderate Risk
[2024-11-27 07:33] LABS: ALT 12 U/L (4-34); AST 32 U/L (14-36); African American GFR (CKD) 52 (>60 ml/min/1.73 sqM); Albumin 3.4 g/dL (3.5-5.0); Albumin/Globulin Ratio 1.1; Alkaline Phosphatase 105 U/L (38-126); Anion Gap 10 mmol/L; Blood Urea Nitrogen 53 mg/dL (7-17); Calcium 9.1 mg/dL (8.4-10.2); Carbon Dioxide 28 mmol/L (22-30); Chloride 94 mmol/L (98-107); Globulin 3.0 g/dL; Glucose 112 mg/dL (74-99); Non-African American GFR(CKD) 45 (>60 ml/min/1.73 sqM); Potassium 3.1 mmol/L (3.5-5.1); Sodium 132 mmol/L (137-145); Total Protein 6.4 g/dL (6.3-8.2)
[2024-11-27 07:38] LABS: INR 3.8 (<1.2); Prothrombin Time 37.1 sec (10.0-12.5)
[2024-11-27 07:55] LABS: Basophils # (A) 0.03 10*3/uL (0.00-0.10); Basophils % (A) 0.6 %; Eosinophils # (A) 0.11 10*3/uL (0.04-0.35); Eosinophils % (A) 2.4 %; HCT 37.0 % (37.2-46.3); HGB 12.5 g/dL (12.0-15.0); Lymphocytes # (A) 0.32 10*3/uL (0.90-5.00); Lymphocytes % (A) 6.9 %; MCH 34.6 pg (27.0-32.0); MCHC 33.8 g/dL (32.0-37.0); MCV 102.5 fL (80.0-97.0); Monocytes # (A) 0.41 10*3/uL (0.20-1.00); Monocytes % (A) 8.9 %; Neutrophils # (A) 3.73 10*3/uL (1.80-7.70); Neutrophils % (A) 80.8 %; Platelet Count 103 10*3/uL (140-440); RBC 3.61 10*6/uL (4.10-5.20); RDW 17.0 % (11.5-14.5); WBC 4.62 10*3/uL (4.50-10.00)
[2024-11-27] MEDS: POTASSIUM CHLORIDE ER 20 MEQ TAB.ER PO STA (10:00)
--- NOTE | 2024-11-27 14:22 | P.PN ---
Subjective Progress Note Date: 11/27/24 HISTORY OF PRESENTING ILLNESS: 89-year-old previously known to Dr. Sanders. Now under my care. She has prior history of TAVR, transcatheter tricuspid valve, severe mitral regurgitation, PPM, persistent atrial fibrillation Cardiology office for increased cough. She appeared euvolemic so we continued her diuretic regiment as Bumex 1 mg p.o. twice daily. She is very frail however, and is awaiting a severe mitral regurgitation evaluation and treatment at [facility] with a MitraClip. This time she presented to the hospital because of concerns of lower urine output than usual along with increased confusion. Her caregiver noticed this and was concerned for possible urinary tract infection. She is also getting more short of breath. On admission she was noticed to be retaining urine. Her creatinine and BUN were also noticed to be higher than usual. Last night since then she has had good urine output. She feels more oriented, less short of breath and her appetite has improved thereafter. Home medications include Bumex 1 twice daily, Jardiance 10, metoprolol 25 twice daily, Aldactone 25 daily, warfarin ........................................................................... ................................................................... Pertient Vitals: 91/55, heart rate 60 bpm Pertient Labs: Hb 13, INR 2.7, sodium 132, potassium 4.5, BUN 56, creatinine 1.4. Troponin of 0.03, NT-proBNP 10,000. NT-proBNP from 09/13/2024 was 5280. Creatinine from 10/10/2024 was 1. EKG: Atrial fibrillation with ventricularly paced rhythm Pertient Imaging: congestion in bilateral lower lung dominique on chest x-ray Last echo from 09/2020 shows an EF of 50-55, RVSP 47, severe left atrial dilatation, severe mitral regurgitation because of flail mitral leaflet, normally functioning bioprosthetic aortic valve, normally functioning tricuspid valve, small pericardial effusion. .......... ................................................................................ .................................................... 11/27/2024 Patient seen and examined. Blood pressures this morning 80/50 prior to that was running 94/57, heart rate in the 60s. Nursing to space out her morning medi cations. Patient states that her breathing and her lower extremity edema are better from yesterday. Repeat blood work reveals WBC 4.6, hemoglobin 12.5, platelet count 103, INR 3.8, sodium 132, potassium 4.1, BUN 53 creatinine 1.1. Echocardiogram reveals EF of 45 to 50%, RVSP 46 mmHg, severe LA dilatation and elevated LA filling pressures, severe mitral regurgitation and prolapse and flail and moderate cedeno valvular leak from TAVR valve, prosthetic tricuspid valve in place, small loculated pericardial effusion left posterior basal. Results of the echocardiogram reviewed with the patient and daughter at bedside. ............................................................................... ............................................................... PHYSICAL EXAMINATION: Neck: Brisk carotid upstroke,elevated JVP Lungs: Mild crackles audible in bilateral bases, poor inspiratory effort Heart: Irregular pulse, systolic murmur Abdomen: Soft nontender, positive bowel sounds. Extremities: 1+ pitting edema bilateral extremity Neuro: Alert, oritented, no focal deficits. Detailed neuro exam was not performed. ............................................................................. ................................................................. ASSESSMENT: # Acute on chronic HFrEF exacerbation # Severe mitral regurgitation, due to flail anterior mitral leaflet awaiting MitraClip eval at [facility] # Status post tricuspid edward encore valve # Status post TAVR # Status post PPM # Persistent atrial fibrillation, currently rate controlled on warfarin therapy PLAN: Continue Bumex 1 mg p.o. twice daily, and the addition of metolazone 2.5 mg daily Continue Farxiga 10 mg, metoprolol 25 twice daily, Aldactone 25 daily Continue Coumadin dosed by pharmacy Repeat kidney function tomorrow on current regimen Monitor blood pressure on this regimen. Nurse practitioner note has been reviewed, I agree with documented findings and plan of care. Patient was seen and examined. Objective - Vital Signs Vital signs: Vital Signs Temp 97.6 F 11/27/24 00:06 Pulse 62 11/27/24 02:00 Resp 17 11/27/24 00:06 BP 94/57 11/27/24 00:06 Pulse Ox 95 11/27/24 00:06 FiO2 Intake & Output 11/26/24 11/27/24 11/27/24 18:59 06:59 18:59 Intake Total 830 Output Total 520 960 Balance 310 -960 Weight 61.3 kg Intake: Oral 830 Output: Urine 520 960 Other: Voiding Method Toilet # Voids 0 - Labs CBC & Chem 7: 11/27/24 05:52 11/27/24 05:52 Labs: Abnormal Lab Results - Last 24 Hours (Table) 11/27/24 11/27/24 11/27/24 Range/Units 05:52 05:52 05:52 RBC 3.61 L (4.10-5.20) 10*6/uL Hct 37.0 L (37.2-46.3) % MCV 102.5 H (80.0-97.0) fL MCH 34.6 H (27.0-32.0) pg RDW 17.0 H (11.5-14.5) % Plt Count 103 L (140-440) 10*3/uL Lymphocytes # 0.32 L (0.90-5.00) 10*3/uL PT 37.1 H (10.0-12.5) sec INR 3.8 H (<1.2) Sodium 132 L (137-145) mmol/L Potassium 3.1 L (3.5-5.1) mmol/L Chloride 94 L (98-107) mmol/L BUN 53 H (7-17) mg/dL Creatinine 1.10 H (0.52-1.04) mg/dL Glucose 112 H (74-99) mg/dL Total Bilirubin 3.7 H (0.2-1.3) mg/dL Albumin 3.4 L (3.5-5.0) g/dL
--- NOTE | 2024-11-27 15:22 | P.PN ---
Subjective Subjective: 89-year-old female with history of TAVR, PPM, severe mitral regurgitation on 2 L of oxygen, atrial fibrillation on warfarin, presents to the hospital with complaints of shortness of breath on exertion, increased lower extremity edema and decreased urine output. She reports that her shortness of breath began last Tuesday and has progressively worsened. Patient dyspneic on speaking. She also endorses generalized weakness and a productive cough. Denies chest pain, palpitations, nausea, vomiting, and lightheadedness. Patient noted that she has had difficulty urinating for 1 day prior to admission, however after voiding in the hospital, she experienced some improvement in her urge shortness of breath. in the ED, lab work significant for BMP 10,600, troponin 0.036, BUN 56, creatinine 1.42, sodium 132, WBC 5.6, hemoglobin 13. Chest x-ray obtained significant for cardiomegaly with small bilateral pleural effusions and pulmonary vascular congestion, suggestive of CHF exacerbation. 11/27: Patient seen at bedside. Dyspneic on speaking. Reports feeling better since yesterday. No complaints of urinary symptoms. Pertinent positives and negatives discussed above, a complete review of systems was preformed and all the other sytems were negative. Vitals Signs Reviewed. PHYSICAL EXAMINATION: GENERAL: The patient is alert and oriented x3, dyspneic on speaking. HEENT: Pupils are round and equally reacting to light. EOMI. No scleral icterus. No conjunctival pallor. Normocephalic, atraumatic. CARDIOVASCULAR: S1 and S2 present. PULMONARY: Decreased lung sounds bilaterally. Mild crackles audible in bilateral bases, poor inspiratory effort. ABDOMEN: Soft, nontender. Positive bowel sounds. MUSCULOSKELETAL: No joint swelling or deformity. EXTREMITIES: +3 pedal edema extending up to knees bilaterally. NEUROLOGICAL: Gross neurological examination did not reveal any focal deficits. SKIN: No rashes. Data Reviewed Today: 11/27/2024 Patient Labs: WBC 4.62, hemoglobin 12.5, sodium 132, potassium 3.1, creatinine 1.10, Assessment and Plan # Acute on chronic HFrEF exacerbation # Severe mitral regurgitation, due to flail anterior mitral leaflet awaiting MitraClip eval at [facility] # Status post tricuspid edward encore valve # Status post TAVR # Status post PPM # Persistent atrial fibrillation, currently rate controlled on warfarin therapy Continue Bumex 1 mg PO twice daily, Farxiga 10 mg, metoprolol 25 mg, Aldactone 25 mg, warfarin, as per cardiology - Echocardiogram obtained significant for LV EF 45 to 50%, RV dilatation with RVSP estimated at 46 mmHg, severely dilated patient with elevated LA filling pressure, severe mitral regurgitation. Moderate paravalvular leak from TAVR valve, prosthetic tricuspid valve in place. Small loculated pericardial effusion, left posterior basal. Cardiology on consult, appreciate further recommendations Monitor BMP daily - Monitor blood pressure - Monitor vitals F: None E: Replete potassium. N: Heart healthy diet DVT ppx: Warfarin GI ppx: Protonix CODE STATUS: No code Dictation was produced using [employer] dictation software. please excuse any grammatical, word or spelling errors. London Hopkins MD PGY1 Internal Medicine Objective - Vital Signs Vital signs: Vital Signs Temp 97.6 F 11/27/24 00:06 Pulse 62 11/27/24 02:00 Resp 17 11/27/24 00:06 BP 94/57 11/27/24 00:06 Pulse Ox 95 11/27/24 00:06 FiO2 Intake & Output 11/26/24 11/27/24 11/27/24 18:59 06:59 18:59 Intake Total 830 Output Total 520 960 Balance 310 -960 Weight 61.3 kg Intake: Oral 830 Output: Urine 520 960 Other: Voiding Method Toilet # Voids 0 - Labs CBC & Chem 7: 11/27/24 05:52 11/27/24 05:52 Labs: Abnormal Lab Results - Last 24 Hours (Table) 11/27/24 11/27/24 11/27/24 Range/Units 05:52 05:52 05:52 RBC 3.61 L (4.10-5.20) 10*6/uL Hct 37.0 L (37.2-46.3) % MCV 102.5 H (80.0-97.0) fL MCH 34.6 H (27.0-32.0) pg RDW 17.0 H (11.5-14.5) % Plt Count 103 L (140-440) 10*3/uL Lymphocytes # 0.32 L (0.90-5.00) 10*3/uL PT 37.1 H (10.0-12.5) sec INR 3.8 H (<1.2) Sodium 132 L (137-145) mmol/L Potassium 3.1 L (3.5-5.1) mmol/L Chloride 94 L (98-107) mmol/L BUN 53 H (7-17) mg/dL Creatinine 1.10 H (0.52-1.04) mg/dL Glucose 112 H (74-99) mg/dL Total Bilirubin 3.7 H (0.2-1.3) mg/dL Albumin 3.4 L (3.5-5.0) g/dL
[2024-11-27] MEDS: WARFARIN 0.5 MG TAB PO ONE (17:49)
[2024-11-28 05:24] LABS: Basophils # (A) 0.04 10*3/uL (0.00-0.10); Basophils % (A) 0.9 %; Eosinophils # (A) 0.12 10*3/uL (0.04-0.35); Eosinophils % (A) 2.7 %; HCT 36.9 % (37.2-46.3); HGB 12.9 g/dL (12.0-15.0); Lymphocytes # (A) 0.32 10*3/uL (0.90-5.00); Lymphocytes % (A) 7.1 %; MCH 36.1 pg (27.0-32.0); MCHC 35.0 g/dL (32.0-37.0); MCV 103.4 fL (80.0-97.0); Monocytes # (A) 0.44 10*3/uL (0.20-1.00); Monocytes % (A) 9.8 %; Neutrophils # (A) 3.57 10*3/uL (1.80-7.70); Neutrophils % (A) 79.3 %; Platelet Count 104 10*3/uL (140-440); RBC 3.57 10*6/uL (4.10-5.20); RDW 17.0 % (11.5-14.5); WBC 4.50 10*3/uL (4.50-10.00)
[2024-11-28 05:46] LABS: ALT 12 U/L (4-34); AST 34 U/L (14-36); African American GFR (CKD) 57 (>60 ml/min/1.73 sqM); Albumin 3.4 g/dL (3.5-5.0); Albumin/Globulin Ratio 1.1; Alkaline Phosphatase 106 U/L (38-126); Anion Gap 13 mmol/L; Blood Urea Nitrogen 53 mg/dL (7-17); Calcium 9.1 mg/dL (8.4-10.2); Carbon Dioxide 30 mmol/L (22-30); Chloride 90 mmol/L (98-107); Globulin 3.1 g/dL; Glucose 114 mg/dL (74-99); Non-African American GFR(CKD) 50 (>60 ml/min/1.73 sqM); Potassium 2.9 mmol/L (3.5-5.1); Sodium 133 mmol/L (137-145); Total Protein 6.5 g/dL (6.3-8.2)
[2024-11-28 05:56] LABS: INR 5.0 (<1.2); Prothrombin Time 49.5 sec (10.0-12.5)
[2024-11-28] MEDS: POTASSIUM CHLORIDE ER 20 MEQ TAB.ER PO STA ×2 (08:16→10:35)
[2024-11-28 08:28] VITALS: RESP 17
--- NOTE | 2024-11-28 11:28 | P.PN ---
Subjective Progress Note Date: 11/28/24 HISTORY OF PRESENTING ILLNESS: 89-year-old previously known to Dr. Sanders. Now under my care. She has prior history of TAVR, transcatheter tricuspid valve, severe mitral regurgitation, PPM, persistent atrial fibrillation Cardiology office for increased cough. She appeared euvolemic so we continued her diuretic regiment as Bumex 1 mg p.o. twice daily. She is very frail however, and is awaiting a severe mitral regurgitation evaluation and treatment at [facility] with a MitraClip. This time she presented to the hospital because of concerns of lower urine output than usual along with increased confusion. Her caregiver noticed this and was concerned for possible urinary tract infection. She is also getting more short of breath. On admission she was noticed to be retaining urine. Her creatinine and BUN were also noticed to be higher than usual. Last night since then she has had good urine output. She feels more oriented, less short of breath and her appetite has improved thereafter. Home medications include Bumex 1 twice daily, Jardiance 10, metoprolol 25 twice daily, Aldactone 25 daily, warfarin ........................................................................... ................................................................... Pertient Vitals: 91/55, heart rate 60 bpm Pertient Labs: Hb 13, INR 2.7, sodium 132, potassium 4.5, BUN 56, creatinine 1.4. Troponin of 0.03, NT-proBNP 10,000. NT-proBNP from 09/13/2024 was 5280. Creatinine from 10/10/2024 was 1. EKG: Atrial fibrillation with ventricularly paced rhythm Pertient Imaging: congestion in bilateral lower lung dominique on chest x-ray Last echo from 09/2020 shows an EF of 50-55, RVSP 47, severe left atrial dilatation, severe mitral regurgitation because of flail mitral leaflet, normally functioning bioprosthetic aortic valve, normally functioning tricuspid valve, small pericardial effusion. .......... ................................................................................ .................................................... 11/27/2024 Patient seen and examined. Blood pressures this morning 80/50 prior to that was running 94/57, heart rate in the 60s. Nursing to space out her morning medi cations. Patient states that her breathing and her lower extremity edema are better from yesterday. Repeat blood work reveals WBC 4.6, hemoglobin 12.5, platelet count 103, INR 3.8, sodium 132, potassium 4.1, BUN 53 creatinine 1.1. Echocardiogram reveals EF of 45 to 50%, RVSP 46 mmHg, severe LA dilatation and elevated LA filling pressures, severe mitral regurgitation and prolapse and flail and moderate cedeno valvular leak from TAVR valve, prosthetic tricuspid valve in place, small loculated pericardial effusion left posterior basal. Results of the echocardiogram reviewed with the patient and daughter at bedside. 11/28/2024 Patient seen and examined. Breathing is currently stable for her. Patient states that her breathing is much better. She states she was able to walk the length of the hallway yesterday which is an accomplishment for her. Blood pressure 89/51, heart rate in the 60s, pulse ox is 95% on 3 L nasal cannula. Repeat blood work reveals potassium of 2.9 and has been replaced, hemoglobin 12.9, BUN 53 creatinine 1.02. Patient's daughter states that patient has a video call today with [facility] regarding medication management for the heart failure team to optimize prior to surgery. She also has follow-up early next week with the mitral valve clinical trial team to ensure that she is a good candidate. Following approval, patient will need to be scheduled out 45 days before surgery. ................................................................... ........................................................................... PHYSICAL EXAMINATION: Neck: Brisk carotid upstroke,elevated JVP Lungs: Mild crackles audible in bilateral bases, poor inspiratory effort Heart: Irregular pulse, systolic murmur Abdomen: Soft nontender, positive bowel sounds. Extremities: 1+ pitting edema bilateral extremity Neuro: Alert, oritented, no focal deficits. Detailed neuro exam was not performed. ................................................................. ............................................................................. ASSESSMENT: # Acute on chronic HFrEF exacerbation # Severe mitral regurgitation, due to flail anterior mitral leaflet awaiting MitraClip eval at [facility] # Status post tricuspid edward encore valve # Status post TAVR # Status post PPM # Persistent atrial fibrillation, currently rate controlled on warfarin therapy PLAN: Continue Bumex 1 mg p.o. twice daily, and the addition of metolazone 2.5 mg daily Continue Farxiga 10 mg, metoprolol 25 twice daily, Aldactone 25 daily Continue Coumadin dosed by pharmacy Patient is cleared for discharge from cardiology and will follow-up in the office with Dr. Moran in 1 week. Nurse practitioner note has been reviewed, I agree with documented findings and plan of care. Patient was seen and examined. Objective - Vital Signs Vital signs: Vital Signs Temp 97.5 F L 11/28/24 07:00 Pulse 65 11/28/24 07:00 Resp 17 11/28/24 07:00 BP 89/51 11/28/24 07:00 Pulse Ox 95 11/28/24 07:00 FiO2 Intake & Output 11/27/24 11/28/24 11/28/24 18:59 06:59 18:59 Intake Total 150 Output Total 1050 600 Balance -900 -600 Intake: Oral 150 Output: Urine 1050 600 Other: Voiding Method Toilet Toilet # Voids 1 - Labs CBC & Chem 7: 11/28/24 04:45 11/28/24 04:45 Labs: Abnormal Lab Results - Last 24 Hours (Table) 11/28/24 11/28/24 11/28/24 Range/Units 04:45 04:45 04:45 RBC 3.57 L (4.10-5.20) 10*6/uL Hct 36.9 L (37.2-46.3) % MCV 103.4 H (80.0-97.0) fL MCH 36.1 H (27.0-32.0) pg RDW 17.0 H (11.5-14.5) % Plt Count 104 L (140-440) 10*3/uL Lymphocytes # 0.32 L (0.90-5.00) 10*3/uL PT 49.5 H (10.0-12.5) sec INR 5.0 H (<1.2) Sodium 133 L (137-145) mmol/L Potassium 2.9 L (3.5-5.1) mmol/L Chloride 90 L (98-107) mmol/L BUN 53 H (7-17) mg/dL Glucose 114 H (74-99) mg/dL Total Bilirubin 3.4 H (0.2-1.3) mg/dL Albumin 3.4 L (3.5-5.0) g/dL
[2024-11-28] MEDS ORDERED: POTASSIUM CHLORIDE ER 20 MEQ TAB.ER PO PRN (11:49)
[2024-11-28 14:41] VITALS: BP 86/61; PULSE 68; TEMP 97.7
--- NOTE | 2024-11-28 17:21 | P.DS ---
Providers Date of admission: 11/25/24 12:36 Attending physician: Homar Miller MD Consults: 11/25/24 12:35 Consult Physician Urgent Consulting Provider: [facility] Consult Reason/Comments: CHF exacerbation Do you want consulting provider notified?: Yes, Notify in am Primary care physician: Barrett Driver Hospital Course: Discharge Diagnosis: # Acute on chronic HFrEF exacerbation # Severe mitral regurgitation, due to flail anterior mitral leaflet awaiting MitraClip eval at [facility] # Status post tricuspid valve # Status post TAVR # Status post PPM # Persistent atrial fibrillation, currently rate controlled on warfarin therapy Hospital Course: 89-year-old female with history of TAVR, PPM, severe mitral regurgitation on 2 L of oxygen, atrial fibrillation on warfarin, presents to the hospital with complaints of shortness of breath on exertion, increased lower extremity edema and decreased urine output. She reports that her shortness of breath began last Tuesday and has progressively worsened. Patient dyspneic on speaking. She also endorses generalized weakness and a productive cough. Denies chest pain, palpitations, nausea, vomiting, and lightheadedness. Patient noted that she has had difficulty urinating for 1 day prior to admission, however after voiding in the hospital, she experienced some improvement in her urge shortness of breath. in the ED, lab work significant for BMP 10,600, troponin 0.036, BUN 56, creatinine 1.42, sodium 132, WBC 5.6, hemoglobin 13. Chest x-ray obtained significant for cardiomegaly with small bilateral pleural effusions and pulmonary vascular congestion, suggestive of CHF exacerbation. During the course of her hospital stay, patient evaluated and reviewed by cardiology. An echocardiogram obtained significant for LVEF 45 to 50%, RV dilatation with RVSP estimated at 46 mmHg. Severe LA dilatation with elevated LA filling pressures. Severe mitral regurgitation with prolapse and flail and moderate paravalvular leak from TAVR valve. Prosthetic tricuspid valve in place, small loculated pericardial effusions, mostly in left posterior basal. Medications optimized and reviewed. Patient started on metolazone 2.5 mg daily. Kidney function monitored for derangement. Urinary output monitored for obstruction. Patient able to void appropriately. At time of discharge, patient is hemodynamically stable for discharge to [facility] Patient to follow-up with cardiology and PCP in 1 week's time. Patient seen and examined at bedside. 11/28/2024 Vital signs reviewed and stable. PHYSICAL EXAMINATION: GENERAL: The patient is alert and oriented x3, dyspneic on speaking. HEENT: Pupils are round and equally reacting to light. EOMI. No scleral icterus. No conjunctival pallor. Normocephalic, atraumatic. CARDIOVASCULAR: S1 and S2 present. PULMONARY: Decreased lung sounds bilaterally. Mild crackles audible in bilateral bases, poor inspiratory effort. ABDOMEN: Soft, nontender. Positive bowel sounds. MUSCULOSKELETAL: No joint swelling or deformity. EXTREMITIES: Increased pedal edema extending up to knees bilaterally. NEUROLOGICAL: Gross neurological examination did not reveal any focal deficits. SKIN: No rashes. A total of patient and 30 minutes of time were spent preparing this complex discharge summary. Patient was discharged on 11/28/2024 Patient Condition at Discharge: Fair Plan - Discharge Summary Discharge Rx Participant: No New Discharge Prescriptions: No Action Warfarin [Coumadin] 5 mg PO HS Pantoprazole Sodium [Protonix] 40 mg PO DAILY Albuterol Sulfate [Ventolin HFA] 1 puff INHALATION RT-Q6H PRN PRN Reason: Cough Bumetanide [BUMEX] 1 mg PO DAILY estradioL [Estrace] 0.5 mg PO DIRECTED Spironolactone [Aldactone] 25 mg PO DAILY traZODone HCL [Desyrel] 25 mg PO HS PRN PRN Reason: Insomnia Levothyroxine Sodium [Synthroid] 37.5 mcg PO DAILY@0630 #30 tab Metoprolol Tartrate [Lopressor] 25 mg PO BID guaiFENesin 200 mg PO TID Discharge Medication List Warfarin [Coumadin] 5 mg PO HS 11/17/20 [History] estradioL [Estrace] 0.5 mg PO DIRECTED 11/22/22 [History] Spironolactone [Aldactone] 25 mg PO DAILY 06/13/24 [History] Pantoprazole Sodium [Protonix] 40 mg PO DAILY 07/19/24 [History] Albuterol Sulfate [Ventolin HFA] 1 puff INHALATION RT-Q6H PRN 09/13/24 [History] traZODone HCL [Desyrel] 25 mg PO HS PRN 09/13/24 [History] Levothyroxine Sodium [Synthroid] 37.5 mcg PO DAILY@0630 #30 tab 10/10/24 [Rx] Bumetanide [BUMEX] 1 mg PO DAILY 11/25/24 [History] Metoprolol Tartrate [Lopressor] 25 mg PO BID 11/25/24 [History] guaiFENesin 200 mg PO TID 11/25/24 [History] Follow up Appointment(s)/Referral(s): Barrett Driver MD [Primary Care Provider] - 1-2 days
[2024-11-28] MEDS ORDERED: WARFARIN 0.5 MG TAB PO ONE (18:00)
== END 2024-11-28 16:42 | disposition home or self-care (01) ==
LOC: EC 10:24 → 6NMEDSUR 12:36
PROVIDERS: ADMIT Internal Medicine; ATTEND Internal Medicine
DX: I50.23 Acute on chronic systolic (congestive) heart failure (principal); I48.19 Other persistent atrial fibrillation; T82.03XA Leakage of heart valve prosthesis, initial encounter; I08.1 Rheumatic disorders of both mitral and tricuspid valves; R41.0 Disorientation, unspecified; Z79.01 Long term (current) use of anticoagulants; Z79.84 Long term (current) use of oral hypoglycemic drugs; Z79.890 Hormone replacement therapy; Z79.899 Other long term (current) drug therapy; Z88.5 Allergy status to narcotic agent; Z11.52 Encounter for screening for COVID-19; Z11.59 Encounter for screening for other viral diseases; Z95.2 Presence of prosthetic heart valve; Z95.0 Presence of cardiac pacemaker
CPT/HCPCS: 96374; 99285; 36415; 93005; 93308; 97162; 97165; 83880; 80053 ×3; 83735; 84132; 84484; 85025 ×3; 85610 ×4; 85730; 87636; 71046; G0378 ×4; J1938

== ENCOUNTER 2024-12-04 09:03 | Inpatient (IN) | payer MEDICARE, BC ==
[2024-12-04 10:23] LABS: Basophils # (A) 0.03 10*3/uL (0.00-0.10); Basophils % (A) 0.7 %; Eosinophils # (A) 0.03 10*3/uL (0.04-0.35); Eosinophils % (A) 0.7 %; HCT 39.2 % (37.2-46.3); HGB 13.7 g/dL (12.0-15.0); Lymphocytes # (A) 0.30 10*3/uL (0.90-5.00); Lymphocytes % (A) 6.7 %; MCH 35.5 pg (27.0-32.0); MCHC 34.9 g/dL (32.0-37.0); MCV 101.6 fL (80.0-97.0); Monocytes # (A) 0.40 10*3/uL (0.20-1.00); Monocytes % (A) 8.9 %; Neutrophils # (A) 3.74 10*3/uL (1.80-7.70); Neutrophils % (A) 82.8 %; Platelet Count 118 10*3/uL (140-440); RBC 3.86 10*6/uL (4.10-5.20); RDW 17.0 % (11.5-14.5); WBC 4.51 10*3/uL (4.50-10.00)
[2024-12-04 10:34] LABS: INR 2.6 (<1.2); Partial Thromboplastin Time 34.7 sec (22.0-30.0); Prothrombin Time 25.9 sec (10.0-12.5)
[2024-12-04 10:36] LABS: ALT 12 U/L (4-34); AST 35 U/L (14-36); African American GFR (CKD) 67 (>60 ml/min/1.73 sqM); Albumin 3.6 g/dL (3.5-5.0); Alkaline Phosphatase 100 U/L (38-126); Blood Urea Nitrogen 59 mg/dL (7-17); Calcium 9.0 mg/dL (8.4-10.2); Chloride 85 mmol/L (98-107); Glucose 108 mg/dL (74-99); Magnesium 2.0 mg/dL (1.6-2.3); Non-African American GFR(CKD) 58 (>60 ml/min/1.73 sqM); Sodium 135 mmol/L (137-145); Total Protein 6.6 g/dL (6.3-8.2)
[2024-12-04 10:44] LABS: Anion Gap 15 mmol/L; Carbon Dioxide 35 mmol/L (22-30)
[2024-12-04 10:47] LABS: Potassium 2.4 mmol/L (3.5-5.1)
[2024-12-04] MEDS ORDERED: Potassium Replacement Protocol 1 EACH MISC MISCELLANE PRN (10:56)
--- NOTE | 2024-12-04 11:09 | ED ---
Weakness HPI - General Chief complaint: Weakness Stated complaint: Low potassium, dehydration Time Seen by Provider: 12/04/24 09:19 Source: patient, family, RN notes reviewed Mode of arrival: wheelchair Limitations: no limitations - History of Present Illness Initial comments: This an 89-year-old female presents emergency department with family for evalu ation of hypokalemia. Patient has had issues on and off of this secondary to multiple diuretics with a history of CHF. Patient had increasing confusion over the last couple days which they seem to happen when she becomes dehydrated but also with hypokalemia. They state they received a phone call stating that her potassium was 2.2. Daughter states that she stopped taking all of her medications and the last couple days they have noticed increased leg swelling no increased difficulty breathing. - Related Data Home Medications Medication Instructions Recorded Confirmed Warfarin [Coumadin] 5 mg PO HS 11/17/20 12/04/24 estradioL [Estrace] 0.5 mg PO DIRECTED 11/22/22 12/04/24 Spironolactone [Aldactone] 25 mg PO DAILY 06/13/24 12/04/24 Pantoprazole Sodium [Protonix] 40 mg PO DAILY 07/19/24 12/04/24 Albuterol Sulfate [Ventolin HFA] 1 puff INHALATION RT-Q6H PRN 09/13/24 12/04/24 Metoprolol Tartrate [Lopressor] 25 mg PO BID 11/25/24 12/04/24 Benzonatate [Tessalon Perles] 100 mg PO BID PRN 12/04/24 12/04/24 Previous Rx's Medication Instructions Recorded Levothyroxine Sodium [Synthroid] 37.5 mcg PO DAILY@0630 #30 tab 10/10/24 Bumetanide [BUMEX] 1 mg PO BID #0 11/28/24 metOLazone [Zaroxolyn] 2.5 mg PO DAILY 30 Days #30 tab 11/28/24 Allergies Allergy/AdvReac Type Severity Reaction Status Date / Time meperidine HCl [From Demerol] AdvReac Nausea & Verified 12/04/24 14:05 Vomiting Review of Systems ROS Statement: Those systems with pertinent positive or pertinent negative responses have been documented in the HPI. ROS Other: All systems not noted in ROS Statement are negative. Past Medical History Past Medical History: Atrial Fibrillation, Cancer, Heart Failure, Pneumonia Additional Past Medical History / Comment(s): Breast cancer w/bilateral simple mastectomies (1979), squamous skin cancer., leaky mitral valve, occasional gout., hx of acute diverticulitis, pacemaker, tests positive for tb due to bcg vaccine she received., bronchitis March 2023, hospitalized in April 2023 for nausea, vomiting ,dehydration &C diff states [facility] See Cardiology [facility] & [facility]. History of Any Multi-Drug Resistant Organisms: C-DIFF Date of last positivie culture/infection: 04/17/23 MDRO Source:: stool Past Surgical History: Breast Surgery, Cardiac Ablation, Cholecystectomy, Heart Catheterization, Joint Replacement, Pacemaker Additional Past Surgical History / Comment(s): EPS WITH CARDIAC ABLATIONS, BILATERAL SIMPLE MASTECTOMIES( 1979)., BILATERAL TOTAL KNEE ARTHROPLASTIES, CATARACTS W/ LENS IMPLANTS, HYSTERECTOMY WITH BILATERAL SALPINGECTOMY OOPHORECTOMY, COLONOSCOPY., [employer] PACEMAKER. 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 Past Psychological History: No Psychological Hx Reported Smoking Status: Never smoker Past Alcohol Use History: None Reported Past Drug Use History: None Reported - Past Family History Father Family Medical History: No Reported History Additional Family Medical History / Comment(s): Father was healthy and lived to be 94 yrs old. Mother Family Medical History: Cancer Additional Family Medical History / Comment(s): Mother had breast cancer and so did 3 of her sisters. Daughter(s) Family Medical History: Cancer Additional Family Medical History / Comment(s): Olderst daughter from breast cancer. General Exam Limitations: no limitations General appearance: alert, in no apparent distress Head exam: Present: atraumatic, normocephalic, normal inspection Eye exam: Present: normal appearance, PERRL, EOMI. Absent: scleral icterus, conjunctival injection, periorbital swelling ENT exam: Present: normal exam, normal oropharynx, mucous membranes moist Neck exam: Present: normal inspection, full ROM. Absent: tenderness, meningismus, lymphadenopathy Respiratory exam: Present: normal lung sounds bilaterally. Absent: respiratory distress, wheezes, rales, rhonchi, stridor Cardiovascular Exam: Present: regular rate, normal rhythm, normal heart sounds. Absent: systolic murmur, diastolic murmur, rubs, gallop, clicks GI/Abdominal exam: Present: soft, normal bowel sounds. Absent: distended, tenderness, guarding, rebound, rigid Extremities exam: Present: pedal edema Neurological exam: Present: alert Skin exam: Present: warm, dry, intact, normal color. Absent: rash Course Vital Signs 12/04/24 12/04/24 12/04/24 09:11 09:24 10:10 Temperature 97.7 F Pulse Rate 61 63 60 Respiratory 16 16 Rate Blood Pressure 99/58 96/62 O2 Sat by Pulse 92 L 95 Oximetry 12/04/24 12:41 Temperature Pulse Rate 61 Respiratory 16 Rate Blood Pressure 99/59 O2 Sat by Pulse 95 Oximetry EKG Findings - EKG Comments: EKG Findings:: EKG performed at 9: 33 ventricular paced at a rate of 63 QRS 202 QT/QTc 41/448 - EKG Results: EKG: interpreted by NICHOLAS Medical Decision Making - Medical Decision Making Was pt. sent in by a medical professional or institution (Dr. PA, KIT PLANNER, urgent care, hospital, or halfway...) When possible be specific @ -[PCP Did you speak to anyone other than the patient for history (EMS, parent, family, police, friend...)? What history was obtained from this source @ -Family providing past medical history and current complaint Did you review nursing and triage notes (agree or disagree)? Why? @ -I reviewed and agree with nursing and triage notes Were old charts reviewed (outside hosp., previous admission, EMS record, old EKG, old radiological studies, urgent care reports/EKG's, halfway records)? Report findings @ -No old charts were reviewed Differential Diagnosis (chest pain, altered mental status, abdominal pain women, abdominal pain men, vaginal bleeding, weakness, fever, dyspnea, syncope, headache, dizziness, GI bleed, back pain, seizure, CVA, palpatations, mental health, musculoskeletal)? @ -Differential Weakness: Hypoglycemia, shock, sepsis, hyponatremia, anemia, infection, VA, ETOH, adverse medicine reaction, overdose, stroke, this is not meant to be an all-inclusive l ist. EKG interpreted by me (3pts min.). @ -As above X-rays interpreted by me (1pt min.). @ -Chest x-ray shows pulmonary edema CT interpreted by me (1pt min.). @ -None done U/S interpreted by me (1pt. min.). @ -None done What testing was considered but not performed or refused? (CT, X-rays, U/S, lab s)? Why? @ -None What meds were considered but not given or refused? Why? @ -None Did you discuss the management of the patient with other professionals (professionals i.e. , PA, KIT PLANNER, lab, RT, psych nurse, social work assistant, motorcycle engine assembler, teacher, science and operations officer, showcase trimmer)? Give summary @ -Dr. Obrien with [facility] for admission Was smoking cessation discussed for >3mins.? @ -No Was critical care preformed (if so, how long)? @ -[35 mins Were there social determinants of health that impacted care today? How? (Homelessness, low income, unemployed, alcoholism, drug addiction, transportation, low edu. Level, literacy, decrease access to med. care, group home, rehab)? @ -No Was there de-escalation of care discussed even if they declined (Discuss DNR or withdrawal of care, Hospice)? DNR status @ -No What co-morbidities impacted this encounter? (DM, HTN, Smoking, COPD, CAD, Cancer, CVA, ARF, Chemo, Hep., AIDS, mental health diagnosis, sleep apnea, morbid obesity)? @ -CHF Was patient admitted / discharged? Hospital course, mention meds given and route, prescriptions, significant lab abnormalities, going to OR and other pertinent info. @ -Admitted patient found to have potassium 2.4. Replacement was ordered. Patient also has pulmonary edema patient will have mild diuresis recheck laboratory studies and cardiology evaluation Undiagnosed new problem with uncertain prognosis? @ -No Drug Therapy requiring intensive monitoring for toxicity (Heparin, Nitro, Insulin, Cardizem)? @ -No Were any procedures done? @ -No Diagnosis/symptom? @ -CHF hypokalemia Acute, or Chronic, or Acute on Chronic? @ -Acute Uncomplicated (without systemic symptoms) or Complicated (systemic symptoms)? @ -Complicated Side effects of treatment? @ -No Exacerbation, Progression, or Severe Exacerbation? @ -No Poses a threat to life or bodily function? How? (Chest pain, USA, VA, pneumonia, PE, COPD, DKA, ARF, appy, cholecystitis, CVA, Diverticulitis, Homicidal, Suicidal, threat to staff... and all critical care pts) @ -Yes this threat to cardiac function - Lab Data Result diagrams: 12/04/24 10:10 12/04/24 10:10 Lab Results 12/04/24 12/04/24 12/04/24 Range/Units 10:10 10:10 10:10 WBC 4.51 (4.50-10.00) 10*3/uL RBC 3.86 L (4.10-5.20) 10*6/uL Hgb 13.7 (12.0-15.0) g/dL Hct 39.2 (37.2-46.3) % MCV 101.6 H (80.0-97.0) fL MCH 35.5 H (27.0-32.0) pg MCHC 34.9 (32.0-37.0) g/dL Plt Count 118 L (140-440) 10*3/uL MPV 10.7 (9.5-12.2) fL Immature Gran % (Auto) 0.2 % Neutrophils % 82.8 % Lymphocytes % 6.7 % Monocytes % 8.9 % Eosinophils % 0.7 % Basophils % 0.7 % Immature Gran # 0.01 (0.00-0.04) 10*3/uL Neutrophils # 3.74 (1.80-7.70) 10*3/uL Lymphocytes # 0.30 L (0.90-5.00) 10*3/uL Monocytes # 0.40 (0.20-1.00) 10*3/uL Eosinophils # 0.03 L (0.04-0.35) 10*3/uL Basophils # 0.03 (0.00-0.10) 10*3/uL PT 25.9 H (10.0-12.5) sec INR 2.6 H (<1.2) APTT 34.7 H (22.0-30.0) sec Sodium 135 L (137-145) mmol/L Potassium 2.4 L* (3.5-5.1) mmol/L Chloride 85 L (98-107) mmol/L Carbon Dioxide 35 H (22-30) mmol/L Anion Gap 15 mmol/L BUN 59 H (7-17) mg/dL Creatinine 0.90 (0.52-1.04) mg/dL Est GFR (CKD-EPI)AfAm 67 (>60 ml/min/1.73 sqM) Est GFR (CKD-EPI)NonAf 58 (>60 ml/min/1.73 sqM) Glucose 108 H (74-99) mg/dL Calcium 9.0 (8.4-10.2) mg/dL Magnesium 2.0 (1.6-2.3) mg/dL Total Bilirubin 5.2 H (0.2-1.3) mg/dL AST 35 (14-36) U/L ALT 12 (4-34) U/L Alkaline Phosphatase 100 (38-126) U/L NT-Pro-B Natriuret Pep pg/mL Total Protein 6.6 (6.3-8.2) g/dL Albumin 3.6 (3.5-5.0) g/dL 12/04/24 Range/Units 10:10 WBC (4.50-10.00) 10*3/uL RBC (4.10-5.20) 10*6/uL Hgb (12.0-15.0) g/dL Hct (37.2-46.3) % MCV (80.0-97.0) fL MCH (27.0-32.0) pg MCHC (32.0-37.0) g/dL Plt Count (140-440) 10*3/uL MPV (9.5-12.2) fL Immature Gran % (Auto) % Neutrophils % % Lymphocytes % % Monocytes % % Eosinophils % % Basophils % % Immature Gran # (0.00-0.04) 10*3/uL Neutrophils # (1.80-7.70) 10*3/uL Lymphocytes # (0.90-5.00) 10*3/uL Monocytes # (0.20-1.00) 10*3/uL Eosinophils # (0.04-0.35) 10*3/uL Basophils # (0.00-0.10) 10*3/uL PT (10.0-12.5) sec INR (<1.2) APTT (22.0-30.0) sec Sodium (137-145) mmol/L Potassium (3.5-5.1) mmol/L Chloride (98-107) mmol/L Carbon Dioxide (22-30) mmol/L Anion Gap mmol/L BUN (7-17) mg/dL Creatinine (0.52-1.04) mg/dL Est GFR (CKD-EPI)AfAm (>60 ml/min/1.73 sqM) Est GFR (CKD-EPI)NonAf (>60 ml/min/1.73 sqM) Glucose (74-99) mg/dL Calcium (8.4-10.2) mg/dL Magnesium (1.6-2.3) mg/dL Total Bilirubin (0.2-1.3) mg/dL AST (14-36) U/L ALT (4-34) U/L Alkaline Phosphatase (38-126) U/L NT-Pro-B Natriuret Pep 16841 pg/mL Total Protein (6.3-8.2) g/dL Albumin (3.5-5.0) g/dL Critical Care Time Critical Care Time: Yes Total Critical Care Time: 35 Disposition Clinical Impression: Congestive heart failure, Hypokalemia Disposition: ADMITTED IP TO THIS [facility] Condition: Fair Time of Disposition: 12:06
[2024-12-04] MEDS: POTASSIUM CHLORIDE 10 MEQ in WATER FOR INJECTION 1 100ML.BAG IVPB SCH (11:26)
--- NOTE | 2024-12-04 11:39 | XR ---
EXAMINATION TYPE: XR chest 1V DATE OF EXAM: 12/04/2024 11:28 AM COMPARISON: Multiple radiographs, with the most recent on 11/25/2024 TECHNIQUE: XR chest 1V Portable AP radiograph of the chest. CLINICAL INDICATION:Female, 89 years old with history of sob; FINDINGS: Lungs/Pleura: Blunting of both costophrenic angles. No pneumothorax. Embolization coils overlie the r ight lower lung. Pulmonary vascularity: Pulmonary vascular congestion. Heart/mediastinum: Cardiomediastinal silhouette is enlarged and stable. Postsurgical changes of the p roximal aorta with aortic stent graft. Additional stent graft identified. Atherosclerotic calcificati ons are seen in the aorta. Two lead cardiac conduction device overlying the left hemithorax with lead tips projecting over the right ventricle and right atrium. Musculoskeletal: No acute osseous pathology. Other findings: Bilateral breast prosthesis. IMPRESSION: Cardiomegaly with small bilateral pleural effusions and pulmonary vascular congestion. Findings sugge st CHF exacerbation. Superimposed infectious process is not excluded. Overall no significant change f rom prior exam. [facility], , 12/04/2024 11:36 AM
[2024-12-04] MEDS ORDERED: NALOXONE 0.4 MG/ML 1 ML VIAL IV PRN (12:06)
--- NOTE | 2024-12-04 17:16 | CT ---
EXAMINATION TYPE: CT brain wo con DATE OF EXAM: 12/04/2024 4:58 PM COMPARISON: 10/07/2024. CLINICAL INDICATION: Female, 89 years old with history of stroke, hx of stroke TECHNIQUE: Brain: Axial CT images of the brain were obtained with coronal and sagittal reformats created and rev iewed. Contrast used: None. Oral contrast used: None. CT DLP: 1097.4 mGycm, Automated exposure control for dose reduction was used. FINDINGS: Brain: Extra-axial spaces: No abnormal extra-axial fluid collections. Ventricular system: Dilatation in proportion to cerebral atrophy. Cerebral parenchyma: Cerebral atrophy. No acute intraparenchymal hemorrhage or mass effect. The lua -white junction is well differentiated. Scattered hypoattenuating areas are seen within the white mat ter. Cerebellum: Unremarkable. Mass effect: No evidence of midline shift. Intracranial vasculature: Atherosclerotic calcifications of the intracranial vessels. Soft tissues: Normal. Calvarium/osseous structures: No depressed skull fracture. Paranasal sinuses and mastoid air cells: Mild scattered paranasal sinus disease. Visualized orbits: Bilateral aphakia IMPRESSION: 1. No acute intracranial process. 2. Nonspecific white matter changes, likely secondary to chronic small vessel ischemic disease. [facility], , 12/04/2024 5:13 PM
[2024-12-04] MEDS: WARFARIN 5 MG TAB PO ONE (18:11)
[2024-12-04 19:22] LABS: Bilirubin,Urine 1+ (Negative); Blood,Urine Negative (Negative); Color,Urine Yellow; Glucose,Urine (UA) Negative (Negative); Ketones,Urine Negative (Negative); Leukocyte Esterase,Urine Negative (Negative); Nitrite,Urine Negative (Negative); PH, Urine 5.5 (5.0-8.0); Protein,Urine Trace (Negative); Specific Gravity,Urine 1.015 (1.001-1.035); Urobilinogen,Urine 4.0 mg/dL (<2.0)
[2024-12-04 19:56] LABS: RSV Not Detected (Not Detectd)
[2024-12-04] MEDS: BUMETANIDE 1 MG TAB PO SCH (20:46)
[2024-12-04] MEDS: NITROGLYCERIN SL TABS 0.4 MG TAB SUBLINGUAL PRN (22:49)
[2024-12-04 23:33] LABS: ALT 12 U/L (4-34); AST 38 U/L (14-36); African American GFR (CKD) 66 (>60 ml/min/1.73 sqM); Albumin 3.5 g/dL (3.5-5.0); Alkaline Phosphatase 100 U/L (38-126); Anion Gap 10 mmol/L; Blood Urea Nitrogen 61 mg/dL (7-17); Calcium 9.0 mg/dL (8.4-10.2); Carbon Dioxide 36 mmol/L (22-30); Chloride 86 mmol/L (98-107); Glucose 99 mg/dL (74-99); Non-African American GFR(CKD) 57 (>60 ml/min/1.73 sqM); Potassium 3.4 mmol/L (3.5-5.1); Sodium 132 mmol/L (137-145); Total Protein 6.6 g/dL (6.3-8.2)
--- NOTE | 2024-12-05 01:00 | HP ---
HISTORY AND PHYSICAL CHIEF COMPLAINT: Weakness, change in mental status and hypokalemia. HISTORY OF PRESENT ILLNESS: This 89-year-old woman with a past medical history of multiple medical problems including CHF, history of pneumonia, history of breast cancer, atrial fibrillation, was recently admitted with CHF acute exacerbations. The patient had multiple valve abnormalities also. The patient had tricuspid and CoreValve 18 was placed recently. The patient also had TAVR. The patient is also slated to have MitraClip evaluation and possible clinical trial in [facility]. The patient has potassium abnormalities, and currently the patient is noted to have confusion and also some dehydration, hypokalemia, the patient's potassium was 2.2. The diuretics were stopped and the patient was taken to [facility] for further evaluation and treatment. A 2D echo done a few days ago showed ejection fraction of 45-50% and moderate paravalvular leak in the QR valve, prosthetic tricuspid valve and small loculated pericardial effusion, severe LA dilatation and elevated LFTs. Impression severe mitral regurgitation also. There is no history of any fever, rigors, chills. The patient unable to give coherent history, mostly has taken by discussion with staff, and discussion with the family at the bedside. PAST MEDICAL HISTORY: Atrial fibrillation, CHF, history of pneumonia, history of breast cancer. The rest of history as well as chart is also reviewed. HOME MEDICATIONS: Reviewed include Zaroxolyn, dose and rest of medications reviewed. ALLERGIES: Demerol. FAMILY HISTORY: Reviewed. SOCIAL HISTORY: Not taken. REVIEW OF SYSTEMS: Not taken. PHYSICAL EXAMINATION: VITAL SIGNS: Pulse is 61, blood pressure 99/59, respirations 16. HEENT: Conjunctivae normal. NECK: No jugular venous distention. CARDIOVASCULAR: S1, S2. RESPIRATION: Breath sounds diminished at the bases. Scattered rhonchi and crackles. ABDOMEN: Soft, nontender. LEGS: No edema. NERVOUS SYSTEM: Diffusely weak. LABORATORY DATA: Sodium 130, potassium 2.2. Rest of the labs are noted. ASSESSMENT: 1. Severe dehydration as well as hypokalemia. 2. Congestive heart failure. 3. Acute on chronic systolic dysfunction, ejection fraction 45-50%. 4. Severe mitral regurgitation with LA dilatation and associated LV filling pressure increase. 5. Moderate paravalvular leak from the TAVR valve. 6. Prosthetic tricuspid valve. 7. History of atrial fibrillation. 8. History of pneumonia. 9. History of breast cancer with mastectomies. 10.History of gout. 11.History of cardiac ablation. 12.History of multiple complex medical issues. 13.Full code. RECOMMENDATION: This 89-year-old woman who presented with multiple complex medical issues. We will monitor the patient closely. I would recommend to continue current management. Potassium supplementation. I would hold off the diuretics at this time. Cardiology consultation. Continue the rest of medications. I would also recommend CT of the brain. The white count is normal. I would also check UA and I would also obtain a viral titers also. Overall prognosis maybe guarded because of multiple complex medical issues. Further recommendations to follow, see orders for details. MMODL / IJN: [id number] /
--- NOTE | 2024-12-05 07:11 | XR ---
EXAMINATION TYPE: XR chest 1V portable DATE OF EXAM: 12/05/2024 6:50 AM COMPARISON: Chest radiographs from 12/04/2024 TECHNIQUE: XR chest 1V portable Portable AP radiograph of the chest. CLINICAL INDICATION:Female, 89 years old with history of chf; FINDINGS: Lungs/Pleura: Blunting of both costophrenic angles. No pneumothorax. Embolization coils overlie the r ight lower lung. Pulmonary vascularity: Pulmonary vascular congestion. Heart/mediastinum: Cardiomediastinal silhouette is enlarged and stable. Postsurgical changes of the p roximal aorta with aortic stent graft. Additional stent graft identified. Atherosclerotic calcificati ons are seen in the aorta. Two lead cardiac conduction device overlying the left hemithorax with lead tips projecting over the right ventricle and right atrium. Musculoskeletal: No acute osseous pathology. IMPRESSION: Cardiomegaly with small bilateral pleural effusions and pulmonary vascular congestion. Findings sugge st CHF exacerbation. Overall no significant change from prior exam. [facility], , 12/05/2024 7:09 AM
[2024-12-05 07:18] LABS: Basophils # (A) 0.02 10*3/uL (0.00-0.10); Basophils % (A) 0.4 %; Eosinophils # (A) 0.01 10*3/uL (0.04-0.35); Eosinophils % (A) 0.2 %; HCT 39.5 % (37.2-46.3); HGB 13.4 g/dL (12.0-15.0); Lymphocytes # (A) 0.37 10*3/uL (0.90-5.00); Lymphocytes % (A) 6.8 %; MCH 35.0 pg (27.0-32.0); MCHC 33.9 g/dL (32.0-37.0); MCV 103.1 fL (80.0-97.0); Monocytes # (A) 0.46 10*3/uL (0.20-1.00); Monocytes % (A) 8.4 %; Neutrophils # (A) 4.56 10*3/uL (1.80-7.70); Neutrophils % (A) 83.6 %; Platelet Count 115 10*3/uL (140-440); RBC 3.83 10*6/uL (4.10-5.20); RDW 17.4 % (11.5-14.5); WBC 5.45 10*3/uL (4.50-10.00)
[2024-12-05 07:29] LABS: INR 2.7 (<1.2); Prothrombin Time 27.2 sec (10.0-12.5)
[2024-12-05 07:54] LABS: African American GFR (CKD) 58 (>60 ml/min/1.73 sqM); Anion Gap 10 mmol/L; Blood Urea Nitrogen 63 mg/dL (7-17); Calcium 9.0 mg/dL (8.4-10.2); Carbon Dioxide 36 mmol/L (22-30); Chloride 87 mmol/L (98-107); Glucose 106 mg/dL (74-99); Non-African American GFR(CKD) 50 (>60 ml/min/1.73 sqM); Potassium 3.3 mmol/L (3.5-5.1); Sodium 133 mmol/L (137-145)
[2024-12-05] MEDS: SPIRONOLACTONE 25 MG TAB PO SCH (08:18)
[2024-12-05] MEDS: POTASSIUM CHLORIDE ER 20 MEQ TAB.ER PO SCH (08:18)
--- NOTE | 2024-12-05 12:43 | P.CRDCN ---
History of Present Illness Consult date: 12/05/24 Consult reason: congestive heart failure History of present illness: This is an 89-year-old female patient of Dr. 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 We have been asked to evaluate the patient for heart failure. Patient had a recent hospitalization and discharged home on 11/28 and seen at that time by cardiology for acute on chronic systolic heart failure. Patient has had ongoing conversations with [facility] and is waiting to hear if she is a good candidate for the mitral valve clinical trial. She had lab work done as an outpatient was found to have hypo kalemia and was sent into the hospital for replacement. Caregiver at the bedside states she was also not making any sense. Apparently her potassium was reported as 2.2 at home. Blood pressure 101/61, heart rate in the 60s, pulse ox 94% on 2 L nasal cannula. Patient is status post potassium replacement. -EKG: Electronically paced rhythm. -CT brain: No acute intracranial process. Chronic small vessel ischemic change. -Chest x-ray: #1 cardiomegaly with small bilateral pleural effusions and pulmonary vascular congestion. No significant change from prior. #2 cardiomegaly with small bilateral pleural effusions and pulmonary vascular congestion. -Laboratory studies: WBC 5.4, hemoglobin 13.4, initial potassium 2.4 followed by this morning of 3.3. BUN 63, creatinine 1.01, CO2 36, troponin 0.149 and 0.194 noted to be chronically elevated. -Home cardiac medications: Bumex 1 mg twice daily, metolazone 2.5 mg daily, metoprolol tartrate 25 mg twice daily, spironolactone 25 mg daily, warfarin 5 mg daily. -Echocardiogram limited study performed at [facility] on 11/26/2024 revealed EF 45 to 50%, RVSP estimated at 46 mmHg, severe LA dilatation with elevated LA filling pressures, severe mitral regurgitation with prolapse and flail and moderate paravalvular leak from TAVR valve, prosthetic tricuspid valve in place, small loculated pericardial effusion left posterior basal. -Cardiac catheterization performed 07/19/2024 revealed right dominant system. Minor irregularities. No significant obstructive CAD. LV pressures were not checked. Aortic valve which is bioprosthetic valve was not crossed. -[facility] s/p percutaneous tricuspid valve replacement on 09/26 followed by pacemaker generator replacement on 09/28. Review Of Systems: At the time of my exam: CONSTITUTIONAL: Denies fever or chills. HEENT: Denies blurred vision, vision changes, or eye pain. Denies hemoptysis CARDIOVASCULAR: Denies chest pain. Denies orthopnea. Denies PND. Denies palpitations RESPIRATORY: Reports dyspnea with exertion, reports shortness of breath. GASTROINTESTINAL: Denies abdominal pain. Denies nausea or vomiting. HEMATOLOGIC: Denies bleeding disorders. GENITOURINARY: Denies any blood in urine. SKIN: Denies puritis. Denies rash. Physical examination: Gen: This is an 89-year-old female in no acute respiratory distress VS: reviewed HEENT: Head is atraumatic, normocephalic. Pupils equal, round. Sclerae is anicteric. NECK: Supple. No JVD. LUNGS: Clear to auscultation. No wheezes or rhonchi. No intercostal retractions. HEART: Regular rate and rhythm. 3/6 systolic murmur at the apex. ABDOMEN: Soft No tenderness. EXTREMITIES: Chronic 1+ lower extremity edema. No calf tenderness. NEUROLOGICAL: Patient is awake, alert and oriented x3. Assessment: Presented due to hypokalemia and mental status changes Chronic diastolic heart failure History of tricuspid valve replacement percutaneously due to severe tricuspid regurgitation, 09/26/2024 Severe mitral regurgitation Severe pulmonary hypertension History of TAVR, at [facility] 06/04/2024 Chronic atrial fibrillation on Coumadin History of permanent pacemaker due to complete heart block History of breast cancer Plan: Continue home cardiac medications with the following change: Discontinue metolazone Continue Coumadin and pharmacy is dosing No need to repeat echocardiogram Plan to monitor overnight and probable discharge home tomorrow Further recommendations to follow based upon clinical course Thank you kindly for this consultation. Nurse practitioner note has been reviewed, I agree with documented findings and plan of care. Patient was seen and examined. Past Medical History Past Medical History: Atrial Fibrillation, Cancer, Heart Failure, Pneumonia Additional Past Medical History / Comment(s): Breast cancer w/bilateral simple mastectomies (1979), squamous skin cancer., leaky mitral valve, occasional gout., hx of acute diverticulitis, pacemaker, tests positive for tb due to bcg vaccine she received., bronchitis March 2023, hospitalized in April 2023 for nausea, vomiting ,dehydration &C diff states scheduled for TAVR at [facility] in June., See Cardiology H & P. History of Any Multi-Drug Resistant Organisms: C-DIFF Date of last positivie culture/infection: 04/17/23 MDRO Source:: stool Past Surgical History: Breast Surgery, Cardiac Ablation, Cholecystectomy, Heart Catheterization, Joint Replacement, Pacemaker Additional Past Surgical History / Comment(s): EPS WITH CARDIAC ABLATIONS, BILATERAL SIMPLE MASTECTOMIES( 1979)., BILATERAL TOTAL KNEE ARTHROPLASTIES, CATARACTS W/ LENS IMPLANTS, HYSTERECTOMY WITH BILATERAL SALPINGECTOMY OOPHORECTOMY, COLONOSCOPY., MEDTRONIC PACEMAKER. 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 Past Psychological History: No Psychological Hx Reported Smoking Status: Never smoker Past Alcohol Use History: None Reported Past Drug Use History: None Reported - Past Family History Father Family Medical History: No Reported History Additional Family Medical History / Comment(s): Father was healthy and lived to be 94 yrs old. Mother Family Medical History: Cancer Additional Family Medical History / Comment(s): Mother had breast cancer and so did 3 of her sisters. Daughter(s) Family Medical History: Cancer Additional Family Medical History / Comment(s): Olderst daughter from breast cancer. Medications and Allergies Home Medications Medication Instructions Recorded Confirmed Type Warfarin [Coumadin] 5 mg PO HS 11/17/20 12/04/24 History estradioL [Estrace] 0.5 mg PO DIRECTED 11/22/22 12/04/24 History Spironolactone [Aldactone] 25 mg PO DAILY 06/13/24 12/04/24 History Pantoprazole Sodium [Protonix] 40 mg PO DAILY 07/19/24 12/04/24 History Albuterol Sulfate [Ventolin HFA] 1 puff INHALATION RT-Q6H PRN 09/13/24 12/04/24 History Levothyroxine Sodium [Synthroid] 37.5 mcg PO DAILY@0630 #30 tab 10/10/24 12/04/24 Rx Metoprolol Tartrate [Lopressor] 25 mg PO BID 11/25/24 12/04/24 History Bumetanide [BUMEX] 1 mg PO BID #0 11/28/24 12/04/24 Rx metOLazone [Zaroxolyn] 2.5 mg PO DAILY 30 Days #30 tab 11/28/24 12/04/24 Rx Benzonatate [Tessalon Perles] 100 mg PO BID PRN 12/04/24 12/04/24 History Allergies Allergy/AdvReac Type Severity Reaction Status Date / Time meperidine HCl [From Demerol] AdvReac Nausea & Verified 12/04/24 14:05 Vomiting Physical Exam Vitals: Vital Signs Temp Pulse Pulse Resp BP BP Pulse Ox 12/05/24 08:12 97.9 F 60 18 101/61 94 L 12/05/24 03:29 97.8 F 62 17 114/66 91 L 12/05/24 00:15 61 17 94/55 94 L 12/04/24 22:35 61 18 104/63 94 L 12/04/24 21:24 97.9 F 63 17 105/65 94 L 12/04/24 21:01 60 20 101/67 94 L 12/04/24 19:06 60 18 103/64 97 12/04/24 12:41 61 16 99/59 95 12/04/24 10:10 60 12/04/24 09:24 63 16 96/62 95 12/04/24 09:11 97.7 F 61 16 99/58 92 L Intake and Output 12/04/24 12/05/24 12/05/24 22:59 06:59 14:59 Other: Voiding Method External Catheter External Catheter # Voids 3 Weight 56.699 kg 56.5 kg Results 12/05/24 06:50 12/05/24 06:50 Cardiac Enzymes 12/04/24 12/04/24 12/04/24 Range/Units 10:10 22:52 22:52 AST 35 38 H (14-36) U/L Troponin I 0.149 H* (0.000-0.034) ng/mL 12/05/24 Range/Units 05:57 AST (14-36) U/L Troponin I 0.194 H* (0.000-0.034) ng/mL Coagulation 12/04/24 12/05/24 Range/Units 10:10 06:50 PT 25.9 H 27.2 H (10.0-12.5) sec APTT 34.7 H (22.0-30.0) sec CBC 12/04/24 12/05/24 Range/Units 10:10 06:50 WBC 4.51 5.45 (4.50-10.00) 10*3/uL RBC 3.86 L 3.83 L (4.10-5.20) 10*6/uL Hgb 13.7 13.4 (12.0-15.0) g/dL Hct 39.2 39.5 (37.2-46.3) % Plt Count 118 L 115 L (140-440) 10*3/uL Comprehensive Metabolic Panel 12/04/24 12/04/24 12/05/24 Range/Units 10:10 22:52 06:50 Sodium 135 L 132 L 133 L (137-145) mmol/L Potassium 2.4 L* 3.4 L 3.3 L (3.5-5.1) mmol/L Chloride 85 L 86 L 87 L (98-107) mmol/L Carbon Dioxide 35 H 36 H 36 H (22-30) mmol/L BUN 59 H 61 H 63 H (7-17) mg/dL Creatinine 0.90 0.91 1.01 (0.52-1.04) mg/dL Glucose 108 H 99 106 H (74-99) mg/dL Calcium 9.0 9.0 9.0 (8.4-10.2) mg/dL AST 35 38 H (14-36) U/L ALT 12 12 (4-34) U/L Alkaline Phosphatase 100 100 (38-126) U/L Total Protein 6.6 6.6 (6.3-8.2) g/dL Albumin 3.6 3.5 (3.5-5.0) g/dL Current Medications Generic Name Dose Route Start Last Admin Trade Name Freq PRN Reason Stop Dose Admin Bumetanide 1 mg 12/04/24 21:00 12/05/24 08:18 Bumetanide 1 Mg Tab PO 1 mg BID [facility] Administration Folic Acid 1 mg 12/05/24 12:00 Folic Acid 1 Mg Tab PO DAILY@1200 [facility] Miscellaneous Information 1 each 12/04/24 10:56 Potassium Replacement Protocol 1 Each Misc MISCELLANE DAILY PRN Per Protocol Protocol Miscellaneous Information 1 each 12/04/24 12:33 Warfarin Per Pharmacy MISCELLANE DIRECTED PRN Per Protocol Multivitamins 1 each 12/05/24 12:00 Multivitamins, Thera 1 Each Tab PO DAILY@1200 [facility] Naloxone HCl 0.2 mg 12/04/24 12:06 Naloxone 0.4 Mg/Ml 1 Ml Vial IV Q2M PRN Opioid Reversal Nitroglycerin 0.4 mg 12/04/24 22:34 12/04/24 22:49 Nitroglycerin Sl Tabs 0.4 Mg Tab SUBLINGUAL 0.4 mg Q5M PRN Administration Chest Pain Potassium Chloride 20 meq 12/05/24 09:00 12/05/24 08:18 Potassium Chloride Er 20 Meq Tab.Er PO 12/05/24 10:01 20 meq Q1HR [facility] Administration Protocol Spironolactone 25 mg 12/05/24 09:00 12/05/24 08:18 Spironolactone 25 Mg Tab PO 25 mg DAILY [facility] Administration Thiamine HCl 100 mg 12/05/24 12:00 Thiamine 100 Mg Tab PO DAILY@1200 [facility] Warfarin Sodium 5 mg 12/05/24 18:00 Warfarin 5 Mg Tab PO 12/05/24 18:01 ONCE@1800 ONE Protocol Intake and Output 12/04/24 12/05/24 12/05/24 22:59 06:59 14:59 Other: Voiding Method External Catheter External Catheter # Voids 3 Weight 56.699 kg 56.5 kg 12/05/24 06:50 12/05/24 06:50
[2024-12-05] MEDS: MULTIVITAMINS, THERA 1 EACH TAB PO SCH (12:48)
[2024-12-05] MEDS: FOLIC ACID 1 MG TAB PO SCH (12:48)
[2024-12-05] MEDS: THIAMINE 100 MG TAB PO SCH (12:48)
--- NOTE | 2024-12-05 13:56 | US ---
EXAMINATION TYPE: US chest DATE OF EXAM: 12/05/2024 COMPARISON: Chest radiograph 12/05/2024 CLINICAL INDICATION: Female, 89 years old with history of Bilateral effusions; bilateral pleural effu sions TECHNIQUE: Grayscale imaging of the chest. Targeted ultrasound of the posterior lower bilateral rod thoraces FINDINGS: EXAM MEASUREMENTS: Right Pleural Effusion pocket size: 11.7 cm Right skin surface to fluid distance: 2.1 cm Left Pleural Effusion pocket size: 7.6 cm Left skin surface to fluid distance: 1.8 cm Right side marked for possible thoracentesis outside the dept. Left side marked for possible thoracentesis outside the dept. Pulmonologists are able to review the images in the patient?s EMR. IMPRESSIONS: Moderate sized bilateral pleural effusions. [facility], , 12/05/2024 1:53 PM
--- NOTE | 2024-12-05 14:01 | P.CNPUL ---
History of Present Illness Consult date: 12/05/24 Requesting physician: Zev Obrien Reason for consult: dyspnea, hypoxemia, pleural effusion, abnormal CXR/CT Chief complaint: Shortness of breath, lower extremity swelling History of present illness: This is a 89-year-old female patient with a known history of congestive heart failure, atrial fibrillation anticoagulated with warfarin, previous atrial fibrillation ablations, permanent pacemaker implantation hypothyroidism, hypertension, breast cancer with bilateral mastectomies. Lifelong non-smoker. She presented here to the emergency room yesterday after receiving a call from her primary care provider that her potassium was 2.2. Her daughter stated she has stopped taking all of her medications and the last couple days noticed increasing shortness of breath and leg swelling. Chest x-ray reveals cardiomegaly with small bilateral pleural effusions and pulmonary vascular congestion. CT scan of the brain revealed no acute intracranial process. KG reveals atrial fibrillation with paced rhythm. White count 5.4. Hemoglobin 13.4. Platelets 115. INR 2.7. Sodium 133. Potassium 3.3. Bicarb 36. BUN 63. Creatinine 1.01. Glucose 106. Troponin 0.149, 0.194. proBNP 13,300. Viral screen negative. Urinalysis clean. She is seen today in consultation on the selective care unit. She is currently sitting up in bed. Awake and alert in no acute distress. She is maintaining O2 saturations in the 90s on 2 L/min per nasal cannula. She is afebrile. Hemodynamically stable. Review of Systems REVIEW OF SYSTEMS: CONSTITUTIONAL: Denies any recent significant weight loss or weight gain. EYES: Denies change in vision. EARS, NOSE, MOUTH, THROAT: Denies headaches, denies sore throat. CARDIOVASCULAR: Denies chest pain, palpitations or syncopal episodes. RESPIRATORY: Positive for shortness of breath, no cough, congestion or hemoptysis. GASTROINTESTINAL: Denies change in appetite, denies abdominal pain GENITOURINARY: Denies hematuria, denies infections. MUSKULOSKELETAL: Positive for bilateral lower extremity swelling. INTEGUMENTARY: Denies rash, denies eczema. NEUROLOGICAL: Denies recent memory loss, no recent seizure activity. PSYCHIATRIC: Denies anxiety, denies depression. HEMATOLOGIC/LYMPHATIC: Denies anemia, denies enlarged lymph nodes. Past Medical History Past Medical History: Atrial Fibrillation, Cancer, Heart Failure, Pneumonia Additional Past Medical History / Comment(s): Breast cancer w/bilateral simple mastectomies (1979), squamous skin cancer., leaky mitral valve, occasional gout., hx of acute diverticulitis, pacemaker, tests positive for tb due to bcg vaccine she received., bronchitis March 2023, hospitalized in April 2023 for nausea, vomiting ,dehydration &C diff states scheduled for TAVR at [facility] in [facility]., See Cardiology H & P. History of Any Multi-Drug Resistant Organisms: C-DIFF Date of last positivie culture/infection: 04/17/23 MDRO Source:: stool Past Surgical History: Breast Surgery, Cardiac Ablation, Cholecystectomy, Heart Catheterization, Joint Replacement, Pacemaker Additional Past Surgical History / Comment(s): EPS WITH CARDIAC ABLATIONS, BILATERAL SIMPLE MASTECTOMIES( 1979)., BILATERAL TOTAL KNEE ARTHROPLASTIES, CATARACTS W/ LENS IMPLANTS, HYSTERECTOMY WITH BILATERAL SALPINGECTOMY OOPHORECTOMY, COLONOSCOPY., MEDTRONIC PACEMAKER. 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 Past Psychological History: No Psychological Hx Reported Smoking Status: Never smoker Past Alcohol Use History: None Reported Past Drug Use History: None Reported - Past Family History Father Family Medical History: No Reported History Additional Family Medical History / Comment(s): Father was healthy and lived to be 94 yrs old. Mother Family Medical History: Cancer Additional Family Medical History / Comment(s): Mother had breast cancer and so did 3 of her sisters. Daughter(s) Family Medical History: Cancer Additional Family Medical History / Comment(s): Olderst daughter from breast cancer. Medications and Allergies Home Medications Medication Instructions Recorded Confirmed Type Warfarin [Coumadin] 5 mg PO HS 11/17/20 12/04/24 History estradioL [Estrace] 0.5 mg PO DIRECTED 11/22/22 12/04/24 History Spironolactone [Aldactone] 25 mg PO DAILY 06/13/24 12/04/24 History Pantoprazole Sodium [Protonix] 40 mg PO DAILY 07/19/24 12/04/24 History Albuterol Sulfate [Ventolin HFA] 1 puff INHALATION RT-Q6H PRN 09/13/24 12/04/24 History Levothyroxine Sodium [Synthroid] 37.5 mcg PO DAILY@0630 #30 tab 10/10/24 12/04/24 Rx Metoprolol Tartrate [Lopressor] 25 mg PO BID 11/25/24 12/04/24 History Bumetanide [BUMEX] 1 mg PO BID #0 11/28/24 12/04/24 Rx metOLazone [Zaroxolyn] 2.5 mg PO DAILY 30 Days #30 tab 11/28/24 12/04/24 Rx Benzonatate [Tessalon Perles] 100 mg PO BID PRN 12/04/24 12/04/24 History Allergies Allergy/AdvReac Type Severity Reaction Status Date / Time meperidine HCl [From Demerol] AdvReac Nausea & Verified 12/04/24 14:05 Vomiting Physical Exam Vitals: Vital Signs Temp Pulse Pulse Resp BP BP Pulse Ox 12/05/24 12:18 60 15 103/61 94 L 12/05/24 08:12 97.9 F 60 18 101/61 94 L 12/05/24 03:29 97.8 F 62 17 114/66 91 L 12/05/24 00:15 61 17 94/55 94 L 12/04/24 22:35 61 18 104/63 94 L 12/04/24 21:24 97.9 F 63 17 105/65 94 L 12/04/24 21:01 60 20 101/67 94 L 12/04/24 19:06 60 18 103/64 97 Intake and Output 12/04/24 12/05/24 12/05/24 22:59 06:59 14:59 Intake Total 10 Balance 10 Intake: IV 10 Invasive Line 1 10 Other: Voiding Method External Catheter External Catheter External Catheter # Voids 3 1 Weight 56.699 kg 56.5 kg GENERAL EXAM: Alert, pleasant 89-year-old female, on 2 L nasal cannula, fairly comfortable in no apparent distress. HEAD: Normocephalic. EYES: Normal reaction of pupils, equal size. NOSE: Clear with pink turbinates. THROAT: No erythema or exudates. NECK: No masses, no JVD. CHEST: No chest wall deformity. LUNGS: Equal air entry with crackles in the bilateral bases. CVS: S1 and S2 normal with no audible murmur, regular rhythm. ABDOMEN: No hepatosplenomegaly, normal bowel sounds, no guarding or rigidity. SPINE: No scoliosis or deformity SKIN: No rashes CENTRAL NERVOUS SYSTEM: No focal deficits, tone is normal in all 4 extremities. EXTREMITIES: There is 2-3+ lower extremity peripheral edema. No clubbing, no cyanosis. Peripheral pulses are intact. Results - Laboratory Findings CBC and BMP: 12/05/24 06:50 12/05/24 06:50 PT/INR, D-dimer PT 27.2 sec (10.0-12.5) H 12/05/24 06:50 INR 2.7 (<1.2) H 12/05/24 06:50 Abnormal lab findings: Abnormal Labs 12/04/24 12/04/24 12/04/24 10:10 10:10 10:10 RBC 3.86 L MCV 101.6 H MCH 35.5 H Plt Count 118 L Lymphocytes # 0.30 L Eosinophils # 0.03 L PT 25.9 H INR 2.6 H APTT 34.7 H Sodium 135 L Potassium 2.4 L* Chloride 85 L Carbon Dioxide 35 H BUN 59 H Glucose 108 H Total Bilirubin 5.2 H AST Troponin I Urine Protein Urine Bilirubin 12/04/24 12/04/24 12/04/24 16:32 22:52 22:52 RBC MCV MCH Plt Count Lymphocytes # Eosinophils # PT INR APTT Sodium 132 L Potassium 3.4 L Chloride 86 L Carbon Dioxide 36 H BUN 61 H Glucose Total Bilirubin 5.6 H AST 38 H Troponin I 0.149 H* Urine Protein Trace H Urine Bilirubin 1+ H 12/05/24 12/05/24 12/05/24 05:57 06:50 06:50 RBC 3.83 L MCV 103.1 H MCH 35.0 H Plt Count 115 L Lymphocytes # 0.37 L Eosinophils # 0.01 L PT 27.2 H INR 2.7 H APTT Sodium Potassium Chloride Carbon Dioxide BUN Glucose Total Bilirubin AST Troponin I 0.194 H* Urine Protein Urine Bilirubin 12/05/24 06:50 RBC MCV MCH Plt Count Lymphocytes # Eosinophils # PT INR APTT Sodium 133 L Potassium 3.3 L Chloride 87 L Carbon Dioxide 36 H BUN 63 H Glucose 106 H Total Bilirubin AST Troponin I Urine Protein Urine Bilirubin - Diagnostic Findings Chest x-ray: image reviewed Assessment and Plan Assessment: Acute hypoxic respiratory failure secondary to an acute exacerbation of suspected systolic versus diastolic congestive heart failure Troponin leak Hypokalemia Recent discharge for congestive heart failure History of atrial fibrillation, status post previous ablation and permanent pacemaker implantation anticoagulated with warfarin History of breast cancer status post bilateral mastectomies Hypothyroidism Lifelong non-smoker Plan: The patient was seen and evaluated Chest x-ray, labs and medications reviewed Currently on 2 L nasal cannula Titrate the FiO2 as tolerated Obtain an ultrasound of the pleural effusions May consider thoracentesis if necessary Continue diuretics Continue warfarin for now Cardiology consult Educated regarding medication compliance We will continue to follow and make further recommendations based on her clinical status I have personally seen and examined the patient, performed the documentation and the assessment and plan as written. Number of minutes spent on the visit: 20 Dictation was produced using [employer] dictation software. Please excuse any grammatical, word or spelling errors.
[2024-12-05] MEDS: WARFARIN 5 MG TAB PO ONE (18:40)
[2024-12-05] MEDS: DOCUSATE 100 MG CAP PO SCH (20:44)
[2024-12-05] MEDS: TEMAZEPAM 7.5 MG CAP PO PRN (20:44)
--- NOTE | 2024-12-06 03:35 | PN ---
PROGRESS NOTE DATE OF SERVICE: 12/05/2024 HISTORY: This is an 89-year-old female with a past medical history of CHF as well as hypokalemia. The patient has some change in mental status and significant physical debility and wasting and weakness also. The patient had a chest ultrasound, which showed right pleural effusion. The patient was closely monitored by multiple consultants following the patient closely. PAST MEDICAL HISTORY: Reviewed. REVIEW OF SYSTEMS: The patient is mildly confused. CURRENT MEDICATIONS: Reviewed. PHYSICAL EXAMINATION: VITAL SIGNS: Pulse is 60, blood pressure 105/58, and respirations 15. HEENT: Conjunctivae normal. NECK: No jugular venous distention. CARDIOVASCULAR: S1, S2 muffled. RESPIRATIONS: Scattered rhonchi. ABDOMEN: Soft and nontender. NEUROLOGIC: Nonfocal. LABORATORY DATA: Sodium 133, potassium 3.3. Troponins are noted. Chest x-ray showed pleural effusions. ASSESSMENT: 1. Congestive heart failure, acute exacerbation with acute on chronic systolic dysfunction, ejection fraction of 48% to 50%. 2. Hypokalemia. 3. Severe mitral regurgitation with dilatation and associated LV filling pressure. 4. Moderate paravalvular leak from the TAVR valve. 5. Troponin 0.194. Rule out acute myocardial infarction. We will continue to monitor. 6. Bilateral pleural effusions, right more than left. 7. Prosthetic tricuspid valve done in [facility]. 8. History atrial fibrillation. 9. Pneumonia. 10.History of breast cancer with mastectomies. 11.History of gout. 12.Change in mental status, metabolic encephalopathy. 13.History of cardiac ablation. 14.History of multiple complex medical issues. 15.No code, no cardiopulmonary resuscitation, no vent. RECOMMENDATIONS: I recommend to continue current management and treatment; otherwise, we will continue to monitor. Prognosis maybe guarded because of multiple complex medications, which I discussed with the family yesterday and further recommendations to follow. Pleural effusion mostly on the right. MMODL / IJN: [id number] /
[2024-12-06] MEDS ORDERED: ZINC OXIDE PASTE (Z-GUARD) 1 APPLIC TOPICAL PRN (07:03)
[2024-12-06 08:15] LABS: INR 3.2 (<1.2); Prothrombin Time 32.2 sec (10.0-12.5)
[2024-12-06 08:44] LABS: African American GFR (CKD) 54 (>60 ml/min/1.73 sqM); Blood Urea Nitrogen 65 mg/dL (7-17); Calcium 8.9 mg/dL (8.4-10.2); Chloride 84 mmol/L (98-107); Glucose 184 mg/dL (74-99); Non-African American GFR(CKD) 47 (>60 ml/min/1.73 sqM); Potassium 3.1 mmol/L (3.5-5.1); Sodium 135 mmol/L (137-145)
[2024-12-06 08:52] LABS: Anion Gap 12 mmol/L
[2024-12-06 09:12] LABS: Carbon Dioxide 39 mmol/L (22-30)
[2024-12-06] MEDS: ONDANSETRON 4 MG/2 ML VIAL IVP PRN (09:51)
--- NOTE | 2024-12-06 10:58 | P.PN ---
Subjective Progress Note Date: 12/06/24 Consult reason: congestive heart failure History of present illness: This is an 89-year-old female patient of Dr. 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 We have been asked to evaluate the patient for heart failure. Patient had a recent hospitalization and discharged home on 11/28 and seen at that time by cardiology for acute on chronic systolic heart failure. Patient has had ongoing conversations with [facility] and is waiting to hear if she is a good candidate for the mitral valve clinical trial. She had lab work done as an outpatient was found to have hypokalemia and was sent into the hospital for replacement. Caregiver at the bedside states she was also not making any sense. Apparently her potassium was reported as 2.2 at home. Blood pressure 101/61, heart rate in the 60s, pulse ox 94% on 2 L nasal cannula. Patient is status post potassium replacement. -EKG: Electronically paced rhythm. -CT brain: No acute intracranial process. Chronic small vessel ischemic change. -Chest x-ray: #1 cardiomegaly with small bilateral pleural effusions and pulmonary vascular congestion. No significant change from prior. #2 cardiomegaly with small bilateral pleural effusions and pulmonary vascular congestion. -Laboratory studies: WBC 5.4, hemoglobin 13.4, initial potassium 2.4 followed by this morning of 3.3. BUN 63, creatinine 1.01, CO2 36, troponin 0.149 and 0.194 noted to be chronically elevated. -Home cardiac medications: Bumex 1 mg twice daily, metolazone 2.5 mg daily, metoprolol tartrate 25 mg twice daily, spironolactone 25 mg daily, warfarin 5 mg daily. -Echocardiogram limited study performed at [facility] on 11/26/2024 revealed EF 45 to 50%, RVSP estimated at 46 mmHg, severe LA dilatation with elevated LA filling pressures, severe mitral regurgitation with prolapse and flail and moderate paravalvular leak from TAVR valve, prosthetic tricuspid valve in place, small loculated pericardial effusion left posterior basal. -Cardiac catheterization performed 07/19/2024 revealed right dominant system. Minor irregularities. No significant obstructive CAD. LV pressures were not checked. Aortic valve which is bioprosthetic valve was not crossed. -[facility] s/p percutaneous tricuspid valve replacement on 09/26 followed by pacemaker generator replacement on 09/28. 12/06/2024 Patient seen and examined. Caregiver states that patient is eating better. She seems to be improved from yesterday. Repeat blood work reveals potassium of 3.1, BUN 65 creatinine 1.07, INR 3.2. Metolazone remains on hold. Physical examination: Gen: This is an 89-year-old female in no acute respiratory distress VS: reviewed HEENT: Head is atraumatic, normocephalic. Pupils equal, round. Sclerae is anicteric. NECK: Supple. No JVD. LUNGS: Clear to auscultation. No wheezes or rhonchi. No intercostal retractions. HEART: Regular rate and rhythm. 3/6 systolic murmur at the apex. ABDOMEN: Soft No tenderness. EXTREMITIES: Chronic 1+ lower extremity edema. No calf tenderness. NEUROLOGICAL: Patient is awake, alert and oriented x3. Assessment: Presented due to hypokalemia and mental status changes Chronic diastolic heart failure History of tricuspid valve replacement percutaneously due to severe tricuspid regurgitation, 09/26/2024 Severe mitral regurgitation Severe pulmonary hypertension History of TAVR, at [facility] 06/04/2024 Chronic atrial fibrillation on Coumadin History of permanent pacemaker due to complete heart block History of breast cancer Plan: Continue home cardiac medications with the following change: Discontinue metolazone Continue Coumadin and pharmacy is dosing No need to repeat echocardiogram Patient is cleared for discharge from cardiology perspective and will follow-up with [facility] as planned as well as Dr. Moran. Nurse practitioner note has been reviewed, I agree with documented findings and plan of care. Patient was seen and examined. Objective - Vital Signs Vital signs: Vital Signs Temp 97.8 F 12/05/24 15:12 Pulse 60 12/06/24 04:53 Resp 17 12/06/24 04:53 BP 107/66 12/06/24 04:53 Pulse Ox 95 12/06/24 04:53 FiO2 Intake & Output 12/05/24 12/06/24 12/06/24 18:59 06:59 18:59 Intake Total 20 20 Balance 20 20 Weight 60.5 kg Intake: IV 20 20 Invasive Line 1 20 20 Oral 0 Other: Voiding Method External Catheter Toilet Diaper # Voids 1 1 # Bowel Movements 1 1 - Labs CBC & Chem 7: 12/05/24 06:50 12/06/24 07:32 Labs: Microbiology - Last 24 Hours (Table) 12/04/24 16:30 Urine Culture - Final Urine,Voided 12/04/24 18:28 Blood Culture - Preliminary Blood
--- NOTE | 2024-12-06 13:17 | P.PN ---
Subjective Progress Note Date: 12/06/24 Principal diagnosis: Shortness of breath. This is a 89-year-old female patient with a known history of congestive heart failure, atrial fibrillation anticoagulated with warfarin, previous atrial fibrillation ablations, permanent pacemaker implantation hypothyroidism, hypertension, breast cancer with bilateral mastectomies. Lifelong non-smoker. She presented here to the emergency room yesterday after receiving a call from her primary care provider that her potassium was 2.2. Her daughter stated she has stopped taking all of her medications and the last couple days noticed increasing shortness of breath and leg swelling. Chest x-ray reveals cardiomegaly with small bilateral pleural effusions and pulmonary vascular congestion. CT scan of the brain revealed no acute intracranial process. KG reveals atrial fibrillation with paced rhythm. White count 5.4. Hemoglobin 13.4. Platelets 115. INR 2.7. Sodium 133. Potassium 3.3. Bicarb 36. BUN 63. Creatinine 1.01. Glucose 106. Troponin 0.149, 0.194. proBNP 13,300. Viral screen negative. Urinalysis clean. She is seen today in consultation on the selective care unit. She is currently sitting up in bed. Awake and alert in no acute distress. She is maintaining O2 saturations in the 90s on 2 L/min per nasal cannula. She is afebrile. Hemodynamically stable. Progress note dated December 06, 2024. 89-year-old female seen today in room 363. Family members are at the bedside. The patient continues on nasal O2, 2 L. She is not receiving any IV fluids. She had an ultrasound of the chest, revealing bilateral effusions, right greater than left. Unfortunately, we cannot do a thoracentesis as her INR is now 3.2. Current laboratory data includes a sodium 135, potassium 3.1, chlorides 84, CO2 39, anion gap 12, BUN 65, creatinine 1.07. Glucose is 184. Objective - Vital Signs Vital signs: Vital Signs Temp 97.7 F 12/06/24 08:00 Pulse 60 12/06/24 08:00 Resp 18 12/06/24 08:00 BP 104/65 12/06/24 08:00 Pulse Ox 94 L 12/06/24 08:00 FiO2 Intake & Output 12/05/24 12/06/24 12/06/24 18:59 06:59 18:59 Intake Total 20 20 0 Balance 20 20 0 Weight 60.5 kg Intake: IV 20 20 Invasive Line 1 20 20 Oral 0 0 Other: Voiding Method External Catheter Toilet Toilet Diaper Diaper # Voids 1 1 1 # Bowel Movements 1 1 0 - Exam No acute distress, oriented 3. Nasal O2 is at 2 L. No acute distress. HEENT examination is grossly unremarkable. Mucous membranes are moist. No oral lesions. Neck supple. Full range of motion. No adenopathy thyromegaly or neck vein distention. Cardiovascular examination reveals regular rhythm rate. S1-S2 normal. No S3 or S4. No discernible murmur noted. Lungs reveal diminished bibasilar breath sounds. Basilar crackles noted. No wheezes. No rhonchi. Abdomen soft bowel sounds are heard. No masses or tenderness. Extremities are intact. No cyanosis or clubbing. 2+ lower extremity edema is noted. Skin is without rash or lesion. Neurologic examination is brief but nonfocal. - Labs CBC & Chem 7: 12/05/24 06:50 12/06/24 07:32 Labs: Abnormal Lab Results - Last 24 Hours (Table) 12/06/24 12/06/24 Range/Units 07:32 07:32 PT 32.2 H (10.0-12.5) sec INR 3.2 H (<1.2) Sodium 135 L (137-145) mmol/L Potassium 3.1 L (3.5-5.1) mmol/L Chloride 84 L (98-107) mmol/L Carbon Dioxide 39 H (22-30) mmol/L BUN 65 H (7-17) mg/dL Creatinine 1.07 H (0.52-1.04) mg/dL Glucose 184 H (74-99) mg/dL Microbiology - Last 24 Hours (Table) 12/04/24 16:30 Urine Culture - Final Urine,Voided 12/04/24 18:28 Blood Culture - Preliminary Blood Assessment and Plan Assessment: Acute hypoxic respiratory failure secondary to an acute exacerbation of s uspected systolic versus diastolic congestive heart failure. Bilateral right greater than left pleural effusions, secondary to CHF. Troponin leak. Hypokalemia. Recent discharge for congestive heart failure. History of atrial fibrillation, status post previous ablation and permanent pacemaker implantation. History of breast cancer S/P bilateral mastectomies. Hypothyroidism. Lifelong non-smoker. Plan: Plan dated December 06, 2024. The patient had an ultrasound of the chest, revealing bilateral effusions, right greater than left. Thoracentesis should be performed, to improve the patient's respiratory status, unfortunately, the patient's INR was 3.2. This was relayed to the patient and the patient's family. Will recheck a PT/INR in the morning. Additional recommendations and suggestions are forthcoming. Prognosis is guarded. Dictation was produced using [employer] dictation software. Please excuse any grammatical, word or spelling errors. Time with Patient: Less than 30
[2024-12-06 14:22] VITALS: BMI 22.8
[2024-12-06] MEDS: ACETAMINOPHEN IV (For NPO) 1,000 MG in EMPTY BAG 1 BAG IVPB ONE (15:30)
[2024-12-06] MEDS ORDERED: BENZONATATE 100 MG CAP PO PRN (16:16)
[2024-12-06] MEDS ORDERED: ALBUTEROL NEBULIZED 2.5 MG/3 ML INHALATION PRN (16:16)
[2024-12-06] MEDS: POTASSIUM BICARBONATE/CIT AC 20 MEQ TABLET.EFF PO SCH (17:47)
[2024-12-06] MEDS: POTASSIUM CHLORIDE ER 20 MEQ TAB.ER PO SCH ×2 (18:49→19:31)
[2024-12-06] MEDS: SODIUM CHLORIDE 0.9% 1,000 ML IV SCH (18:51)
[2024-12-06] MEDS: ACETAMINOPHEN TAB 325 MG TAB PO PRN (21:55)
[2024-12-06 22:21] VITALS: TEMP 97.9
[2024-12-07] MEDS: MIDODRINE 5 MG TAB PO STA (00:45)
[2024-12-07 01:39] LABS: Glucose,Whole Blood 77 mg/dL (70-110)
[2024-12-07 02:04] VITALS: BP 69/41
[2024-12-07] MEDS ORDERED: GLYCOPYRROLATE 0.2 MG/ML 2 ML VIAL IVP PRN (02:31)
--- NOTE | 2024-12-07 02:43 | P.EN ---
Rapid Response Note - Patient: Padmini John Date/Time: 12/08/2023 0130 Location: [id number] Call Reason: RN activated Rapid Response overhead due to critically low BP: 60/34 mmHg. Subjective: Bedside RN reported critically low BP (60/34). Caregiver at bedside stated patient's code status recently changed from Full Code to DNR. Daughter (identified as DPOA) presented at bedside upon request to discuss advanced care planning. DPOA expressed agreement with transitioning to comfort measures only ([facility]) after discussion. DPOA informed patient likely too unstable for discharge home with hospice due to severity of clinical status. Objective: BP on [employer]PO[employer] Arrival: 69/39 mmHg. Active Treatment: Receiving 500 cc IV fluid bolus. Received 10 mg Midodrine prior to [employer]PO[employer] call. Relevant PMH (Per Chart Review): Severe Mitral Valve Regurgitation. Code Status: Confirmed DNR (per caregiver report, verify order in chart). Assessment: Critically low BP (SBP <70 mmHg) refractory to initial fluid resuscitation and Midodrine. Hemodynamic instability consistent with underlying severe cardiac disease (Mitral Valve Regurgitation) and likely end-stage process. DPOA (daughter) decisional, present, and agrees with comfort measures only based on patient's condition and prognosis. Patient meets clinical criteria for comfort-focused care; discharge to home hospice appears medically unsafe due to acuity. Actions Taken & Plan: Comfort Measures: comfort measures only initiated per discussion and agreement with DPOA. All non-comfort focused interventions discontinued. Hospice Consult: Hospice service consulted this morning for inpatient evaluation and [id number] discussion/facilitation. Awaiting their assessment. Discharge Planning: Social Work consulted to assist with discharge planning coordination, focusing on disposition options appropriate for [facility] (e.g., GIP or home hospice if stability miraculously achieved, though unlikely). Monitoring: Continue frequent monitoring focused on patient comfort (pain, dyspnea, agitation). No further hemodynamic monitoring for intervention purposes. Communication: Nursing aware of plan. Ensure DNR/[facility] orders are clearly documented. [employer] Status: Closed. Care transitioned to primary team with clear [facility] plan and hospice/social work involvement. Primary team messaged and made aware by nursing team. [employer] Responder: Dominick Esquivel MD
--- NOTE | 2024-12-07 02:53 | PN ---
PROGRESS NOTE DATE OF SERVICE: 12/06/2024 SUBJECTIVE: This is an 89-year-old woman who was admitted with multiple medical problems and history of CHF. Also has extremely diminished p.o. intake. The patient has significant wasting and weakness also. The patient also mildly confused. Multiple consultants are following the patient closely. The patient had acute hypoxic respiratory failure on presentation. The patient also had pleural effusion. Pulmonary is following the patient closely for possible aspiration. PAST MEDICAL HISTORY: Reviewed. REVIEW OF SYSTEMS: Fourteen-point review of systems is negative. CURRENT MEDICATIONS: Reviewed. PHYSICAL EXAMINATION: VITAL SIGNS: Pulse is 60, blood pressure is 91/49, respirations 14. HEENT: Conjunctivae normal. NECK: No jugular venous distention. CARDIOVASCULAR: S1, S2. RESPIRATIONS: Bilateral scattered rhonchi and crackles. Breath sounds diminished in the left base. ABDOMEN: Soft and nontender. NERVOUS SYSTEM: Nonfocal. LABS: Reviewed. ASSESSMENT: 1. CHF acute exacerbation, acute on chronic systolic dysfunction, ejection fraction 40% to 50%. 2. Hypokalemia. 3. Severe mitral regurgitation with LA dilatation associated. 4. Moderate paravalvular leak from the TAVR valve. 5. Troponin 0.194 of indeterminate origin, rule out coronary artery disease. 6. Bilateral pleural effusion, right more than the left. 7. Prosthetic tricuspid valve done in [facility]. 8. History of atrial fibrillation. 9. History of pneumonia. 10.History of breast cancer with mastectomies. 11.History of gout. 12.Change in mental status. 13.Acute metabolic encephalopathy. 14.History of cardiac ablation. 15.Multiple complex medical issues. 16.No code, no CPR, no vent. RECOMMENDATIONS: Recommend to continue current medications and symptomatic treatment. Otherwise, at this time I would recommend potassium supplementation. PT/INR is elevated, and closely follow with Dr. Jaimes for possible thoracocentesis. Continue rest of medications. Prognosis extremely guarded. Further recommendations to follow. MMODL / IJN: [id number] /
[2024-12-07] MEDS: LORazepam 1 MG/0.5 ML VIAL IV PRN (02:55)
[2024-12-07] MEDS: MORPHINE SULFATE 100 MG in SODIUM CHLORIDE 0.9% 90 ML IV SCH (03:21)
[2024-12-07] MEDS: LEVOTHYROXINE 75 MCG TAB PO SCH (04:07)
--- NOTE | 2024-12-07 05:56 | P.PN ---
Subjective Progress Note Date: 12/07/24 89-year-old female patient with a known history of congestive heart failure, atrial fibrillation anticoagulated with warfarin, previous atrial fibrillation ablations, permanent pacemaker implantation hypothyroidism, hypertension, breast cancer with bilateral mastectomies. Lifelong non-smoker. She presented here to the emergency room yesterday after receiving a call from her primary care provider that her potassium was 2.2. Her daughter stated she has stopped taking all of her medications and the last couple days noticed increasing shortness of breath and leg swelling. Chest x-ray reveals cardiomegaly with small bilateral pleural effusions and pulmonary vascular congestion. CT scan of the brain revealed no acute intracranial process. KG reveals atrial fibrillation with paced rhythm. White count 5.4. Hemoglobin 13.4. Platelets 115. INR 2.7. Sodium 133. Potassium 3.3. Bicarb 36. BUN 63. Creatinine 1.01. Glucose 106. Troponin 0.149, 0.194. proBNP 13,300. Viral screen negative. Urinalysis clean. She is seen today in consultation on the selective care unit. She is currently sitting up in bed. Awake and alert in no acute distress. She is maintaining O2 saturations in the 90s on 2 L/min per nasal cannula. She is afebrile. Hemodynamically stable. Patient had rapid response called due to hypotension; DPOA at bedside and is planning to proceed to comfort care; case management is consulted for discharge planning Objective - Vital Signs Vital signs: Vital Signs Temp 97.9 F 12/06/24 20:00 Pulse 62 12/07/24 00:00 Resp 16 12/07/24 00:00 BP 69/41 12/07/24 02:03 Pulse Ox 96 12/07/24 00:00 FiO2 Intake & Output 12/06/24 12/06/24 12/07/24 06:59 18:59 06:59 Intake Total 20 0 Balance 20 0 Weight 60.5 kg 60.5 kg Intake: IV 20 Invasive Line 1 20 Oral 0 0 Other: Voiding Method Toilet Toilet Diaper Diaper # Voids 1 1 # Bowel Movements 1 0 - Exam HEENT examination is grossly unremarkable. Mucous membranes are moist. No oral lesions. Neck supple. Full range of motion. No adenopathy thyromegaly or neck vein distention. Cardiovascular examination reveals regular rhythm rate. S1-S2 normal. No S3 or S4. No discernible murmur noted. Lungs reveal diminished bibasilar breath sounds. Basilar crackles noted. No wheezes. No rhonchi. Abdomen soft bowel sounds are heard. No masses or tenderness. Extremities are intact. No cyanosis or clubbing. 2+ lower extremity edema is noted. Skin is without rash or lesion. Neurologic examination is brief but nonfocal. - Labs CBC & Chem 7: 12/05/24 06:50 12/06/24 07:32 Labs: Abnormal Lab Results - Last 24 Hours (Table) 12/06/24 12/06/24 Range/Units 07:32 07:32 PT 32.2 H (10.0-12.5) sec INR 3.2 H (<1.2) Sodium 135 L (137-145) mmol/L Potassium 3.1 L (3.5-5.1) mmol/L Chloride 84 L (98-107) mmol/L Carbon Dioxide 39 H (22-30) mmol/L BUN 65 H (7-17) mg/dL Creatinine 1.07 H (0.52-1.04) mg/dL Glucose 184 H (74-99) mg/dL Microbiology - Last 24 Hours (Table) 12/04/24 18:28 Blood Culture - Preliminary Blood 12/04/24 16:30 Urine Culture - Final Urine,Voided Assessment and Plan Assessment: Acute hypoxic respiratory failure secondary to an acute exacerbation of suspected systolic versus diastolic congestive heart failure. Bilateral right greater than left pleural effusions, secondary to CHF. Troponin leak. Hypokalemia. Recent discharge for congestive heart failure. History of atrial fibrillation, status post previous ablation and permanent pacemaker implantation. History of breast cancer S/P bilateral mastectomies. Hypothyroidism. - Patient has been evaluated by cardiology and pulmonary service; cardiology has recommended to discontinue metolazone and continue with Coumadin; repeat echocardiogram was not recommended Pulmonary on board and had completed ultrasound of the chest which revealed bilateral pleural effusions right greater than the left. Thoracentesis could not be performed due to INR of 3.2; pulmonary however did recommend thoracentesis Patient had rapid response called last night due to hypotension; family/caregiver/DPOA have decided to proceed with comfort care
[2024-12-07] MEDS: PANTOPRAZOLE 40 MG TABLET PO SCH (07:26)
[2024-12-07] MEDS ORDERED: MIDODRINE 5 MG TAB PO SCH (07:30)
[2024-12-07 07:35] VITALS: PULSE 60
[2024-12-07 11:00] VITALS: RESP 7
== END 2024-12-07 14:15 | disposition expired | DRG 291 ==
LOC: EC 09:03 → 3SCARD 11:25
PROVIDERS: ADMIT Internal Medicine; ATTEND Internal Medicine
DX: I11.0 Hypertensive heart disease with heart failure (principal); G93.41 Metabolic encephalopathy; I50.43 Acute on chronic combined systolic (congestive) and diastolic (congestive) heart failure; J96.01 Acute respiratory failure with hypoxia; J18.9 Pneumonia, unspecified organism; E86.0 Dehydration; Z51.5 Encounter for palliative care; I27.20 Pulmonary hypertension, unspecified; Z95.2 Presence of prosthetic heart valve; E03.9 Hypothyroidism, unspecified; I48.20 Chronic atrial fibrillation, unspecified; Z66 Do not resuscitate; R79.1 Abnormal coagulation profile; Z79.01 Long term (current) use of anticoagulants; Z96.1 Presence of intraocular lens; M10.9 Gout, unspecified; E87.6 Hypokalemia; I34.0 Nonrheumatic mitral (valve) insufficiency; Z95.4 Presence of other heart-valve replacement; Z95.0 Presence of cardiac pacemaker; Z79.890 Hormone replacement therapy; Z79.899 Other long term (current) drug therapy; Z90.13 Acquired absence of bilateral breasts and nipples; Z90.710 Acquired absence of both cervix and uterus; Z85.828 Personal history of other malignant neoplasm of skin; Z85.3 Personal history of malignant neoplasm of breast
CPT/HCPCS: 36415; 70450; 71045; 76604; 80048; 80053; 81003; 83735; 83880; 84484; 85025; 85610; 85730; 87040; 87086; 87636; 93005; 96365; 96366; 99291